=== PATIENT | male | born 1955 | race Caucasian/White ===

== ENCOUNTER 2024-09-25 10:07 | Emergency (ER) | payer MEDICARE, MEDICAID, SELFPAY ==
[2024-09-25 10:25] VITALS: BP 159/94; PULSE 91; RESP 16; TEMP 37; O2SAT 99
[2024-09-25 10:33] VITALS: PULSE 95; RESP 18; O2SAT 95; BMI 29.5
--- NOTE | 2024-09-25 10:48 | EKG_ITS ---
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
--- NOTE | 2024-09-25 10:48 | XR_ITS ---
Examination: AP chest single view Technique one AP portable upright chest single view Exam date and time: September 25, 2024 1110 hours INDICATIONS: Upper abdominal pain today FINDINGS: Normal heart size No pneumonia or pulmonary edema The osseous structures are intact IMPRESSION: No pneumonia or pulmonary edema
--- NOTE | 2024-09-25 10:52 | PD.EDNV ---
Nausea/Vomit./Diarrhea-RME/HPI General Chief complaint: Nausea/Vomiting/Diarrhea Stated complaint: NAUSEA Time Seen by Provider: 09/25/24 10:23 Arrival date/time: 09/25/24 10:07 Limitations: no limitations RME / HPI RME / HPI Narrative: 69 year old male with history of CAD s/p PCI, s/p PCTA, hypertension, diabetes, hyperlipidemia, BPH, gastroparesis x10 years presents to the ED BIBA from home for gastroparesis flare up beginning 2 days ago. Accompanied by abdominal pain located throughout. States Reglan at home usually keeps it at bay . However has taken with no improvement in the last 2 days, last took this morning. Denies fevers, chills, cough, chest pain, shortness of breath, diarrhea, or urinary symptoms. Related Data Home Medications ?Medication ?Instructions ?Recorded ?Confirmed duloxetine 60 mg capsule,delayed 60 mg PO DAILY Depression ##0 04/12/13 03/12/23 release (Cymbalta) pregabalin 200 mg capsule (Lyrica) 200 mg PO BID ##60 04/28/16 03/12/23 cilostazol 100 mg tablet 100 mg PO BID #0 tabs 01/31/17 03/12/23 metoclopramide HCl 10 mg tablet 20 mg PO BID 04/07/18 03/12/23 levothyroxine 125 mcg capsule 125 mcg PO QDAY 01/14/19 03/12/23 lovastatin 40 mg tablet 40 mg PO HS 01/14/19 03/12/23 clopidogrel 75 mg tablet 75 mg PO QDAY 02/16/20 03/12/23 tamsulosin 0.4 mg capsule 0.4 mg PO QDAY 02/16/20 03/12/23 omeprazole 40 mg capsule,delayed 40 mg PO QDAY 09/01/20 03/12/23 release oxycodone-acetaminophen 5 mg-325 1 tab PO QID PRN Pain 10/17/20 03/12/23 mg tablet insulin regular human 100 unit/mL 20 unit subcut QID 05/29/22 03/12/23 injection solution cartridge gabapentin 100 mg capsule 100 mg PO DAILY 03/12/23 03/12/23 lisinopril 2.5 mg tablet 2.5 mg PO QDAY 03/12/23 03/12/23 loratadine 10 mg tablet 10 mg PO DAILY 03/12/23 03/12/23 Allergies Allergy/AdvReac Type Severity Reaction Status Date / Time No Known Allergies Allergy Verified 02/09/21 11:00 Review of Systems Review of Systems Narrative Review of Systems: GEN: No fever, no chills, no weight loss EYES: No discharge, no visual changes, no pain HEENT: No ear pain, no congestion, no sore throat PULM: No shortness of breath, no cough, no congestion CV: No chest pain, no palpitations GI: +nausea, +vomiting, no diarrhea, +pain, no constipation : No frequency, no urgency, no dysuria MUSC/SKEL: No joint pain, no back pain SKIN: No rash NEURO: No weakness, no headache Past Medical History Past Medical History NEUROLOGIC: Positive Neurological Disorders and Peripheral Neuropathy CARDIAC: Positive Peripheral Vascular Disease, Hypercholesterolemia and Hypertension RESPIRATORY: Positive Asthma GASTROINTESTINAL: Positive Gastrointestinal Disorders and Gastroesophageal Reflux Disease MUSCULOSKELETAL: Positive Musculoskeletal Disorders, Arthritis and Carpal Tunnel Syndrome ENDOCRINE: Positive Endocrine Disorders, Diabetes Mellitus Type 2 and Hypothyroidism PSYCHO/SOCIAL: Positive Depression OTHER HISTORY: Positive Chicken Pox, Measles and Mumps Family History FAMILY HISTORY: Positive Family Cardiac Disorders and Family Cancer Surgical History SURGICAL: Positive Ear Surgery and Tonsillectomy Social History SMOKING STATUS: Current every day smoker SECOND HAND EXPOSURE: No SUBSTANCE USE: marijuana (Daily) ED Exam General Limitations: Present no limitations General appearance: Present alert and other (Holding an emesis bag) Head Head exam: Present atraumatic, normocephalic and normal inspection Eye Eye exam: Present normal appearance, PERRL and EOMI ENT ENT exam: Present normal exam, normal oropharynx and mucous membranes moist Neck Neck exam: Present normal inspection, full ROM and trachea midline Chest Chest inspection: Present normal inspection and symmetric chest wall rise Respiratory Respiratory exam: Present normal lung sounds bilaterally Cardiovascular Cardiovascular exam: Present regular rate, normal rhythm and normal heart sounds Abdominal Exam Abdominal exam: Present soft, tenderness (in all quadrants with voluntary guarding) and normal bowel sounds; Absent rebound or rigidity Extremities Exam Extremities exam: Present normal inspection and full ROM Back Exam Back exam: Present normal inspection and full ROM Neurological Exam Neurological exam: Present alert, oriented X3 and CN II-XII intact Psychiatric Psychiatric exam: Present normal affect and normal mood Skin Skin exam: Present warm, dry, intact and normal color Course Quality Measures none Orders Category Date Time 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 09/25/24 10:48 Active Continuous Pulse Oximetry STAT Care 09/25/24 10:48 Active EKG (ED ONLY) *Do not use* NOW Care 09/25/24 10:48 Completed In and Out Catheter X1 Care 09/25/24 10:48 Active Insert IV STAT Care 09/25/24 10:48 Active NPO STAT Care 09/25/24 10:48 Active EKG (ED Only) Stat Exams 09/25/24 10:48 Draft XR chest 1V portable Stat Exams 09/25/24 10:48 Completed CBC Stat Lab 09/25/24 10:55 Completed Comprehensive Metabolic Panel Stat Lab 09/25/24 10:55 Completed Lipase Stat Lab 09/25/24 10:55 Completed Magnesium Stat Lab 09/25/24 10:55 Completed HYDROmorphone INJ [Dilaudid Inj] Med 09/25/24 10:48 Discontinued 1 mg IVP Q1H PRN Metoclopramide Inj [Reglan Inj] Med 09/25/24 10:48 Discontinued 10 mg IVP X1 ONE Sodium Chloride 0.9% 1000 ml [Ns] 1,000 ml Med 09/25/24 10:48 Discontinued IV 999 mls/hr Reevaluation(s) Reevaluation #1: Patient remains clinically stable throughout the emergency department visit. We reviewed all the results, analysis, and treatment plans. Patient is amenable to discharge. Strict return precautions were outlined. Patient was discharged in stable condition. Time: 12:15 Vital Signs Vital signs: Vital Signs Temperature 98.6 F 09/25/24 10:25 Pulse Rate 91 09/25/24 10:25 Respiratory Rate 16 09/25/24 10:25 Blood Pressure 159/94 H 09/25/24 10:25 Pulse Oximetry (%) 99 09/25/24 10:25 Oxygen Delivery Method Room Air 09/25/24 10:25 Pulse ox is 99% on room air which is adequate. Nausea/Vomiting/Diarrhea MDM Narrative MDM Narrative:: Shanique Hardy am scribing for and in the presence of Dr. Castaneda. Patient data External records reviewed:: [facility] previous records (I reviewed ED visit on 03/04/2024) and EMS form Clinical information provided by:: patient and EMS Social determinants that could affect healthcare access:: none Patient has the following chronic illnesses:: CAD s/p PCI, s/p PCTA, hypertension, diabetes, hyperlipidemia, BPH, gastroparesis x10 years How is presenting disease/condition affected by chronic disease/condition?: exacerbated by Evaluation data The following diagnostics were reviewed and interpreted by me:: lab results, radiology exam(s) and EKG tracing(s) (NSR, HR 88, normal axis, no ectopy, no acute ischemia, QRS11, QTc 399 ) Lab and/or radiology exams considered but not ordered:: None Interpretation Summary: Ordering Physician: Jayy Castaneda MD Date of Service: 09/25/24 Procedure(s): XR chest 1V portable Accession Number(s): [id number] cc: Brent Bartlett MD; Danay Salas NP; Jayy Castaneda MD~ Examination: AP chest single view Technique one AP portable upright chest single view Exam date and time: September 25, 2024 1110 hours INDICATIONS: Upper abdominal pain today FINDINGS: Normal heart size No pneumonia or pulmonary edema The osseous structures are intact IMPRESSION: No pneumonia or pulmonary edema Dictated By: Brent Bartlett MD Signed By: <Electronically signed by Brent Bartlett MD in OV> 09/25/24 1142 Medications / Prescriptions Medications / Prescriptions considered but not ordered:: None Medication administrations:: Medication Administration History Discontinued Medications Hydromorphone HCl (Hydromorphone Inj 2 Mg/Ml Vial) 1 mg IVP Q1H PRN PRN Reason: abdominal pain Stop: 09/25/24 13:49 Last Admin: 09/25/24 11:25 Dose: 1 mg Documented By: Sodium Chloride (Ns) 1,000 mls @ 999 mls/hr IV .Q1H1M ONE Stop: 09/25/24 11:48 Last Infusion: 09/25/24 13:40 Dose: Infused Documented By: Admin: 09/25/24 11:26 Dose: 999 mls/hr Documented By: Metoclopramide HCl (Metoclopramide Inj 5 Mg/Ml Vial 2 Ml) 10 mg IVP X1 ONE Stop: 09/25/24 10:49 Last Admin: 09/25/24 11:26 Dose: 10 mg Documented By: See above Consultations Consultation(s) initiated? (list below): No Diagnosis Nausea Differential Diagnosis: gastroenteritis, drug-induced nausea and vomiting, dehydration and other (Gastroparesis ) Most likely diagnosis given after review of the tests above:: Gastroparesis Nausea and vomiting Admission Indicated Admission indicated?: not indicated Admission Request Was there a request for admission?: No Disposition Plan Disposition Plan: Discharge Discharge Attestation Discharge Attestation: The patient and all family members were given an opportunity to ask questions and understood the discharge instructions. Discharge instructions specifically effects, indications for sooner follow up or return to the emergency department, and the expected course of current diagnosis. Patient condition: Stable Discharge Plan Plan Patient Disposition: HOME (Self Care) Disposition Comment: Stable for discharge Patient condition on transfer: Stable Prescriptions/Referrals Prescriptions/Med Rec: No Action duloxetine [Cymbalta] 60 MG capsule,delayed release(DR/EC) 60 mg PO DAILY Qty: 0 pregabalin [Lyrica] 200 MG capsule 200 mg PO BID Qty: 60 cilostazol 100 MG tablet 100 mg PO BID Qty: 0 metoclopramide HCl 10 mg Tablet 20 mg PO BID lovastatin 40 mg Tablet 40 mg PO HS levothyroxine 125 mcg Capsule 125 mcg PO QDAY tamsulosin 0.4 mg Capsule 0.4 mg PO QDAY clopidogrel 75 mg Tablet 75 mg PO QDAY omeprazole 40 mg capsule,delayed release(DR/EC) 40 mg PO QDAY oxycodone-acetaminophen 5-325 mg Tablet 1 tab PO QID PRN (Reason: Pain) insulin regular human 100 unit/mL Cartridge 20 unit SUBCUT QID Rx Instructions: 20 UNITS SUBQ FOR TIME A DAY WITH PUMP loratadine 10 mg Tablet 10 mg PO DAILY lisinopril 2.5 mg Tablet 2.5 mg PO QDAY gabapentin 100 mg capsule 100 mg PO DAILY Patient Comments: TAKE ONE CAPSULE BY MOUTH TWICE DAILY Rx Instructions: per pt last visit was ordered once a day Referrals: Danay Salas NP [Primary Care Provider] - In 1 week Problem List Clinical Impression: Gastroparesis, Nausea & vomiting Patient/Caregiver Discharge Instructions Discharge Activity: activity as tolerated Diet Instructions: A gastroparesis diet focuses on eating small, frequent meals of soft, dewr-pp-pmyohe foods. The goal is to find foods that provide adequate calories and nutrition while managing symptoms. Here are some tips for a gastroparesis diet: Eat smaller meals: Try to eat 4?8 small meals and snacks throughout the day. Eat soft foods: Choose soft-textured foods like cooked vegetables, fruits, and dairy. Avoid high-fiber foods: Limit foods high in fiber, like whole grains, nuts, seeds, beans, and lentils. Avoid high-fat foods: Limit fried or greasy foods. Avoid raw vegetables: Cook vegetables until they are soft. Drink liquids: Drink plenty of water or liquids with meals and snacks, like low-fat broths, clear soups, or sports drinks. Chew well: Chew foods well, especially meats. Sit up: Sit up while eating and stay upright for at least an hour after you finish. Avoid certain foods and drinks: Avoid peppermint, chocolate, caffeine, and drinks like pop. Consider supplements: If you have trouble eating enough from all four food groups, a supplement may help. Education Materials: Gastroparesis, ED Diet for Vomiting or ... Additional Instructions: Please return to the emergency department for any worsening or any further medical problems You should follow-up with your primary care doctor within the next several days Please see the gastroparesis diet instructions above Print Language: Maltese Stand Alone Forms: Amy Award Info., Patient Portal Info Letter
[2024-09-25 11:11] LABS: Basophils % (Auto) 0 % (0-2.5); Eosinophils % (Auto) 0 % (0-10); Hematocrit 41.4 % (41.0-53.0); Hemoglobin 13.7 g/dL (13.5-16.0); Immature Granulocytes % (Auto) 0 % (0-0); Immature Granulocytes Auto 0.05 Thou/mm3 (0.00-0.00); Lymphocytes # (Auto) 0.4 Thou/mm3 (1.0-4.8); Lymphocytes % (Auto) 2 % (10-50); Mean Corpuscular HGB Conc 33.1 g/dl (31.0-37.0); Mean Corpuscular Hemoglobin 30.7 pg (25.0-35.0); Mean Corpuscular Volume 93 fL (80-100); Monocytes # (Auto) 0.9 Thou/mm3 (0.0-0.8); Monocytes % (Auto) 5 % (0-12); Neutrophils # (Auto) 16.1 Thou/mm3 (1.8-7.7); Neutrophils % (Auto) 92 % (37-80); Nucleated Red Blood Cell % 0 /100 WBC (0); Platelet Count 239 Thou/mm3 (140-440); RDW Standard Deviation 48.2 fL (35.1-43.9); Red Blood Count 4.46 Miln/mm3 (4.50-5.90); White Blood Count 17.5 Thou/mm3 (3.8-10.6)
[2024-09-25] MEDS: HYDROmorphone INJ 2 MG/ML VIAL 1 MG IVP (11:25)
[2024-09-25] MEDS: METOCLOPRAMIDE INJ 5 MG/ML VIAL 2 ML 10 MG IVP (11:26)
[2024-09-25] MEDS: SODIUM CHLORIDE 0.9% 1000 ML 1,000 ML 999 ML IV (11:26)
[2024-09-25 11:28] LABS: Alanine Aminotransferase 42 U/L (10-49); Albumin, Serum 4.7 gm/dL (3.4-4.8); Alkaline Phosphatase 92 U/L (46-116); Anion Gap 17 (7-16); Aspartate Amino Transferase 28 U/L (0-34); BUN/Creatinine Ratio 23 Ratio (12-20); Bilirubin,Total 0.6 mg/dL (0.3-1.2); Blood Urea Nitrogen 21 mg/dL (9-23); Calcium 10.3 mg/dL (8.3-10.6); Calcium (Corrected) 10.3 mg/dL (8.5-10.1); Carbon Dioxide 19.9 mMol/L (20.0-31.0); Chloride 97 mMol/L (98-107); Creatinine (Component) 0.9 mg/dL (0.6-1.3); Globulin 2.3 gm/dL (2.3-3.5); Glucose 199 mg/dL (74-106); Lipase 22 U/L (12-53); Magnesium 2.3 mg/dL (1.6-2.6); Osmolality,Calculated 277 (275-295); Potassium 3.3 mMol/L (3.4-5.1); Sodium 134 mMol/L (136-145); eGFR > 60 See Note
[2024-09-25 12:02] VITALS: BP 122/70; PULSE 85; RESP 19; TEMP 37.2; O2SAT 97
[2024-09-25 13:45] VITALS: BP 114/70; PULSE 88; RESP 18; TEMP 36.6; O2SAT 96
== END 2024-09-25 13:46 | disposition home or self-care (01) ==
PROVIDERS: Emergency Provider Emergency Medicine; PCP Nurse Practitioner Family
DX: E11.43 Type 2 diabetes mellitus with diabetic autonomic (poly)neuropathy (principal); K31.84 Gastroparesis; I45.89 Other specified conduction disorders; Z79.4 Long term (current) use of insulin
CPT/HCPCS: 36415; 71045; 80053; 83690; 83735; 85025; 93005; 96361; 96374; 96375; 99284; J2765; J3490; J7030

== ENCOUNTER 2024-09-26 00:15 | Inpatient (IN) | payer MEDICARE, MEDICAID, SELFPAY ==
[2024-09-26] VITALS (14 sets, daily range): BP systolic 123–168; BP diastolic 80–89; PULSE 65–90; RESP 13–96; TEMP 36.1–37; O2SAT 94–99; BMI 25.0; BMI 24.0
--- NOTE | 2024-09-26 00:32 | EKG_ITS ---
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
--- NOTE | 2024-09-26 00:39 | EDRME_ITS ---
Rapid Medical Screening Exam [facility] Arrival date/time: 09/26/24 00:15 69M with history of DM (w/ DKA), HTN, and hypothyroidism presents to ED with worsening N/V and generalized weakness. Patient was here yesterday for this. Chief Complaint: Abdominal Pain Vital signs: Vital Signs Temperature 98.5 F 09/26/24 00:32 Pulse Rate 87 09/26/24 00:32 Respiratory Rate 18 09/26/24 00:32 Blood Pressure 129/88 H 09/26/24 00:32 Pulse Oximetry (%) 99 09/26/24 00:32 Oxygen Delivery Method Room Air 09/26/24 00:32
[2024-09-26] MEDS: DiphenhydrAMINE INJ 50 MG/ML VIAL 12.5 MG IVP (00:49)
[2024-09-26] MEDS: METOCLOPRAMIDE INJ 5 MG/ML VIAL 2 ML 10 MG IVP ×3 (00:50→14:23)
[2024-09-26 01:08] LABS: Base Excess, Venous -2 (-3-3); O2 Saturation, Venous 90 % (96-97); PCO2, Venous 24 mmHg (36-56); PO2, Venous 55 mmHg (15-58)
[2024-09-26 01:09] LABS: Basophils % (Auto) 0 % (0-2.5); Eosinophils # (Auto) 0.3 Thou/mm3 (0.0-0.5); Eosinophils % (Auto) 2 % (0-10); Hematocrit 43.8 % (41.0-53.0); Hemoglobin 14.6 g/dL (13.5-16.0); Immature Granulocytes % (Auto) 0 % (0-0); Immature Granulocytes Auto 0.03 Thou/mm3 (0.00-0.00); Lactate (Lactic Acid) 1.4 mMol/L (0.4-2.0); Lymphocytes # (Auto) 0.6 Thou/mm3 (1.0-4.8); Lymphocytes % (Auto) 5 % (10-50); Mean Corpuscular HGB Conc 33.3 g/dl (31.0-37.0); Mean Corpuscular Hemoglobin 30.7 pg (25.0-35.0); Mean Corpuscular Volume 92 fL (80-100); Monocytes # (Auto) 1.1 Thou/mm3 (0.0-0.8); Monocytes % (Auto) 9 % (0-12); Neutrophils # (Auto) 10.2 Thou/mm3 (1.8-7.7); Neutrophils % (Auto) 83 % (37-80); Nucleated Red Blood Cell % 0 /100 WBC (0); Platelet Count 263 Thou/mm3 (140-440); RDW Standard Deviation 46.8 fL (35.1-43.9); Red Blood Count 4.76 Miln/mm3 (4.50-5.90); White Blood Count 12.2 Thou/mm3 (3.8-10.6)
[2024-09-26 01:45] LABS: Alanine Aminotransferase 38 U/L (10-49); Albumin, Serum 4.9 gm/dL (3.4-4.8); Alkaline Phosphatase 95 U/L (46-116); Anion Gap 15 (7-16); Aspartate Amino Transferase 30 U/L (0-34); BUN/Creatinine Ratio 23 Ratio (12-20); Bilirubin,Total 0.8 mg/dL (0.3-1.2); Blood Urea Nitrogen 18 mg/dL (9-23); Calcium 9.9 mg/dL (8.3-10.6); Calcium (Corrected) 9.9 mg/dL (8.5-10.1); Carbon Dioxide 21.8 mMol/L (20.0-31.0); Chloride 98 mMol/L (98-107); Creatinine (Component) 0.8 mg/dL (0.6-1.3); Estimated Creatinine Clearance 77.5 mL/min (>60); Globulin 2.5 gm/dL (2.3-3.5); Glucose 154 mg/dL (74-106); Lipase 24 U/L (12-53); Osmolality,Calculated 275 (275-295); Potassium 3.5 mMol/L (3.4-5.1); Procalcitonin 8.76 ng/ml (0.0-0.49); Sodium 135 mMol/L (136-145); Total Protein 7.4 gm/dL (5.7-8.2); eGFR > 60 See Note
[2024-09-26 02:03] LABS: Beta Hydroxybutyrate 4.1 mmol/L (<0.6)
--- NOTE | 2024-09-26 04:42 | PD.EDABDPN ---
ED Abdominal Pain RME/HPI General Chief Complaint: Abdominal Pain Stated complaint: ABDOMINAL PAIN Time seen by provider: 09/26/24 06:13 Arrival date/time: 09/26/24 00:15 Limitations: no limitations RME / HPI RME / HPI narrative: 09/26/24 00:15 69M with history of DM (w/ DKA), HTN, and hypothyroidism presents to ED with worsening N/V and generalized weakness. Patient was here yesterday for this. ---- Dr. Hawthorne's Main ED Evaluation: 69-year-old male coming in with gastroparesis, hypertension, GERD, high cholesterol, taking insulin coming in with 3 days of nausea, vomiting, and the inability to tolerate liquids. Positive subjective fevers x 1 day. Nausea vomiting x 10 times. Positive cough. Patient states the vomit is nonbloody nonbilious. Patient stated he was seen earlier today in the emergency department for gastroparesis and was feeling fine until he went home and had some soup. He states he's had mid-abdominal pain since. No radiation or migration. He is not on any narcotics. He denies any diarrhea, UTI symptoms or any other associated symptoms. No known allergies. Related Data Home Medications ?Medication ?Instructions ?Recorded ?Confirmed duloxetine 60 mg capsule,delayed 60 mg PO DAILY Depression ##0 04/12/13 09/26/24 release (Cymbalta) pregabalin 200 mg capsule (Lyrica) 200 mg PO BID ##60 04/28/16 09/26/24 cilostazol 100 mg tablet 100 mg PO BID #0 tabs 01/31/17 09/26/24 metoclopramide HCl 10 mg tablet 10 mg PO [facility]HS 04/07/18 09/26/24 levothyroxine 125 mcg capsule 125 mcg PO QDAY 01/14/19 09/26/24 lovastatin 40 mg tablet 40 mg PO HS 01/14/19 09/26/24 clopidogrel 75 mg tablet 75 mg PO QDAY 02/16/20 09/26/24 tamsulosin 0.4 mg capsule 0.4 mg PO QDAY 02/16/20 09/26/24 omeprazole 40 mg capsule,delayed 40 mg PO QDAY 09/01/20 09/26/24 release insulin regular human 100 unit/mL 20 unit subcut QID 05/29/22 03/12/23 injection solution cartridge dapagliflozin propanediol 5 mg 5 mg PO QAM 09/26/24 09/26/24 tablet (Farxiga) ergocalciferol (vitamin D2) 1,250 1,250 mcg PO QWEEK 09/26/24 09/26/24 mcg (50,000 unit) capsule (Vitamin D2) ferrous sulfate 325 mg (65 mg 325 mg PO QDAY 09/26/24 09/26/24 iron) tablet linaclotide 290 mcg capsule 290 mcg PO AC 09/26/24 09/26/24 (Linzess) metformin 500 mg tablet 500 mg PO BIDWMEAL 09/26/24 09/26/24 oxycodone-acetaminophen 7.5 mg-325 1 tab PO QID PRN Pain 09/26/24 09/26/24 mg tablet Allergies Allergy/AdvReac Type Severity Reaction Status Date / Time No Known Allergies Allergy Verified 09/26/24 00:25 Review of Systems Review of Systems Systems Reviewed: All systems reviewed, normal except as documented Past Medical History Past Medical History NEUROLOGIC: Positive Neurological Disorders and Peripheral Neuropathy; Negative Seizures CARDIAC: Positive Peripheral Vascular Disease, Hypercholesterolemia and Hypertension; Negative Cardiac Disorders or Congestive Heart Failure RESPIRATORY: Positive Asthma; Negative Chronic Obstructive Pulmonary Disease (COPD) or Sleep Apnea GASTROINTESTINAL: Positive Gastrointestinal Disorders and Gastroesophageal Reflux Disease GENITOURINARY: Negative Genitourinary Disorders or Renal Disease MUSCULOSKELETAL: Positive Musculoskeletal Disorders, Arthritis and Carpal Tunnel Syndrome ENDOCRINE: Positive Endocrine Disorders, Diabetes Mellitus Type 2 and Hypothyroidism; Negative Diabetes Mellitus Type 1 HEMATOLOGIC: Negative Sickle Cell Disease PSYCHO/SOCIAL: Positive Depression OTHER HISTORY: Positive Chicken Pox, Measles and Mumps; Negative Blood Transfusions, Blood Transfusion Reaction or Anesthesia Reactions Family History FAMILY HISTORY: Positive Family Cardiac Disorders and Family Cancer Surgical History SURGICAL: Positive Ear Surgery and Tonsillectomy Social History SMOKING STATUS: Never smoker SECOND HAND EXPOSURE: No SUBSTANCE USE: marijuana (Daily) ED Exam General Limitations: Present no limitations General appearance: Present alert and in no apparent distress Head Head exam: Present atraumatic Eye Eye exam: Present normal appearance, PERRL and EOMI ENT ENT exam: Present normal exam, normal oropharynx and mucous membranes moist Neck Neck exam: Present normal inspection, full ROM and trachea midline Chest Chest inspection: Present normal inspection and symmetric chest wall rise Respiratory Respiratory exam: Present normal lung sounds bilaterally Cardiovascular Cardiovascular exam: Present regular rate, normal rhythm and normal heart sounds Abdominal Exam Abdominal exam: Present soft, normal bowel sounds and hernia (small umbilical, reducible); Absent rebound Abdominal tenderness: Present epigastrium Extremities Exam Extremities exam: Present normal inspection and full ROM Back Exam Back exam: Present normal inspection and full ROM; Absent CVA tenderness (R) or CVA tenderness (L) Neurological Exam Neurological exam: Present alert, oriented X3 and CN II-XII intact Psychiatric Psychiatric exam: Present normal affect and normal mood Skin Skin exam: Present warm, dry, intact, pallor and other (decreased skin turgor) Course Course Course Narrative: 0600: Care signed out to Dr. Castaneda (emergency physician). Past medical, surgical, social and family history reviewed. Vitals and home medications reviewed. Results and treatment plan discussed. They will assume the care of the patient at this time and will follow the patient, pending CT. Quality Measures none Orders Category Date Time Status Admit to Inpatient Status Routine Admission 09/26/24 08:39 Active Patient Condition Routine Admission 09/26/24 08:39 Ordered Bedside Blood Glucose Q6HR Care 09/26/24 08:[address] Screening NOW Care 09/26/24 05:39 Completed EKG (ED ONLY) *Do not use* NOW Care 09/26/24 00:32 Completed Insert IV NOW Care 09/26/24 00:38 Active Miscellaneous Nursing Order NOW Care 09/26/24 08:44 Active Miscellaneous Nursing Order NOW Care 09/26/24 08:44 Active Miscellaneous Nursing Order NOW Care 09/26/24 08:56 Active NPO NOW Care 09/26/24 08:40 Active Notify provider NEEDED Care 09/26/24 08:39 Active Obtain weight daily Care 09/26/24 08:40 Active Strict Intake and Output Routine Care 09/26/24 08:40 Ordered Diet NPO (NOW) Diet 09/26/24 08:[address] abdomen pelvis w con Stat Exams 09/26/24 05:39 Completed EKG (ED Only) Stat Exams 09/26/24 00:32 Draft A1C [Glycohemoglobin w (eAG)] Routine Lab 09/26/24 04:58 Completed Beta Hydroxybutyrate Stat Lab 09/26/24 01:02 Completed CBC AM DRAW Lab 09/27/24 05:00 Ordered CBC AM DRAW Lab 09/28/24 05:00 Ordered CBC AM DRAW Lab 09/29/24 05:00 Ordered CBC AM DRAW Lab 09/30/24 05:00 Ordered CBC Routine Lab 09/26/24 04:58 Completed CBC Stat Lab 09/26/24 01:02 Completed CMP [Comprehensive Metabolic Panel] Routine Lab 09/26/24 04:58 Completed CMP [Comprehensive Metabolic Panel] Stat Lab 09/26/24 01:02 Completed Comprehensive Metabolic Panel AM DRAW Lab 09/27/24 05:00 Ordered Comprehensive Metabolic Panel AM DRAW Lab 09/28/24 05:00 Ordered Comprehensive Metabolic Panel AM DRAW Lab 09/29/24 05:00 Ordered Lactate (Lactic Acid) Stat Lab 09/26/24 01:02 Completed Lipase Stat Lab 09/26/24 01:02 Completed Lipid Panel AM DRAW Lab 09/27/24 05:00 Ordered Magnesium AM DRAW Lab 09/27/24 05:00 Ordered Magnesium AM DRAW Lab 09/28/24 05:00 Ordered Magnesium AM DRAW Lab 09/29/24 05:00 Ordered Magnesium Routine Lab 09/26/24 04:58 Completed Phosphorous AM DRAW Lab 09/27/24 05:00 Ordered Phosphorous AM DRAW Lab 09/28/24 05:00 Ordered Phosphorous AM DRAW Lab 09/29/24 05:00 Ordered Phosphorous Routine Lab 09/27/24 08:43 Ordered Procalcitonin Stat Lab 09/26/24 01:02 Completed Thyroid Stimulating Hormone AM DRAW Lab 09/27/24 05:00 Ordered VBG [Venous Blood Gas] Stat Lab 09/26/24 01:02 Completed VBG [Venous Blood Gas] Stat Lab 09/26/24 04:58 Completed Acetaminophen Tab [Tylenol Tab] Med 09/26/24 08:38 Active 650 mg PO Q6H PRN Acetaminophen Tab [Tylenol Tab] Med 09/26/24 08:38 Active 650 mg PO Q6H PRN Clopidogrel [Plavix] Med 09/26/24 09:00 Active 75 mg PO QDAY DULoxetine HCL [Cymbalta] Med 09/27/24 09:00 Discontinued 100 mg PO QDAY DULoxetine HCL [Cymbalta] Med 09/27/24 09:00 Active 60 mg PO QDAY Dextrose 50% Syr [D50w Syringe Abboject] Med 09/26/24 08:44 Active 25 ml IV Q15MIN PRN Dextrose 50% Syr [D50w Syringe Abboject] Med 09/26/24 08:44 Active 50 ml IV Q15MIN PRN DiphenhydrAMINE INJ [Benadryl Inj] Med 09/26/24 00:38 Discontinued 12.5 mg IVP X1 ONE Glucagon Inj Med 09/26/24 08:44 Active 1 mg IM Q15MIN PRN HYDROmorphone INJ [Dilaudid Inj] Med 09/26/24 04:55 Discontinued 0.5 mg IVP X1 ONE Heparin Inj Med 09/26/24 08:45 Active 5,000 unit SC Q12H INSULIN LISPRO (AdmeLOG) [HumaLOG] Med 09/26/24 08:45 Discontinued See Protocol SC Q6HR Levothyroxine Sodium [Synthroid] Med 09/27/24 06:00 Active 125 mcg PO ACBR Metoclopramide Inj [Reglan Inj] Med 09/26/24 08:38 Discontinued 10 mg IVP Q6HR PRN Metoclopramide Inj [Reglan Inj] Med 09/26/24 00:38 Discontinued 10 mg IVP X1 ONE Metoclopramide Inj [Reglan Inj] Med 09/26/24 04:55 Discontinued 10 mg IVP X1 ONE Morphine Inj Med 09/26/24 08:38 Active 1 mg IVP Q4H PRN Ondansetron Inj [Zofran Inj] Med 09/26/24 08:55 Active 4 mg IV Q8HR PRN POTASSIUM CHL 10 mEq IVPB [Kcl Ivpb] Med 09/26/24 07:18 Discontinued 10 meq in 100 ml IV Q1H POTASSIUM CHL 10 mEq IVPB [Kcl Ivpb] Med 09/26/24 08:47 Discontinued 10 meq in 100 ml IV Q1H Pantoprazole Inj [Protonix Inj] Med 09/26/24 09:00 Active 40 mg IVP QDAY Polyeth Glycol/Propylene Glyco [Miralax Pkt] Med 09/27/24 09:00 Active 17 gm PO QDAY Polyeth Glycol/Propylene Glyco [Miralax Pkt] Med 09/26/24 08:50 Discontinued 17 gm PO X1 ONE Pregabalin [Lyrica] Med 09/26/24 09:00 Discontinued 200 mg PO BID Ringers Lactated 1000 ml [Lactated Ringers] 1,000 ml Med 09/26/24 08:46 Discontinued IV 999 mls/hr Senna [Senokot] Med 09/26/24 08:38 Active 1 tab PO BID PRN Sodium Chloride 0.9% 1000 ml [Ns] 1,000 ml Med 09/26/24 05:00 Discontinued IV 100 mls/hr Sodium Chloride 0.9% 1000 ml [Ns] 1,000 ml Med 09/26/24 08:54 Discontinued IV 150 mls/hr Tamsulosin HCl [Flomax] Med 09/26/24 21:00 Active 0.4 mg PO HS cilostazoL [Pletal] Med 09/26/24 09:00 Active 100 mg PO BID oxyCODONE/APAP 5/325 [Percocet 5/325] Med 09/26/24 08:38 Active 1 tab PO Q6H PRN Code Status Routine Oth 09/26/24 08:38 Ordered Oxygen Delivery PRN RT 09/26/24 08:38 Active Vital Signs Vital signs: Vital Signs Temperature 98.5 F 09/26/24 00:32 Pulse Rate 87 09/26/24 00:32 Respiratory Rate 18 09/26/24 00:32 Blood Pressure 129/88 H 09/26/24 00:32 Pulse Oximetry (%) 99 09/26/24 00:32 Oxygen Delivery Method Room Air 09/26/24 00:32 Pulse ox is 99% on room air, which is normal according to my interpretation. Abdominal Pain MDM MDM Narrative MDM Narrative:: Patient was discharged yesterday morning after being given Reglan. Patient's labs today show his Procalcitonin is elevated. No evidence of DKA, but his beta hydroxybutyrate is elevated. CT scan ordered to r/o obstruction or occult infection. Will hydrate the patient with IV fluids and keep him NPO. Likely to be admitted. Patient data External records reviewed:: [facility] previous records (Per chart review, patient was seen here yesterday for gastroparesis; CXR done yesterday did not show any pneumonia.) Clinical information provided by:: patient Social determinants that could affect healthcare access:: none Patient has the following chronic illnesses:: peripheral neuropathy, HTN, HLD, asthma, DMII, GERD, arthritis, BPH How is presenting disease/condition affected by chronic disease/condition?: exacerbated by Evaluation data The following diagnostics were reviewed and interpreted by me:: lab results, radiology exam(s) (CT pending.) and EKG tracing(s) Lab and/or radiology exams considered but not ordered:: none Interpretation Summary: WBC count is elevated at 12.2 (but improved compared to yesterday when it was 17.5), Glucose is 154, Lactic Acid is normal, Procalcitonin is elevated at 8.76, Beta Hydroxybutyrate is elevated at 4.1, according to my interpretation. EKG done at 0056, sinus tachycardia, rate of 106, CT interval: 116, nonspecific ST-T wave changes in aVL, no ST elevations or depressions, normal intervals, QTc: 403, no STEMI, according to my interpretation. Medications / Prescriptions Medications or Prescriptions considered but not ordered:: none Medication administrations:: Medication Administration History Acetaminophen (Acetaminophen 325 Mg Tablet) 650 mg PO Q6H PRN PRN Reason: Fever >100.4 or pain Stop: 10/26/24 08:37 Acetaminophen (Acetaminophen 325 Mg Tablet) 650 mg PO Q6H PRN PRN Reason: PAIN SCALE 1-3 (mild Stop: 10/26/24 08:37 Cilostazol (Cilostazol 50 Mg Tablet) 100 mg PO BID COUNT INCLUDES THE [facility] Stop: 10/26/24 08:59 Last Admin: 09/26/24 10:31 Dose: 100 mg Documented By: HEIDI Comments: WAS WAITING ON PHARM Clopidogrel Bisulfate (Clopidogrel Bisulfate 75 Mg Tablet) 75 mg PO QDAY COUNT INCLUDES THE [facility] Stop: 10/26/24 08:59 Last Admin: 09/26/24 09:17 Dose: 75 mg Documented By: HEIDI Dextrose (Dextrose 50%-Water Inj 50 Ml Syringe) 25 ml IV Q15MIN PRN PRN Reason: BG 50-70 responsive npo pt Stop: 10/26/24 08:43 Dextrose (Dextrose 50%-Water Inj 50 Ml Syringe) 50 ml IV Q15MIN PRN PRN Reason: BG <50 OR BG <70 & pt unresponsive Stop: 10/26/24 08:43 Duloxetine HCl (Duloxetine Hcl 30 Mg Capsule) 60 mg PO QDAY COUNT INCLUDES THE [facility] Stop: 10/27/24 08:59 Glucagon (Glucagon Inj 1 Mg Vial) 1 mg IM Q15MIN PRN PRN Reason: BG <70, and no IV access Heparin Sodium (Porcine) (Heparin Sod Inj 5000 Unit/Ml Vial) 5,000 unit SC Q12H COUNT INCLUDES THE [facility] Stop: 10/10/24 08:44 Last Admin: 09/26/24 09:16 Dose: 5,000 unit Documented By: HEIDI Co-signed By: ALBA Dextrose/Sodium Chloride (D5-Ns) 1,000 mls @ 125 mls/hr IV .Q8H COUNT INCLUDES THE [facility] Stop: 09/27/24 13:59 Last Admin: 09/26/24 14:24 Dose: 125 mls/hr Documented By: DAVION Potassium Phosphate (Pot Phos 15 Mmol In Ns 250 Ml) 15 mmol in 250 mls @ 62.5 mls/hr IV X1 ONE Stop: 09/26/24 21:28 Last Admin: 09/26/24 17:52 Dose: 62.5 mls/hr Documented By: DAVION Levothyroxine Sodium (Levothyroxine Sodium 125 Mcg Tablet) 125 mcg PO ACBR COUNT INCLUDES THE [facility] Stop: 10/27/24 05:59 Metoclopramide HCl (Metoclopramide Inj 5 Mg/Ml Vial 2 Ml) 10 mg IVP TIDWM COUNT INCLUDES THE [facility]; Protocol Stop: 10/26/24 13:59 Last Admin: 09/26/24 17:46 Dose: Not Given Documented By: DAVION Non-Admin Reason: Wrong Time Admin: 09/26/24 14:23 Dose: 10 mg Documented By: DAVION Morphine Sulfate (Morphine Sulf Inj 10 Mg/Ml Vial) 1 mg IVP Q4H PRN PRN Reason: PAIN SCALE 7-10 (Severe Stop: 10/01/24 08:37 Last Admin: 09/26/24 14:37 Dose: 1 mg Documented By: DAVION Ondansetron HCl (Ondansetron Inj 2 Mg/Ml Inj 2 Ml) 4 mg IV Q8HR PRN; Protocol PRN Reason: NAUSEA OR VOMITING Stop: 10/26/24 08:54 Oxycodone/Acetaminophen (Oxycodone/Apap 5/325 Tablet) 1 tab PO Q6H PRN PRN Reason: PAIN SCALE 4-6 (Moderate Stop: 10/01/24 08:37 Last Admin: 09/26/24 09:04 Dose: 1 tab Documented By: HEIDI Pantoprazole Sodium (Pantoprazole Inj 40 Mg Vial) 40 mg IVP QDAY COUNT INCLUDES THE [facility] Stop: 10/26/24 08:59 Last Admin: 09/26/24 09:16 Dose: 40 mg Documented By: HEIDI Polyethylene Glycol (Polyethylene Glycol 17 Gm Packet) 17 gm PO QDAY BUBBA Stop: 10/27/24 08:59 Pregabalin (Pregabalin 50 Mg Capsule) 200 mg PO BID BUBBA Stop: 10/26/24 08:59 Sennosides (Senna Tablet) 1 tab PO BID PRN; Protocol PRN Reason: CONSTIPATION Stop: 10/26/24 08:37 Tamsulosin HCl (Tamsulosin Hcl 0.4 Mg Capsule) 0.4 mg PO HS BUBBA Stop: 10/26/24 20:59 Discontinued Medications Diphenhydramine HCl (Diphenhydramine Inj 50 Mg/Ml Vial) 12.5 mg IVP X1 ONE Stop: 09/26/24 00:39 Last Admin: 09/26/24 00:49 Dose: 12.5 mg Documented By: GREGORY Duloxetine HCl (Duloxetine Hcl 30 Mg Capsule) 100 mg PO QDAY BUBBA Stop: 10/27/24 08:59 Hydromorphone HCl (Hydromorphone Inj 2 Mg/Ml Vial) 0.5 mg IVP X1 ONE Stop: 09/26/24 04:56 Last Admin: 09/26/24 05:25 Dose: 0.5 mg Documented By: KANA Sodium Chloride (Ns) 1,000 mls @ 100 mls/hr IV .Q10H BUBBA Stop: 09/26/24 14:59 Last Infusion: 09/26/24 12:30 Dose: Infused Documented By: Admin: 09/26/24 05:24 Dose: 100 mls/hr Documented By: KANA Potassium Chloride (Kcl Ivpb) 10 meq in 100 mls @ 100 mls/hr IV Q1H BUBBA Stop: 09/26/24 09:17 Last Infusion: 09/26/24 12:30 Dose: Infused Documented By: Admin: 09/26/24 09:05 Dose: 100 mls/hr Documented By: Infusion: 09/26/24 08:56 Dose: Infused Documented By: Admin: 09/26/24 07:56 Dose: 100 mls/hr Documented By: HEIDI Lactated Ringer's (Lactated Ringers) 1,000 mls @ 999 mls/hr IV .Q1H1M ONE Stop: 09/26/24 09:46 Last Admin: 09/26/24 12:22 Dose: Not Given Documented By: HEIDI Non-Admin Reason: Cancelled by Provider Potassium Chloride (Kcl Ivpb) 10 meq in 100 mls @ 100 mls/hr IV Q1H BUBBA Stop: 09/26/24 10:46 Last Admin: 09/26/24 12:21 Dose: 100 mls/hr Documented By: Infusion: 09/26/24 11:52 Dose: Infused Documented By: Admin: 09/26/24 10:52 Dose: 100 mls/hr Documented By: HEIDI Sodium Chloride (Ns) 1,000 mls @ 150 mls/hr IV .Q6H40M BUBBA Stop: 09/26/24 15:33 Last Admin: 09/26/24 14:17 Dose: Not Given Documented By: DAVION Non-Admin Reason: Discontinued Lactated Ringer's (Lactated Ringers) 1,000 mls @ 999 mls/hr IV .Q1H1M ONE Stop: 09/26/24 10:04 Last Admin: 09/26/24 12:23 Dose: Not Given Documented By: HEIDI Non-Admin Reason: Cancelled by Provider Sodium Chloride (Ns) 1,000 mls @ 999 mls/hr IV .Q1H1M ONE Stop: 09/26/24 11:50 Last Infusion: 09/26/24 12:30 Dose: Infused Documented By: Admin: 09/26/24 10:55 Dose: 999 mls/hr Documented By: HEIDI Sodium Chloride (Ns) 1,000 mls @ 999 mls/hr IV .Q1H1M ONE Stop: 09/26/24 11:50 Last Admin: 09/26/24 12:21 Dose: 999 mls/hr Documented By: HEIDI Magnesium Sulfate/Dextrose (Magnesium Sulfate Ivpb) 1 gm in 100 mls @ 100 mls/hr IV X1 ONE Stop: 09/26/24 17:53 Last Admin: 09/26/24 17:52 Dose: 100 mls/hr Documented By: DAVION Insulin Human Lispro (Insulin Lispro (Admelog) 1 Unit/0.01 Ml Unit) 0 unit SC Q6HR BUBBA; Protocol Stop: 10/26/24 08:44 Last Admin: 09/26/24 09:16 Dose: 2 unit Documented By: HEIDI Co-signed By: ALBA Metoclopramide HCl (Metoclopramide Inj 5 Mg/Ml Vial 2 Ml) 10 mg IVP X1 ONE; Protocol Stop: 09/26/24 00:39 Last Admin: 09/26/24 00:50 Dose: 10 mg Documented By: KG Metoclopramide HCl (Metoclopramide Inj 5 Mg/Ml Vial 2 Ml) 10 mg IVP X1 ONE; Protocol Stop: 09/26/24 04:56 Last Admin: 09/26/24 05:24 Dose: 10 mg Documented By: KD Metoclopramide HCl (Metoclopramide Inj 5 Mg/Ml Vial 2 Ml) 10 mg IVP Q6HR PRN; Protocol PRN Reason: NAUSEA OR VOMITING Stop: 10/26/24 08:37 Polyethylene Glycol (Polyethylene Glycol 17 Gm Packet) 17 gm PO X1 ONE Stop: 09/26/24 08:51 Last Admin: 09/26/24 10:32 Dose: 17 gm Documented By: HEIDI Potassium Chloride (Potassium Chloride 20 Meq Tabcr) 20 meq PO X1 ONE Stop: 09/26/24 17:10 Last Admin: 09/26/24 17:52 Dose: 20 meq Documented By: DAVION Pregabalin (Pregabalin 50 Mg Capsule) 200 mg PO BID COUNT INCLUDES THE [facility] Stop: 10/26/24 08:59 Last Admin: 09/26/24 10:35 Dose: Not Given Documented By: HEIDI Non-Admin Reason: Medication Not Available Pregabalin (Pregabalin 25 Mg Capsule) 200 mg PO BID COUNT INCLUDES THE [facility] Stop: 10/26/24 08:59 Last Admin: 09/26/24 10:31 Dose: 200 mg Documented By: HEIDI Comments: WAS WAITING ON PHARM see above Consultations Consultation(s) initiated? (list below): No Diagnosis Differential diagnosis abdominal pain: small bowel obstruction and other (occult infection, ileus, ischemia, hyponatremia) Most likely diagnosis given after review of the tests above:: final dx pending at signout Admission Indicated Admission indicated?: not indicated Admission Request Was there a request for admission?: No Disposition Plan Disposition Plan: other (specify) (Signed out to Dr. Castaneda at [address] Discharge Plan Plan Patient Disposition: Admit Acute Care w/in Hospital Disposition Comment: Stable at signout Patient condition on transfer: Stable Problem List Clinical Impression: Gastroparesis
[2024-09-26 05:12] LABS: Base Excess, Venous -3 (-3-3); O2 Saturation, Venous 81 % (96-97); PCO2, Venous 33 mmHg (36-56); PO2, Venous 47 mmHg (15-58); pH, Venous 7.41 (7.33-7.66)
[2024-09-26] MEDS: SODIUM CHLORIDE 0.9% 1000 ML 1,000 ML 100 ML IV (05:24)
[2024-09-26] MEDS: HYDROmorphone INJ 2 MG/ML VIAL 0.5 MG IVP (05:25)
--- NOTE | 2024-09-26 05:39 | XR_ITS ---
Examination: CT abdomen with intravenous contrast CT pelvis with intravenous contrast 2-D coronal reconstructions 2-D sagittal reconstructions Date and time of exam:September 26, 2024 0716 hrs. Comparison May 30, 2022 Indications: Onset abdominal pain today, diagnosis gastroparesis. History of abdominal aortic aneurysm post aorto iliac stents CTDI: vol (mGy) 7.66 DLP: (mGycm) 158 Technique: Multiple axial sections of the abdomen and pelvis have been obtained. 64 slice high-resolution scanner used. 3 mm axial sections have been obtained, post intravenous injection Isovue 370 2-D sagittal, coronal reconstructions obtained. Low dose protocols were performed. One or more of the following dose reduction techniques were used; automated exposure control, adjustment of the mA and/or KV according to patient size, use of iterative reconstruction technique. Findings: Minimal pericardial effusion 3 mm Diffuse fatty infiltration throughout the liver no focal liver or splenic lesions Contracted gallbladder Gastric mucosa is prominent axial image 25 including edematous appearing duodenal bulb No pancreatic mass No adrenal mass No renal or ureteral calculi, no hydronephrosis Heavy calcification abdominal aorta Iliac artery stents which are not clearly opacified on this non-CTA study No bowel obstruction Normal appendix No diverticulitis No bladder mass No significant prostatomegaly Advanced degenerative disc disease L4-L5 with pronounced sclerosis involving these vertebral bodies, noted on the prior study, likely reactive Subtle cortical erosion superior endplate L5 sagittal image 129 Impression: Gastritis duodenitis pattern Normal appendix Iliac artery stents which are not clearly opacified on this non-CTA study, consider ultrasound arterial Doppler lower extremities follow-up as clinically warranted No bowel obstruction Advanced degenerative disc disease L4-L5 with pronounced sclerosis involving these vertebral bodies and subtle cortical erosions superior endplate L5, consider discitis osteomyelitis at this level Consider elective MRI lumbar spine follow-up, pre and postcontrast
--- NOTE | 2024-09-26 06:38 | PD.EDADDENDU ---
Emergency Room Addendum Addendum Narrative: 0600: Care assumed from Dr. Cooper, the previous shift emergency physician. Past medical, surgical, social and family history reviewed. Vitals and home medications reviewed. I will assume the care of the patient at this time, pending reassessment and final disposition. Please refer to the emergency department record for history and examination from initial visit.? EMS notes reviewed by me. Nursing notes reviewed by me. Vital signs reviewed by me. [place] medical records reviewed by me. I reviewed patients ED 0715: I spoke with gluing machine operator electronic Dr. Tiwari. Discussed patients PMHx, HPI, ED course, exam findings, labs results. States if the beta-hydroxybutyrate is above 6.5 we would consider euglycemic DKA than starving ketoacidosis and because the patients is four, patient can be admitted to the floor. Patient will be given potassium and insulin. 0720: I spoke with resident Dr. Davila working with attending Dr. Martinez regarding admission. Discussed patients PMHx, HPI, ED course, exam findings, labs results. The hospitalist agree to accept the patient for admission. DISPOSITION: Admit DIAGNOSIS: Gastroparesis Critical Care Time Critical Care Time Critical Care Time: Yes Total Critical Care Time (min.): 45 Attestation: The high probability of sudden, clinically significant deterioration in the patient's condition required the highest level of my preparedness to intervene urgently. The services I provided to this patient were to treat and/or prevent clinically significant deterioration. Services included the following: chart data review, reviewing nursing notes and/or old charts, documentation time, area development consultant collaboration regarding findings and treatment options, medication orders and management, direct patient care, vital sign assessments and ordering, interpreting and reviewing diagnostic studies and lab tests. Aggregate critical care time includes only time during which I was engaged in work directly related to the patient's care, as described above, whether at bedside or elsewhere in the Emergency Department. It did not include time spent performing other reported procedures or the services of residents, students, nurses or physician assistants.
[2024-09-26] MEDS: POTASSIUM CHL 10 mEq IVPB 10 MEQ/100 ML BAG 100 MEQ IV ×4 (07:56→12:21)
[2024-09-26] MEDS: oxyCODONE/APAP 5/325 TABLET 1 TAB PO (09:04)
[2024-09-26] MEDS: PANTOPRAZOLE INJ 40 MG VIAL IVP (09:16)
[2024-09-26] MEDS: INSULIN LISPRO (AdmeLOG) 1 UNIT/0.01 ML UNIT SC (09:16)
[2024-09-26] MEDS: HEPARIN SOD INJ 5000 UNIT/ML VIAL SC ×2 (09:16→20:10)
[2024-09-26] MEDS: CLOPIDOGREL BISULFATE 75 MG TABLET PO (09:17)
[2024-09-26 09:18] LABS: Basophils % (Auto) 0 % (0-2.5); Eosinophils # (Auto) 0.2 Thou/mm3 (0.0-0.5); Eosinophils % (Auto) 2 % (0-10); Hematocrit 41.6 % (41.0-53.0); Hemoglobin 13.8 g/dL (13.5-16.0); Immature Granulocytes % (Auto) 0 % (0-0); Immature Granulocytes Auto 0.02 Thou/mm3 (0.00-0.00); Lymphocytes # (Auto) 0.6 Thou/mm3 (1.0-4.8); Lymphocytes % (Auto) 5 % (10-50); Mean Corpuscular HGB Conc 33.2 g/dl (31.0-37.0); Mean Corpuscular Volume 94 fL (80-100); Monocytes # (Auto) 0.9 Thou/mm3 (0.0-0.8); Monocytes % (Auto) 9 % (0-12); Neutrophils # (Auto) 8.5 Thou/mm3 (1.8-7.7); Neutrophils % (Auto) 83 % (37-80); Nucleated Red Blood Cell % 0 /100 WBC (0); Platelet Count 226 Thou/mm3 (140-440); RDW Standard Deviation 47.7 fL (35.1-43.9); Red Blood Count 4.45 Miln/mm3 (4.50-5.90); White Blood Count 10.2 Thou/mm3 (3.8-10.6)
[2024-09-26 09:28] LABS: Alanine Aminotransferase 37 U/L (10-49); Albumin, Serum 4.5 gm/dL (3.4-4.8); Albumin/Globulin Ratio 2.3 (1.2-2.2); Alkaline Phosphatase 90 U/L (46-116); Anion Gap 15 (7-16); Aspartate Amino Transferase 14 U/L (0-34); BUN/Creatinine Ratio 24 Ratio (12-20); Bilirubin,Total 0.7 mg/dL (0.3-1.2); Blood Urea Nitrogen 19 mg/dL (9-23); Calcium 9.6 mg/dL (8.3-10.6); Calcium (Corrected) 9.6 mg/dL (8.5-10.1); Carbon Dioxide 20.7 mMol/L (20.0-31.0); Chloride 98 mMol/L (98-107); Creatinine (Component) 0.8 mg/dL (0.6-1.3); Estimated Creatinine Clearance 77.5 mL/min (>60); Glucose 192 mg/dL (74-106); Magnesium 1.9 mg/dL (1.6-2.6); Osmolality,Calculated 275 (275-295); Potassium 3.5 mMol/L (3.4-5.1); Sodium 134 mMol/L (136-145); Total Protein 6.5 gm/dL (5.7-8.2); eGFR > 60 See Note
[2024-09-26 09:34] LABS: Glucose Estimated Average 123 mg/dL (80-131); Hemoglobin A1C 5.9 % Hgb (4.8-6.0)
--- NOTE | 2024-09-26 09:43 | PC.NURSE ---
SPOKE WITH DR. JOHNSON IN RE: TO UNAVAILABILITY OF LR AND THAT PT HAS AN INSULIN PUMP. NEW ORDERS RECEIVED. AWAITING UPDATED ORDERS IN CHART. 9
[2024-09-26 10:24] LABS: Basophils % (Auto) 0 % (0-2.5); Eosinophils # (Auto) 0.2 Thou/mm3 (0.0-0.5); Eosinophils % (Auto) 2 % (0-10); Hematocrit 41.4 % (41.0-53.0); Hemoglobin 13.6 g/dL (13.5-16.0); Immature Granulocytes % (Auto) 0 % (0-0); Immature Granulocytes Auto 0.03 Thou/mm3 (0.00-0.00); Lymphocytes # (Auto) 0.7 Thou/mm3 (1.0-4.8); Lymphocytes % (Auto) 8 % (10-50); Mean Corpuscular HGB Conc 32.9 g/dl (31.0-37.0); Mean Corpuscular Hemoglobin 30.5 pg (25.0-35.0); Mean Corpuscular Volume 93 fL (80-100); Monocytes # (Auto) 0.8 Thou/mm3 (0.0-0.8); Monocytes % (Auto) 8 % (0-12); Neutrophils # (Auto) 7.5 Thou/mm3 (1.8-7.7); Neutrophils % (Auto) 81 % (37-80); Nucleated Red Blood Cell % 0 /100 WBC (0); Platelet Count 213 Thou/mm3 (140-440); RDW Standard Deviation 46.6 fL (35.1-43.9); Red Blood Count 4.46 Miln/mm3 (4.50-5.90); White Blood Count 9.3 Thou/mm3 (3.8-10.6)
[2024-09-26] MEDS: PREGABALIN 25 MG CAPSULE 200 MG PO (10:31)
[2024-09-26] MEDS: cilostazoL 50 MG TABLET 100 MG PO ×2 (10:31→20:09)
[2024-09-26] MEDS: POLYETHYLENE GLYCOL 17 GM PACKET PO (10:32)
[2024-09-26 10:44] LABS: Glucose Estimated Average 123 mg/dL (80-131); Hemoglobin A1C 5.9 % Hgb (4.8-6.0)
[2024-09-26 10:45] LABS: Alanine Aminotransferase 33 U/L (10-49); Albumin, Serum 4.4 gm/dL (3.4-4.8); Albumin/Globulin Ratio 2.1 (1.2-2.2); Alkaline Phosphatase 85 U/L (46-116); Anion Gap 16 (7-16); Aspartate Amino Transferase 20 U/L (0-34); BUN/Creatinine Ratio 21 Ratio (12-20); Bilirubin,Total 0.8 mg/dL (0.3-1.2); Blood Urea Nitrogen 17 mg/dL (9-23); Calcium 9.4 mg/dL (8.3-10.6); Calcium (Corrected) 9.4 mg/dL (8.5-10.1); Carbon Dioxide 21.1 mMol/L (20.0-31.0); Chloride 99 mMol/L (98-107); Creatinine (Component) 0.8 mg/dL (0.6-1.3); Estimated Creatinine Clearance 77.5 mL/min (>60); Globulin 2.1 gm/dL (2.3-3.5); Glucose 168 mg/dL (74-106); Magnesium 1.9 mg/dL (1.6-2.6); Osmolality,Calculated 277 (275-295); Phosphorous 2.1 mg/dL (2.4-5.1); Potassium 3.2 mMol/L (3.4-5.1); Sodium 136 mMol/L (136-145); Total Protein 6.5 gm/dL (5.7-8.2); eGFR > 60 See Note
[2024-09-26] MEDS: SODIUM CHLORIDE 0.9% 1000 ML 1,000 ML 999 ML IV ×2 (10:55→12:21)
--- NOTE | 2024-09-26 14:00 | PC.NURSE ---
transferred to floor connected to tele by this RN and fellow LAMP WIRER w/o incident.
[2024-09-26] MEDS: DEXTROSE 5%-NS 1,000 ML 125 ML IV ×2 (14:24→22:45)
[2024-09-26] MEDS: MORPHINE SULF INJ 10 MG/ML VIAL IVP ×2 (14:37→20:09)
--- NOTE | 2024-09-26 15:09 | ESHP_ITS ---
<Statement entered by Brian Martinez MD - 09/27/24 12:16> I have discussed and was present for the essential components of the history, physical examination, diagnosis, and treatment plan with the resident. I agree with the patient's care as documented by the resident and amended herein by me. Brian Martinez MD. Documentation for date of: 09/26/24 HPI History of Present Illness Chief complaint: Nausea and vomiting x 10 episodes History of present illness: This patient 69-year-old male with past medical history of CAD status post stents on Plavix, PAD s/p stents in both lower extremities on cilostazol, diabetes type 1 on insulin infusion pump, metformin and Farxiga, diabetic neuropathy and gastroparesis on duloxetine and gabapentin and Reglan respectively presented to the ED on 09/26/2024 with chief complaint of nausea and vomiting from last 3 days. He reported that he had more than 10 episodes of vomiting from past 3 days and has been feeling generalized weakness and fatigue about. He also endorsed abdominal pain more in the epigastric and lower part of abdomen aggravated more with the food intake. He has been taking Reglan for his Diabetic gastroparesis but it was not helping at home. He denied any fever, chills, chest pain, shortness of breath or any other complaints. He only reported to have extreme dehydration and dryness around the mouth and was asking for ice chips. Patient does report that he takes oxycodone, for his herniated disc pain in the cervical region. He follows up with interactive media marketing specialist, Dr. Sullivan as outpatient. ICU central supply aide stated that the patient beta-hydroxybutyrate is not more than 6.5 and given that patient's VBG showed normal pH and bicarb is currently stable within normal limits therefore patient should be managed on floors. In the ED, patient was maintaining stable vitals with blood pressure 129/88, heart rate 87 bpm, respiratory rate 18, afebrile and saturating well on room air. Labs showed significant improvement in leukocytosis with white count 9.3, hemoglobin 13.6, platelets 213. VBG in the morning showed pH 7.41, pCO2 33, oxygen saturation 81%. Chemistry panel showed mild hypokalemia with potassium 3.2 bicarb was unremarkable. Kidney functions were stable. Blood glucose 168. A1c 5.9%. Lactic acid 1.4. Phosphorus 2.1. Magnesium 1.9. Beta- hydroxybutyrate 4.1, procalcitonin 8.76. Imaging: CT abdomen pelvis showed minimal pericardial effusion 3 mm diffuse fatty infiltration throughout the liver contracted gallbladder gastric mucosa edematous abdominal aorta calcification advanced degenerative disc disease L4-L5 pronounced sclerosis and subtle cortical erosion L5. Gastritis duodenitis. Iliac artery stents. EKG showed sinus tachycardia with short NJ interval. QTc 453. PMH: CAD status post stents, PAD s/p stents in both lower extremities, insulin- dependent type 2 diabetes, diabetic neuropathy and gastroparesis, knee and hip osteoarthritis PSH: Herniated disc, CAD post stents, PAD post stents in lower extremities, carpal tunnel release Allergies: NKDA Home medications: Cilostazol 100 mg twice daily, clopidogrel 75 p.o. daily, dapagliflozin 5 mg every morning, duloxetine 60 mg daily, vitamin D, ferrous sulfate, levothyroxine 125 mcg, Linzess 290 mcg, lovastatin 40 mg, metformin 500 mg twice daily, metoclopramide 10 mg p.o., omeprazole, oxycodone, pregabalin, tamsulosin Patient is admitted for further workup and management of intractable nausea and vomiting related to diabetic gastroparesis and concern for euglycemic DKA. Review of Systems Review of Systems Systems Reviewed: All systems reviewed, normal except as documented Past Medical History Past Medical History NEUROLOGIC: Positive Neurological Disorders and Peripheral Neuropathy; Negative Seizures CARDIAC: Positive Peripheral Vascular Disease, Hypercholesterolemia and Hypertension; Negative Cardiac Disorders or Congestive Heart Failure RESPIRATORY: Positive Asthma; Negative Chronic Obstructive Pulmonary Disease (COPD) or Sleep Apnea GASTROINTESTINAL: Positive Gastrointestinal Disorders and Gastroesophageal Reflux Disease GENITOURINARY: Negative Genitourinary Disorders or Renal Disease MUSCULOSKELETAL: Positive Musculoskeletal Disorders, Arthritis and Carpal Tunnel Syndrome ENDOCRINE: Positive Endocrine Disorders, Diabetes Mellitus Type 2 and Hypothyroidism; Negative Diabetes Mellitus Type 1 HEMATOLOGIC: Negative Sickle Cell Disease PSYCHO/SOCIAL: Positive Depression OTHER HISTORY: Positive Chicken Pox, Measles and Mumps; Negative Blood Transfusions, Blood Transfusion Reaction or Anesthesia Reactions Family History FAMILY HISTORY: Positive Family Cardiac Disorders and Family Cancer Surgical History SURGICAL: Positive Ear Surgery and Tonsillectomy Social History SMOKING STATUS: Never smoker SECOND HAND EXPOSURE: No SUBSTANCE USE: marijuana (Daily) Exam Vital Signs Temp Pulse Resp BP Pulse Ox O2 Del Method 97.5 F 65 16 142/85 H 96 Room Air 09/26/24 14:46 09/26/24 14:46 09/26/24 14:46 09/26/24 14:46 09/26/24 14:46 09/26/24 14:46 Narrative Exam GENERAL APPEARANCE: Patient is AOx3, ill-appearing male in mild distress due to abdominal pain and feeling weak. Saturating well on room air HEENT: NC, AT. Dry mucous membrane. EOMI, clear conjunctiva, oropharynx clear. NECK: Supple without lymphadenopathy. No stiffness or restricted ROM. HEART: Sinus tachycardia with regular rhythm, normal S1/S2, no m/r/g LUNGS: CTAB, moving air well. No crackles or wheezes are heard. ABDOMEN: Soft, epigastric and lower abdominal tenderness, nondistended with good bowel sounds heard. BACK: No CVAT, no obvious deformity. EXTREMITIES: Without cyanosis, clubbing or edema. NEUROLOGICAL: Grossly nonfocal. Alert and oriented, moving all 4 extremities. CN not formally tested but appear grossly intact. Observed to ambulate with normal gait. Skin: Warm and dry without any rash. Psych: Appropriate mood and affect Results: Labs 09/26/24 10:00 09/26/24 10:00 Labs: Short CBC 09/26/24 09/26/24 09/26/24 Range/Units 01:02 04:58 10:00 WBC 12.2 H D 10.2 9.3 (3.8-10.6) Thou/mm3 Hgb 14.6 13.8 13.6 (13.5-16.0) g/dL Hct 43.8 41.6 41.4 (41.0-53.0) % Plt Count 263 226 D 213 (140-440) Thou/mm3 BMP 09/26/24 09/26/24 09/26/24 01:02 04:58 10:00 Sodium 135 L 134 L 136 Potassium 3.5 3.5 3.2 L Chloride 98 98 99 Carbon Dioxide 21.8 20.7 21.1 BUN 18 19 17 Creatinine 0.8 0.8 0.8 Glucose 154 H 192 H 168 H Calcium 9.9 9.6 9.4 Liver Function 09/26/24 09/26/24 09/26/24 Range/Units 01:02 04:58 10:00 Total Bilirubin 0.8 0.7 0.8 (0.3-1.2) mg/dL AST 30 14 20 (0-34) U/L ALT 38 37 33 (10-49) U/L Alkaline Phosphatase 95 90 85 (46-116) U/L Albumin 4.9 H 4.5 4.4 (3.4-4.8) gm/dL ABG Interpretation ABG results: 09/26/24 09/26/24 01:02 04:58 VBG pH 7.50 7.41 VBG pCO2 24 L 33 L VBG pO2 55 47 VBG Base Excess -2 -3 Quality Measures Quality Measures VTE prophylaxis Advance care planning discussed with:: patient Medications Home Medications and Allergies Home Medications ?Medication ?Instructions ?Recorded ?Confirmed ?Type duloxetine 60 mg capsule,delayed 60 mg PO DAILY Depression ##0 04/12/13 09/26/24 History release (Cymbalta) pregabalin 200 mg capsule (Lyrica) 200 mg PO BID ##60 04/28/16 09/26/24 History cilostazol 100 mg tablet 100 mg PO BID #0 tabs 01/31/17 09/26/24 History metoclopramide HCl 10 mg tablet 10 mg PO WMHS 04/07/18 09/26/24 History levothyroxine 125 mcg capsule 125 mcg PO QDAY 01/14/19 09/26/24 History lovastatin 40 mg tablet 40 mg PO HS 01/14/19 09/26/24 History clopidogrel 75 mg tablet 75 mg PO QDAY 02/16/20 09/26/24 History tamsulosin 0.4 mg capsule 0.4 mg PO QDAY 02/16/20 09/26/24 History omeprazole 40 mg capsule,delayed 40 mg PO QDAY 09/01/20 09/26/24 History release insulin regular human 100 unit/mL 20 unit subcut QID 05/29/22 03/12/23 History injection solution cartridge dapagliflozin propanediol 5 mg 5 mg PO QAM 09/26/24 09/26/24 History tablet (Farxiga) ergocalciferol (vitamin D2) 1,250 1,250 mcg PO QWEEK 09/26/24 09/26/24 History mcg (50,000 unit) capsule (Vitamin D2) ferrous sulfate 325 mg (65 mg 325 mg PO QDAY 09/26/24 09/26/24 History iron) tablet linaclotide 290 mcg capsule 290 mcg PO AC 09/26/24 09/26/24 History (Linzess) metformin 500 mg tablet 500 mg PO BIDWMEAL 09/26/24 09/26/24 History oxycodone-acetaminophen 7.5 mg-325 1 tab PO QID PRN Pain 09/26/24 09/26/24 History mg tablet Allergies Allergy/AdvReac Type Severity Reaction Status Date / Time No Known Allergies Allergy Verified 09/26/24 00:25 Visit Medications Acetaminophen (Acetaminophen 325 Mg Tablet) 650 mg PO Q6H PRN PRN Reason: Fever >100.4 or pain Stop: 10/26/24 08:37 Acetaminophen (Acetaminophen 325 Mg Tablet) 650 mg PO Q6H PRN PRN Reason: PAIN SCALE 1-3 (mild Stop: 10/26/24 08:37 Cilostazol (Cilostazol 50 Mg Tablet) 100 mg PO BID [facility] Stop: 10/26/24 08:59 Last Admin: 09/26/24 10:31 Dose: 100 mg Clopidogrel Bisulfate (Clopidogrel Bisulfate 75 Mg Tablet) 75 mg PO QDAY [facility] Stop: 10/26/24 08:59 Last Admin: 09/26/24 09:17 Dose: 75 mg Dextrose (Dextrose 50%-Water Inj 50 Ml Syringe) 25 ml IV Q15MIN PRN PRN Reason: BG 50-70 responsive npo pt Stop: 10/26/24 08:43 Dextrose (Dextrose 50%-Water Inj 50 Ml Syringe) 50 ml IV Q15MIN PRN PRN Reason: BG <50 OR BG <70 & pt unresponsive Stop: 10/26/24 08:43 Duloxetine HCl (Duloxetine Hcl 30 Mg Capsule) 60 mg PO QDAY [facility] Stop: 10/27/24 08:59 Glucagon (Glucagon Inj 1 Mg Vial) 1 mg IM Q15MIN PRN PRN Reason: BG <70, and no IV access Heparin Sodium (Porcine) (Heparin Sod Inj 5000 Unit/Ml Vial) 5,000 unit SC Q12H [facility] Stop: 10/10/24 08:44 Last Admin: 09/26/24 09:16 Dose: 5,000 unit Dextrose/Sodium Chloride (D5-Ns) 1,000 mls @ 125 mls/hr IV .Q8H [facility] Stop: 09/27/24 13:59 Last Admin: 09/26/24 14:24 Dose: 125 mls/hr Levothyroxine Sodium (Levothyroxine Sodium 125 Mcg Tablet) 125 mcg PO ACBR [facility] Stop: 10/27/24 05:59 Metoclopramide HCl (Metoclopramide Inj 5 Mg/Ml Vial 2 Ml) 10 mg IVP TIDWM [facility]; Protocol Stop: 10/26/24 13:59 Last Admin: 09/26/24 14:23 Dose: 10 mg Morphine Sulfate (Morphine Sulf Inj 10 Mg/Ml Vial) 1 mg IVP Q4H PRN PRN Reason: PAIN SCALE 7-10 (Severe Stop: 10/01/24 08:37 Last Admin: 09/26/24 14:37 Dose: 1 mg Ondansetron HCl (Ondansetron Inj 2 Mg/Ml Inj 2 Ml) 4 mg IV Q8HR PRN; Protocol PRN Reason: NAUSEA OR VOMITING Stop: 10/26/24 08:54 Oxycodone/Acetaminophen (Oxycodone/Apap 5/325 Tablet) 1 tab PO Q6H PRN PRN Reason: PAIN SCALE 4-6 (Moderate Stop: 10/01/24 08:37 Last Admin: 09/26/24 09:04 Dose: 1 tab Pantoprazole Sodium (Pantoprazole Inj 40 Mg Vial) 40 mg IVP QDAY [facility] Stop: 10/26/24 08:59 Last Admin: 09/26/24 09:16 Dose: 40 mg Polyethylene Glycol (Polyethylene Glycol 17 Gm Packet) 17 gm PO QDAY [facility] Stop: 10/27/24 08:59 Pregabalin (Pregabalin 50 Mg Capsule) 200 mg PO BID [facility] Stop: 10/26/24 08:59 Sennosides (Senna Tablet) 1 tab PO BID PRN; Protocol PRN Reason: CONSTIPATION Stop: 10/26/24 08:37 Tamsulosin HCl (Tamsulosin Hcl 0.4 Mg Capsule) 0.4 mg PO HS [facility] Stop: 10/26/24 20:59 Discontinued Medications Diphenhydramine HCl (Diphenhydramine Inj 50 Mg/Ml Vial) 12.5 mg IVP X1 ONE Stop: 09/26/24 00:39 Last Admin: 09/26/24 00:49 Dose: 12.5 mg Duloxetine HCl (Duloxetine Hcl 30 Mg Capsule) 100 mg PO QDAY [facility] Stop: 10/27/24 08:59 Hydromorphone HCl (Hydromorphone Inj 2 Mg/Ml Vial) 0.5 mg IVP X1 ONE Stop: 09/26/24 04:56 Last Admin: 09/26/24 05:25 Dose: 0.5 mg Sodium Chloride (Ns) 1,000 mls @ 100 mls/hr IV .Q10H [facility] Stop: 09/26/24 14:59 Last Infusion: 09/26/24 12:30 Dose: Infused Potassium Chloride (Kcl Ivpb) 10 meq in 100 mls @ 100 mls/hr [facility] Stop: 09/26/24 09:17 Last Infusion: 09/26/24 12:30 Dose: Infused Lactated Ringer's (Lactated Ringers) 1,000 mls @ 999 mls/hr IV .Q1H1M ONE Stop: 09/26/24 09:46 Last Admin: 09/26/24 12:22 Dose: Not Given Potassium Chloride (Kcl Ivpb) 10 meq in 100 mls @ 100 mls/hr IV Q1H [facility] Stop: 09/26/24 10:46 Last Admin: 09/26/24 12:21 Dose: 100 mls/hr Sodium Chloride (Ns) 1,000 mls @ 150 mls/hr IV .Q6H40M [facility] Stop: 09/26/24 15:33 Last Admin: 09/26/24 14:17 Dose: Not Given Lactated Ringer's (Lactated Ringers) 1,000 mls @ 999 mls/hr IV .Q1H1M ONE Stop: 09/26/24 10:04 Last Admin: 09/26/24 12:23 Dose: Not Given Sodium Chloride (Ns) 1,000 mls @ 999 mls/hr IV .Q1H1M ONE Stop: 09/26/24 11:50 Last Infusion: 09/26/24 12:30 Dose: Infused Sodium Chloride (Ns) 1,000 mls @ 999 mls/hr IV .Q1[facility] Stop: 09/26/24 11:50 Last Admin: 09/26/24 12:21 Dose: 999 mls/hr Insulin Human Lispro (Insulin Lispro (Admelog) 1 Unit/0.01 Ml Unit) 0 unit SC Q6HR [facility]; Protocol Stop: 10/26/24 08:44 Last Admin: 09/26/24 09:16 Dose: 2 unit Metoclopramide HCl (Metoclopramide Inj 5 Mg/Ml Vial 2 Ml) 10 mg IVP X1 ONE; Protocol Stop: 09/26/24 00:39 Last Admin: 09/26/24 00:50 Dose: 10 mg Metoclopramide HCl (Metoclopramide Inj 5 Mg/Ml Vial 2 Ml) 10 mg IVP X1 [facility]; Protocol Stop: 09/26/24 04:56 Last Admin: 09/26/24 05:24 Dose: 10 mg Metoclopramide HCl (Metoclopramide Inj 5 Mg/Ml Vial 2 Ml) 10 mg IVP Q6HR PRN; Protocol PRN Reason: NAUSEA OR VOMITING Stop: 10/26/24 08:37 Polyethylene Glycol (Polyethylene Glycol 17 Gm Packet) 17 gm PO X1 ONE Stop: 09/26/24 08:51 Last Admin: 09/26/24 10:32 Dose: 17 gm Pregabalin (Pregabalin 50 Mg Capsule) 200 mg PO BID [facility] Stop: 10/26/24 08:59 Last Admin: 09/26/24 10:35 Dose: Not Given Pregabalin (Pregabalin 25 Mg Capsule) 200 mg PO BID [facility] Stop: 10/26/24 08:59 Last Admin: 09/26/24 10:31 Dose: 200 mg Assessment & Plan Plan This patient 69-year-old male with past medical history of CAD status post stents on Plavix, PAD s/p stents in both lower extremities on cilostazol, diabetes type 1 on insulin infusion pump, metformin and Farxiga, diabetic neuropathy and gastroparesis on duloxetine and gabapentin and Reglan respectively presented to the ED on 09/26/2024 with chief complaint of nausea and vomiting from last 3 days. He is admitted for intractable nausea and vomiting due to diabetic gastroparesis and euglycemic DKA. # Intractable nausea and vomiting # Likely secondary to diabetic gastroparesis # Concern for euglycemic DKA # Insulin-dependent type 1 diabetes o insulin infusion pump DDx: Diabetic gastroparesis, euglycemic DKA, chronic opioids ?Patient presented with intractable nausea and vomiting from past 3 days. He reported to vomit more than 10 episodes in a day. He was taking Reglan prescribed by his decoration checker. He denied any fever chills, chest pain or shortness of breath. Patient uses insulin pump for his management of type 1 diabetes. He also takes metformin and Farxiga. Given patient use SGLT2 inhibitors there was a concern for euglycemic DKA due to elevated beta hydroxybutyrate:4.1 seen on admission and urinalysis showing ketones in february 2024. Elevated procalcitonin at 8.76 ?CT abdomen pelvis showed gastritis/duodenitis pattern. Lactic acid 1.4, lipase was normal ? A1c 5.9% ? VBG showed pH 7.41, pCO2 33, pO2 47 ? EKG showed sinus tachycardia with short NJ interval, QTc 453. Plan ? Started D5 NS at 125 cc/h ? Currently recommended to continue patient's insulin infusion pump for blood sugar management ? Hypoglycemia protocol in place ? Repleted KCl 40 mEq IV and 20 mEq p.o. ? Repleted magnesium 1 g x 1 and repleted K phosp 15 mmol ? Continuing Reglan 10 mg IV 3 times daily before meals ? Start clear liquid diet as tolerated ? Currently holding Farxiga and metformin ? Follow-up on morning labs # Electrolyte disturbance # Hypokalemia # Hypophosphatemia Plan: ? Repleted KCl 40 mEq IV and 20 mEq p.o. ? Repleted magnesium 1 g x 1 and repleted K phosp 15 mmol ? Replete electrolytes as needed # History of coronary artery disease s/p stents # History of peripheral artery disease s/p stents in lower extremities ? Patient reported that he takes Plavix and cilostazol for stents in his heart and lower extremities respectively. Plan: ? Resumed Plavix and cilostazol # History of diabetic neuropathy # History of herniated disc on chronic opioids ? Patient reported that he takes pregabalin for diabetic neuropathy and takes oxycodone for his herniated disc in the cervical vertebrae Plan: ? Resumed home medications duloxetine and gabapentin ? Resumed oxycodone 1 tablet every 6 as needed # History of hypothyroidism ? Patient takes levothyroxine 125 mcg AC. Plan: ? Follow-up on thyroid functions ? Resume home medication # Reactive leukocytosis: Resolved Health maintenance Diet: Clear liquid diet GI prophylaxis: Protonix IV daily DVT prophylaxis: Heparin subcut Disposition: Patient is admitted for further workup and management of intractable nausea and vomiting related to diabetic gastroparesis and concern for euglycemic DKA due to SGLT2 inhibitors. CODE STATUS: Full code Patient was seen and discussed with attending physician, Dr. Juan Davila MD, PGY 2
[2024-09-26] MEDS: Magnesium Sulfate 1 gm Ivpb 1 GM/100 ML BAG IV (17:52)
[2024-09-26] MEDS: POTASSIUM CHLORIDE 20 mEq TABCR PO (17:52)
[2024-09-26] MEDS: POT PHOS 15 mMol in NS 250 ML 15 MMOL/250 ML BAG 62.5 MMOL IV (17:52)
[2024-09-26] MEDS: TAMSULOSIN HCL 0.4 MG CAPSULE PO (20:10)
[2024-09-26] MEDS: PREGABALIN 50 MG CAPSULE 200 MG PO (20:10)
[2024-09-26 22:19] LABS: Collection Type, Urine Clean Catch; Squamous Epithelial Cell,Urine 0 /hpf (0-5); WBC,Urine 0 /hpf (0-5)
[2024-09-26 22:28] LABS: Bilirubin,Urine Negative (Negative); Blood,Urine 1+ (Negative); Clarity,Urine Clear (Clear/Hazy); Color,Urine Colorless (Lt Yel-Yel); Glucose, Urine 4+ (Negative); Ketones,Urine 2+ (Negative); Leukocyte Esterase,Urine Negative (Negative); Nitrite,Urine Negative (Negative); PH,Urine 5.5 (5.0-7.0); Protein,Urine Negative (Neg - Trace); RBC,Urine 1 /hpf (0-3); Specific Gravity,Urine 1.013 (1.001-1.035); Urobilinogen,Urine Negative mg/dL (0.0-1.0)
[2024-09-26 22:38] LABS: Amphetamine/Methamp Scrn,U Negative (Negative); Barbiturate Screen,Urine Negative (Negative); Benzodiazepines Screen,Urine Negative (Negative); Benzoylecgonine Screen, Ur Negative (Negative); Fentanyl Screen,Urine Negative (Negative); Opiate Screen,Urine Positive (Negative); THC Screen,Urine Positive (Negative)
[2024-09-27] VITALS (8 sets, daily range): BP systolic 126–151; BP diastolic 64–89; PULSE 68–126; RESP 14–95; TEMP 36.1–36.4; O2SAT 91–98
[2024-09-27] MEDS: MORPHINE SULF INJ 10 MG/ML VIAL IVP ×3 (03:08→23:38)
[2024-09-27] MEDS: LEVOTHYROXINE SODIUM 125 MCG TABLET PO (05:03)
[2024-09-27 05:27] LABS: Basophils # (Auto) 0.1 Thou/mm3 (0.0-0.2); Basophils % (Auto) 1 % (0-2.5); Eosinophils # (Auto) 0.2 Thou/mm3 (0.0-0.5); Eosinophils % (Auto) 3 % (0-10); Hematocrit 36.9 % (41.0-53.0); Hemoglobin 12.4 g/dL (13.5-16.0); Immature Granulocytes % (Auto) 1 % (0-0); Immature Granulocytes Auto 0.03 Thou/mm3 (0.00-0.00); Lymphocytes # (Auto) 1.3 Thou/mm3 (1.0-4.8); Lymphocytes % (Auto) 24 % (10-50); Mean Corpuscular HGB Conc 33.6 g/dl (31.0-37.0); Mean Corpuscular Volume 92 fL (80-100); Monocytes # (Auto) 0.6 Thou/mm3 (0.0-0.8); Monocytes % (Auto) 12 % (0-12); Neutrophils # (Auto) 3.2 Thou/mm3 (1.8-7.7); Neutrophils % (Auto) 59 % (37-80); Nucleated Red Blood Cell % 0 /100 WBC (0); Platelet Count 166 Thou/mm3 (140-440); RDW Standard Deviation 46.2 fL (35.1-43.9); White Blood Count 5.4 Thou/mm3 (3.8-10.6)
[2024-09-27 05:56] LABS: Alanine Aminotransferase 28 U/L (10-49); Albumin, Serum 3.6 gm/dL (3.4-4.8); Alkaline Phosphatase 70 U/L (46-116); Anion Gap 11 (7-16); Aspartate Amino Transferase 20 U/L (0-34); BUN/Creatinine Ratio 14 Ratio (12-20); Blood Urea Nitrogen 10 mg/dL (9-23); Calcium 8.4 mg/dL (8.3-10.6); Calcium (Corrected) 8.7 mg/dL (8.5-10.1); Carbon Dioxide 23.5 mMol/L (20.0-31.0); Cardiac Risk Estimate 3.2 RATIO (4.0-6.7); Chloride 104 mMol/L (98-107); Cholesterol 146 mg/dL (132-200); Creatinine (Component) 0.7 mg/dL (0.6-1.3); Estimated Creatinine Clearance 88.6 mL/min (>60); Globulin 1.8 gm/dL (2.3-3.5); Glucose 252 mg/dL (74-106); HDL Cholesterol 45 mg/dL (40-60); LDL Cholesterol,Calculated 72 mg/dL (0-130); Magnesium 1.9 mg/dL (1.6-2.6); Osmolality,Calculated 283 (275-295); Phosphorous 2.2 mg/dL (2.4-5.1); Potassium 3.5 mMol/L (3.4-5.1); Sodium 138 mMol/L (136-145); Thyroid Stimulating Hormone 4.88 uIU/mL (0.55-4.78); Total Protein 5.4 gm/dL (5.7-8.2); Triglycerides 144 mg/dL (30-150); eGFR > 60 See Note
[2024-09-27] MEDS: DEXTROSE 5%-NS 1,000 ML 125 ML IV (06:05)
--- NOTE | 2024-09-27 07:48 | ESPR_ITS ---
<Statement entered by Brian Martinez MD - 09/27/24 17:15> I have discussed and was present for the essential components of the history, physical examination, diagnosis, and treatment plan with the resident. I agree with the patient's care as documented by the resident and amended herein by me. Brian Martinez MD FACP. Documentation for date of: 09/27/24 Subjective Subjective Interval history: Patient was seen and examined in telemetry this a.m. No events overnight Tolerating clear liquid diet. Adequate urine output and mentation at baseline. Patient endorses resolution of his vomiting and is tolerating liquid diet. Will discontinue D5W infusion and advance diet to low consistent carbohydrate from lunch. K3.5 and Mg 1.9. Patient repleted with KCl 60 mEq p.o. x 1 and mag sulfate 2 g IV x 1 Exam Vital Signs Temp Pulse Resp BP Pulse Ox O2 Del Method 97.4 F 82 14 127/69 98 Room Air 09/27/24 04:00 09/27/24 04:00 09/27/24 04:00 09/27/24 04:00 09/27/24 04:00 09/27/24 04:00 Narrative Exam Constitutional Alert, oriented x 3 and comfortable. Elderly male on O2 via NC HEENT Vision grossly intact. Patent nares. Trachea midline Respiratory Chest normal on inspection and clear auscultation bilaterally Cardiovascular S1 and S2 audible, RRR. No murmurs carotid bruit. No gross JVD. Abdominal Soft, obese and non tender to palpation in all quadrants. BS +. Insulin pump noted in right lower quadrant Genitourinary No bladder tenderness, no flank pain. Normal to palpation Musculoskeletal Extremities tone within normal limits. No LE edema. Neurological CN II - XII grossly intact. Extremity motor and sensation grossly intact. Skin Warm, dry and intact. No apparent lesions. Psychiatric Patient has good affect, is cooperative Objective Labs 09/27/24 05:13 09/27/24 05:13 Labs: Laboratory Results - last 24 hr 09/26/24 09/26/24 09/26/24 04:58 10:00 19:36 WBC 10.2 9.3 RBC 4.45 L 4.46 L Hgb 13.8 13.6 Hct 41.6 41.4 MCV 94 93 MCH 31.0 30.5 MCHC 33.2 32.9 RDW Std Deviation 47.7 H 46.6 H Plt Count 226 D 213 Neut % (Auto) 83 H 81 H Lymph % (Auto) 5 L 8 L Thayer % (Auto) 9 8 Eos % (Auto) 2 2 Baso % (Auto) 0 0 Neut # (Auto) 8.5 H 7.5 Lymph # (Auto) 0.6 L 0.7 L Thayer # (Auto) 0.9 H 0.8 Eos # (Auto) 0.2 0.2 Baso # (Auto) 0.0 0.0 Immature Gran # (Auto) 0.02 H 0.03 H Absolute Nucleated RBC 0.00 0.00 Immature Gran % 0 0 Nucleated RBC % 0 0 Sodium 134 L 136 Potassium 3.5 3.2 L Chloride 98 99 Carbon Dioxide 20.7 21.1 Anion Gap 15 16 BUN 19 17 Creatinine 0.8 0.8 Estim Creat Clear Calc 77.5 77.5 eGFR > 60 > 60 BUN/Creatinine Ratio 24 H 21 H Glucose [address] Glu mg/dL 123 123 Hemoglobin A1c 5.9 5.9 Calculated Osmolality 275 277 Calcium 9.6 9.4 Corrected Calcium 9.6 9.4 Phosphorus 2.1 L Magnesium 1.9 1.9 Total Bilirubin 0.7 0.8 AST 14 20 ALT 37 33 Alkaline Phosphatase 90 85 Total Protein 6.5 6.5 Albumin 4.5 4.4 Globulin 2.0 L 2.1 L Albumin/Globulin Ratio 2.3 H 2.1 Triglycerides Cholesterol LDL Cholesterol, Calc HDL Cholesterol Cholesterol/HDL Ratio TSH Ur Collection Type Clean Catch Urine Color Colorless A Urine Clarity Clear Urine pH 5.5 Ur Specific [place] 1.013 Urine Protein Negative Urine Glucose (UA) 4+ A Urine Ketones 2+ A Urine Blood 1+ A Urine Nitrite Negative Urine Bilirubin Negative Urine Urobilinogen (Auto) Negative Ur Leukocyte Esterase Negative Urine RBC 1 Urine WBC 0 Ur Squamous Epith Cells 0 Urine Bacteria None Urine Opiates Screen Positive A Urine Fentanyl Screen Negative Ur Barbiturates Screen Negative U Amphetamin/Meth Scrn Negative U Benzodiazepines Scrn Negative U Cocaine Metab Screen Negative U Marijuana (THC) Screen Positive A 09/27/24 05:13 WBC 5.4 D RBC 4.00 L Hgb 12.4 L Hct 36.9 L MCV 92 MCH 31.0 MCHC 33.6 RDW Std Deviation 46.2 H Plt Count 166 D Neut % (Auto) 59 Lymph % (Auto) 24 Thayer % (Auto) 12 Eos % (Auto) 3 Baso % (Auto) 1 Neut # (Auto) 3.2 Lymph # (Auto) 1.3 Thayer # (Auto) 0.6 Eos # (Auto) 0.2 Baso # (Auto) 0.1 Immature Gran # (Auto) 0.03 H Absolute Nucleated RBC 0.00 Immature Gran % 1 H Nucleated RBC % 0 Sodium 138 Potassium 3.5 Chloride 104 Carbon Dioxide 23.5 Anion Gap 11 BUN 10 Creatinine 0.7 Estim Creat Clear Calc 88.6 eGFR > 60 BUN/Creatinine Ratio [address]ucose [address] Glu mg/dL Hemoglobin A1c Calculated Osmolality 283 Calcium 8.4 Corrected Calcium 8.7 Phosphorus 2.2 L Magnesium 1.9 Total Bilirubin 1.0 AST 20 ALT 28 Alkaline Phosphatase 70 Total Protein 5.4 L Albumin 3.6 D Globulin 1.8 L Albumin/Globulin Ratio 2.0 Triglycerides 144 Cholesterol 146 LDL Cholesterol, Calc 72 HDL Cholesterol 45 Cholesterol/HDL Ratio 3.2 L TSH 4.88 H Ur Collection Type Urine Color Urine Clarity Urine pH Ur Specific [place] Urine Protein Urine Glucose (UA) Urine Ketones Urine Blood Urine Nitrite Urine Bilirubin Urine Urobilinogen (Auto) Ur Leukocyte Esterase Urine RBC Urine WBC Ur Squamous Epith Cells Urine Bacteria Urine Opiates Screen Urine Fentanyl Screen Ur Barbiturates Screen U Amphetamin/Meth Scrn U Benzodiazepines Scrn U Cocaine Metab Screen U Marijuana (THC) Screen ABG Interpretation ABG results: 09/26/24 09/26/24 01:02 04:58 VBG pH 7.50 7.41 VBG pCO2 24 L 33 L VBG pO2 55 47 VBG Base Excess -2 -3 Quality Measures Quality Measures VTE prophylaxis Advance care planning discussed with:: patient Assessment & Plan Assessment Current Active Medications: Generic Name Dose Route Start Last Admin Trade Name Freq PRN Reason Stop Dose Admin Acetaminophen 650 mg 09/26/24 08:38 Acetaminophen 325 Mg Tablet PO 10/26/24 08:37 Q6H PRN Fever >100.4 or pain Acetaminophen 650 mg 09/26/24 08:38 Acetaminophen 325 Mg Tablet PO 10/26/24 08:37 Q6H PRN PAIN SCALE 1-3 (mild Cilostazol 100 mg 09/26/24 09:00 09/26/24 20:09 Cilostazol 50 Mg Tablet PO 10/26/24 08:59 100 mg BID BUBBA Administration Clopidogrel Bisulfate 75 mg 09/26/24 09:00 09/26/24 09:17 Clopidogrel Bisulfate 75 Mg Tablet PO 10/26/24 08:59 75 mg QDAY BUBBA Administration Dextrose 25 ml 09/26/24 08:44 Dextrose 50%-Water Inj 50 Ml Syringe IV 10/26/24 08:43 Q15MIN PRN BG 50-70 responsive npo pt Dextrose 50 ml 09/26/24 08:44 Dextrose 50%-Water Inj 50 Ml Syringe IV 10/26/24 08:43 Q15MIN PRN BG <50 OR BG <70 & pt unresponsive Duloxetine HCl 60 mg 09/27/24 09:00 Duloxetine Hcl 30 Mg Capsule PO 10/27/24 08:59 QDAY BUBBA Glucagon 1 mg 09/26/24 08:44 Glucagon Inj 1 Mg Vial IM Q15MIN PRN BG <70, and no IV access Heparin Sodium (Porcine) 5,000 unit 09/26/24 08:45 09/26/24 20:10 Heparin Sod Inj 5000 Unit/Ml Vial SC 10/10/24 08:44 5,000 unit Q12H BUBBA Administration Dextrose/Sodium Chloride 1,000 mls @ 125 mls/hr 09/26/24 14:00 09/27/24 06:05 D5-Ns IV 09/27/24 13:59 125 mls/hr .Q8H BUBBA Administration Magnesium Sulfate 2 gm in 50 mls @ 25 mls/hr 09/27/24 07:44 Magnesium Sulfate Ivpb IV 09/27/24 09:43 X1 ONE Levothyroxine Sodium 125 mcg 09/27/24 06:00 09/27/24 05:03 Levothyroxine Sodium 125 Mcg Tablet PO 10/27/24 05:59 125 mcg ACBR BUBBA Administration Metoclopramide HCl 10 mg 09/26/24 14:00 09/26/24 17:46 Metoclopramide Inj 5 Mg/Ml Vial 2 Ml IVP 10/26/24 13:59 Not Given TIDWM [facility] Protocol Morphine Sulfate 1 mg 09/26/24 08:38 09/27/24 03:08 Morphine Sulf Inj 10 Mg/Ml Vial IVP 10/01/24 08:37 1 mg Q4H PRN Administration PAIN SCALE 7-10 (Severe Ondansetron HCl 4 mg 09/26/24 08:55 Ondansetron Inj 2 Mg/Ml Inj 2 Ml IV 10/26/24 08:54 Q8HR PRN NAUSEA OR VOMITING Protocol Oxycodone/Acetaminophen 1 tab 09/26/24 08:38 09/26/24 09:04 Oxycodone/Apap 5/325 Tablet PO 10/01/24 08:37 1 tab Q6H PRN Administration PAIN SCALE 4-6 (Moderate Pantoprazole Sodium 40 mg 09/26/24 09:00 09/26/24 09:16 Pantoprazole Inj 40 Mg Vial IVP 10/26/24 08:59 40 mg QDAY BUBBA Administration Polyethylene Glycol 17 gm 09/27/24 09:00 Polyethylene Glycol 17 Gm Packet PO 10/27/24 08:59 QDAY BUBBA Pregabalin 200 mg 09/26/24 21:00 09/26/24 20:10 Pregabalin 50 Mg Capsule PO 10/26/24 08:59 200 mg BID BUBBA Administration Sennosides 1 tab 09/26/24 08:38 Senna Tablet PO 10/26/24 08:37 BID PRN CONSTIPATION Protocol Tamsulosin HCl 0.4 mg 09/26/24 21:00 09/26/24 20:10 Tamsulosin Hcl 0.4 Mg Capsule PO 10/26/24 20:59 0.4 mg HS BUBBA Administration Plan This patient 69-year-old male with past medical history of CAD status post stents on Plavix, PAD s/p stents in both lower extremities on cilostazol, diabetes type 1 on insulin infusion pump, metformin and Farxiga, diabetic neuropathy and gastroparesis on duloxetine and gabapentin and Reglan respectively presented to the ED on 09/26/2024 with chief complaint of nausea and vomiting from last 3 days. He is admitted for intractable nausea and vomiting due to diabetic gastroparesis and euglycemic DKA. # Intractable nausea and vomiting?resolved # Likely secondary to diabetic gastroparesis # Euglycemic DKA?ruled out # Insulin-dependent type 1 diabetes o insulin infusion pump DDx: Diabetic gastroparesis, euglycemic DKA, chronic opioids ?Patient presented with intractable nausea and vomiting from past 3 days. He reported to vomit more than 10 episodes in a day. 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 He denied any fever chills, chest pain or shortness of breath. Patient uses insulin pump for his management of type 1 diabetes. He also takes metformin and Farxiga. Given patient use SGLT2 inhibitors there was a concern for euglycemic DKA due to elevated beta hydroxybutyrate:4.1 seen on admission and urinalysis showing ketones in february 2024. Elevated procalcitonin at 8.76 ?CT abdomen pelvis showed gastritis/duodenitis pattern. Lactic acid 1.4, lipase was normal ? A1c 5.9% ? VBG showed pH 7.41, pCO2 33, pO2 47 ? EKG showed sinus tachycardia with short IL interval, QTc 453. Initially euglycemic DKA was a concern due to patient's history of SGLT2 use. However pH was 7.41 and bicarb was 19.9 at the time of admission and continued to improve. Patient did not fit the criteria for euglycemic DKA and most likely etiology of intractable nausea and vomiting is diabetic gastroparesis. Currently patient's vomiting has resolved and he is tolerating full liquid diet, will graduate to solids from lunch. Plan ? Advance diet to low consistent carb from lunch ? Discontinued D5W as patient is no longer vomiting and tolerating orally ? Continue patient's insulin infusion pump for blood sugar management ? Hypoglycemia protocol in place ? Continuing Reglan 10 mg IV 3 times daily before meals ? Will resume Farxiga on discharge as euglycemic DKA was ruled out # Electrolyte disturbance # Hypokalemia?resolved # Hypophosphatemia?resolved phosphorus 2.3 which improved to 3.3 K3.5 and Mg 1.9. Patient repleted with KCl 60 mEq p.o. x 1 and mag sulfate 2 g IV x 1 Plan: ?KCl 60 mEq p.o. x 1 # History of coronary artery disease s/p stents # History of peripheral artery disease s/p stents in lower extremities ? Patient reported that he takes Plavix and cilostazol for stents in his heart and lower extremities respectively. Plan: ? Continue Plavix and cilostazol # Diabetic neuropathy # History of herniated disc on chronic opioids ? Patient reported that he takes pregabalin for diabetic neuropathy and takes oxycodone for his herniated disc in the cervical vertebrae Plan: ? Continue home medications duloxetine and gabapentin ? Continue oxycodone 1 tablet every 6 as needed # Hypothyroidism ? Patient takes levothyroxine 125 mcg AC. TSH 4.88 Plan: ? Continue home medication ? Recommend repeat thyroid function test in 6 weeks as outpatient and to follow- up with PCP for results # leukocytosis: Resolved On admission WBC 17.5 which currently down trended to 5.4 Etiology likely secondary to hemoconcentration due to intractable vomiting. Also likely reactive. Health maintenance: Disposition: Advancing diet to solids from lunch. Once no further episodes of vomiting then anticipate discharge tomorrow Diet: Low consistent carb Lines: pIVs GI Prophylaxis: Protonix Thrombo Prophylaxis: Heparin Code status: FULL CODE Plan of care discussed with Attending Dr. Martinez and PGY3 Dr. Rea Khan MD PGY 1 I discussed with and supervised my co-resident involved in the care of this patient. I agree with the assessment and plan as documented above. Mr. Chi Crespo is a 69 male with PMH of DM Type 1 on insulin pump, CAD with stents on plavix, who presents was admitted for intractable nausea and vomiting and concern for euglycemic DKA. He was given IVF fluids and reglan. Today he is feeling better and able to tolerate food. We will discontinue his IVF and encourage oral intake, advancing his diet as tolerated. Moni Lucia MD PGY-3
[2024-09-27] MEDS: POTASSIUM CHLORIDE 20 mEq TABCR PO (08:20)
[2024-09-27] MEDS: Magnesium Sulfate 2 GM Ivpb 2 GM/50 ML BAG IV (08:20)
[2024-09-27] MEDS: cilostazoL 50 MG TABLET 100 MG PO ×2 (08:20→20:14)
[2024-09-27] MEDS: CLOPIDOGREL BISULFATE 75 MG TABLET PO (08:20)
[2024-09-27] MEDS: PANTOPRAZOLE INJ 40 MG VIAL IVP (08:21)
[2024-09-27] MEDS: METOCLOPRAMIDE INJ 5 MG/ML VIAL 2 ML 10 MG IVP ×3 (08:21→16:56)
[2024-09-27] MEDS: POLYETHYLENE GLYCOL 17 GM PACKET PO (08:21)
[2024-09-27] MEDS: DULoxetine HCL 30 MG CAPSULE 60 MG PO (08:21)
[2024-09-27] MEDS: PREGABALIN 50 MG CAPSULE 200 MG PO ×2 (08:21→20:14)
[2024-09-27] MEDS: HEPARIN SOD INJ 5000 UNIT/ML VIAL SC ×2 (08:28→20:15)
[2024-09-27] MEDS: POTASSIUM CHLORIDE 20 mEq TABCR 40 MEQ PO (09:29)
[2024-09-27] MEDS: oxyCODONE/APAP 5/325 TABLET 1 TAB PO (09:33)
[2024-09-27 10:13] LABS: Phosphorous 3.3 mg/dL (2.4-5.1)
[2024-09-27] MEDS: DEXTROSE 50%-WATER INJ 50 ML SYRINGE IV (17:24)
--- NOTE | 2024-09-27 18:05 | EVENTNT_ITS ---
<Statement entered by rBian Martinez MD - 09/28/24 11:00> I have discussed and was present for the essential components of the history, physical examination, diagnosis, and treatment plan with the resident. I agree with the patient's care as documented by the resident and amended herein by me. Brian Martinez MD FACP. Documentation for date of: 09/27/24 Event Note Event Note: Informed by nurse around 5:08 PM patient's blood glucose was 34. Upon arrival patient denied any dizziness, palpitations, weakness or any other hypoglycemic symptoms. Exam: Constitutional Alert, oriented x 3 and comfortable HEENT Vision grossly intact. Patent nares. Trachea midline Respiratory Chest normal on inspection and clear auscultation bilaterally Cardiovascular S1 and S2 audible, RRR. No murmurs carotid bruit. No gross JVD. Abdominal Soft and non tender to palpation in all quadrants. BS + Genitourinary No bladder tenderness, no flank pain. Normal to palpation Musculoskeletal Extremities tone within normal limits. No LE edema. Neurological CN II - XII grossly intact. Extremity motor and sensation grossly intact. Skin Warm, dry and intact. No apparent lesions. Psychiatric Patient has good affect, is cooperative Plan: ? Stop insulin pump for now ? Started on insulin sliding scale for tonight ? Give patient juice and recheck blood glucose in 15 minutes. ? If patient still hypoglycemic to administer 50 cc of D50 IV and recheck blood glucose in 30 minutes. ? Please provide patient with juice and snacks at bedside in the event of hypoglycemic episodes overnight. Plan of care discussed with Attending Dr. Martinez and PGY3 Dr. Rea Khan MD PGY 1
[2024-09-27] MEDS: TAMSULOSIN HCL 0.4 MG CAPSULE PO (20:15)
[2024-09-27] MEDS: INSULIN LISPRO (AdmeLOG) 1 UNIT/0.01 ML UNIT SC (20:15)
[2024-09-28] VITALS (8 sets, daily range): BP systolic 115–149; BP diastolic 73–94; PULSE 66–109; RESP 15–23; TEMP 36–36.5; O2SAT 91–98
[2024-09-28 05:15] LABS: Basophils # (Auto) 0.1 Thou/mm3 (0.0-0.2); Basophils % (Auto) 1 % (0-2.5); Eosinophils # (Auto) 0.6 Thou/mm3 (0.0-0.5); Eosinophils % (Auto) 12 % (0-10); Hemoglobin 11.6 g/dL (13.5-16.0); Immature Granulocytes % (Auto) 0 % (0-0); Immature Granulocytes Auto 0.01 Thou/mm3 (0.00-0.00); Lymphocytes # (Auto) 1.4 Thou/mm3 (1.0-4.8); Lymphocytes % (Auto) 30 % (10-50); Mean Corpuscular HGB Conc 33.1 g/dl (31.0-37.0); Mean Corpuscular Hemoglobin 30.8 pg (25.0-35.0); Mean Corpuscular Volume 93 fL (80-100); Monocytes # (Auto) 0.5 Thou/mm3 (0.0-0.8); Monocytes % (Auto) 11 % (0-12); Neutrophils # (Auto) 2.1 Thou/mm3 (1.8-7.7); Neutrophils % (Auto) 45 % (37-80); Nucleated Red Blood Cell % 0 /100 WBC (0); Platelet Count 146 Thou/mm3 (140-440); RDW Standard Deviation 45.6 fL (35.1-43.9); Red Blood Count 3.77 Miln/mm3 (4.50-5.90); White Blood Count 4.6 Thou/mm3 (3.8-10.6)
[2024-09-28] MEDS: LEVOTHYROXINE SODIUM 125 MCG TABLET PO (05:37)
[2024-09-28 05:39] LABS: Alanine Aminotransferase 23 U/L (10-49); Albumin, Serum 3.3 gm/dL (3.4-4.8); Albumin/Globulin Ratio 1.9 (1.2-2.2); Alkaline Phosphatase 71 U/L (46-116); Anion Gap 7 (7-16); Aspartate Amino Transferase 11 U/L (0-34); BUN/Creatinine Ratio 16 Ratio (12-20); Bilirubin,Total 0.5 mg/dL (0.3-1.2); Blood Urea Nitrogen 11 mg/dL (9-23); Calcium 8.1 mg/dL (8.3-10.6); Calcium (Corrected) 8.7 mg/dL (8.5-10.1); Carbon Dioxide 27.2 mMol/L (20.0-31.0); Chloride 102 mMol/L (98-107); Creatinine (Component) 0.7 mg/dL (0.6-1.3); Estimated Creatinine Clearance 88.6 mL/min (>60); Globulin 1.7 gm/dL (2.3-3.5); Glucose 226 mg/dL (74-106); Magnesium 2.1 mg/dL (1.6-2.6); Osmolality,Calculated 278 (275-295); Phosphorous 2.6 mg/dL (2.4-5.1); Potassium 3.5 mMol/L (3.4-5.1); Sodium 136 mMol/L (136-145); eGFR > 60 See Note
[2024-09-28] MEDS: MORPHINE SULF INJ 10 MG/ML VIAL IVP ×4 (06:21→21:25)
[2024-09-28] MEDS: METOCLOPRAMIDE INJ 5 MG/ML VIAL 2 ML 10 MG IVP ×3 (07:13→17:12)
[2024-09-28] MEDS: INSULIN LISPRO (AdmeLOG) 1 UNIT/0.01 ML UNIT SC ×3 (07:13→20:28)
[2024-09-28] MEDS: POLYETHYLENE GLYCOL 17 GM PACKET PO (08:25)
[2024-09-28] MEDS: PREGABALIN 50 MG CAPSULE 200 MG PO ×2 (08:25→20:29)
[2024-09-28] MEDS: PANTOPRAZOLE INJ 40 MG VIAL IVP (08:25)
[2024-09-28] MEDS: POTASSIUM CHLORIDE 20 mEq TABCR 40 MEQ PO (08:25)
[2024-09-28] MEDS: cilostazoL 50 MG TABLET 100 MG PO ×2 (08:26→20:29)
[2024-09-28] MEDS: DULoxetine HCL 30 MG CAPSULE 60 MG PO (08:26)
[2024-09-28] MEDS: CLOPIDOGREL BISULFATE 75 MG TABLET PO (08:26)
[2024-09-28] MEDS: HEPARIN SOD INJ 5000 UNIT/ML VIAL SC ×2 (08:30→20:28)
--- NOTE | 2024-09-28 09:54 | PC.SS ---
Patient is alert/oriented. Patient was admitted for euglycemic dka. Patient states he resides alone. He's been independent with ADL's. Patient currently on 02 in hospital setting. He states he was not using 02 or any other DME at home. Patient states he has an [facility] caregiver, Loren Jacome, that provides transportation to his appointments. Patient states he is diabetic and has been for years now. Patient states his pcp is Dr. Wagner and he sees Danay Salas NP. Last appt. was September 09. His daughter, Matilde, is the alt medical decision maker. Transportation to be provided by [facility] worker. D/c plan is to return home.
[2024-09-28] MEDS: ERYTHROMYCIN INJ 250 MG in SODIUM CHLORIDE 0.9% 100 ML 100 MG IV ×2 (14:08→21:25)
--- NOTE | 2024-09-28 14:18 | XR_ITS ---
Examination: AP chest single view Technique one AP portable upright chest single view Exam date and time: September 28, 2024 1433 hours Comparison September 25, 2024 INDICATIONS: Hypoxia today. FINDINGS: Bibasilar atelectasis versus early pneumonia, clinical correlation advised Normal heart size The osseous structures are demineralized IMPRESSION: Bibasilar atelectasis versus early pneumonia, clinical correlation advised
--- NOTE | 2024-09-28 16:29 | ESPR_ITS ---
<Statement entered by Frankie Davila MD - 09/28/24 18:05> Patient was seen and examined at the bedside. Patient reported that he feels better since 2 days. Patient desaturated on walk test and was placed on 5 L NC. Chest x-ray showed mild bilateral atelectasis therefore we encouraged the patient to ambulate and ordered incentive spirometer. Patient's infusion pump only had 8 units left on the pump and he did not have supplies to refill it therefore he was advised to turn it off and we will keep him on insulin sliding scale. PT evaluation ordered. Will likely discharge tomorrow if he is doing fine. All labs and orders were reviewed. I saw and examined the patient, and I agree with current management stated by Dr Trevon MD,PGY1. Plan of care was discussed with the attending physician and resident physician. Disclaimer: Despite multiple revisions, due to the dictation software being used, the document bellow may not be free of grammatical errors including phonetic/typographic errors. However, this does not deter from our commitment to providing health care in the patient's best interest in mind. Dr. Lola MD, PGY 2 Documentation for date of: 09/28/24 Subjective Subjective Interval history: Patient was seen and examined in telemetry this a.m. No events overnight Tolerating diet. Adequate urine output and mentation at baseline. Patient endorses resolution of his vomiting and is tolerating solid diet. Patient was started on erythromycin in addition to metoclopramide to prevent future episodes of intractable vomiting. Patient was advised to get replacement cartridges for his insulin pump Will do 5-minute walk test today and assess patient for discharge after completion K3.5 and Mg 2.1. Patient repleted with KCl 40 mEq p.o. x 1 Exam Vital Signs Temp Pulse Resp BP Pulse Ox O2 Del Method O2 Flow Rate 97.7 F 70 17 145/82 H 93 L Nasal Cannula 2 09/28/24 12:00 09/28/24 12:00 09/28/24 12:00 09/28/24 12:00 09/28/24 12:00 09/28/24 12:00 09/28/24 12:00 Narrative Exam Constitutional Alert, oriented x 3 and comfortable. Elderly male on O2 via NC HEENT Vision grossly intact. Patent nares. Trachea midline Respiratory Chest normal on inspection and clear auscultation bilaterally Cardiovascular S1 and S2 audible, RRR. No murmurs carotid bruit. No gross JVD. Abdominal Soft, obese and non tender to palpation in all quadrants. BS +. Insulin pump noted in right lower quadrant Genitourinary No bladder tenderness, no flank pain. Normal to palpation Musculoskeletal Extremities tone within normal limits. No LE edema. Neurological CN II - XII grossly intact. Extremity motor and sensation grossly intact. Skin Warm, dry and intact. No apparent lesions. Psychiatric Patient has good affect, is cooperative Objective Labs 09/29/24 05:54 09/29/24 05:54 Labs: Laboratory Results - last 24 hr 09/28/24 04:46 WBC 4.6 RBC 3.77 L Hgb 11.6 L Hct 35.0 L MCV 93 MCH 30.8 MCHC 33.1 RDW Std Deviation 45.6 H Plt Count 146 Neut % (Auto) 45 Lymph % (Auto) 30 [place] % (Auto) 11 Eos % (Auto) 12 H Baso % (Auto) 1 Neut # (Auto) 2.1 Lymph # (Auto) 1.4 [place] # (Auto) 0.5 Eos # (Auto) 0.6 H Baso # (Auto) 0.1 Immature Gran # (Auto) 0.01 H Absolute Nucleated RBC 0.00 Immature Gran % 0 Nucleated RBC % 0 Sodium 136 Potassium 3.5 Chloride 102 Carbon Dioxide 27.2 Anion Gap 7 BUN 11 Creatinine 0.7 Estim Creat Clear Calc 88.6 eGFR > 60 BUN/Creatinine Ratio 16 Glucose 226 H Calculated Osmolality 278 Calcium 8.1 L Corrected Calcium 8.7 Phosphorus 2.6 Magnesium 2.1 Total Bilirubin 0.5 D AST 11 ALT 23 Alkaline Phosphatase 71 Total Protein 5.0 L Albumin 3.3 L Globulin 1.7 L Albumin/Globulin Ratio 1.9 ABG Interpretation ABG results: 09/26/24 09/26/24 01:02 04:58 VBG pH 7.50 7.41 VBG pCO2 24 L 33 L VBG pO2 55 47 VBG Base Excess -2 -3 Quality Measures Quality Measures VTE prophylaxis Advance care planning discussed with:: patient Assessment & Plan Assessment Current Active Medications: Generic Name Dose Route Start Last Admin Trade Name Freq PRN Reason Stop Dose Admin Acetaminophen 650 mg 09/26/24 08:38 Acetaminophen 325 Mg Tablet PO 10/26/24 08:37 Q6H PRN PAIN SCALE 1-3 (mild Protocol Cilostazol 100 mg 09/26/24 09:00 09/28/24 08:26 Cilostazol 50 Mg Tablet PO 10/26/24 08:59 100 mg BID BUBBA Administration Clopidogrel Bisulfate 75 mg 09/26/24 09:00 09/28/24 08:26 Clopidogrel Bisulfate 75 Mg Tablet PO 10/26/24 08:59 75 mg QDAY BUBBA Administration Dextrose 25 ml 09/26/24 08:44 Dextrose 50%-Water Inj 50 Ml Syringe IV 10/26/24 08:43 Q15MIN PRN BG 50-70 responsive npo pt Dextrose 50 ml 09/26/24 08:44 09/27/24 17:24 Dextrose 50%-Water Inj 50 Ml Syringe IV 10/26/24 08:43 50 ml Q15MIN PRN Administration BG <50 OR BG <70 & pt unresponsive Duloxetine HCl 60 mg 09/27/24 09:00 09/28/24 08:26 Duloxetine Hcl 30 Mg Capsule PO 10/27/24 08:59 60 mg QDAY BUBBA Administration Glucagon 1 mg 09/26/24 08:44 Glucagon Inj 1 Mg Vial IM Q15MIN PRN BG <70, and no IV access Heparin Sodium (Porcine) 5,000 unit 09/26/24 08:45 09/28/24 08:30 Heparin Sod Inj 5000 Unit/Ml Vial SC 10/10/24 08:44 5,000 unit Q12H BUBBA Administration Erythromycin Lactobionate 250 100 mls @ 100 mls/hr 09/28/24 14:00 09/28/24 14:08 mg/ Sodium Chloride IV 10/05/24 13:59 100 mls/hr Q8HR BUBBA Administration Insulin Human Lispro 0 unit 09/28/24 17:00 Insulin Lispro (Admelog) 1 Unit/0.01 Ml Unit SC 10/28/24 16:59 ACHS [facility] Protocol Levothyroxine Sodium 125 mcg 09/27/24 06:00 09/28/24 05:37 Levothyroxine Sodium 125 Mcg Tablet PO 10/27/24 05:59 125 mcg ACBR BUBBA Administration Metoclopramide HCl 10 mg 09/26/24 14:00 09/28/24 11:31 Metoclopramide Inj 5 Mg/Ml Vial 2 Ml IVP 10/26/24 13:59 10 mg TIDWM BUBBA Administration Protocol Morphine Sulfate 1 mg 09/26/24 08:38 09/28/24 15:16 Morphine Sulf Inj 10 Mg/Ml Vial IVP 10/01/24 08:37 1 mg Q4H PRN Administration PAIN SCALE 7-10 (Severe Ondansetron HCl 4 mg 09/26/24 08:55 Ondansetron Inj 2 Mg/Ml Inj 2 Ml IV 10/26/24 08:54 Q8HR PRN NAUSEA OR VOMITING Protocol Oxycodone/Acetaminophen 1 tab 09/26/24 08:38 09/27/24 09:33 Oxycodone/Apap 5/325 Tablet PO 10/01/24 08:37 1 tab Q6H PRN Administration PAIN SCALE 4-6 (Moderate Pantoprazole Sodium 40 mg 09/26/24 09:00 09/28/24 08:25 Pantoprazole Inj 40 Mg Vial IVP 10/26/24 08:59 40 mg QDAY BUBBA Administration Polyethylene Glycol 17 gm 09/27/24 09:00 09/28/24 08:25 Polyethylene Glycol 17 Gm Packet PO 10/27/24 08:59 17 gm QDAY BUBBA Administration Pregabalin 200 mg 09/26/24 21:00 09/28/24 08:25 Pregabalin 50 Mg Capsule PO 10/26/24 08:59 200 mg BID BUBBA Administration Sennosides 1 tab 09/26/24 08:38 Senna Tablet PO 10/26/24 08:37 BID PRN CONSTIPATION Protocol Tamsulosin HCl 0.4 mg 09/26/24 21:00 09/27/24 20:15 Tamsulosin Hcl 0.4 Mg Capsule PO 10/26/24 20:59 0.4 mg HS BUBBA Administration Plan This patient 69-year-old male with past medical history of CAD status post stents on Plavix, PAD s/p stents in both lower extremities on cilostazol, diabetes type 1 on insulin infusion pump, metformin and Farxiga, diabetic neuropathy and gastroparesis on duloxetine and gabapentin and Reglan respectively presented to the ED on 09/26/2024 with chief complaint of nausea and vomiting from last 3 days. He is admitted for intractable nausea and vomiting due to diabetic gastroparesis and euglycemic DKA. # Intractable nausea and vomiting?resolved # Likely secondary to diabetic gastroparesis # Euglycemic DKA?ruled out # Insulin-dependent type 1 diabetes o insulin infusion pump DDx: Diabetic gastroparesis, euglycemic DKA, chronic opioids ?Patient presented with intractable nausea and vomiting from past 3 days. He reported to vomit more than 10 episodes in a day. He was taking Reglan prescribed by his certified endoscopy technician. He denied any fever chills, chest pain or shortness of breath. Patient uses insulin pump for his management of type 1 diabetes. He also takes metformin and Farxiga. Given patient use SGLT2 inhibitors there was a concern for euglycemic DKA due to elevated beta hydroxybutyrate:4.1 seen on admission and urinalysis showing ketones in february 2024. Elevated procalcitonin at 8.76 ?CT abdomen pelvis showed gastritis/duodenitis pattern. Lactic acid 1.4, lipase was normal ? A1c 5.9% ? VBG showed pH 7.41, pCO2 33, pO2 47 ? EKG showed sinus tachycardia with short MS interval, QTc 453. Initially euglycemic DKA was a concern due to patient's history of SGLT2 use. However pH was 7.41 and bicarb was 19.9 at the time of admission and continued to improve. Patient did not fit the criteria for euglycemic DKA and most likely etiology of intractable nausea and vomiting is diabetic gastroparesis. Patient was started on erythromycin in addition to metoclopramide to prevent future episodes of intractable vomiting. Patient was advised to get replacement cartridges for his insulin pump Will do 5-minute walk test today and assess patient for discharge after completion Plan - Started on erythromycin in addition to metoclopramide to prevent future episodes of intractable vomiting. - Patient advised to get replacement cartridges for his insulin pump - Will do 5-minute walk test today and assess patient for discharge after completion ? Continuing Reglan 10 mg IV 3 times daily before meals ? Will resume Farxiga on discharge as euglycemic DKA was ruled out # Hypokalemia?resolved # Hypophosphatemia?resolved phosphorus 2.3 which improved to 3.3 K3.5 and Mg 2.1. Patient repleted with KCl 40 mEq p.o. x 1 # History of coronary artery disease s/p stents # History of peripheral artery disease s/p stents in lower extremities ? Patient reported that he takes Plavix and cilostazol for stents in his heart and lower extremities respectively. Plan: ? Continue Plavix and cilostazol # Diabetic neuropathy # History of herniated disc on chronic opioids ? Patient reported that he takes pregabalin for diabetic neuropathy and takes oxycodone for his herniated disc in the cervical vertebrae Plan: ? Continue home medications duloxetine and gabapentin ? Continue oxycodone 1 tablet every 6 as needed # Hypothyroidism ? Patient takes levothyroxine 125 mcg AC. TSH 4.88 Plan: ? Continue home medication ? Recommend repeat thyroid function test in 6 weeks as outpatient and to follow- up with PCP for results # leukocytosis: Resolved On admission WBC 17.5 which currently down trended to 5.4 Etiology likely secondary to hemoconcentration due to intractable vomiting. Also likely reactive. Health maintenance: Disposition: Wean off O2 as tolerated and assess for home O2 tomorrow if still hypoxic after repeat walk test. Diet: Low consistent carb Lines: pIVs GI Prophylaxis: reglan and erythromycin Thrombo Prophylaxis: Heparin Code status: FULL CODE Plan of care discussed with Attending Dr. Schaefer and PGY2 Dr. Lola Khan MD PGY 1 Attending Provider Attestation/Addendum I have discussed and was present for the essential components of the history, physical examination, diagnosis, and treatment plan with the resident. I agree with the patient's care as documented by the resident and amended herein by me. Kirk Schaefer DO. Although this document has been carefully reviewed, there may still be some phonetic and other typographical errors. These errors are purely grammatical due to imperfections in the software program and should not be construed in any way to compromise the substance of the patient's medical care during this visit.
[2024-09-28] MEDS: TAMSULOSIN HCL 0.4 MG CAPSULE PO (20:29)
[2024-09-29] VITALS: BP 116/64; PULSE 73; PULSE 91; RESP 18; TEMP 36.1; O2SAT 95
[2024-09-29 04:00] VITALS: BP 125/68; PULSE 67; PULSE 68; RESP 17; TEMP 36.3; O2SAT 96
[2024-09-29] MEDS: LEVOTHYROXINE SODIUM 125 MCG TABLET PO (05:07)
[2024-09-29 05:49] VITALS: BMI 25.3
--- NOTE | 2024-09-29 06:02 | PC.NURSE ---
Pt has erythromycin med due at 0600 that need to be mixed by pharmacy and brought to the unit but pharmacy is not open yet. Will attempt to call again before shift change
[2024-09-29 06:17] LABS: Basophils # (Auto) 0.1 Thou/mm3 (0.0-0.2); Basophils % (Auto) 1 % (0-2.5); Eosinophils # (Auto) 0.7 Thou/mm3 (0.0-0.5); Eosinophils % (Auto) 16 % (0-10); Hematocrit 37.6 % (41.0-53.0); Hemoglobin 12.4 g/dL (13.5-16.0); Immature Granulocytes % (Auto) 0 % (0-0); Immature Granulocytes Auto 0.02 Thou/mm3 (0.00-0.00); Lymphocytes # (Auto) 1.3 Thou/mm3 (1.0-4.8); Lymphocytes % (Auto) 29 % (10-50); Mean Corpuscular Hemoglobin 30.6 pg (25.0-35.0); Mean Corpuscular Volume 93 fL (80-100); Monocytes # (Auto) 0.4 Thou/mm3 (0.0-0.8); Monocytes % (Auto) 10 % (0-12); Neutrophils # (Auto) 1.9 Thou/mm3 (1.8-7.7); Neutrophils % (Auto) 43 % (37-80); Nucleated Red Blood Cell % 0 /100 WBC (0); Platelet Count 132 Thou/mm3 (140-440); RDW Standard Deviation 44.9 fL (35.1-43.9); Red Blood Count 4.05 Miln/mm3 (4.50-5.90); White Blood Count 4.5 Thou/mm3 (3.8-10.6)
[2024-09-29 07:01] LABS: Alanine Aminotransferase 20 U/L (10-49); Albumin, Serum 3.6 gm/dL (3.4-4.8); Alkaline Phosphatase 79 U/L (46-116); Anion Gap 6 (7-16); Aspartate Amino Transferase 11 U/L (0-34); BUN/Creatinine Ratio 19 Ratio (12-20); Bilirubin,Total 0.4 mg/dL (0.3-1.2); Blood Urea Nitrogen 15 mg/dL (9-23); Calcium 8.4 mg/dL (8.3-10.6); Calcium (Corrected) 8.7 mg/dL (8.5-10.1); Carbon Dioxide 27.7 mMol/L (20.0-31.0); Chloride 100 mMol/L (98-107); Creatinine (Component) 0.8 mg/dL (0.6-1.3); Estimated Creatinine Clearance 77.5 mL/min (>60); Globulin 1.8 gm/dL (2.3-3.5); Glucose 310 mg/dL (74-106); Osmolality,Calculated 281 (275-295); Phosphorous 3.2 mg/dL (2.4-5.1); Potassium 4.4 mMol/L (3.4-5.1); Sodium 134 mMol/L (136-145); Total Protein 5.4 gm/dL (5.7-8.2); eGFR > 60 See Note
[2024-09-29] MEDS: INSULIN LISPRO (AdmeLOG) 1 UNIT/0.01 ML UNIT SC ×2 (07:50→11:25)
[2024-09-29 08:00] VITALS: BP 124/74; PULSE 109; PULSE 80; RESP 12; TEMP 36.4; O2SAT 95
--- NOTE | 2024-09-29 08:28 | PD.RESPRO ---
Documentation for date of: 09/29/24 Exam Vital Signs Temp Pulse Resp BP Pulse Ox O2 Del Method O2 Flow Rate 97.6 F 80 12 124/74 95 Room Air 2 09/29/24 08:00 09/29/24 08:00 09/29/24 08:00 09/29/24 08:00 09/29/24 08:00 09/29/24 08:00 09/29/24 00:00 Objective Labs 09/29/24 05:54 09/29/24 05:54 Labs: Laboratory Results - last 24 hr 09/29/24 05:54 WBC 4.5 RBC 4.05 L Hgb 12.4 L Hct 37.6 L MCV 93 MCH 30.6 MCHC 33.0 RDW Std Deviation 44.9 H Plt Count 132 L Neut % (Auto) 43 Lymph % (Auto) 29 [place] % (Auto) 10 Eos % (Auto) 16 H Baso % (Auto) 1 Neut # (Auto) 1.9 Lymph # (Auto) 1.3 [place] # (Auto) 0.4 Eos # (Auto) 0.7 H Baso # (Auto) 0.1 Immature Gran # (Auto) 0.02 H Absolute Nucleated RBC 0.00 Immature Gran % 0 Nucleated RBC % 0 Sodium 134 L Potassium 4.4 D Chloride 100 Carbon Dioxide 27.7 Anion Gap 6 L BUN 15 Creatinine 0.8 Estim Creat Clear Calc 77.5 eGFR > 60 BUN/Creatinine Ratio 19 Glucose 310 H D Calculated Osmolality 281 Calcium 8.4 Corrected Calcium 8.7 Phosphorus 3.2 Magnesium 2.0 Total Bilirubin 0.4 AST 11 ALT 20 Alkaline Phosphatase 79 Total Protein 5.4 L Albumin 3.6 Globulin 1.8 L Albumin/Globulin Ratio 2.0 ABG Interpretation ABG results: 09/26/24 09/26/24 01:02 04:58 VBG pH 7.50 7.41 VBG pCO2 24 L 33 L VBG pO2 55 47 VBG Base Excess -2 -3 Quality Measures Quality Measures VTE prophylaxis Assessment & Plan Assessment Current Active Medications: Generic Name Dose Route Start Last Admin Trade Name Freq PRN Reason Stop Dose Admin Acetaminophen 650 mg 09/26/24 08:38 Acetaminophen 325 Mg Tablet PO 10/26/24 08:37 Q6H PRN PAIN SCALE 1-3 (mild Protocol Cilostazol 100 mg 09/26/24 09:00 09/28/24 20:29 Cilostazol 50 Mg Tablet PO 10/26/24 08:59 100 mg BID BUBBA Administration Clopidogrel Bisulfate 75 mg 09/26/24 09:00 09/28/24 08:26 Clopidogrel Bisulfate 75 Mg Tablet PO 10/26/24 08:59 75 mg QDAY BUBBA Administration Dextrose 25 ml 09/26/24 08:44 Dextrose 50%-Water Inj 50 Ml Syringe IV 10/26/24 08:43 Q15MIN PRN BG 50-70 responsive npo pt Dextrose 50 ml 09/26/24 08:44 09/27/24 17:24 Dextrose 50%-Water Inj 50 Ml Syringe IV 10/26/24 08:43 50 ml Q15MIN PRN Administration BG <50 OR BG <70 & pt unresponsive Duloxetine HCl 60 mg 09/27/24 09:00 09/28/24 08:26 Duloxetine Hcl 30 Mg Capsule PO 10/27/24 08:59 60 mg QDAY BUBBA Administration Glucagon 1 mg 09/26/24 08:44 Glucagon Inj 1 Mg Vial IM Q15MIN PRN BG <70, and no IV access Heparin Sodium (Porcine) 5,000 unit 09/26/24 08:45 09/28/24 20:28 Heparin Sod Inj 5000 Unit/Ml Vial SC 10/10/24 08:44 5,000 unit Q12H BUBBA Administration Erythromycin Lactobionate 250 100 mls @ 100 mls/hr 09/29/24 07:00 mg/ Sodium Chloride IV 10/05/24 13:59 Q8H BUBBA Insulin Human Lispro 0 unit 09/28/24 17:00 09/29/24 07:50 Insulin Lispro (Admelog) 1 Unit/0.01 Ml Unit SC 10/28/24 16:59 5 unit ACHS BUBBA Administration Protocol Levothyroxine Sodium 125 mcg 09/27/24 06:00 09/29/24 05:07 Levothyroxine Sodium 125 Mcg Tablet PO 10/27/24 05:59 125 mcg ACBR BUBBA Administration Metoclopramide HCl 10 mg 09/26/24 14:00 09/28/24 17:12 Metoclopramide Inj 5 Mg/Ml Vial 2 Ml IVP 10/26/24 13:59 10 mg TIDWM BUBBA Administration Protocol Morphine Sulfate 1 mg 09/26/24 08:38 09/28/24 21:25 Morphine Sulf Inj 10 Mg/Ml Vial IVP 10/01/24 08:37 1 mg Q4H PRN Administration PAIN SCALE 7-10 (Severe Ondansetron HCl 4 mg 09/26/24 08:55 Ondansetron Inj 2 Mg/Ml Inj 2 Ml IV 10/26/24 08:54 Q8HR PRN NAUSEA OR VOMITING Protocol Oxycodone/Acetaminophen 1 tab 09/26/24 08:38 09/27/24 09:33 Oxycodone/Apap 5/325 Tablet PO 10/01/24 08:37 1 tab Q6H PRN Administration PAIN SCALE 4-6 (Moderate Pantoprazole Sodium 40 mg 09/26/24 09:00 09/28/24 08:25 Pantoprazole Inj 40 Mg Vial IVP 10/26/24 08:59 40 mg QDAY BUBBA Administration Polyethylene Glycol 17 gm 09/27/24 09:00 09/28/24 08:25 Polyethylene Glycol 17 Gm Packet PO 10/27/24 08:59 17 gm QDAY BUBBA Administration Pregabalin 200 mg 09/26/24 21:00 09/28/24 20:29 Pregabalin 50 Mg Capsule PO 10/26/24 08:59 200 mg BID BUBBA Administration Sennosides 1 tab 09/26/24 08:38 Senna Tablet PO 10/26/24 08:37 BID PRN CONSTIPATION Protocol Tamsulosin HCl 0.4 mg 09/26/24 21:00 09/28/24 20:29 Tamsulosin Hcl 0.4 Mg Capsule PO 10/26/24 20:59 0.4 mg HS BUBBA Administration
[2024-09-29 09:09] VITALS: PULSE 106; RESP 18; O2SAT 92
[2024-09-29] MEDS: MORPHINE SULF INJ 10 MG/ML VIAL IVP (09:09)
[2024-09-29] MEDS: INSULIN GLARGINE (Lantus) 5 UNIT/0.05 ML (PER 5 UNITS) SC (09:09)
[2024-09-29] MEDS: CLOPIDOGREL BISULFATE 75 MG TABLET PO (09:10)
[2024-09-29] MEDS: PANTOPRAZOLE INJ 40 MG VIAL IVP (09:10)
[2024-09-29] MEDS: HEPARIN SOD INJ 5000 UNIT/ML VIAL SC (09:10)
[2024-09-29] MEDS: METOCLOPRAMIDE INJ 5 MG/ML VIAL 2 ML 10 MG IVP ×2 (09:10→13:16)
[2024-09-29] MEDS: PREGABALIN 50 MG CAPSULE 200 MG PO (09:10)
[2024-09-29] MEDS: cilostazoL 50 MG TABLET 100 MG PO (09:10)
[2024-09-29] MEDS: ERYTHROMYCIN INJ 250 MG in SODIUM CHLORIDE 0.9% 100 ML 100 MG IV (09:11)
[2024-09-29] MEDS: DULoxetine HCL 30 MG CAPSULE 60 MG PO (09:11)
[2024-09-29] MEDS: POLYETHYLENE GLYCOL 17 GM PACKET PO (09:12)
--- NOTE | 2024-09-29 11:02 | PC.NURSE ---
Pt. sitting at side of bed on room air satting at 87%, pt. standing at RA satting at 85%, when oxygen applied on pt. pt. satting at 93% on 2L
--- NOTE | 2024-09-29 11:40 | PD.RESDS ---
Planned Discharge Date 09/29/24 DS: Providers Provider Date of admission: 09/26/24 09:00 Primary care physician: Danay Salas NP Admitting Provider: Brian Martinez MD Attending Provider on Admission: James Schaefer DO Consults: 09/28/24 14:15 Referral Physical Therapy Routine Comment: Physician Instructions: Attending Provider on DC: Trevon Khan MD Discharging Provider: Trevon Khan MD Hospital Course Hospital Course Hospital course: Patient was seen and examined in telemetry this a.m. No events overnight Tolerating diet. Adequate urine output and mentation at baseline. Patient endorses resolution of his vomiting and is tolerating solid diet. Patient was started on erythromycin in addition to metoclopramide to prevent future episodes of intractable vomiting. Patient was advised to get replacement cartridges for his insulin pump Will do 5-minute walk test today and assess patient for discharge after completion K3.5 and Mg 2.1. Patient repleted with KCl 40 mEq p.o. x 1 Time Spent with Patient Time attestation: Total time spent providing and/or coordinating discharge services: Exam Vital Signs Temp Pulse Resp BP Pulse Ox O2 Del Method O2 Flow Rate 97.6 F 106 H 18 124/74 92 L Room Air 2 09/29/24 08:00 09/29/24 09:09 09/29/24 09:09 09/29/24 08:00 09/29/24 09:09 09/29/24 08:00 09/29/24 09:09 Discharge Plan Plan Patient Disposition: HOME (Self Care) Patient condition on transfer: Stable Care Plan Goals: ? You have been started on a medication erythromycin for your vomiting. Take 1 tablet 3 times a day as directed ? We have discontinued p.o. diabetic medication metformin and Farxiga. ? Continue the rest of your home medications as listed below. Please take as directed ? Please follow-up with your primary care provider within 1 week of discharge. ? Please also follow-up with GI to assess if to continue metoclopramide and erythromycin indefinitely ? If you experience any new, persistent or worsening symptoms either call your primary care provider or dial 911or present to the emergency room Prescriptions/Referrals Prescriptions/Med Rec: Continued duloxetine [Cymbalta] 60 MG capsule,delayed release(DR/EC) 60 mg PO DAILY Qty: 0 pregabalin [Lyrica] 200 MG capsule 200 mg PO BID Qty: 60 cilostazol 100 MG tablet 100 mg PO BID Qty: 0 metoclopramide HCl 10 mg Tablet 10 mg PO [facility] lovastatin 40 mg Tablet 40 mg PO HS levothyroxine 125 mcg Capsule 125 mcg PO QDAY tamsulosin 0.4 mg Capsule 0.4 mg PO QDAY clopidogrel 75 mg Tablet 75 mg PO QDAY omeprazole 40 mg capsule,delayed release(DR/EC) 40 mg PO QDAY insulin regular human 100 unit/mL Cartridge 20 unit SUBCUT QID Rx Instructions: 20 UNITS SUBQ FOR TIME A DAY WITH PUMP ferrous sulfate 325 mg (65 mg iron) Tablet 325 mg PO QDAY ergocalciferol (vitamin D2) [Vitamin D2] 1,250 mcg (50,000 unit) Capsule 1,250 mcg PO QWEEK Linzess 290 mcg Capsule 290 mcg PO AC oxycodone-acetaminophen 7.5-325 mg tablet 1 tab PO QID PRN (Reason: Pain) Patient Comments: TAKE ONE TABLET BY MOUTH FOUR TIMES DAILY FOR PAIN Discontinued metformin 500 mg Tablet 500 mg PO BIDWMEAL dapagliflozin propanediol [Farxiga] 5 mg Tablet 5 mg PO QAM Referrals: Danay Salas NP [Primary Care Provider] - Patient/Caregiver Discharge Instructions Print Language: Bol[place] Stand Alone Forms: Amy Award Info., Patient Portal Info Letter
--- NOTE | 2024-09-29 11:55 | PC.SS ---
Follow up note: Nursing called to state she tested patient and he will need new 02. SS will get order and send off on [facility].
[2024-09-29 12:00] VITALS: BP 115/66; PULSE 102; PULSE 115; RESP 18; TEMP 35.9; O2SAT 92
--- NOTE | 2024-09-29 15:11 | PC.NURSE ---
Addendum entered by Kera Christian RN 09/29/24 15:46: Called to Dr. Schaefer as pt. states give me the papers, I am going to go AMA. Dr. schaefer made aware of pt. last blood glucose level of 208 and orders pt. can go home. we will in put DC orders. pt. has home o2 at bedside. Original Note: Dr. Khan called to Rn and requests a spot blood glucose check. RN performed and BG level was 208. aware. orders we are still keeping pt. for tonight. RN requests pt. comes to bedside to speak with pt. as pt. is upset that they will not be going home. agrees to come to bedside.
--- NOTE | 2024-09-29 15:13 | PD.RESPRO ---
Documentation for date of: 09/29/24 Exam Vital Signs Temp Pulse Resp BP Pulse Ox O2 Del Method O2 Flow Rate 96.6 F L 102 H 18 115/66 92 L Room Air 2 09/29/24 12:00 09/29/24 12:00 09/29/24 12:00 09/29/24 12:00 09/29/24 12:00 09/29/24 12:00 09/29/24 09:09 Objective Labs 09/29/24 05:54 09/29/24 05:54 Labs: Laboratory Results - last 24 hr 09/29/24 05:54 WBC 4.5 RBC 4.05 L Hgb 12.4 L Hct 37.6 L MCV 93 MCH 30.6 MCHC 33.0 RDW Std Deviation 44.9 H Plt Count 132 L Neut % (Auto) 43 Lymph % (Auto) 29 Norman % (Auto) 10 Eos % (Auto) 16 H Baso % (Auto) 1 Neut # (Auto) 1.9 Lymph # (Auto) 1.3 Norman # (Auto) 0.4 Eos # (Auto) 0.7 H Baso # (Auto) 0.1 Immature Gran # (Auto) 0.02 H Absolute Nucleated RBC 0.00 Immature Gran % 0 Nucleated RBC % 0 Sodium 134 L Potassium 4.4 D Chloride 100 Carbon Dioxide 27.7 Anion Gap 6 L BUN 15 Creatinine 0.8 Estim Creat Clear Calc 77.5 eGFR > 60 BUN/Creatinine Ratio 19 Glucose 310 H D Calculated Osmolality 281 Calcium 8.4 Corrected Calcium 8.7 Phosphorus 3.2 Magnesium 2.0 Total Bilirubin 0.4 AST 11 ALT 20 Alkaline Phosphatase 79 Total Protein 5.4 L Albumin 3.6 Globulin 1.8 L Albumin/Globulin Ratio 2.0 ABG Interpretation ABG results: 09/26/24 09/26/24 01:02 04:58 VBG pH 7.50 7.41 VBG pCO2 24 L 33 L VBG pO2 55 47 VBG Base Excess -2 -3 Quality Measures Quality Measures VTE prophylaxis Assessment & Plan Assessment Current Active Medications: Generic Name Dose Route Start Last Admin Trade Name Freq PRN Reason Stop Dose Admin Acetaminophen 650 mg 09/26/24 08:38 Acetaminophen 325 Mg Tablet PO 10/26/24 08:37 Q6H PRN PAIN SCALE 1-3 (mild Protocol Cilostazol 100 mg 09/26/24 09:00 09/29/24 09:10 Cilostazol 50 Mg Tablet PO 10/26/24 08:59 100 mg BID BUBBA Administration Clopidogrel Bisulfate 75 mg 09/26/24 09:00 09/29/24 09:10 Clopidogrel Bisulfate 75 Mg Tablet PO 10/26/24 08:59 75 mg QDAY BUBBA Administration Dextrose 25 ml 09/26/24 08:44 Dextrose 50%-Water Inj 50 Ml Syringe IV 10/26/24 08:43 Q15MIN PRN BG 50-70 responsive npo pt Dextrose 50 ml 09/26/24 08:44 09/27/24 17:24 Dextrose 50%-Water Inj 50 Ml Syringe IV 10/26/24 08:43 50 ml Q15MIN PRN Administration BG <50 OR BG <70 & pt unresponsive Duloxetine HCl 60 mg 09/27/24 09:00 09/29/24 09:11 Duloxetine Hcl 30 Mg Capsule PO 10/27/24 08:59 60 mg QDAY BUBBA Administration Glucagon 1 mg 09/26/24 08:44 Glucagon Inj 1 Mg Vial IM Q15MIN PRN BG <70, and no IV access Heparin Sodium (Porcine) 5,000 unit 09/29/24 21:00 Heparin Sod Inj 5000 Unit/Ml Vial SC 10/10/24 08:44 Q12HR [facility] Erythromycin Lactobionate 250 100 mls @ 100 mls/hr 09/29/24 17:00 mg/ Sodium Chloride IV 10/06/24 16:59 Q8H [facility] Insulin Glargine 5 unit 09/29/24 21:00 Insulin Glargine (Lantus) 5 Unit/0.05 Ml (Per 5 Units) SC 10/29/24 20:59 HS [facility] Insulin Human Lispro 5 unit 09/29/24 17:30 Insulin Lispro (Admelog) 1 Unit/0.01 Ml Unit SC 10/29/24 17:29 TIDWM [facility] Insulin Human Lispro 0 unit 09/29/24 14:30 Insulin Lispro (Admelog) 1 Unit/0.01 Ml Unit SC 10/28/24 16:59 ACHS [facility] Protocol Levothyroxine Sodium 125 mcg 09/27/24 06:00 09/29/24 05:07 Levothyroxine Sodium 125 Mcg Tablet PO 10/27/24 05:59 125 mcg ACBR BUBBA Administration Metoclopramide HCl 10 mg 09/26/24 14:00 09/29/24 13:16 Metoclopramide Inj 5 Mg/Ml Vial 2 Ml IVP 10/26/24 13:59 10 mg TIDWM BUBBA Administration Protocol Morphine Sulfate 1 mg 09/26/24 08:38 09/29/24 09:09 Morphine Sulf Inj 10 Mg/Ml Vial IVP 10/01/24 08:37 1 mg Q4H PRN Administration PAIN SCALE 7-10 (Severe Ondansetron HCl 4 mg 09/26/24 08:55 Ondansetron Inj 2 Mg/Ml Inj 2 Ml IV 10/26/24 08:54 Q8HR PRN NAUSEA OR VOMITING Protocol Oxycodone/Acetaminophen 1 tab 09/26/24 08:38 09/27/24 09:33 Oxycodone/Apap 5/325 Tablet PO 10/01/24 08:37 1 tab Q6H PRN Administration PAIN SCALE 4-6 (Moderate Pantoprazole Sodium 40 mg 09/30/24 09:00 Pantoprazole 40 Mg Tablet PO 10/27/24 08:59 QDAY BUBBA Polyethylene Glycol 17 gm 09/27/24 09:00 09/29/24 09:12 Polyethylene Glycol 17 Gm Packet PO 10/27/24 08:59 17 gm QDAY BUBBA Administration Pregabalin 200 mg 09/26/24 21:00 09/29/24 09:10 Pregabalin 50 Mg Capsule PO 10/26/24 08:59 200 mg BID BUBBA Administration Sennosides 1 tab 09/26/24 08:38 Senna Tablet PO 10/26/24 08:37 BID PRN CONSTIPATION Protocol Tamsulosin HCl 0.4 mg 09/26/24 21:00 09/28/24 20:29 Tamsulosin Hcl 0.4 Mg Capsule PO 10/26/24 20:59 0.4 mg HS BUBBA Administration
--- NOTE | 2024-09-29 15:20 | ESDS_ITS ---
<Statement entered by Frankie Davila MD - 09/29/24 16:12> Patient was seen and examined at the bedside. Patient was doing well and reported that he did not feel any nausea or vomiting today. His blood sugars were elevated therefore Lantus 10 units subcut was given x 1. Patient was advised to refill his insulin infusion pump and he started upon discharge. Patient needed home O2 due to desaturation. Patient is medically stable for discharge. We stopped dapagliflozin and metformin on discharge. Patient is discharged to home. Started him on erythromycin in addition to metoclopramide for diabetic gastroparesis. All labs and orders were reviewed. I saw and examined the patient, and I agree with current management stated by Dr Erin MD,PGY1. Plan of care was discussed with the attending physician and resident physician. Disclaimer: Despite multiple revisions, due to the dictation software being used, the document bellow may not be free of grammatical errors including phonetic/typographic errors. However, this does not deter from our commitment to providing health care in the patient's best interest in mind. Dr. Lola MD, PGY 2 Planned Discharge Date 09/29/24 DS: Providers Provider Date of admission: 09/26/24 09:00 Primary care physician: Danay Salas NP Admitting Provider: Brian Martinez MD Attending Provider on Admission: James Schaefer DO Consults: 09/28/24 14:15 Referral Physical Therapy Routine Comment: Physician Instructions: Attending Provider on DC: Trevon Khan MD Discharging Provider: Trevon Khan MD DS: Diagnosis Problem List Completed Was Problem List Reviewed/Reconciled?: Yes Hospital Course Hospital Course Hospital course: This patient 69-year-old male with past medical history of CAD status post stents on Plavix, PAD s/p stents in both lower extremities on cilostazol, diabetes type 1 on insulin infusion pump, metformin and Farxiga, diabetic ne uropathy and gastroparesis on duloxetine and gabapentin and Reglan respectively presented to the ED on 09/26/2024 with chief complaint of nausea and vomiting from last 3 days. He is admitted for intractable nausea and vomiting due to diabetic gastroparesis and concern for euglycemic DKA. For his intractable nausea and vomiting patient was treated with Reglan and ondansetron. GI, Dr. Denson was also curb sided who recommended to start patient on erythromycin in addition to his home medication metoclopramide. During hospitalization he had no further episodes of vomiting, now resolved. Initially there was a concern for euglycemic DKA due to patient's history of SGLT 2 years. However pH was 7.41 and bicarb was 19.9 at the time of admission and continued to improve. Patient did not fit the criteria for euglycemic DKA and most likely etiology of intractable nausea and vomiting is diabetic gastroparesis. During his hospitalization patient's cartridge for his insulin pump ran out and he was started on insulin lispro sliding scale along with insulin glargine for control of his blood glucose while in hospital. Recommend patient to restart his insulin pump upon discharge. All patient's labs have now returned to baseline. Patient is now clinically stable and fit for discharge back to home with home Oxygen. Discharge diagnoses: 1. Intractable nausea and vomiting?resolved 2. Diabetic gastroparesis 3. Euglycemic DKA?ruled out 4. Insulin-dependent diabetes mellitus type 1 on insulin infusion pump 5. Hypokalemia?resolved 6. Hypophosphatemia?resolved 7. History of CAD s/p stents 8. History of PAD s/p lower extremity stent 9. Diabetic neuropathy 10. History of herniated disc 11. Hypothyroidism 12. Leukocytosis/resolved Discharge plan: ? You have been started on a medication erythromycin for your vomiting. Take 1 tablet 3 times a day as directed ? We have discontinued p.o. diabetic medication metformin and Farxiga as they put you at more risk for developing diabetic coma with normal glucose levels. ? Continue the rest of your home medications as listed below. Please take as directed ? Please follow-up with your primary care provider within 1 week of discharge. ? Please also follow-up with GI to assess if to continue metoclopramide and erythromycin indefinitely ? If you experience any new, persistent or worsening symptoms either call your primary care provider or dial 911or present to the emergency room We are grateful to be able to participate in Mr. Crespo's care. We wish him the best. Plan of care discussed with Attending Dr. Schaefer and PGY2 Dr. Lola Khan MD PGY 1 Time Spent with Patient Time attestation: Total time spent providing and/or coordinating discharge services: Time spent: Greater than 30 minutes (36) Exam Vital Signs Temp Pulse Resp BP Pulse Ox O2 Del Method O2 Flow Rate 96.6 F L 102 H 18 115/66 92 L Room Air 2 09/29/24 12:00 09/29/24 12:00 09/29/24 12:00 09/29/24 12:00 09/29/24 12:00 09/29/24 12:00 09/29/24 09:09 Narrative Exam Constitutional Alert, oriented x 3 and comfortable. Elderly male on O2 via NC HEENT Vision grossly intact. Patent nares. Trachea midline Respiratory Chest normal on inspection and clear auscultation bilaterally Cardiovascular S1 and S2 audible, RRR. No murmurs carotid bruit. No gross JVD. Abdominal Soft, obese and non tender to palpation in all quadrants. BS +. Insulin pump noted in right lower quadrant Genitourinary No bladder tenderness, no flank pain. Normal to palpation Musculoskeletal Extremities tone within normal limits. No LE edema. Neurological CN II - XII grossly intact. Extremity motor and sensation grossly intact. Skin Warm, dry and intact. No apparent lesions. Psychiatric Patient has good affect, is cooperative Discharge Plan Plan Patient Disposition: HOME (Self Care) Patient condition on transfer: Stable Care Plan Goals: ? You have been started on a medication erythromycin for your vomiting. Take 1 tablet 3 times a day as directed ? We have discontinued p.o. diabetic medication metformin and Farxiga as they put you at more risk for developing diabetic coma with normal glucose levels. ? Continue the rest of your home medications as listed below. Please take as directed ? Please follow-up with your primary care provider within 1 week of discharge. ? Please also follow-up with GI to assess if to continue metoclopramide and erythromycin indefinitely ? If you experience any new, persistent or worsening symptoms either call your primary care provider or dial 911or present to the emergency room Prescriptions/Referrals Prescriptions/Med Rec: New erythromycin 250 mg capsule,delayed release(DR/EC) 250 mg PO Q6H 14 Days Qty: 56 0RF Continued duloxetine [Cymbalta] 60 MG capsule,delayed release(DR/EC) 60 mg PO DAILY Qty: 0 pregabalin [Lyrica] 200 MG capsule 200 mg PO BID Qty: 60 cilostazol 100 MG tablet 100 mg PO BID Qty: 0 metoclopramide HCl 10 mg Tablet 10 mg PO [facility] lovastatin 40 mg Tablet 40 mg PO HS levothyroxine 125 mcg Capsule 125 mcg PO QDAY tamsulosin 0.4 mg Capsule 0.4 mg PO QDAY clopidogrel 75 mg Tablet 75 mg PO QDAY omeprazole 40 mg capsule,delayed release(DR/EC) 40 mg PO QDAY insulin regular human 100 unit/mL Cartridge 20 unit SUBCUT QID Rx Instructions: 20 UNITS SUBQ FOR TIME A DAY WITH PUMP ferrous sulfate 325 mg (65 mg iron) Tablet 325 mg PO QDAY ergocalciferol (vitamin D2) [Vitamin D2] 1,250 mcg (50,000 unit) Capsule 1,250 mcg PO QWEEK Linzess 290 mcg Capsule 290 mcg PO AC oxycodone-acetaminophen 7.5-325 mg tablet 1 tab PO QID PRN (Reason: Pain) Patient Comments: TAKE ONE TABLET BY MOUTH FOUR TIMES DAILY FOR PAIN Discontinued metformin 500 mg Tablet 500 mg PO BIDWMEAL dapagliflozin propanediol [Farxiga] 5 mg Tablet 5 mg PO QAM Referrals: Danay Salas NP [Primary Care Provider] - Patient/Caregiver Discharge Instructions Other Discharge Activity Instructions:: ? You have been started on a medication erythromycin for your vomiting. Take 1 tablet 3 times a day as directed ? We have discontinued p.o. diabetic medication metformin and Farxiga s they put you at more risk for developing diabetic coma with normal glucose levels. ? Continue the rest of your home medications as listed below. Please take as directed ? Please follow-up with your primary care provider within 1 week of discharge. ? Please also follow-up with GI to assess if to continue metoclopramide and erythromycin indefinitely ? If you experience any new, persistent or worsening symptoms either call your primary care provider or dial 911or present to the emergency room Education Materials: Managing Type 1 Diabetes, Using Oxygen Safely, Traveling with Oxygen, Using an Oxygen Tank at Home Print Language: Moldovan Stand Alone Forms: Amy Award Info., Patient Portal Info Letter Discharge Order Discharge Orders: Discharge (Routine); Ordered 09/29/24 Ordered By: Moni Lucia Quality Discharge Quality Measures VTE prophylaxis Attestestation Attestation I have discussed and was present for the essential components of the discharge history, physical examination, diagnosis, and discharge treatment plan with the resident. I agree with the patient's discharge care as documented by the resident and amended herein by me. Kirk Schaefer DO. The patient understood all discharge instructions, all questions were answered satisfactorily. The patient was instructed to return to the Emergency Department is symptoms worsened or persisted. Patient was stable, afebrile, tolerating p.o. intake and ambulatory time of discharge. Patient stated he did have refills for his insulin pump at home. Although this document has been carefully reviewed, there may still be some phonetic and other typographical errors. These errors are purely grammatical due to imperfections in the software program and should not be construed in any way to compromise the substance of the patient's medical care during this visit.
[2024-09-29 16:00] VITALS: BP 106/63; PULSE 95; RESP 15; TEMP 36.2; O2SAT 92
== END 2024-09-29 16:00 | disposition home or self-care (01) | DRG 74 ==
LOC: SERX 06:13 → SERHOLD 09:01 → S2NX 13:42
PROVIDERS: Emergency Medicine; Physician Assistant; Student in an Organized Health Care Education/Training Program; Admitting Provider Internal Medicine; Emergency Provider Emergency Medicine; PCP Nurse Practitioner Family; Visit Provider Student in an Organized Health Care Education/Training Program
DX: E10.43 Type 1 diabetes mellitus with diabetic autonomic (poly)neuropathy (principal); J98.11 Atelectasis; K31.84 Gastroparesis; E87.6 Hypokalemia; E83.39 Other disorders of phosphorus metabolism; I25.10 Atherosclerotic heart disease of native coronary artery without angina pectoris; D72.829 Elevated white blood cell count, unspecified; Z95.5 Presence of coronary angioplasty implant and graft; Z79.02 Long term (current) use of antithrombotics/antiplatelets; Z79.891 Long term (current) use of opiate analgesic; E03.9 Hypothyroidism, unspecified; Z79.890 Hormone replacement therapy; Z96.41 Presence of insulin pump (external) (internal); Z79.4 Long term (current) use of insulin
CPT/HCPCS: 36415; 71045; 74177; 80053; 80061; 80307; 81001; 82010; 82803; 83036; 83605; 83690; 83735; 84100; 84145; 84443; 85025; 93005; 94664; 96361; 96365; 96367; 96372; 96374; 96375; 96376; 97162; 99291; A4649; J1200; J1364; J1643; J1815; J2270; J2470; J2765; J3475; J3480; J3490; J7030; J7042; J7050; J7999; Q9967; A9270; J1644

== ENCOUNTER 2024-10-01 02:19 | Inpatient (IN) | payer MEDICARE, MEDICAID, SELFPAY ==
[2024-10-01] VITALS (32 sets, daily range): BP systolic 82–168; BP diastolic 52–83; PULSE 82–133; RESP 11–120; TEMP 36.6–37.3; O2SAT 91–100; BMI 25.0; BMI 24.4
--- NOTE | 2024-10-01 02:24 | EKG_ITS ---
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
--- NOTE | 2024-10-01 02:24 | XR_ITS ---
Examination: AP chest single view Technique one AP portable upright chest single view Exam date and time: October 01, 2024 0335 hrs. Comparison September 28, 2024 Indications: Chest pain today Findings: Accentuation basilar bronchovascular markings Normal heart size Moderate osteopenia Impression: Basilar bronchitis pattern
[2024-10-01] MEDS: SODIUM CHLORIDE 0.9% 1000 ML 1,000 ML 999 ML IV ×2 (02:51→02:52)
[2024-10-01] MEDS: INSULIN HUM REGULAR 1 UNIT/0.01 ML (PER UNIT) 10 UNIT IV (02:52)
[2024-10-01 02:54] LABS: Basophils # (Auto) 0.1 Thou/mm3 (0.0-0.2); Basophils % (Auto) 1 % (0-2.5); Eosinophils # (Auto) 0.1 Thou/mm3 (0.0-0.5); Eosinophils % (Auto) 1 % (0-10); Hematocrit 43.5 % (41.0-53.0); Hemoglobin 13.7 g/dL (13.5-16.0); Immature Granulocytes % (Auto) 1 % (0-0); Lymphocytes # (Auto) 0.4 Thou/mm3 (1.0-4.8); Lymphocytes % (Auto) 4 % (10-50); Mean Corpuscular HGB Conc 31.5 g/dl (31.0-37.0); Mean Corpuscular Volume 98 fL (80-100); Monocytes # (Auto) 0.7 Thou/mm3 (0.0-0.8); Monocytes % (Auto) 7 % (0-12); Neutrophils # (Auto) 8.5 Thou/mm3 (1.8-7.7); Neutrophils % (Auto) 86 % (37-80); Nucleated Red Blood Cell % 0 /100 WBC (0); Platelet Count 270 Thou/mm3 (140-440); RDW Standard Deviation 50.4 fL (35.1-43.9); Red Blood Count 4.42 Miln/mm3 (4.50-5.90); White Blood Count 9.9 Thou/mm3 (3.8-10.6)
[2024-10-01 03:12] LABS: B-Type Natriuretic Peptide 59 pg/mL (0-100)
--- NOTE | 2024-10-01 03:13 | EDNOTE_ITS ---
ED General RME/HPI General Chief complaint: General Adult/Misc Complain Stated complaint: HIGH BLD SUGAR Time Seen by Provider: 10/01/24 02:51 Arrival date/time: 10/01/24 02:19 RME / HPI RME / HPI narrative: Dr. Cunningham?s Main ED Evaluation: 69yo male presents to the ED for a chief complaint of elevated blood sugar. 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 Per EMS, patient's blood sugar en route was >500. Patient denies any N/V/D, fever, chills, dizziness, lightheadedness or any other associated symptoms. He denies any falls or injuries. No known allergies. PMHx: CAD status post stents on Plavix, PAD s/p stents in both lower extremities on cilostazol, diabetes type 1 on insulin infusion pump, metformin and Farxiga, diabetic neuropathy Related Data Home Medications ?Medication ?Instructions ?Recorded ?Confirmed duloxetine 60 mg capsule,delayed 60 mg PO DAILY Depression ##0 04/12/13 09/26/24 release (Cymbalta) pregabalin 200 mg capsule (Lyrica) 200 mg PO BID ##60 04/28/16 09/26/24 cilostazol 100 mg tablet 100 mg PO BID #0 tabs 01/31/17 09/26/24 metoclopramide HCl 10 mg tablet 10 mg PO [facility]HS 04/07/18 09/26/24 levothyroxine 125 mcg capsule 125 mcg PO QDAY 01/14/19 09/26/24 lovastatin 40 mg tablet 40 mg PO HS 01/14/19 09/26/24 clopidogrel 75 mg tablet 75 mg PO QDAY 02/16/20 09/26/24 tamsulosin 0.4 mg capsule 0.4 mg PO QDAY 02/16/20 09/26/24 omeprazole 40 mg capsule,delayed 40 mg PO QDAY 09/01/20 09/26/24 release insulin regular human 100 unit/mL 20 unit subcut QID 05/29/22 03/12/23 injection solution cartridge ergocalciferol (vitamin D2) 1,250 1,250 mcg PO QWEEK 09/26/24 09/26/24 mcg (50,000 unit) capsule (Vitamin D2) ferrous sulfate 325 mg (65 mg 325 mg PO QDAY 09/26/24 09/26/24 iron) tablet linaclotide 290 mcg capsule 290 mcg PO AC 09/26/24 09/26/24 (Linzess) oxycodone-acetaminophen 7.5 mg-325 1 tab PO QID PRN Pain 09/26/24 09/26/24 mg tablet Previous Rx's ?Medication ?Instructions ?Recorded erythromycin 250 mg 250 mg PO Q6H 2 weeks #56 caps 09/29/24 capsule,delayed release Allergies Allergy/AdvReac Type Severity Reaction Status Date / Time No Known Allergies Allergy Verified 09/26/24 00:25 Review of Systems Review of Systems Systems Reviewed: All systems reviewed, normal except as documented Narrative Review of Systems: Gen: No fever, no chills, no weight loss, + elevated blood sugar EYES: No discharge, no visual changes, no pain HEENT: No ear pain, no congestion, no sore throat PULM: No shortness of breath, no cough, no congestion CV: No chest pain, no dyspnea on exertion, no palpitations GI: No nausea, no vomiting, no diarrhea, no pain, no constipation : No frequency, no urgency, no dysuria Musc/skel: No joint pain, no back pain Skin: No rash Psyc: No hallucinations, no depression Heme/Lymph: No easy bleeding or bruising tendencies Neuro: No weakness, no headache Past Medical History Past Medical History NEUROLOGIC: Positive Neurological Disorders and Peripheral Neuropathy; Negative Seizures CARDIAC: Positive Coronary Artery Disease, Peripheral Vascular Disease, Hypercholesterolemia and Hypertension; Negative Cardiac Disorders or Congestive Heart Failure RESPIRATORY: Positive Asthma and Pneumonia; Negative Chronic Obstructive Pulmonary Disease (COPD) or Sleep Apnea GASTROINTESTINAL: Positive Gastrointestinal Disorders (gastroparesis) and Gastroesophageal Reflux Disease GENITOURINARY: Negative Genitourinary Disorders or Renal Disease MUSCULOSKELETAL: Positive Musculoskeletal Disorders, Arthritis and Carpal Tunnel Syndrome ENT: Positive Cataracts ENDOCRINE: Positive Endocrine Disorders, Diabetes Mellitus Type 2 and Hypothyroidism; Negative Diabetes Mellitus Type 1 HEMATOLOGIC: Positive Blood Disorders and Anemia; Negative Sickle Cell Disease PSYCHO/SOCIAL: Positive Depression OTHER HISTORY: Positive Chicken Pox, Measles and Mumps; Negative Blood Transfusions, Blood Transfusion Reaction, Anesthesia Reactions or Cancer Family History FAMILY HISTORY: Positive Family Cardiac Disorders and Family Cancer Surgical History SURGICAL: Positive Coronary Stent, Angiogram, Ear Surgery and Tonsillectomy; Negative Abdominal Surgery, Nephrectomy, Joint Replacement, Neurologic Surgery or Mastectomy Social History SMOKING STATUS: Former smoker SECOND HAND EXPOSURE: No SUBSTANCE USE: marijuana (Daily) ED Exam Narrative Physical exam: GENERAL APPEARANCE: alert and oriented x 4, well-developed, well-nourished, no acute distress HEENT: Normocephalic, atraumatic; pupils equal, round, reactive to light; EOMI; mucous membranes pink, moist; oropharynx clear NECK: Supple LUNGS: CTABL; no wheezes, no rales, no rhonchi HEART: Regular rate, regular rhythm; normal S1, S2; no murmurs ABDOMEN: non distended; normal BS; soft, no tenderness, no guarding, no rebound; no masses, no organomegaly, no hernia BACK: no CVA tenderness EXTREMITIES: atraumatic; no edema NEUROLOGIC: awake; alert and oriented x4; cranial nerves II-XII grossly intact; no focal sensory or motor deficits PSYCHIATRIC: appropriate mood and affect SKIN: warm, dry, normal color; no rashes Course Course Course Narrative: CXR is ordered for determining the etiology of weakness. Quality Measures none Orders Category Date Time Status Meal Room Hand NOW Care 10/01/24 02:24 Active EKG (ED ONLY) *Do not use* NOW Care 10/01/24 02:24 Completed Insert IV NOW Care 10/01/24 02:55 Active EKG (ED Only) Stat Exams 10/01/24 02:24 Draft XR chest 1V portable Stat Exams 10/01/24 02:24 Taken ABG [Arterial Blood Gas] Stat Lab 10/01/24 03:20 Completed B-Type Natriuretic Peptide Stat Lab 10/01/24 02:44 Completed Beta Hydroxybutyrate Stat Lab 10/01/24 02:44 Completed CBC Stat Lab 10/01/24 02:44 Completed Comprehensive Metabolic Panel Stat Lab 10/01/24 02:44 Completed Lipase Stat Lab 10/01/24 02:44 Completed Magnesium Stat Lab 10/01/24 02:44 Completed Troponin I Stat Lab 10/01/24 02:44 Completed Insulin Reg 100 Units/100 ml [Myxredlin] Med 10/01/24 03:43 Active 100 unit in 100 ml IV 0.1 unit/kg/hr Insulin Regular Med 10/01/24 02:31 Discontinued 10 unit IV X1 ONE Sodium Chloride 0.9% 1000 ml [Ns] 1,000 ml Med 10/01/24 02:26 Discontinued IV 999 mls/hr Sodium Chloride 0.9% 1000 ml [Ns] 1,000 ml Med 10/01/24 02:26 Discontinued IV 999 mls/hr Vital Signs Vital signs: Vital Signs Temperature 98.3 F 10/01/24 02:26 Pulse Rate 125 H 10/01/24 02:26 Respiratory Rate 20 10/01/24 02:26 Blood Pressure 123/71 10/01/24 02:26 Pulse Oximetry (%) 96 10/01/24 02:26 Oxygen Delivery Method Room Air 10/01/24 02:26 Pulse ox is 98% on room air, which is normal according to my interpretation. [facility] Patient data External records reviewed:: [facility] previous records (Per chart review, patient was just discharged on 09/29/24 after being admitted for gastroparesis.) Clinical information provided by:: patient Social determinants that could affect healthcare access:: none Patient has the following chronic illnesses:: CAD status post stents on Plavix, PAD s/p stents in both lower extremities on cilostazol, diabetes type 1 on insulin infusion pump, metformin and Farxiga, diabetic neuropathy How is presenting disease/condition affected by chronic disease/condition?: e xacerbated by Evaluation data The following diagnostics were reviewed and interpreted by me:: lab results, radiology exam(s) and EKG tracing(s) Lab and/or radiology exams considered but not ordered:: none Interpretation Summary: CBCs are negative, Beta Hydroxybutyrate is elevated at 6.0, Potassium is elevated at 5.9, Glucose is elevated at 728, Anion Gap is elevated at 32, Creatinine is elevated at 2.0, troponin is normal, according to my interpretation. CXR shows mild left perihilar infiltrate, but no cardiomegaly, no pneumothorax, according to my interpretation. EKG done at 0252, sinus tachycardia, rate of 131, normal intervals, normal axis, no ST elevations or depressions, no acute ischemia, according to my interpretation. The air sampling and monitoring revealed sinus tachycardia as interpreted by me. The air sampling and monitoring was ordered secondary to the patient's complaint of elevated blood sugar and to monitor for dysrhythmia. Medications Medications considered but not ordered:: none Medication administrations:: Medication Administration History Insulin Human Regular (Myxredlin) 100 unit in 100 mls @ 7.031 mls/hr IV .[id number] PRN; Protocol PRN Reason: PER PROTOCOL Stop: 10/31/24 03:42 Discontinued Medications Sodium Chloride (Ns) 1,000 mls @ 999 mls/hr IV .Q1H1M ONE Stop: 10/01/24 03:26 Last Infusion: 10/01/24 03:53 Dose: Infused Documented By: Admin: 10/01/24 02:51 Dose: 999 mls/hr Documented By: ION Sodium Chloride (Ns) 1,000 mls @ 999 mls/hr IV .Q1H1M ONE Stop: 10/01/24 03:26 Last Admin: 10/01/24 02:52 Dose: 999 mls/hr Documented By: ION Insulin Human Regular (Insulin Hum Regular 1 Unit/0.01 Ml (Per Unit)) 10 unit IV X1 ONE Stop: 10/01/24 02:32 Last Admin: 10/01/24 02:52 Dose: 10 unit Documented By: ION Co-signed By: LISA see above Consultations Consultation(s) initiated? (list below): Yes Consultation #1 (Physician, Specialty, Details): Discussed case with [Dr. Juares] from Hospitalist service regarding admission. Discussed patients ED course, exam findings, labs, and radiology results. The Hospitalist [agrees] to accept the patient for admission. Time: 03:44 Diagnosis Differential Diagnosis ED Complaint MDM: DKA, sepsis, hyperglycemia Most likely diagnosis given after review of the tests above:: see below Admission Indicated Admission indicated?: indicated Explain why admission is indicated or not indicated:: Patient is in DKA and requires inpatient monitoring and treatment. Admission Request Was there a request for admission?: Yes Admission Attestation Admission request attestation: Discussed case with [] from Hospitalist service regarding admission. Discussed patients ED course, exam findings, labs, and radiology results. The Hospitalist [agrees,declines] to accept the patient for admission. Disposition Plan Disposition Plan: Admit Medical Decision Making MDM Narrative MDM Narrative: Scribe Attestation: 10/01/24 Tanvi Rowe am scribing for and in the presence of Dr. Cunningham. Differential Diagnosis Differential Diagnosis: DKA, sepsis, hyperglycemia Lab Data 10/01/24 02:44 10/01/24 02:44 Labs: Lab Results 10/01/24 10/01/24 Range/Units 02:44 03:20 WBC 9.9 D (3.8-10.6) Thou/mm3 RBC 4.42 L (4.50-5.90) Miln/mm3 Hgb 13.7 (13.5-16.0) g/dL Hct 43.5 (41.0-53.0) % MCV 98 (80-100) fL MCH 31.0 (25.0-35.0) pg MCHC 31.5 (31.0-37.0) g/dl RDW Std Deviation 50.4 H (35.1-43.9) fL Plt Count 270 D (140-440) Thou/mm3 Neut % (Auto) 86 H (37-80) % Lymph % (Auto) 4 L (10-50) % [place]shaw % (Auto) 7 (0-12) % Eos % (Auto) 1 (0-10) % Baso % (Auto) 1 (0-2.5) % Neut # (Auto) 8.5 H (1.8-7.7) Thou/mm3 Lymph # (Auto) 0.4 L (1.0-4.8) Thou/mm3 [place]shaw # (Auto) 0.7 (0.0-0.8) Thou/mm3 Eos # (Auto) 0.1 (0.0-0.5) Thou/mm3 Baso # (Auto) 0.1 (0.0-0.2) Thou/mm3 Immature Gran # (Auto) 0.10 H (0.00-0.00) Thou/mm3 Absolute Nucleated RBC 0.00 (0.00-0.00) Thou/mm3 Immature Gran % 1 H (0-0) % Nucleated RBC % 0 (0) /100 WBC Puncture Site Left Radial ABG pH 7.19 L* (7.35-7.45) ABG pCO2 23 L (32.0-48.0) mmHg ABG pO2 98 (83-108) mmHg ABG HCO3 9 L* (20-26) mEq/L ABG O2 Saturation 96 (91-98) % ABG Base Excess -18 L (-3-3) Oxygen Liter Flow 2 L/min FiO2 21 % Sodium 134 L (136-145) mMol/L Potassium 5.9 H D (3.4-5.1) mMol/L Chloride 90 L (98-107) mMol/L Carbon Dioxide 12.3 L* (20.0-31.0) mMol/L Anion Gap 32 H (7-16) BUN 32 H (9-23) mg/dL Creatinine 2.0 H D (0.6-1.3) mg/dL Estim Creat Clear Calc 31.0 L (>60) mL/min eGFR 35 L (60 - ) See Note BUN/Creatinine Ratio 16 (12-20) Ratio Glucose 728 H* D (74-106) mg/dL Calculated Osmolality 310 H (275-295) Calcium 10.6 D (8.3-10.6) mg/dL Corrected Calcium 10.6 H D (8.5-10.1) mg/dL Magnesium 2.6 (1.6-2.6) mg/dL Total Bilirubin 0.4 (0.3-1.2) mg/dL AST 15 (0-34) U/L ALT 26 (10-49) U/L Alkaline Phosphatase 115 D (46-116) U/L Troponin I < 0.020 (0.0-0.045) ng/mL B-Natriuretic Peptide 59 (0-100) pg/mL Total Protein 7.0 (5.7-8.2) gm/dL Albumin 4.7 D (3.4-4.8) gm/dL Globulin 2.3 (2.3-3.5) gm/dL Albumin/Globulin Ratio 2.0 (1.2-2.2) Lipase 23 (12-53) U/L Beta-Hydroxybutyrate/Acetoacetate 6.0 H (<0.6) mmol/L Critical Care Time Critical Care Time Critical Care Time: Yes Total Critical Care Time (min.): 40 Attestation: The high probability of sudden, clinically significant deterioration in the patient?s condition required the highest level of my preparedness to intervene urgently. The services I provided to this patient were to treat and/or prevent clinically significant deterioration. Services included the following: chart data review, reviewing nursing notes and/or old charts, documentation time, financial reporting consultant collaboration regarding findings and treatment options, medication orders and management, direct patient care, vital sign assessments and ordering, interpreting and reviewing diagnostic studies and lab tests. Aggregate critical care time includes only time during which I was engaged in work directly related to the patient?s care, as described above, whether at bedside or elsewhere in the Emergency Department. It did not include time spent performing other reported procedures or the services of residents, students, nurses or physician assistants. Discharge Plan Plan Patient Disposition: Admit Acute Care w/in Hospital Disposition Comment: Dr. Juares - ICU Prescriptions/Referrals Prescriptions/Med Rec: No Action duloxetine [Cymbalta] 60 MG capsule,delayed release(DR/EC) 60 mg PO DAILY Qty: 0 pregabalin [Lyrica] 200 MG capsule 200 mg PO BID Qty: 60 cilostazol 100 MG tablet 100 mg PO BID Qty: 0 metoclopramide HCl 10 mg Tablet 10 mg PO WMHS lovastatin 40 mg Tablet 40 mg PO HS levothyroxine 125 mcg Capsule 125 mcg PO QDAY tamsulosin 0.4 mg Capsule 0.4 mg PO QDAY clopidogrel 75 mg Tablet 75 mg PO QDAY omeprazole 40 mg capsule,delayed release(DR/EC) 40 mg PO QDAY insulin regular human 100 unit/mL Cartridge 20 unit SUBCUT QID Rx Instructions: 20 UNITS SUBQ FOR TIME A DAY WITH PUMP ferrous sulfate 325 mg (65 mg iron) Tablet 325 mg PO QDAY ergocalciferol (vitamin D2) [Vitamin D2] 1,250 mcg (50,000 unit) Capsule 1,250 mcg PO QWEEK Linzess 290 mcg Capsule 290 mcg PO AC oxycodone-acetaminophen 7.5-325 mg tablet 1 tab PO QID PRN (Reason: Pain) Patient Comments: TAKE ONE TABLET BY MOUTH FOUR TIMES DAILY FOR PAIN erythromycin 250 mg capsule,delayed release(DR/EC) 250 mg PO Q6H 14 Days Qty: 56 0RF Problem List Clinical Impression: DKA (diabetic ketoacidosis) Patient/Caregiver Discharge Instructions Print Language: Upper Sorbian Stand Alone Forms: Amy Award Info., Patient Portal Info Letter
[2024-10-01 03:18] LABS: Alanine Aminotransferase 26 U/L (10-49); Albumin, Serum 4.7 gm/dL (3.4-4.8); Alkaline Phosphatase 115 U/L (46-116); Anion Gap 32 (7-16); Aspartate Amino Transferase 15 U/L (0-34); BUN/Creatinine Ratio 16 Ratio (12-20); Bilirubin,Total 0.4 mg/dL (0.3-1.2); Blood Urea Nitrogen 32 mg/dL (9-23); Calcium 10.6 mg/dL (8.3-10.6); Calcium (Corrected) 10.6 mg/dL (8.5-10.1); Chloride 90 mMol/L (98-107); Globulin 2.3 gm/dL (2.3-3.5); Lipase 23 U/L (12-53); Magnesium 2.6 mg/dL (1.6-2.6); Potassium 5.9 mMol/L (3.4-5.1); Sodium 134 mMol/L (136-145); Troponin I < 0.020 ng/mL (0.0-0.045); eGFR 35 See Note
[2024-10-01 03:27] LABS: Base Excess -18 (-3-3); HCO3 9 mEq/L (20-26); Inspired O2, VO2 Liters 2 L/min; Inspired Oxygen, FIO2 21 %; O2 Saturation 96 % (91-98); PCO2 23 mmHg (32.0-48.0); PO2 98 mmHg (83-108)
[2024-10-01 03:41] LABS: Carbon Dioxide 12.3 mMol/L (20.0-31.0); Osmolality,Calculated 310 (275-295)
[2024-10-01 03:43] LABS: Allen Test Performed/OK; Puncture Site Left Radial; pH, Arterial 7.19 (7.35-7.45)
[2024-10-01 03:47] LABS: Glucose 728 mg/dL (74-106)
--- NOTE | 2024-10-01 03:52 | PC.NURSE ---
DR LEONE AT BEDSIDE ASSESSING PT AT THIS TIME.
[2024-10-01] MEDS: INSULIN REG 100 UNITS/100 ML 100 UNIT/100 ML BAG 7.031 UNIT IV (03:57)
--- NOTE | 2024-10-01 03:59 | EVENTNT_ITS ---
Documentation for date of: 10/01/24 Event Note Event Note: This is a 69-year-old male with a history of coronary artery disease status post stents, peripheral artery disease status post stents in both lower extremities, type 1 diabetes managed with an insulin infusion pump, diabetic neuropathy, and gastroparesis, who presented to the ED with hyperglycemia. The patient reported his blood sugar levels had been high throughout the day despite repeated insulin boluses at home. Thirty minutes prior to arrival, his glucose level was >600 mg/dL. He denied fever, dizziness, weakness, chest pain, or difficulty breathing but endorsed mild vomiting attributed to hyperglycemia and noted f eeling very dry. In the ED, his blood sugar was recorded at 728 mg/dL. Laboratory results revealed an elevated anion gap of 32, potassium 5.9 mmol/L, bicarbonate 12.3 mmol/L, and ketones at 6.0 mmol/L, consistent with diabetic ketoacidosis. Creatinine was 2.0 mg/dL, suggesting acute kidney injury, likely from dehydration. Additional labs included WBC 9.9, hemoglobin 13.7, platelets 270, sodium 134, BUN 32, and BNP 59. The patient was tachycardic on EKG, with sinus tachycardia noted. On exam, the patient's insulin pump was found to be functioning but not effectively controlling hyperglycemia. Plan: DKA: Elevated glucose (>728), anion gap 32, ketones 6.0, and bicarbonate 12.3 - Suspend the insulin pump and initiate IV insulin drip. - Start IV fluids for dehydration and correct electrolyte abnormalities. - Monitor anion gap, glucose, and bicarbonate levels closely. Acute Kidney Injury: Likely secondary to dehydration from hyperglycemia. - Ensure adequate fluid resuscitation. - Monitor renal function and urine output. Disposition: Admit to the ICU for close monitoring and management of DKA
[2024-10-01] MEDS: oxyCODONE/APAP 5/325 TABLET 1 TAB PO ×2 (04:18→10:36)
--- NOTE | 2024-10-01 04:35 | ESHP_ITS ---
Documentation for date of: 10/01/24 HPI History of Present Illness History of present illness: 69-year-old man with past medical history of CAD s/p stent 2 years ago, PAD status post stents on bilateral lower extremities on cilostazol, diabetes mellitus type 1 with insulin pump who was recently discharged from [facility] on 09/29/24?due to euglycemic DKA. Patient today came today for ED due to hyperglycemia. He stated that when he checked his blood glucose was high around 600s despite his insulin pump and he decided to come to the ED. Patient stated that before coming to the ED he had an episode of vomiting. He denied chest pain, palpitations, chills, fever, dysuria, cough, shortness of breath, abdominal pain or any other associated symptoms different than the mentioned above. ED course: Initial vitals: Normotensive BP 123/71 tachycardia 125 tachypneic 20 afebrile saturating 96% on 2 L per nasal cannula, Pertinent labs: CBC was unremarkable, hyperglycemia 728mg/dL, ABG showed anion gap metabolic acidosis pH 7.19 pCO2 23 pO2 98 HCO3 9, K+ 5.9, bicarb 12.3, anion gap 32, creatinine 2.0, BUN 32, beta-hydroxybutyrate 6.0, lactic acid 3.4, Pro- Grayson and UA is pending Imaging: Chest x-ray was unremarkable, EKG sinus tachycardia rate 131 QTc 426 At the ED the patient received: IV fluids per DKA protocol, insulin gtt. was started and patient will be admitted to the ICU for further treatment and management of DKA and ADRIA Review of Systems Review of Systems Systems Reviewed: All systems reviewed, normal except as documented Exam Vital Signs Temp Pulse Resp BP Pulse Ox O2 Del Method O2 Flow Rate 98.3 F 115 H 18 168/83 H 97 Nasal Cannula 2 10/01/24 02:26 10/01/24 04:00 10/01/24 04:00 10/01/24 04:00 10/01/24 04:00 10/01/24 04:00 10/01/24 04:00 Narrative Exam General: No acute distress, AOx4, saturating well on 2 L oxygen per nasal cannula. HEENT: NC/AT, PERRL, EOMI, Good conjugate gaze, dry mucous membranes. Neck: Supple, No masses, No adenopathy, carotid pulse 2+ bilaterally without bruits, No JVD, normal range of motion. Chest: Symmetrical, atraumatic, and with equal expansion , Nontender on palpation no deformity and no crepitus. CVS: S1 and S2 present, tachycardic no murmurs, rubs or gallops perceived during auscultation. Lungs: Normal respiratory effort, CTAB, no wheezing, rhonchi or rales perceived during auscultation, No intercostal or subcostal retraction. Abdomen : Soft, no tenderness to palpation, no guarding ,no rebound, +BS, no organomegaly. Extremities: No edema, warm well perfused, cap refill less than 2, +2 dp equal bilaterally, able to move all 4 extremities spontaneously. Skin: Intact, no rashes, no lesions, no erythema or jaundice noted. Neuro: AOx4, sensation normal, no focal neurologic deficits noted, GCS 15. Psych: Appropriate mood and affect. Results: Labs 10/01/24 02:44 10/01/24 12:24 Labs: Short CBC 10/01/24 Range/Units 02:44 WBC 9.9 D (3.8-10.6) Thou/mm3 Hgb 13.7 (13.5-16.0) g/dL Hct 43.5 (41.0-53.0) % Plt Count 270 D (140-440) Thou/mm3 BMP 10/01/24 02:44 Sodium 134 L Potassium 5.9 H D Chloride 90 L Carbon Dioxide 12.3 L* BUN 32 H Creatinine 2.0 H D Glucose 728 H* D Calcium 10.6 D Cardiac Enzymes 10/01/24 Range/Units 02:44 Troponin I < 0.020 (0.0-0.045) ng/mL Liver Function 10/01/24 Range/Units 02:44 Total Bilirubin 0.4 (0.3-1.2) mg/dL AST 15 (0-34) U/L ALT 26 (10-49) U/L Alkaline Phosphatase 115 D (46-116) U/L Albumin 4.7 D (3.4-4.8) gm/dL ABG Interpretation ABG results: 10/01/24 03:20 ABG pH 7.19 L* ABG pCO2 23 L ABG pO2 98 ABG HCO3 9 L* ABG O2 Saturation 96 ABG Base Excess -18 L Quality Measures Quality Measures none Advance care planning discussed with:: patient Medications Home Medications and Allergies Home Medications ?Medication ?Instructions ?Recorded ?Confirmed ?Type duloxetine 60 mg capsule,delayed 60 mg PO DAILY Depression ##0 04/12/13 09/26/24 History release (Cymbalta) pregabalin 200 mg capsule (Lyrica) 200 mg PO BID ##60 04/28/16 09/26/24 History cilostazol 100 mg tablet 100 mg PO BID #0 tabs 01/31/17 09/26/24 History metoclopramide HCl 10 mg tablet 10 mg PO WMHS 04/07/18 09/26/24 History levothyroxine 125 mcg capsule 125 mcg PO QDAY 01/14/19 09/26/24 History lovastatin 40 mg tablet 40 mg PO HS 01/14/19 09/26/24 History clopidogrel 75 mg tablet 75 mg PO QDAY 02/16/20 09/26/24 History tamsulosin 0.4 mg capsule 0.4 mg PO QDAY 02/16/20 09/26/24 History omeprazole 40 mg capsule,delayed 40 mg PO QDAY 09/01/20 09/26/24 History release insulin regular human 100 unit/mL 20 unit subcut QID 05/29/22 03/12/23 History injection solution cartridge ergocalciferol (vitamin D2) 1,250 1,250 mcg PO QWEEK 09/26/24 09/26/24 History mcg (50,000 unit) capsule (Vitamin D2) ferrous sulfate 325 mg (65 mg 325 mg PO QDAY 09/26/24 09/26/24 History iron) tablet linaclotide 290 mcg capsule 290 mcg PO AC 09/26/24 09/26/24 History (Linzess) oxycodone-acetaminophen 7.5 mg-325 1 tab PO QID PRN Pain 09/26/24 09/26/24 History mg tablet Allergies Allergy/AdvReac Type Severity Reaction Status Date / Time No Known Allergies Allergy Verified 09/26/24 00:25 Visit Medications Acetaminophen (Acetaminophen 325 Mg Tablet) 650 mg PO Q6H PRN PRN Reason: Pain 1-3 or Fever >100.3 Stop: 10/31/24 04:20 Atorvastatin Calcium (Atorvastatin Calcium 10 Mg Tablet) 10 mg PO HS [facility] Stop: 10/31/24 20:59 Cilostazol (Cilostazol 50 Mg Tablet) 100 mg PO BID [facility] [place] Stop: 10/31/24 08:59 Clopidogrel Bisulfate (Clopidogrel Bisulfate 75 Mg Tablet) 75 mg PO QDAY [facility] [place] Stop: 10/31/24 08:59 Dextrose (Dextrose 50%-Water Inj 50 Ml Syringe) 25 ml IV [id number] PRN PRN Reason: Blood Sugar - Low Duloxetine HCl (Duloxetine Hcl 30 Mg Capsule) 60 mg PO QDAY [facility] [place] Stop: 10/31/24 08:59 Insulin Human Regular (Myxredlin) 100 unit in 100 mls @ 7.031 mls/hr IV .[id number] PRN; Protocol PRN Reason: PER PROTOCOL Stop: 10/31/24 03:42 Last Admin: 10/01/24 03:57 Dose: 0.1 unit/kg/hr, 7.031 mls/hr Potassium Chloride (Kcl Ivpb) 10 meq in 100 mls @ 100 mls/hr IV .Q1H PRN PRN Reason: IF POTASSIUM LESS THAN 3.3 Stop: 10/31/24 04:17 Magnesium Sulfate (Magnesium Sulfate Ivpb) 2 gm in 50 mls @ 25 mls/hr IV .Q2H PRN PRN Reason: PER DKA PROTOCOL Stop: 10/31/24 04:17 Dextrose/Lactated Ringer's (D5-Lr) 1,000 mls @ 250 mls/hr IV .Q4H PRN PRN Reason: PER PROTOCOL Stop: 10/31/24 04:17 Lactated Ringer's (Lactated Ringers) 1,000 mls @ 250 mls/hr IV .Q4H PRN PRN Reason: PER PROTOCOL Stop: 10/02/24 04:17 Potassium Chloride 20 meq/ (Lactated Ringer's) 1,010 mls @ 250 mls/hr IV .Q4H3M PRN PRN Reason: K LEVEL 3.3 TO 5.3mM/L Stop: 10/31/24 04:17 Potassium Chloride 40 meq/ (Lactated Ringer's) 1,020 mls @ 250 mls/hr IV .Q4H5M PRN PRN Reason: K LEVEL < 3.3 mM/L Stop: 10/31/24 04:17 Potassium Chloride 40 meq/ (Dextrose/Lactated Ringer's) 1,020 mls @ 250 mls/hr IV .Q4H5M PRN PRN Reason: K LEVEL < 3.3mM/L Stop: 10/31/24 04:17 Potassium Cl/Dextrose/Lact Ringer's (Kcl 20 Meq/L In D5-Lr) 20 meq in 1,000 mls @ 250 mls/hr IV .Q4H PRN PRN Reason: K LEVEL 3.3 TO 5.3 mM/L Stop: 10/31/24 04:17 Potassium Chloride (Kcl Ivpb) 10 meq in 100 mls @ 50 mls/hr IV PRN PRN PRN Reason: K LEVEL 3.3 to 5.3 & BG > 200 Stop: 10/31/24 04:17 Potassium Phosphate (Pot Phos 15 Mmol In Ns 250 Ml) 15 mmol in 250 mls @ 62.5 mls/hr IV PRN PRN PRN Reason: Phosphate <= 1mg/dL Stop: 10/31/24 04:17 Sodium Phosphate 15 mmol/ (Sodium Chloride) 255 mls @ 62.5 mls/hr IV .Q4H5M PRN PRN Reason: Phosphate <= 1mg/dL and K> than 5.3 Stop: 10/31/24 04:17 Levothyroxine Sodium (Levothyroxine Sodium 125 Mcg Tablet) 125 mcg PO ACBR [facility] [place] Stop: 10/31/24 05:59 Metoclopramide HCl (Metoclopramide Inj 5 Mg/Ml Vial 2 Ml) 10 mg IVP Q8HR BUBBA; Protocol Stop: 10/31/24 05:59 Oxycodone/Acetaminophen (Oxycodone/Apap 5/325 Tablet) 1 tab PO Q6HR PRN PRN Reason: PAIN Stop: 10/06/24 03:55 Last Admin: 10/01/24 04:18 Dose: 1 tab Pantoprazole Sodium (Pantoprazole Inj 40 Mg Vial) 40 mg IVP QDAY [facility] [place] Stop: 10/31/24 08:59 Pregabalin (Pregabalin 75 Mg Capsule) 200 mg PO BID [facility] [place] Stop: 10/31/24 08:59 Sennosides (Senna Tablet) 1 tab PO QDAY [facility] [place]; Protocol Stop: 10/31/24 08:59 Sodium Bicarbonate (Sodium Bicarb Inj 8.4% Syr 50 Ml Syringe) 50 ml IV PRN PRN PRN Reason: For ph <= to 7.0 Stop: 10/31/24 04:17 Tamsulosin HCl (Tamsulosin Hcl 0.4 Mg Capsule) 0.4 mg PO QDAY BUBBA Stop: 10/31/24 08:59 Discontinued Medications Sodium Chloride (Ns) 1,000 mls @ 999 mls/hr IV .Q1H1M ONE Stop: 10/01/24 03:26 Last Infusion: 10/01/24 03:53 Dose: Infused Sodium Chloride (Ns) 1,000 mls @ 999 mls/hr IV .Q1H1M ONE Stop: 10/01/24 03:26 Last Admin: 10/01/24 02:52 Dose: 999 mls/hr Insulin Human Regular (Insulin Hum Regular 1 Unit/0.01 Ml (Per Unit)) 10 unit IV X1 ONE Stop: 10/01/24 02:32 Last Admin: 10/01/24 02:52 Dose: 10 unit Assessment & Plan Plan 69-year-old man with past medical history of CAD s/p stent 2 years ago, PAD status post stents on bilateral lower extremities on cilostazol, diabetes mellitus type 1 with insulin pump who was recently discharged from [facility] on 09/29/24?due to euglycemic DKA. Patient today came today for ED due to hyperglycemia. He stated that when he checked his blood glucose was high around 600s despite his insulin pump and he decided to come to the ED. Patient stated that before coming to the ED he had an episode of vomiting. He denied chest pain, palpitations, chills, fever, dysuria, cough, shortness of breath, abdominal pain or any other associated symptoms different than the mentioned above. ED course: Initial vitals: Normotensive BP 123/71 tachycardia 125 tachypneic 20 afebrile saturating 96% on 2 L per nasal cannula, Pertinent labs: CBC was unremarkable, hyperglycemia 728mg/dL, ABG showed anion gap metabolic acidosis pH 7.19 pCO2 23 pO2 98 HCO3 9, K+ 5.9, bicarb 12.3, anion gap 32, creatinine 2.0, BUN 32, beta-hydroxybutyrate 6.0, lactic acid 3.4, Pro-Grayson and UA is pending Imaging: Chest x-ray was unremarkable, EKG sinus tachycardia rate 131 QTc 426. At the ED the patient received: IV fluids per DKA protocol, insulin gtt. was started and patient will be admitted to the ICU for further treatment and management of DKA COMMODITIES CLERK: Stable CVS: #Sinus tachycardia Secondary to dehydration in the setting of DKA ? Fluid resuscitation per DKA protocol PULM: Stable GI: #Vomiting #History of diabetic gastroparesis Patient stated that an episode of vomiting before coming otherwise is a concern of possible diabetic gastroparesis ? Metoclopramide 10 mg IV every 8 hours for nausea and vomiting RENAL: #Anion gap metabolic acidosis #Lactic acidosis Secondary to DKA in the setting of possible insulin pump malfunction? vs inadequate insulin dose? Anion gap metabolic acidosis 7.19 pCO2 23 pO2 98 HCO3 9, K+ 5.9, bicarb 12.3, anion gap 32, beta-hydroxybutyrate 6.0 lactic acid 3.4 ? Trend lactic acid every 3 hours ? Follow-up renal panel ? Follow-up electrolytes and replete as necessary #ADRIA Secondary to dehydration in the setting of DKA Creatinine 2.0 BUN 32 ? IV fluid resuscitation per DKA protocol ? Avoid nephrotoxic drugs ? Follow-up renal panel ENDO: #DKA #Diabetes mellitus type 1 Patient was recently admitted to [facility] on 09/29/24?due to euglycemic DKA Patient was presenting hyperglycemia on admission 728 despite insulin pump ABG showed anion gap metabolic acidosis pH 7.19 pCO2 23 pO2 98 HCO3 9, K+ 5.9, bicarb 12.3, anion gap 32, creatinine 2.0, BUN 32, beta-hydroxybutyrate 6.0, lactic acid 3.4 ? Started DKA protocol ? Insulin gtt. ? Follow-up renal panel every 4 hours ? Follow-up electrolytes and replete as necessary #Hypothyroidism ? Continue levothyroxine 125 mcg p.o. daily HEME/ONC: Stable ID: Stable MSK: #PAD ? Continue home medication when reconciled SKIN: Stable FEN: N.p.o./ice chips Lines: Peripheral DVT prophylaxis: SCD GI prophylaxis: Protonix CODE STATUS: Full code Patient discussed with my attending Dr Mor Garcias MD PGY-3 Disclaimer: Despite multiple revisions, due to the dictation software being used, the document bellow may not be free of grammatical errors including phonetic/typographic errors. However, this does not deter from our commitment to providing health care in the patient's best interest in mind. Attending Provider Attestation/Addendum Pt was evaluated and plan formulated together with the housestaff team. I have reviewed the residents note above and agree with most of its content. Please refer to the residents note for additional details.
--- NOTE | 2024-10-01 04:36 | PC.NURSE ---
Pt provided with urinal, and able to use urinal without any assistance. 800ml urine out.
[2024-10-01 04:46] LABS: Lactate (Lactic Acid) 3.4 mMol/L (0.4-2.0)
[2024-10-01 04:52] LABS: Collection Type, Urine Clean Catch; RBC,Urine 0 /hpf (0-3); Squamous Epithelial Cell,Urine 0 /hpf (0-5); WBC,Urine 0 /hpf (0-5)
[2024-10-01 05:23] LABS: Bilirubin,Urine Negative (Negative); Blood,Urine Negative (Negative); Clarity,Urine Clear (Clear/Hazy); Color,Urine Colorless (Lt Yel-Yel); Glucose, Urine 4+ (Negative); Ketones,Urine 4+ (Negative); Leukocyte Esterase,Urine Negative (Negative); Nitrite,Urine Negative (Negative); PH,Urine 5.5 (5.0-7.0); Protein,Urine Negative (Neg - Trace); Specific Gravity,Urine 1.024 (1.001-1.035); Urobilinogen,Urine Negative mg/dL (0.0-1.0)
[2024-10-01] MEDS: RINGERS LACTATED 1000 ML 1,000 ML 250 ML IV (05:54)
[2024-10-01] MEDS: METOCLOPRAMIDE INJ 5 MG/ML VIAL 2 ML IVP ×3 (06:58→21:10)
[2024-10-01] MEDS: LEVOTHYROXINE SODIUM 125 MCG TABLET PO (06:58)
[2024-10-01 07:39] LABS: Reflex Lactate? Y
[2024-10-01] MEDS: cilostazoL 50 MG TABLET 100 MG PO ×2 (08:29→21:09)
[2024-10-01] MEDS: DULoxetine HCL 30 MG CAPSULE 60 MG PO (08:30)
[2024-10-01] MEDS: PANTOPRAZOLE INJ 40 MG VIAL IVP (08:31)
[2024-10-01] MEDS: CLOPIDOGREL BISULFATE 75 MG TABLET PO (08:31)
[2024-10-01] MEDS: TAMSULOSIN HCL 0.4 MG CAPSULE PO (08:31)
[2024-10-01] MEDS: SENNA TABLET 1 TAB PO (08:31)
[2024-10-01] MEDS: PREGABALIN 50 MG CAPSULE 200 MG PO ×2 (08:31→21:09)
[2024-10-01 09:17] LABS: Lactate (Lactic Acid) 1.6 mMol/L (0.4-2.0)
[2024-10-01 09:53] LABS: Albumin, Serum 4.1 gm/dL (3.4-4.8); Anion Gap 11 (7-16); BUN/Creatinine Ratio 18 Ratio (12-20); Blood Urea Nitrogen 23 mg/dL (9-23); Calcium 9.3 mg/dL (8.3-10.6); Calcium (Corrected) 9.3 mg/dL (8.5-10.1); Carbon Dioxide 22.4 mMol/L (20.0-31.0); Chloride 104 mMol/L (98-107); Creatinine (Component) 1.3 mg/dL (0.6-1.3); Estimated Creatinine Clearance 47.7 mL/min (>60); Glucose 205 mg/dL (74-106); Magnesium 2.1 mg/dL (1.6-2.6); Osmolality,Calculated 283 (275-295); Phosphorous 2.2 mg/dL (2.4-5.1); Potassium 3.6 mMol/L (3.4-5.1); Sodium 137 mMol/L (136-145); eGFR 59 See Note
[2024-10-01] MEDS: KCL 20 mEq/L in D5-LR 20 MEQ/1,000 ML BAG 250 MEQ IV (10:37)
--- NOTE | 2024-10-01 11:35 | ESPR_ITS ---
Documentation for date of: 10/01/24 Subjective Subjective Interval history: This is a 69-year-old male admitted to the ICU overnight for DKA. The patient was apparently just discharged approximately 2 days ago from the hospital with a diagnosis of gastroparesis. At that time his metformin as well as his dapagliflozin were stopped and per notes it appears that his insulin pump may not have been filled. Apparently he returned home and found his blood sugars were uncontrolled. He checked his glucose and found it over 600 therefore decided to return to the ER. In the ED he was noted to be in DKA and decision was made to admit him to the ICU for insulin drip and further management. This morning states that his joints hurt however denies any shortness of breath or cough. He denies any abdominal pain current nausea or vomiting. He denies any diarrhea. Critical Care Note Critical care time (min.): 0 Exam Vital Signs Temp Pulse Resp BP Pulse Ox O2 Del Method O2 Flow Rate 97.9 F 92 15 129/66 97 Room Air 1.5 10/01/24 08:00 10/01/24 11:00 10/01/24 11:00 10/01/24 11:00 10/01/24 11:00 10/01/24 08:00 10/01/24 06:49 FiO2 2 10/01/24 06:21 Narrative Exam General-no acute distress, awake alert and oriented, obese, elderly HEENT-normocephalic, atraumatic, sclera icteric, oral mucosa is dry, EOMI Chest-lungs clear to auscultation bilaterally, heart regular rhythmic, no bruits murmurs auscultated times exam, no increased work of breathing Abdomen-soft, nontender, bowel sounds present, no rebound or guarding Extremities-minimal edema lower extremities, pulses palpable, no clubbing or cyanosis, no mottling, moves all 4 Physical Exam Completion Physical Exam Complete?: Yes Objective - Human Resource Management Instructor Labs 10/01/24 02:44 10/01/24 08:55 Labs: Laboratory Results - last 24 hr 10/01/24 10/01/24 10/01/24 02:44 03:20 03:57 WBC 9.9 D RBC 4.42 L Hgb 13.7 Hct 43.5 MCV 98 MCH 31.0 MCHC 31.5 RDW Std Deviation 50.4 H Plt Count 270 D Neut % (Auto) 86 H Lymph % (Auto) 4 L Isabela % (Auto) 7 Eos % (Auto) 1 Baso % (Auto) 1 Neut # (Auto) 8.5 H Lymph # (Auto) 0.4 L Isabel[place] # (Auto) 0.7 Eos # (Auto) 0.1 Baso # (Auto) 0.1 Immature Gran # (Auto) 0.10 H Absolute Nucleated RBC 0.00 Immature Gran % 1 H Nucleated RBC % 0 Puncture Site Left Radial ABG pH 7.19 L* ABG pCO2 23 L ABG pO2 98 ABG HCO3 9 L* ABG O2 Saturation 96 ABG Base Excess -18 L Oxygen Liter Flow 2 FiO2 21 Sodium 134 L Potassium 5.9 H D Chloride 90 L Carbon Dioxide 12.3 L* Anion Gap 32 H BUN 32 H Creatinine 2.0 H D Estim Creat Clear Calc 31.0 L eGFR 35 L BUN/Creatinine Ratio 16 Glucose 728 H* D Calculated Osmolality 310 H Lactic Acid Calcium 10.6 D Corrected Calcium 10.6 H D Phosphorus Magnesium 2.6 Total Bilirubin 0.4 AST 15 ALT 26 Alkaline Phosphatase 115 D Troponin I < 0.020 B-Natriuretic Peptide 59 Total Protein 7.0 Albumin 4.7 D Globulin 2.3 Albumin/Globulin Ratio 2.0 Lipase 23 Beta-Hydroxybutyrate/Acetoacetate 6.0 H Procalcitonin Ur Collection Type Clean Catch Urine Color Colorless A Urine Clarity Clear Urine pH 5.5 Ur Specific [place] 1.024 Urine Protein Negative Urine Glucose (UA) 4+ A Urine Ketones 4+ A Urine Blood Negative Urine Nitrite Negative Urine Bilirubin Negative Urine Urobilinogen (Auto) Negative Ur Leukocyte Esterase Negative Urine RBC 0 Urine WBC 0 Ur Squamous Epith Cells 0 Urine Bacteria None 10/01/24 10/01/24 04:35 08:55 WBC RBC Hgb Hct MCV MCH MCHC RDW Std Deviation Plt Count Neut % (Auto) Lymph % (Auto) Isabela % (Auto) Eos % (Auto) Baso % (Auto) Neut # (Auto) Lymph # (Auto) Isabel[place] # (Auto) Eos # (Auto) Baso # (Auto) Immature Gran # (Auto) Absolute Nucleated RBC Immature Gran % Nucleated RBC % Puncture Site ABG pH ABG pCO2 ABG pO2 ABG HCO3 ABG O2 Saturation ABG Base Excess Oxygen Liter Flow FiO2 Sodium 137 Potassium 3.6 D Chloride 104 Carbon Dioxide 22.4 Anion Gap 11 BUN 23 Creatinine 1.3 D Estim Creat Clear Calc 47.7 L eGFR 59 L BUN/Creatinine Ratio 18 Glucose 205 H D Calculated Osmolality 283 Lactic Acid 3.4 H 1.6 Calcium 9.3 Corrected Calcium 9.3 Phosphorus 2.2 L Magnesium 2.1 Total Bilirubin AST ALT Alkaline Phosphatase Troponin I B-Natriuretic Peptide Total Protein Albumin 4.1 D Globulin Albumin/Globulin Ratio Lipase Beta-Hydroxybutyrate/Acetoacetate Procalcitonin 1.20 H Ur Collection Type Urine Color Urine Clarity Urine pH Ur Specific [place] Urine Protein Urine Glucose (UA) Urine Ketones Urine Blood Urine Nitrite Urine Bilirubin Urine Urobilinogen (Auto) Ur Leukocyte Esterase Urine RBC Urine WBC Ur Squamous Epith Cells Urine Bacteria Assessment & Plan Additional Assessment Additional Assessment: In summary this is a 69-year-old male admitted to the ICU with DKA a/p VALET Stable CV History of coronary artery disease and peripheral vascular disease-continue home meds Resp Stable Renal Pseudohyponatremia-resolved Acute kidney injury-improving, monitor urinary output, avoid nephrotoxins Lactic acidosis-trending back down GI Nausea-secondary to gastroparesis, as needed Zofran Endo DKA-currently on DKA protocol, labs every 4 hours, once anion gap is closed x 2 will transition to subcutaneous Lantus and a sliding scale of insulin Hypothyroid-continue Synthroid Heme DVT prophylaxis-heparin ID Stable Case discussed with ICU team Labs, imaging and records reviewed Approximately 40 minutes required for evaluation, exam, review, intervention, discussion of formulation of plan of care for this patient with diabetic ketoacidosis Provider Notation Provider Notation: Although this document has been carefully reviewed, there may still be some phonetic and other typographical errors. These errors are purely grammatical due to imperfections in the software program and should not be construed in any way to compromise the substance of the patient's medical care during this visit. Thank you for the opportunity and privilege in assisting you with this patient's care and management.
[2024-10-01 12:34] LABS: Lactate (Lactic Acid) 1.1 mMol/L (0.4-2.0)
[2024-10-01 13:01] LABS: Albumin, Serum 3.3 gm/dL (3.4-4.8); Anion Gap 8 (7-16); BUN/Creatinine Ratio 20 Ratio (12-20); Blood Urea Nitrogen 20 mg/dL (9-23); Calcium 8.9 mg/dL (8.3-10.6); Calcium (Corrected) 9.5 mg/dL (8.5-10.1); Carbon Dioxide 25.2 mMol/L (20.0-31.0); Chloride 107 mMol/L (98-107); Glucose 156 mg/dL (74-106); Magnesium 2.1 mg/dL (1.6-2.6); Osmolality,Calculated 285 (275-295); Phosphorous 2.5 mg/dL (2.4-5.1); Potassium 4.4 mMol/L (3.4-5.1); Sodium 140 mMol/L (136-145); eGFR > 60 See Note
[2024-10-01] MEDS: RINGERS LACTATED 1000 ML 1,000 ML 999 ML IV (13:21)
[2024-10-01] MEDS: INSULIN GLARGINE (Lantus) 5 UNIT/0.05 ML (PER 5 UNITS) 40 UNIT SC (14:09)
--- NOTE | 2024-10-01 14:55 | PC.SS ---
INTERNATIONAL LOGISTICS MANAGER conducted bedside contact with the patient conduct initial assessment and to discuss discharge planning. Patient confirmed demographic information. Patient resides alone at home. Patient does not utilize any form of DME to assist with ambulation. Patient utilizes home oxygen. Patient describes assistance needed to complete ADL?s. Patient possesses [facility] staff for ADL assistance. Patient identified daughter, Matilde Taveras ; as medical surrogate decision maker. Patient?s PCP is LEA Dixon. Patient does not participate with dialysis. Patient?s machine ii trimmer is Dr. Saldana. Patient possesses history of diabetes, insulin dependent. Plan is for the patient to return home at the time of discharge. Family will provide transportation on behalf of the patient. No discharge needs identified by the patient. No further intervention required at this time, 7th grade social studies teacher will be available to address any further concerns. Next of Kin: Matilde Taveras D/C Plan: Home
--- NOTE | 2024-10-01 15:16 | PD.RESPRO ---
Documentation for date of: 10/01/24 Subjective Subjective Interval history: The patient is a 77-year-old male with significant past medical history of insulin-dependent diabetes mellitus type 1 for past 50 years, CAD s/p stent placement 2 years back, PAD with stent placed and on ranolazine, peripheral neuropathy and gastroparesis presented to ED with chief complaint of increased blood sugar in the 600s and nausea. Patient was recently discharged home on 09/29/2024 when he had presented with nausea and vomiting, and was suspicious for found to have mild euglycemic DKA, due to with dapagliflozin and metformin were stopped and patient was asked to be more cautious for increased blood sugar. On this visit, the patient was found to be in hyperglycemic DKA with increased anion gap. He is currently being managed in ICU for DKA likely secondary to sudden discontinuation of dapagliflozin and metformin without appropriate coverage with insulin. Exam Vital Signs Temp Pulse Resp BP Pulse Ox O2 Del Method O2 Flow Rate 97.9 F 92 15 129/66 97 Room Air 1.5 10/01/24 08:00 10/01/24 11:00 10/01/24 11:00 10/01/24 11:00 10/01/24 11:00 10/01/24 08:00 10/01/24 06:49 FiO2 2 10/01/24 06:21 Narrative Exam General: Elderly, cooperative gentleman, no acute distress, Alert and Oriented x 3 HEENT: Moist mucous membranes, oropharynx clear Neck: Supple, No masses, No JVD CVS: S1S2 Regular rate and rhythm, No murmurs, rubs or gallops Lungs: Clear to auscultation with no accessory use, no wheeze no rhonchi Abd: Soft, NT/ND, +BS, no organomegaly Ext: No edema, warm and well perfused Skin: No rash Psych: Appropriate mood and affect Objective Labs 10/01/24 02:44 10/01/24 12:24 Labs: Laboratory Results - last 24 hr 10/01/24 10/01/24 10/01/24 02:44 03:20 03:57 WBC 9.9 D RBC 4.42 L Hgb 13.7 Hct 43.5 MCV 98 MCH 31.0 MCHC 31.5 RDW Std Deviation 50.4 H Plt Count 270 D Neut % (Auto) 86 H Lymph % (Auto) 4 L [place] % (Auto) 7 Eos % (Auto) 1 Baso % (Auto) 1 Neut # (Auto) 8.5 H Lymph # (Auto) 0.4 L [place] # (Auto) 0.7 Eos # (Auto) 0.1 Baso # (Auto) 0.1 Immature Gran # (Auto) 0.10 H Absolute Nucleated RBC 0.00 Immature Gran % 1 H Nucleated RBC % 0 Puncture Site Left Radial ABG pH 7.19 L* ABG pCO2 23 L ABG pO2 98 ABG HCO3 9 L* ABG O2 Saturation 96 ABG Base Excess -18 L Oxygen Liter Flow 2 FiO2 21 Sodium 134 L Potassium 5.9 H D Chloride 90 L Carbon Dioxide 12.3 L* Anion Gap 32 H BUN 32 H Creatinine 2.0 H D Estim Creat Clear Calc 31.0 L eGFR 35 L BUN/Creatinine Ratio 16 Glucose 728 H* D Calculated Osmolality 310 H Lactic Acid Calcium 10.6 D Corrected Calcium 10.6 H D Phosphorus Magnesium 2.6 Total Bilirubin 0.4 AST 15 ALT 26 Alkaline Phosphatase 115 D Troponin I < 0.020 B-Natriuretic Peptide 59 Total Protein 7.0 Albumin 4.7 D Globulin 2.3 Albumin/Globulin Ratio 2.0 Lipase 23 Beta-Hydroxybutyrate/Acetoacetate 6.0 H Procalcitonin Ur Collection Type Clean Catch Urine Color Colorless A Urine Clarity Clear Urine pH 5.5 Ur Specific [place] 1.024 Urine Protein Negative Urine Glucose (UA) 4+ A Urine Ketones 4+ A Urine Blood Negative Urine Nitrite Negative Urine Bilirubin Negative Urine Urobilinogen (Auto) Negative Ur Leukocyte Esterase Negative Urine RBC 0 Urine WBC 0 Ur Squamous Epith Cells 0 Urine Bacteria None 10/01/24 10/01/24 10/01/24 04:35 08:55 12:24 WBC RBC Hgb Hct MCV MCH MCHC RDW Std Deviation Plt Count Neut % (Auto) Lymph % (Auto) [place] % (Auto) Eos % (Auto) Baso % (Auto) Neut # (Auto) Lymph # (Auto) [place] # (Auto) Eos # (Auto) Baso # (Auto) Immature Gran # (Auto) Absolute Nucleated RBC Immature Gran % Nucleated RBC % Puncture Site ABG pH ABG pCO2 ABG pO2 ABG HCO3 ABG O2 Saturation ABG Base Excess Oxygen Liter Flow FiO2 Sodium 137 140 Potassium 3.6 D 4.4 D Chloride 104 107 Carbon Dioxide 22.4 25.2 Anion Gap 11 8 BUN 23 20 Creatinine 1.3 D 1.0 Estim Creat Clear Calc 47.7 L 62.0 eGFR 59 L > 60 BUN/Creatinine Ratio 18 20 Glucose 205 H D 156 H Calculated Osmolality 283 285 Lactic Acid 3.4 H 1.6 1.1 Calcium 9.3 8.9 Corrected Calcium 9.3 9.5 Phosphorus 2.2 L 2.5 Magnesium 2.1 2.1 Total Bilirubin AST ALT Alkaline Phosphatase Troponin I B-Natriuretic Peptide Total Protein Albumin 4.1 D 3.3 L D Globulin Albumin/Globulin Ratio Lipase Beta-Hydroxybutyrate/Acetoacetate Procalcitonin 1.20 H Ur Collection Type Urine Color Urine Clarity Urine pH Ur Specific [place] Urine Protein Urine Glucose (UA) Urine Ketones Urine Blood Urine Nitrite Urine Bilirubin Urine Urobilinogen (Auto) Ur Leukocyte Esterase Urine RBC Urine WBC Ur Squamous Epith Cells Urine Bacteria ABG Interpretation ABG results: 10/01/24 03:20 ABG pH 7.19 L* ABG pCO2 23 L ABG pO2 98 ABG HCO3 9 L* ABG O2 Saturation 96 ABG Base Excess -18 L Quality Measures Quality Measures none Advance care planning discussed with:: patient Assessment & Plan Assessment Current Active Medications: Generic Name Dose Route Start Last Admin Trade Name Freq PRN Reason Stop Dose Admin Acetaminophen 650 mg 10/01/24 04:21 Acetaminophen 325 Mg Tablet PO 10/31/24 04:20 Q6H PRN Pain 1-3 or Fever >100.3 Atorvastatin Calcium 10 mg 10/01/24 21:00 Atorvastatin Calcium 10 Mg Tablet PO 10/31/24 20:59 HS BUBBA Cilostazol 100 mg 10/01/24 09:00 10/01/24 08:29 Cilostazol 50 Mg Tablet PO 10/31/24 08:59 100 mg BID BUBBA Administration Clopidogrel Bisulfate 75 mg 10/01/24 09:00 10/01/24 08:31 Clopidogrel Bisulfate 75 Mg Tablet PO 10/31/24 08:59 75 mg QDAY BUBBA Administration Dextrose 25 ml 10/01/24 15:04 Dextrose 50%-Water Inj 50 Ml Syringe IV 10/31/24 15:03 Q15MIN PRN BG 50-70 responsive npo pt Dextrose 50 ml 10/01/24 15:04 Dextrose 50%-Water Inj 50 Ml Syringe IV 10/31/24 15:03 Q15MIN PRN BG <50 OR BG <70 & pt unresponsive Duloxetine HCl 60 mg 10/01/24 09:00 10/01/24 08:30 Duloxetine Hcl 30 Mg Capsule PO 10/31/24 08:59 60 mg QDAY BUBBA Administration Glucagon 1 mg 10/01/24 15:04 Glucagon Inj 1 Mg Vial IM Q15MIN PRN BG <70, and no IV access Insulin Human Regular 100 unit in 100 mls @ 7.031 mls/hr 10/01/24 03:43 10/01/24 15:00 Myxredlin IV 10/31/24 03:42 0 unit/kg/hr .[id number] PRN 0 mls/hr PER PROTOCOL Titration Protocol 0.1 UNIT/KG/HR Potassium Chloride 10 meq in 100 mls @ 100 mls/hr 10/01/24 04:18 Kcl Ivpb IV 10/31/24 04:17 .Q1H PRN IF POTASSIUM LESS THAN 3.3 Magnesium Sulfate 2 gm in 50 mls @ 25 mls/hr 10/01/24 04:18 Magnesium Sulfate Ivpb IV 10/31/24 04:17 .Q2H PRN PER DKA PROTOCOL Dextrose/Lactated Ringer's 1,000 mls @ 250 mls/hr 10/01/24 04:18 D5-Lr IV 10/31/24 04:17 .Q4H PRN PER PROTOCOL Lactated Ringer's 1,000 mls @ 250 mls/hr 10/01/24 04:18 10/01/24 05:54 Lactated Ringers IV 10/02/24 04:17 250 mls/hr .Q4H PRN Administration PER PROTOCOL Potassium Chloride 20 meq/ 1,010 mls @ 250 mls/hr 10/01/24 04:18 Lactated Ringer's IV 10/31/24 04:17 .Q4H3M PRN K LEVEL 3.3 TO 5.3mM/L Potassium Chloride 40 meq/ 1,020 mls @ 250 mls/hr 10/01/24 04:18 Lactated Ringer's IV 10/31/24 04:17 .Q4H5M PRN K LEVEL < 3.3 mM/L Potassium Chloride 40 meq/ 1,020 mls @ 250 mls/hr 10/01/24 04:18 Dextrose/Lactated Ringer's IV 10/31/24 04:17 .Q4H5M PRN K LEVEL < 3.3mM/L Potassium Cl/Dextrose/Lact Ringer's 20 meq in 1,000 mls @ 250 mls/hr 10/01/24 04:18 10/01/24 10:37 Kcl 20 Meq/L In D5-Lr IV 10/31/24 04:17 250 mls/hr .Q4H PRN Administration K LEVEL 3.3 TO 5.3 mM/L Potassium Chloride 10 meq in 100 mls @ 50 mls/hr 10/01/24 04:18 Kcl Ivpb IV 10/31/24 04:17 PRN PRN K LEVEL 3.3 to 5.3 & BG > 200 Potassium Phosphate 15 mmol in 250 mls @ 62.5 mls/hr 10/01/24 04:18 Pot Phos 15 Mmol In Ns 250 Ml IV 10/31/24 04:17 PRN PRN Phosphate <= 1mg/dL Sodium Phosphate 15 mmol/ 255 mls @ 62.5 mls/hr 10/01/24 04:18 Sodium Chloride IV 10/31/24 04:17 .Q4H5M PRN Phosphate <= 1mg/dL and K> than 5.3 Insulin Human Lispro 0 unit 10/01/24 15:15 Insulin Lispro (Admelog) 1 Unit/0.01 Ml Unit SC 10/31/24 15:14 AC [facility] Protocol Levothyroxine Sodium 125 mcg 10/01/24 06:00 10/01/24 06:58 Levothyroxine Sodium 125 Mcg Tablet PO 10/31/24 05:59 125 mcg AC BUBBA Administration Metoclopramide HCl 5 mg 10/01/24 06:00 10/01/24 14:09 Metoclopramide Inj 5 Mg/Ml Vial 2 Ml IVP 10/31/24 05:59 5 mg Q8HR BUBBA Administration Protocol Oxycodone/Acetaminophen 1 tab 10/01/24 07:55 10/01/24 10:36 Oxycodone/Apap 5/325 Tablet PO 10/06/24 03:55 1 tab Q6HR PRN Administration PAIN SCALE 4-10(Mod-Sev Pantoprazole Sodium 40 mg 10/01/24 09:00 10/01/24 08:31 Pantoprazole Inj 40 Mg Vial IVP 10/31/24 08:59 40 mg QDAY BUBBA Administration Pregabalin 200 mg 10/01/24 09:00 10/01/24 08:31 Pregabalin 50 Mg Capsule PO 10/31/24 08:59 200 mg BID BUBBA Administration Sennosides 1 tab 10/01/24 09:00 10/01/24 08:31 Senna Tablet PO 10/31/24 08:59 1 tab QDAY BUBBA Administration Protocol Sodium Bicarbonate 50 ml 10/01/24 04:18 Sodium Bicarb Inj 8.4% Syr 50 Ml Syringe IV 10/31/24 04:17 PRN PRN For ph <= to 7.0 Tamsulosin HCl 0.4 mg 10/01/24 09:00 10/01/24 08:31 Tamsulosin Hcl 0.4 Mg Capsule PO 10/31/24 08:59 0.4 mg QDAY BUBBA Administration Plan The patient is a 77-year-old male with significant past medical history of insulin-dependent diabetes mellitus type 1 for past 50 years, CAD s/p stent placement 2 years back, PAD with stent placed and on ranolazine, peripheral neuropathy and gastroparesis presented to ED with chief complaint of increased blood sugar in the 600s and nausea. Patient was recently discharged home on 09/29/2024 when he had presented with nausea and vomiting, and was suspicious for found to have mild euglycemic DKA, due to with dapagliflozin and metformin were stopped and patient was asked to be more cautious for increased blood sugar. On this visit, the patient was found to be in hyperglycemic DKA with increased anion gap. He is currently being managed in ICU for DKA likely secondary to sudden discontinuation of dapagliflozin and metformin without appropriate coverage with insulin. 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 Fluid resuscitation per DKA protocol PULM: Stable GI: #Vomiting #History of diabetic gastroparesis Patient stated that an episode of vomiting before coming otherwise is a concern of possible diabetic gastroparesis ? Metoclopramide 10 mg IV every 8 hours for nausea and vomiting RENAL: #Anion gap metabolic acidosis, resolved #Lactic acidosis, Resolved Secondary to DKA in the setting of possible insulin pump malfunction? vs inadequate insulin dose? Anion gap metabolic acidosis 7.19 pCO2 23 pO2 98 HCO3 9, K+ 5.9, bicarb 12.3, anion gap 32, beta-hydroxybutyrate 6.0 lactic acid 3.4 #ADRIA, Improved Secondary to dehydration in the setting of DKA Creatinine 2.0 BUN 32 ENDO: #DKA, Resolved #Diabetes mellitus type 1 Patient was recently admitted to [facility] on 09/29/24?due to euglycemic DKA Patient was presenting hyperglycemia on admission 728 despite insulin pump ABG showed anion gap metabolic acidosis pH 7.19 pCO2 23 pO2 98 HCO3 9, K+ 5.9, bicarb 12.3, anion gap 32, creatinine 2.0, BUN 32, beta-hydroxybutyrate 6.0, lactic acid 3.4 - Transitioned to SC basal insulin - Started on insulin pump with SSI moderate scale, scale sensitivity can be readjusted depending upon further results for BS - During discharge we will readjust insulin pump as per current insulin requirement #Hypothyroidism ? Continue levothyroxine 125 mcg p.o. daily HEME/ONC: Stable ID: Stable MSK: #PAD ? Continue home medication when reconciled SKIN: Stable Health maintenance: Dispo: Patient admitted to ICU for further management of DKA, currently switched to subcu insulin followed by SSI, we will continue to monitor hourly blood sugar as etiology for current DKA is presumed to be secondary to inadequate insulin dosing versus pump failure. DVT prophylaxis: Subcu enoxaparin Diet: Carbohydrate consistent diet Lines: Peripheral lines CODE STATUS: Full code The patient's management plan was discussed with my attending physician MD Arvin Leal MD, PGY2
[2024-10-01] MEDS: INSULIN LISPRO (AdmeLOG) 1 UNIT/0.01 ML UNIT SC (15:18)
--- NOTE | 2024-10-01 17:59 | PC.NURSE ---
Patient started to cough while eating his food. Then patient started to turn colors and desat to 57%. Pt was still able to speak so I asked him to throw up his food, oxymask placed for oxygen drop, oxygen normalized within a few seconds of event. pt stated that he was choking on the meat.
[2024-10-01] MEDS: oxyCODONE/APAP 5/325 TABLET 1.5 TAB PO (19:32)
[2024-10-01] MEDS: MORPHINE SULF INJ 10 MG/ML VIAL 2 MG IVP (21:08)
[2024-10-01] MEDS: ATORVASTATIN CALCIUM 10 MG TABLET PO (21:09)
[2024-10-01] MEDS: ENOXAPARIN SOD INJ 40 MG/0.4 ML SYRINGE SC (21:09)
[2024-10-02] VITALS (21 sets, daily range): BP systolic 89–131; BP diastolic 48–79; PULSE 64–115; RESP 10–20; TEMP 36.1–36.8; O2SAT 89–98
[2024-10-02] MEDS: LEVOTHYROXINE SODIUM 125 MCG TABLET PO (06:18)
[2024-10-02] MEDS: METOCLOPRAMIDE INJ 5 MG/ML VIAL 2 ML IVP (06:18)
[2024-10-02 08:20] LABS: Basophils # (Auto) 0.1 Thou/mm3 (0.0-0.2); Basophils % (Auto) 1 % (0-2.5); Eosinophils # (Auto) 0.4 Thou/mm3 (0.0-0.5); Eosinophils % (Auto) 4 % (0-10); Hematocrit 33.8 % (41.0-53.0); Hemoglobin 11.5 g/dL (13.5-16.0); Immature Granulocytes % (Auto) 1 % (0-0); Immature Granulocytes Auto 0.07 Thou/mm3 (0.00-0.00); Lymphocytes # (Auto) 1.9 Thou/mm3 (1.0-4.8); Lymphocytes % (Auto) 23 % (10-50); Mean Corpuscular Hemoglobin 31.3 pg (25.0-35.0); Mean Corpuscular Volume 92 fL (80-100); Monocytes # (Auto) 0.9 Thou/mm3 (0.0-0.8); Monocytes % (Auto) 12 % (0-12); Neutrophils # (Auto) 4.8 Thou/mm3 (1.8-7.7); Neutrophils % (Auto) 59 % (37-80); Nucleated Red Blood Cell % 0 /100 WBC (0); Platelet Count 238 Thou/mm3 (140-440); RDW Standard Deviation 46.9 fL (35.1-43.9); Red Blood Count 3.67 Miln/mm3 (4.50-5.90); White Blood Count 8.1 Thou/mm3 (3.8-10.6)
[2024-10-02 08:38] LABS: Albumin, Serum 3.9 gm/dL (3.4-4.8); Anion Gap 8 (7-16); BUN/Creatinine Ratio 16 Ratio (12-20); Blood Urea Nitrogen 14 mg/dL (9-23); Calcium 8.6 mg/dL (8.3-10.6); Calcium (Corrected) 8.7 mg/dL (8.5-10.1); Carbon Dioxide 29.3 mMol/L (20.0-31.0); Chloride 101 mMol/L (98-107); Creatinine (Component) 0.9 mg/dL (0.6-1.3); Estimated Creatinine Clearance 68.9 mL/min (>60); Glucose 111 mg/dL (74-106); Osmolality,Calculated 277 (275-295); Phosphorous 2.5 mg/dL (2.4-5.1); Potassium 2.8 mMol/L (3.4-5.1); Sodium 138 mMol/L (136-145); eGFR > 60 See Note
--- NOTE | 2024-10-02 08:39 | PD.INTPROG ---
Documentation for date of: 10/02/24 Subjective Subjective Interval history: This is a 69-year-old male admitted to the ICU overnight for DKA. The patient was apparently just discharged approximately 2 days ago from the hospital with a diagnosis of gastroparesis. At that time his metformin as well as his dapagliflozin were stopped and per notes it appears that his insulin pump may not have been filled. Apparently he returned home and found his blood sugars were uncontrolled. He checked his glucose and found it over 600 therefore decided to return to the ER. In the ED he was noted to be in DKA and decision was made to admit him to the ICU for insulin drip and further management. This morning states that his joints hurt however denies any shortness of breath or cough. He denies any abdominal pain current nausea or vomiting. He denies any diarrhea. 10/02- no acute overnight events, feels well, tolerating PO intake Critical Care Note Critical care time (min.): 0 Exam Vital Signs Temp Pulse Resp BP Pulse Ox O2 Del Method O2 Flow Rate 98.3 F 115 H 20 106/56 L 90 L Nasal Cannula 1 10/02/24 04:00 10/02/24 07:34 10/02/24 07:34 10/02/24 07:00 10/02/24 07:34 10/02/24 04:00 10/02/24 07:34 FiO2 2 10/01/24 06:21 Narrative Exam Gen- NAD, AAOx4, obese HEENT- NC/AT, mucosa hydrated, sclera anicteric Chest- LCTAB, HRRR, no increase in WOB Abd- s/nt/bs+ Ext- no edema, pulses palp, no clubbing, no mottling, moves all 4 Physical Exam Completion Physical Exam Complete?: Yes 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 10/02/24 07:59 10/02/24 07:59 Labs: Laboratory Results - last 24 hr 10/01/24 10/01/24 10/02/24 08:55 12:24 07:59 WBC 8.1 RBC 3.67 L Hgb 11.5 L D Hct 33.8 L MCV 92 MCH 31.3 MCHC 34.0 RDW Std Deviation 46.9 H Plt Count 238 D Neut % (Auto) 59 Lymph % (Auto) 23 [place] % (Auto) 12 Eos % (Auto) 4 Baso % (Auto) 1 Neut # (Auto) 4.8 Lymph # (Auto) 1.9 [place] # (Auto) 0.9 H Eos # (Auto) 0.4 Baso # (Auto) 0.1 Immature Gran # (Auto) 0.07 H Absolute Nucleated RBC 0.00 Immature Gran % 1 H Nucleated RBC % 0 Sodium 137 140 138 Potassium 3.6 D 4.4 D 2.8 L D Chloride 104 107 101 Carbon Dioxide 22.4 25.2 29.3 Anion Gap 11 8 8 BUN 23 20 14 Creatinine 1.3 D 1.0 0.9 Estim Creat Clear Calc 47.7 L 62.0 68.9 eGFR 59 L > 60 > 60 BUN/Creatinine Ratio 18 20 16 Glucose 205 H D 156 H 111 H Calculated Osmolality 283 285 277 Lactic Acid 1.6 1.1 Calcium 9.3 8.9 8.6 Corrected Calcium 9.3 9.5 8.7 Phosphorus 2.2 L 2.5 2.5 Magnesium 2.1 2.1 2.0 Albumin 4.1 D 3.3 L D 3.9 D Assessment & Plan Additional Assessment Additional Assessment: In summary this is a 69-year-old male admitted to the ICU 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 CV History of coronary artery disease and peripheral vascular disease-continue home meds Resp Stable Renal Pseudohyponatremia-resolved Acute kidney injury- resolved Lactic acidosis-resolved HypoK- replete PO GI Nausea-secondary to gastroparesis, as needed Zofran - on reglan at home Endo DKA- resolved - on insulin pump with controlled glucose at this time Hypothyroid-continue Synthroid Heme DVT prophylaxis-heparin ID Stable OOB to chair Case discussed with ICU team Labs, imaging and records reviewed Approximately 35 minutes required for evaluation, exam, review, intervention, discussion of formulation of plan of care for this patient with diabetic ketoacidosis Provider Notation Provider Notation: Although this document has been carefully reviewed, there may still be some phonetic and other typographical errors. These errors are purely grammatical due to imperfections in the software program and should not be construed in any way to compromise the substance of the patient's medical care during this visit. Thank you for the opportunity and privilege in assisting you with this patient's care and management.
[2024-10-02] MEDS: TAMSULOSIN HCL 0.4 MG CAPSULE PO (09:23)
[2024-10-02] MEDS: cilostazoL 50 MG TABLET 100 MG PO ×2 (09:24→20:04)
[2024-10-02] MEDS: SENNA TABLET 1 TAB PO (09:24)
[2024-10-02] MEDS: DULoxetine HCL 30 MG CAPSULE 60 MG PO (09:24)
[2024-10-02] MEDS: CLOPIDOGREL BISULFATE 75 MG TABLET PO (09:24)
[2024-10-02] MEDS: PREGABALIN 50 MG CAPSULE 200 MG PO ×2 (09:25→20:04)
[2024-10-02] MEDS: POTASSIUM CHLORIDE 20 mEq TABCR 40 MEQ PO ×2 (09:25→20:03)
[2024-10-02] MEDS: POTASSIUM CHLORIDE 20 mEq TABCR PO (10:37)
[2024-10-02] MEDS: INSULIN LISPRO (AdmeLOG) 1 UNIT/0.01 ML UNIT SC ×2 (11:49→17:26)
[2024-10-02] MEDS: METOCLOPRAMIDE 5 MG TABLET 10 MG PO ×3 (12:00→20:04)
[2024-10-02 13:16] LABS: Potassium 3.3 mMol/L (3.4-5.1)
--- NOTE | 2024-10-02 14:13 | PC.NURSE ---
Report called and given to Mary Kate
--- NOTE | 2024-10-02 16:08 | PC.CC ---
Addendum entered and electronically signed by Samantha Blackmon RPh 10/05/24 08:41: Faxed signed order for Guardian Sensor 3 CGM system to [facility]. Original Note: Asked by KAREN Kelly, to assist patient in obtaining a CGM compatible with his insulin pump. His insulin pump is administering basal with manual boluses at this time. Pump type is Medtronic MiniMed 670G which has capability to self-adjust on auto mode. Per [facility] website, pump is compatible with Guardian Sensor 3 sensor to be used [employer] Connect Transmitter. Will request signature from attending, Dr. Younger, and send order and clinical documentation to [facility] Saturday if available. Updated RD that patient may follow-up with [facility] in 2 weeks to allow for processing time.
[2024-10-02] MEDS: ATORVASTATIN CALCIUM 10 MG TABLET PO (20:03)
[2024-10-02] MEDS: ENOXAPARIN SOD INJ 40 MG/0.4 ML SYRINGE SC (20:04)
[2024-10-02] MEDS: oxyCODONE/APAP 5/325 TABLET 1.5 TAB PO (20:12)
[2024-10-03] VITALS: PULSE 77
[2024-10-03] MEDS: ACETAMINOPHEN 325 MG TABLET 650 MG PO (01:01)
[2024-10-03 04:00] VITALS: BP 133/80; PULSE 72; RESP 16; TEMP 36.6; O2SAT 95
[2024-10-03] MEDS: LEVOTHYROXINE SODIUM 125 MCG TABLET PO (05:22)
[2024-10-03 06:00] VITALS: BMI 25.7
[2024-10-03 06:17] LABS: Basophils # (Auto) 0.1 Thou/mm3 (0.0-0.2); Basophils % (Auto) 2 % (0-2.5); Eosinophils # (Auto) 0.4 Thou/mm3 (0.0-0.5); Eosinophils % (Auto) 9 % (0-10); Hematocrit 33.5 % (41.0-53.0); Hemoglobin 10.9 g/dL (13.5-16.0); Immature Granulocytes % (Auto) 1 % (0-0); Immature Granulocytes Auto 0.04 Thou/mm3 (0.00-0.00); Lymphocytes # (Auto) 1.5 Thou/mm3 (1.0-4.8); Lymphocytes % (Auto) 38 % (10-50); Mean Corpuscular HGB Conc 32.5 g/dl (31.0-37.0); Mean Corpuscular Volume 95 fL (80-100); Monocytes # (Auto) 0.6 Thou/mm3 (0.0-0.8); Monocytes % (Auto) 16 % (0-12); Neutrophils # (Auto) 1.4 Thou/mm3 (1.8-7.7); Neutrophils % (Auto) 35 % (37-80); Nucleated Red Blood Cell % 0 /100 WBC (0); Platelet Count 185 Thou/mm3 (140-440); Red Blood Count 3.52 Miln/mm3 (4.50-5.90); White Blood Count 4.1 Thou/mm3 (3.8-10.6)
[2024-10-03 06:42] LABS: Magnesium 1.9 mg/dL (1.6-2.6)
[2024-10-03 07:31] LABS: Albumin, Serum 3.4 gm/dL (3.4-4.8); Anion Gap 4 (7-16); BUN/Creatinine Ratio 17 Ratio (12-20); Blood Urea Nitrogen 10 mg/dL (9-23); Calcium 8.6 mg/dL (8.3-10.6); Calcium (Corrected) 9.1 mg/dL (8.5-10.1); Carbon Dioxide 27.7 mMol/L (20.0-31.0); Chloride 105 mMol/L (98-107); Creatinine (Component) 0.6 mg/dL (0.6-1.3); Estimated Creatinine Clearance 103.4 mL/min (>60); Glucose 92 mg/dL (74-106); Osmolality,Calculated 272 (275-295); Phosphorous 2.9 mg/dL (2.4-5.1); Potassium 4.1 mMol/L (3.4-5.1); Sodium 137 mMol/L (136-145); eGFR > 60 See Note
[2024-10-03 07:58] VITALS: BP 138/83; PULSE 65; RESP 17; TEMP 36.1; O2SAT 98
[2024-10-03 08:00] VITALS: PULSE 61
[2024-10-03 08:03] VITALS: PULSE 62; RESP 16; RESP 97
[2024-10-03] MEDS: METOCLOPRAMIDE 5 MG TABLET 10 MG PO ×2 (08:24→11:15)
[2024-10-03] MEDS: CLOPIDOGREL BISULFATE 75 MG TABLET PO (08:24)
[2024-10-03] MEDS: DULoxetine HCL 30 MG CAPSULE 60 MG PO (08:24)
[2024-10-03] MEDS: cilostazoL 50 MG TABLET 100 MG PO (08:25)
[2024-10-03] MEDS: SENNA TABLET 1 TAB PO (08:25)
[2024-10-03] MEDS: TAMSULOSIN HCL 0.4 MG CAPSULE PO (08:25)
[2024-10-03] MEDS: PREGABALIN 50 MG CAPSULE 200 MG PO (08:30)
[2024-10-03] MEDS: Magnesium Sulfate 1 gm Ivpb 1 GM/100 ML BAG IV (09:41)
--- NOTE | 2024-10-03 10:58 | ESDS_ITS ---
<Statement entered by Krysta Cleveland DO - 10/04/24 07:31> I, Krysta Cleveland DO, attest that I was physically present for the shanks portions of the service and evaluated the patient with the resident and I reviewed and discussed the case with the resident and agree with the resident's findings and plans of care as documented above Planned Discharge Date 10/03/24 DS: Providers Provider Date of admission: 10/01/24 03:56 Primary care physician: Danay Salas NP Admitting Provider: Adria Juares MD Attending Provider on Admission: Milli Tiwari MD Consults: 10/01/24 04:18 Referral Registered Dietitian Routine Comment: Attending Provider on DC: Krysta cleveland MD Discharging Provider: Krysta Cleveland MD DS: Diagnosis Problem List Completed Was Problem List Reviewed/Reconciled?: Yes Hospital Course Hospital Course Hospital course: This patient 69-year-old male with past medical history of CAD post stents on Plavix, PAD status post stents in both lower extremity on cilostazol, type 1 diabetes on insulin infusion pump,diabetic neuropathy and gastroparesis presented with elevated blood sugars and was found to have DKA. Of note, he was recently discharged after the management of intractable nausea and vomiting with diabetic gastroparesis on 09/30. Patient was having some difficulty in his infusion pump and came back to the ED on 10/01/2024 with elevated blood sugar 600s and DKA. Patient was managed with IV fluid resuscitation per DKA protocol and insulin drip. Initial beta-hydroxybutyrate and lactic acid was elevated. Patient was managed with his own insulin pump with sliding scale moderate and when anion gap closed twice and he was able to tolerate meals patient was downgraded to floors. Today he was seen and examined at the bedside. He was doing well and was tolerating his food well. Patient was advised to continue his infusion insulin pump and give him bolus of insulin through his pump before meals and if he runs out of his cartridge for infusion pump he can take insulin sliding scale per chart given on DC instructions. He was advised to continue his home medications prescribed. Patient was medically stable to be discharged today to home. Discharge instructions: Continue taking all home medication as prescribed Continue using insulin infusion pump while refilling with insulin regular with cartridge In case if you run out of your cartridge for regular insulin you can use insulin sliding scale based on sliding scale chart Follow-up with primary care provider as outpatient within a week Follow-up with batting machine operator insulation as outpatient within a week In case of worsening signs symptoms, come back to the ED or call 911 Plan of care was discussed with attending physician, Dr. Carisa Davila MD, PGY 2 Time Spent with Patient Time attestation: Total time spent providing and/or coordinating discharge services: Exam Vital Signs Temp Pulse Resp BP Pulse Ox O2 Del Method O2 Flow Rate 97.0 F 62 16 138/83 H 98 Nasal Cannula 1 10/03/24 07:58 10/03/24 08:03 10/03/24 08:03 10/03/24 07:58 10/03/24 07:58 10/03/24 07:58 10/03/24 08:03 FiO2 2 10/02/24 23:00 Narrative Exam General: Elderly, cooperative gentleman, no acute distress, Alert and Oriented x 3 HEENT: Moist mucous membranes, oropharynx clear Neck: Supple, No masses, No JVD CVS: S1S2 Regular rate and rhythm, No murmurs, rubs or gallops Lungs: Clear to auscultation with no accessory use, no wheeze no rhonchi Abd: Soft, NT/ND, +BS, no organomegaly Ext: No edema, warm and well perfused Skin: No rash Psych: Appropriate mood and affect Discharge Plan Plan Patient Disposition: HOME (Self Care) Patient condition on transfer: Stable Care Plan Goals: Continue taking all home medication as prescribed Continue using insulin infusion pump while refilling with insulin regular with cartridge In case if you run out of your cartridge for regular insulin you can use insulin sliding scale based on sliding scale chart Follow-up with primary care provider as outpatient within a week Follow-up with batting machine operator insulation as outpatient within a week In case of worsening signs symptoms, come back to the ED or call 911 Prescriptions/Referrals Prescriptions/Med Rec: New insulin lispro [Admelog SoloStar U-100 Insulin] 100 unit/mL insulin pen 1 sliding scale dose subcut USEASDIRECTD Qty: 15 0RF Rx Instructions: Less than 70Hold all insulin and initiate hypoglycemia protocol. 70-150 0 units 151-174 2 units 175-199 4 units 200-224 6 units 225-249 8 units 250-274 10 units 275-299 12 units Greater than 300Administer 14 units and call the provider. (DME) pen needle, diabetic 29 gauge x 3/8 needle See Rx Instructions .Route Qty: 100 0RF Rx Instructions: As directed Continued duloxetine [Cymbalta] 60 MG capsule,delayed release(DR/EC) 60 mg PO DAILY Qty: 0 pregabalin [Lyrica] 200 MG capsule 200 mg PO BID Qty: 60 cilostazol 100 MG tablet 100 mg PO BID Qty: 0 metoclopramide HCl 10 mg Tablet 10 mg PO [facility] lovastatin 40 mg Tablet 40 mg PO HS Patient Comments: FROM PT'S DISCHARGE INSTRUCTIONS, FROM 09/26/24. PT STATES THAT HE IS ON THE SAME MEDS levothyroxine 125 mcg Capsule 125 mcg PO QDAY tamsulosin 0.4 mg Capsule 0.4 mg PO QDAY clopidogrel 75 mg Tablet 75 mg PO QDAY omeprazole 40 mg capsule,delayed release(DR/EC) 40 mg PO QDAY insulin regular human 100 unit/mL Cartridge 20 unit SUBCUT QID Rx Instructions: 20 UNITS SUBQ FOUR TIMES A DAY WITH PUMP ferrous sulfate 325 mg (65 mg iron) Tablet 325 mg PO QDAY ergocalciferol (vitamin D2) [Vitamin D2] 1,250 mcg (50,000 unit) Capsule 1,250 mcg PO QWEEK Linzess 290 mcg Capsule 290 mcg PO AC oxycodone-acetaminophen 7.5-325 mg tablet 1 tab PO QID PRN (Reason: Pain) Patient Comments: TAKE ONE TABLET BY MOUTH FOUR TIMES DAILY FOR PAIN erythromycin 250 mg capsule,delayed release(DR/EC) 250 mg PO Q6H 14 Days Qty: 56 0RF Referrals: Danay Salas NP [Primary Care Provider] - Patient/Caregiver Discharge Instructions Education Materials: Diabetic Ketoacidosis Print Language: Indonesian Activity Restrictions/Additional Instructions: Continue taking all home medication as prescribed Continue using insulin infusion pump while refilling with insulin regular with cartridge In case if you run out of your cartridge for regular insulin you can use insulin sliding scale based on sliding scale chart Follow-up with primary care provider as outpatient within a week Follow-up with batting machine operator insulation as outpatient within a week In case of worsening signs symptoms, come back to the ED or call 911 Stand Alone Forms: Amy Award Info., Patient Portal Info Letter Discharge Order Discharge Orders: Discharge (Routine); Ordered 10/03/24 Ordered By: Frankie Davila Quality Discharge Quality Measures VTE prophylaxis
[2024-10-03] MEDS: INSULIN LISPRO (AdmeLOG) 1 UNIT/0.01 ML UNIT SC (11:28)
[2024-10-03 12:00] VITALS: BP 115/63; PULSE 76; PULSE 78; RESP 16; TEMP 36.3; O2SAT 92
== END 2024-10-03 15:10 | disposition home or self-care (01) | DRG 638 ==
LOC: SERX 03:58 → SERHOLD 04:21 → S2SX 06:19 → S3SX 10-02 14:16
PROVIDERS: Internal Medicine; Student in an Organized Health Care Education/Training Program; Admitting Provider Internal Medicine; Emergency Provider Emergency Medicine; PCP Nurse Practitioner Family; Visit Provider Internal Medicine
DX: E10.10 Type 1 diabetes mellitus with ketoacidosis without coma (principal); N17.9 Acute kidney failure, unspecified; Z95.5 Presence of coronary angioplasty implant and graft; I25.10 Atherosclerotic heart disease of native coronary artery without angina pectoris; Z96.41 Presence of insulin pump (external) (internal); E10.43 Type 1 diabetes mellitus with diabetic autonomic (poly)neuropathy; E10.51 Type 1 diabetes mellitus with diabetic peripheral angiopathy without gangrene; E86.0 Dehydration; E03.9 Hypothyroidism, unspecified; K31.84 Gastroparesis; E87.6 Hypokalemia; E10.42 Type 1 diabetes mellitus with diabetic polyneuropathy
CPT/HCPCS: 36415; 36600; 71045; 80053; 80069; 81001; 82010; 82803; 83605; 83690; 83735; 83880; 84132; 84145; 84484; 85025; 87040; 87081; 93005; 96360; 96361; 99291; J1650; J1815; J2270; J2470; J2765; J3475; J3480; J7030; J7120; A9270

== ENCOUNTER 2025-01-31 08:12 | Inpatient (IN) | payer MEDICARE, MEDICAID, SELFPAY ==
[2025-01-31] VITALS (7 sets, daily range): BP systolic 105–170; BP diastolic 70–93; PULSE 85–116; RESP 16–19; TEMP 36.4–37.2; O2SAT 93–97; BMI 24.2; BMI 23.6
--- NOTE | 2025-01-31 09:53 | PD.EDNV ---
Nausea/Vomit./Diarrhea-RME/HPI General Chief complaint: Nausea/Vomiting/Diarrhea Stated complaint: VOMITING Time Seen by Provider: 01/31/25 09:41 Arrival date/time: 01/31/25 08:12 RME / HPI RME / HPI Narrative: DR. C[place] MAIN ED EVALUATION: 69 year old male with past medical history significant for gastroparesis presents to the Emergency Department [facility] with complaints of nausea, vomiting, and diarrhea today. He states he took Reglan at home without any help. No black emesis or blood in the vomit and no blood or black stools. No fevers or chills. No urinary symptoms. No history of SBO history. Patient reports not passing gas today. PMHx: Gastroparesis, hypertension, peripheral neuropathy, hypercholesterolemia, asthma, GERD, DM 2, and hypothyroidism. Social Hx: Marijuana abuse. Related Data Home Medications ?Medication ?Instructions ?Recorded ?Confirmed duloxetine 60 mg capsule,delayed 60 mg PO DAILY Depression ##0 04/12/13 10/02/24 release (Cymbalta) pregabalin 200 mg capsule (Lyrica) 200 mg PO BID ##60 04/28/16 10/02/24 cilostazol 100 mg tablet 100 mg PO BID #0 tabs 01/31/17 10/02/24 metoclopramide HCl 10 mg tablet 10 mg PO [facility]HS 04/07/18 10/02/24 levothyroxine 125 mcg capsule 125 mcg PO QDAY 01/14/19 10/02/24 lovastatin 40 mg tablet 40 mg PO HS 01/14/19 10/02/24 clopidogrel 75 mg tablet 75 mg PO QDAY 02/16/20 10/02/24 tamsulosin 0.4 mg capsule 0.4 mg PO QDAY 02/16/20 10/02/24 omeprazole 40 mg capsule,delayed 40 mg PO QDAY 09/01/20 10/02/24 release insulin regular human 100 unit/mL 20 unit subcut QID 05/29/22 10/02/24 injection solution cartridge ergocalciferol (vitamin D2) 1,250 1,250 mcg PO QWEEK 09/26/24 10/02/24 mcg (50,000 unit) capsule (Vitamin D2) ferrous sulfate 325 mg (65 mg 325 mg PO QDAY 09/26/24 10/02/24 iron) tablet linaclotide 290 mcg capsule 290 mcg PO AC 09/26/24 10/02/24 (Linzess) oxycodone-acetaminophen 7.5 mg-325 1 tab PO QID PRN Pain 09/26/24 10/02/24 mg tablet Previous Rx's ?Medication ?Instructions ?Recorded insulin lispro 100 unit/mL 1 sliding scale dose subcut 10/03/24 subcutaneous pen (Admel SoloStar USEASDIRECTD #15 mL U-100 Insulin lispro) pen needle, diabetic 29 gauge x #100 ea 10/03/24 3 Allergies Allergy/AdvReac Type Severity Reaction Status Date / Time No Known Allergies Allergy Verified 09/26/24 00:25 Review of Systems Review of Systems Systems Reviewed: All systems reviewed, normal except as documented Past Medical History Past Medical History NEUROLOGIC: Positive Neurological Disorders and Peripheral Neuropathy CARDIAC: Positive Coronary Artery Disease, Peripheral Vascular Disease, Hypercholesterolemia and Hypertension RESPIRATORY: Positive Asthma and Pneumonia GASTROINTESTINAL: Positive Gastrointestinal Disorders and Gastroesophageal Reflux Disease MUSCULOSKELETAL: Positive Musculoskeletal Disorders, Arthritis and Carpal Tunnel Syndrome ENT: Positive Cataracts ENDOCRINE: Positive Endocrine Disorders, Diabetes Mellitus Type 2 and Hypothyroidism HEMATOLOGIC: Positive Blood Disorders and Anemia PSYCHO/SOCIAL: Positive Depression OTHER HISTORY: Positive Chicken Pox, Measles and Mumps Family History FAMILY HISTORY: Positive Family Cardiac Disorders and Family Cancer Surgical History SURGICAL: Positive Coronary Stent, Angiogram, Ear Surgery and Tonsillectomy Social History SMOKING STATUS: Current every day smoker SECOND HAND EXPOSURE: No SUBSTANCE USE: marijuana (Daily) ED Exam Narrative Physical exam: GENERAL APPEARANCE: alert and oriented x 4, well-developed, well-nourished, no acute distress VITALS: All vitals were reviewed and the pulse ox is 97% on room air, which is normal according to my interpretation. HEENT: Normocephalic, atraumatic; pupils equal, round, reactive to light; EOMI; mucous membranes pink, moist; oropharynx clear NECK: Supple LUNGS: CTABL; no wheezes, no rales, no rhonchi HEART: Tachycardic, regular rhythm; normal S1, S2; no murmurs ABDOMEN: distended with abdominal tenderness, increased bowels sounds, no guarding, no rebound; no masses, no organomegaly, no hernia BACK: no CVA tenderness EXTREMITIES: atraumatic; no edema NEUROLOGIC: awake; alert and oriented x4; cranial nerves II-XII grossly intact; no focal sensory or motor deficits PSYCHIATRIC: appropriate mood and affect SKIN: warm, dry, normal color; no rashes Course Quality Measures none Orders Category Date Time Status Bedside Blood Glucose NOW Care 01/31/25 09:[address] Screening NOW Care 01/31/25 09:53 Active Insert IV NOW Care 01/31/25 08:00 Active Insert NG / OG tube NOW Care 01/31/25 13:22 Active NG / OG Tube to LIS NOW Care 01/31/25 13:[address] abdomen pelvis w con Stat Exams 01/31/25 09:53 Completed B-Type Natriuretic Peptide Stat Lab 01/31/25 08:35 Completed CBC Stat Lab 01/31/25 08:35 Completed Comprehensive Metabolic Panel Stat Lab 01/31/25 08:35 Completed Lipase Stat Lab 01/31/25 08:35 Completed Magnesium Stat Lab 01/31/25 08:35 Completed Troponin I Stat Lab 01/31/25 08:35 Completed UA, C/S IF [Urinalysis, C/S if Indicated] Stat Lab 01/31/25 12:31 Completed Morphine Inj Med 01/31/25 09:53 Discontinued 5 mg IVP X1 ONE Ondansetron Inj [Zofran Inj] Med 01/31/25 09:53 Discontinued 4 mg IV X1 ONE Vital Signs Vital signs: Vital Signs Temperature 98.4 F 01/31/25 08:15 Pulse Rate 106 H 01/31/25 08:15 Respiratory Rate 17 01/31/25 08:15 Blood Pressure 170/84 H 01/31/25 08:15 Pulse Oximetry (%) 97 01/31/25 08:15 Oxygen Delivery Method Room Air 01/31/25 08:15 Nausea/Vomiting/Diarrhea MDM Narrative MDM Narrative:: Martha Hardy am scribing for and in the presence of Dr. Cunningham. Patient data External records reviewed:: EMS form Clinical information provided by:: patient and EMS Social determinants that could affect healthcare access:: substance use (marijuana) Patient has the following chronic illnesses:: Gastroparesis, hypertension, peripheral neuropathy, hypercholesterolemia, asthma, GERD, DM 2, hypothyroidism, and marijuana abuse. How is presenting disease/condition affected by chronic disease/condition?: exacerbated by Evaluation data The following diagnostics were reviewed and interpreted by me:: lab results and radiology exam(s) Lab and/or radiology exams considered but not ordered:: none Interpretation Summary: Procedure(s): CT abdomen pelvis w con Accession Number(s): [id number] cc: Brent Bartlett MD; Danay Salas NP; Sharyn Cunningham MD~ Examination: CT abdomen with intravenous contrast CT pelvis with intravenous contrast 2-D coronal reconstructions 2-D sagittal reconstructions Date and time of exam:February 02, 2025 1208 hrs. Comparison September 26, 2024 Indications: Generalized abdominal pain and distention today. CTDI: vol (mGy) 6.76 DLP: (mGycm) 325 Technique: Multiple axial sections of the abdomen and pelvis have been obtained. 64 slice high-resolution scanner used. 3 mm axial sections have been obtained, post intravenous injection 60 cc [id number] 2-D sagittal, coronal reconstructions obtained. Low dose protocols were performed. One or more of the following dose reduction techniques were used; automated exposure control, adjustment of the mA and/or KV according to patient size, use of iterative reconstruction technique. Findings: Atelectasis in the right middle lobe. The no focal liver or splenic lesion. Contracted gallbladder. No pancreatic mass. No renal or ureteral calculi. Mild colonic ileus Stents in the iliac arteries. Moderately fluid distended small bowel loops. No pericecal inflammatory change Bladder intact. No prostatomegaly Again noted advanced disc narrowing L4-L5 Impression: Atelectasis right middle lobe Moderately fluid distended small bowel loops, differential would include enteritis, early small bowel obstruction not excluded, clinical correlation advised Dictated By: Brent Bartlett MD Medications / Prescriptions Medications / Prescriptions considered but not ordered:: none Medication administrations:: Medication Administration History Discontinued Medications Morphine Sulfate (Morphine Sulf Inj 10 Mg/Ml Vial) 5 mg IVP X1 ONE Stop: 01/31/25 09:54 Last Admin: 01/31/25 10:20 Dose: 5 mg Documented By: DB Ondansetron HCl (Ondansetron Inj 2 Mg/Ml Inj 2 Ml) 4 mg IV X1 ONE Stop: 01/31/25 09:54 Last Admin: 01/31/25 10:19 Dose: 4 mg Documented By: BASILIO see above Consultations Consultation(s) initiated? (list below): Yes Consultation #1 (Physician, Specialty, Details): Discussed test HPI, PMHx, lab, radiology results and/or management with hospitalist. Will admit for further evaluation and management. Accepts patient for admission. Time: 13:23 Diagnosis Nausea Differential Diagnosis: traveler's diarrhea, food poisoning, gastroenteritis, drug-induced nausea and vomiting and dehydration Most likely diagnosis given after review of the tests above:: SBO Admission Indicated Admission indicated?: indicated Admission Request Was there a request for admission?: Yes Admission Attestation Admission request attestation: Discussed case with [] from Hospitalist service regarding admission. Discussed patients ED course, exam findings, labs, and radiology results. The Hospitalist [agrees,declines] to accept the patient for admission. Disposition Plan Disposition Plan: Admit Discharge Plan Plan Patient Disposition: Admit Acute Care w/in Hospital Prescriptions/Referrals Prescriptions/Med Rec: No Action duloxetine [Cymbalta] 60 MG capsule,delayed release(DR/EC) 60 mg PO DAILY Qty: 0 pregabalin [Lyrica] 200 MG capsule 200 mg PO BID Qty: 60 cilostazol 100 MG tablet 100 mg PO BID Qty: 0 metoclopramide HCl 10 mg Tablet 10 mg PO WMHS lovastatin 40 mg Tablet 40 mg PO HS Patient Comments: FROM PT'S DISCHARGE INSTRUCTIONS, FROM 09/26/24. PT STATES THAT HE IS ON THE SAME MEDS levothyroxine 125 mcg Capsule 125 mcg PO QDAY tamsulosin 0.4 mg Capsule 0.4 mg PO QDAY clopidogrel 75 mg Tablet 75 mg PO QDAY omeprazole 40 mg capsule,delayed release(DR/EC) 40 mg PO QDAY insulin regular human 100 unit/mL Cartridge 20 unit SUBCUT QID Rx Instructions: 20 UNITS SUBQ FOUR TIMES A DAY WITH PUMP ferrous sulfate 325 mg (65 mg iron) Tablet 325 mg PO QDAY ergocalciferol (vitamin D2) [Vitamin D2] 1,250 mcg (50,000 unit) Capsule 1,250 mcg PO QWEEK Linzess 290 mcg Capsule 290 mcg PO AC oxycodone-acetaminophen 7.5-325 mg tablet 1 tab PO QID PRN (Reason: Pain) Patient Comments: TAKE ONE TABLET BY MOUTH FOUR TIMES DAILY FOR PAIN insulin lispro [Admelog SoloStar U-100 Insulin] 100 unit/mL insulin pen 1 sliding scale dose subcut USEASDIRECTD Qty: 15 0RF Rx Instructions: Less than 70Hold all insulin and initiate hypoglycemia protocol. 70-150 0 units 151-174 2 units 175-199 4 units 200-224 6 units 225-249 8 units 250-274 10 units 275-299 12 units Greater than 300Administer 14 units and call the provider. (DME) pen needle, diabetic 29 gauge x 3/8 needle See Rx Instructions .Route Qty: 100 0RF Rx Instructions: As directed Referrals: Danay Salas POLO COACH [Primary Care Provider] - In 1 week Problem List Clinical Impression: SBO (small bowel obstruction) Patient/Caregiver Discharge Instructions Print Language: Turkish Stand Alone Forms: Amy Award Info., Patient Portal Info Letter
[2025-01-31 10:19] LABS: Basophils # (Auto) 0.1 Thou/mm3 (0.0-0.2); Basophils % (Auto) 1 % (0-2.5); Eosinophils % (Auto) 0 % (0-10); Immature Granulocytes % (Auto) 0 % (0-0); Immature Granulocytes Auto 0.05 Thou/mm3 (0.00-0.00); Lymphocytes # (Auto) 0.7 Thou/mm3 (1.0-4.8); Lymphocytes % (Auto) 6 % (10-50); Mean Corpuscular HGB Conc 33.3 g/dl (31.0-37.0); Mean Corpuscular Hemoglobin 30.3 pg (25.0-35.0); Mean Corpuscular Volume 91 fL (80-100); Monocytes # (Auto) 0.8 Thou/mm3 (0.0-0.8); Monocytes % (Auto) 7 % (0-12); Neutrophils # (Auto) 9.6 Thou/mm3 (1.8-7.7); Neutrophils % (Auto) 85 % (37-80); Nucleated Red Blood Cell % 0 /100 WBC (0); Platelet Count 274 Thou/mm3 (140-440); Red Blood Count 5.28 Miln/mm3 (4.50-5.90); White Blood Count 11.3 Thou/mm3 (3.8-10.6)
[2025-01-31] MEDS: ONDANSETRON INJ 2 MG/ML INJ 2 ML 4 MG IV (10:19)
[2025-01-31] MEDS: MORPHINE SULF INJ 10 MG/ML VIAL 5 MG IVP (10:20)
[2025-01-31 10:38] LABS: Alanine Aminotransferase 12 U/L (10-49); Albumin, Serum 5.2 gm/dL (3.4-4.8); Albumin/Globulin Ratio 1.7 (1.2-2.2); Alkaline Phosphatase 97 U/L (46-116); Anion Gap 18 (7-16); Aspartate Amino Transferase 18 U/L (0-34); BUN/Creatinine Ratio 16 Ratio (12-20); Bilirubin,Total 0.8 mg/dL (0.3-1.2); Blood Urea Nitrogen 18 mg/dL (9-23); Chloride 103 mMol/L (98-107); Creatinine (Component) 1.1 mg/dL (0.6-1.3); Estimated Creatinine Clearance 56.4 mL/min (>60); Glucose 130 mg/dL (74-106); Lipase 21 U/L (12-53); Magnesium 2.2 mg/dL (1.6-2.6); Osmolality,Calculated 281 (275-295); Potassium 3.6 mMol/L (3.4-5.1); Sodium 139 mMol/L (136-145); Total Protein 8.2 gm/dL (5.7-8.2); Troponin I < 0.020 ng/mL (0.0-0.045); eGFR > 60 See Note
[2025-01-31 11:08] LABS: B-Type Natriuretic Peptide 34 pg/mL (0-100)
[2025-01-31 12:39] LABS: Collection Type, Urine Clean Catch; Squamous Epithelial Cell,Urine 0 /hpf (0-5)
[2025-01-31 12:48] LABS: Bilirubin,Urine Negative (Negative); Blood,Urine 2+ (Negative); Clarity,Urine Clear (Clear/Hazy); Color,Urine Lt-Yellow (Lt Yel-Yel); Culture Indicated,Urine Not Indicated; Glucose, Urine 3+ (Negative); Hyaline Casts,Urine < 1 /hpf (0-1); Ketones,Urine 4+ (Negative); Leukocyte Esterase,Urine Negative (Negative); Nitrite,Urine Negative (Negative); Protein,Urine 1+ (Neg - Trace); RBC,Urine 13 /hpf (0-3); Specific Gravity,Urine 1.027 (1.001-1.035); Urobilinogen,Urine Negative mg/dL (0.0-1.0); WBC,Urine 1 /hpf (0-5)
--- NOTE | 2025-01-31 14:05 | XR_ITS ---
Examination: Chest, AP, portable, single view post procedure. Technique: Chest, AP upright, portable, single view Date and time: 01/31/2025, 2:14 PM INDICATION: NG tube placement. FINDINGS: Heart size and vascular structures appear normal. Scattered ill-defined opacification lateral right lung lower zone. Lungs otherwise clear. No pneumothorax. No acute bony abnormality. NG tube with distal tip in the stomach. IMPRESSION: NG tube with distal tip properly positioned. Right-sided atelectasis versus infiltrate
--- NOTE | 2025-01-31 14:13 | PD.RESHP ---
Documentation for date of: 01/31/25 HPI History of Present Illness Chief complaint: Nausea and vomitings History of present illness: A 69-year-old male with significant past medical history of diabetes mellitus, using insulin pump, severe PAD s/p stenting, peripheral neuropathy, hypothyroidism, BPH, vertebral disc prolapse on Percocet for chronic back pain, CAD s/p stenting [2023], gastroparesis on metoclopramide presented to the hospital with complaints of severe nausea, vomitings since 2 days. Patient stated that he was at his normal baseline 3 days ago. Patient endorsed that he is having vomiting since 2 days, 6-8 episodes per day, nonbilious, denies hematemesis. Last bowel movement is 3 days before the day of admission. Reported that he took his metoclopramide for his gastroparesis but despite that symptoms continued and also noted severe abdominal discomfort and distention for which he came to the ED. Denies fever, palpitations, chest pain, shortness of breath. ED course: -Vitals at the time of admission are blood pressure 170/84 mmHg, pulse rate of 106 bpm, respiratory 17/min, temperature 98.4 ?F, SpO2 97% with room air -Labs significant for WBC 11.3, bicarb 18, anion gap 18. Urine analysis positive for 1+ proteinuria, 3+ glucosuria, 4+ ketones, 2+ blood, 13 RBC -Abdomen/pelvis CT showed moderately distended small bowel loops Past medical history: diabetes mellitus, using insulin pump, severe PAD s/p stenting, peripheral neuropathy, hypothyroidism, BPH, vertebral disc prolapse on Percocet for chronic back pain, CAD s/p stenting [2023], gastroparesis on metoclopramide Past surgical history: PAD s/p stenting in the lower extremities, CAD s/p stenting Social history: Smokes marijuana 1-2/day, denies alcohol, tobacco, other illicit drug abuse. Lives alone at home and retired as of now Allergies: NKDA Review of Systems Review of Systems Systems Reviewed: All systems reviewed, normal except as documented Exam Vital Signs Temp Pulse Resp BP Pulse Ox O2 Del Method 98.5 F 116 H 16 139/80 H 96 Room Air 01/31/25 14:05 01/31/25 14:05 01/31/25 14:01/31/25 14:01/31/25 14:01/31/25 14:05 Narrative Exam General: Awake. HEENT: Normocephalic, atraumatic, mucous membranes moist. Heart: Regular rate and rhythm, no murmurs. Lungs: Clear to auscultation with no wheezing or crackles. Abdomen: Soft, mild distended, nontender, positive bowel sounds. ?No guarding or rebound tenderness. Noted ecchymotic patches on the abdomen at the site of CGM and insulin pump Neurologic: Alert and oriented x3, no gross neurological deficit, and patient able to move all 4 extremities. Extremities: No edema. Skin: No rash or ecchymoses. Results: Labs 02/01/25 04:18 02/01/25 04:18 Labs: Short CBC 01/31/25 Range/Units 08:35 WBC 11.3 H (3.8-10.6) Thou/mm3 Hgb 16.0 (13.5-16.0) g/dL Hct 48.0 (41.0-53.0) % Plt Count 274 (140-440) Thou/mm3 BMP 01/31/25 08:35 Sodium 139 Potassium 3.6 Chloride 103 Carbon Dioxide 18.0 L BUN 18 Creatinine 1.1 Glucose 130 H Calcium 10.0 Cardiac Enzymes 01/31/25 Range/Units 08:35 Troponin I < 0.020 (0.0-0.045) ng/mL Liver Function 01/31/25 Range/Units 08:35 Total Bilirubin 0.8 (0.3-1.2) mg/dL AST 18 (0-34) U/L ALT 12 (10-49) U/L Alkaline Phosphatase 97 (46-116) U/L Albumin 5.2 H (3.4-4.8) gm/dL Urine 01/31/25 Range/Units 12:31 Urine Color Lt-Yellow (Lt Yel-Yel) Urine Clarity Clear (Clear/Hazy) Urine pH 6.0 (5.0-7.0) Ur Specific [place] 1.027 (1.001-1.035) Urine Protein 1+ A (Neg - Trace) Urine Glucose (UA) 3+ A (Negative) Quality Measures Quality Measures none Advance care planning discussed with:: patient Medications Home Medications and Allergies Home Medications ?Medication ?Instructions ?Recorded ?Confirmed ?Type duloxetine 60 mg capsule,delayed 60 mg PO DAILY Depression ##0 06/23/13 12/13/24 History release (Cymbalta) pregabalin 200 mg capsule (Lyrica) 200 mg PO BID ##60 04/28/16 10/02/24 History cilostazol 100 mg tablet 100 mg PO BID #0 tabs 01/31/17 10/02/24 History metoclopramide HCl 10 mg tablet 10 mg PO WMHS 04/07/18 10/02/24 History levothyroxine 125 mcg capsule 125 mcg PO QDAY 01/14/19 10/02/24 History lovastatin 40 mg tablet 40 mg PO HS 01/14/19 10/02/24 History clopidogrel 75 mg tablet 75 mg PO QDAY 02/16/20 10/02/24 History tamsulosin 0.4 mg capsule 0.4 mg PO QDAY 02/16/20 10/02/24 History omeprazole 40 mg capsule,delayed 40 mg PO QDAY 09/01/20 10/02/24 History release insulin regular human 100 unit/mL 20 unit subcut QID 05/29/22 10/02/24 History injection solution cartridge ergocalciferol (vitamin D2) 1,250 1,250 mcg PO QWEEK 09/26/24 10/02/24 History mcg (50,000 unit) capsule (Vitamin D2) ferrous sulfate 325 mg (65 mg 325 mg PO QDAY 09/26/24 10/02/24 History iron) tablet linaclotide 290 mcg capsule 290 mcg PO AC 09/26/24 10/02/24 History (Linzess) oxycodone-acetaminophen 7.5 mg-325 1 tab PO QID PRN Pain 09/26/24 10/02/24 History mg tablet Allergies Allergy/AdvReac Type Severity Reaction Status Date / Time No Known Allergies Allergy Verified 09/26/24 00:25 Visit Medications Acetaminophen (Acetaminophen 325 Mg Tablet) 650 mg PO Q6H PRN PRN Reason: Fever >101.5 Stop: 03/02/25 13:45 Clopidogrel Bisulfate (Clopidogrel Bisulfate 75 Mg Tablet) 75 mg PO QDAY BUBBA Stop: 03/03/25 08:59 Duloxetine HCl (Duloxetine Hcl 30 Mg Capsule) 60 mg PO QDAY [facility]UBBA Stop: 03/03/25 08:59 Enoxaparin Sodium (Enoxaparin Sod Inj 40 Mg/0.4 Ml Syringe) 40 mg SC QDAY [facility] Stop: 02/15/25 08:59 Hydromorphone HCl (Hydromorphone Inj 2 Mg/Ml Vial) 0.5 mg IVP Q6HR PRN PRN Reason: Pain 7-10 Stop: 02/05/25 14:10 Levothyroxine Sodium (Levothyroxine Sodium 125 Mcg Tablet) 125 mcg PO ACBR [facility] Stop: 03/03/25 05:59 Ondansetron HCl (Ondansetron Inj 2 Mg/Ml Inj 2 Ml) 4 mg IV Q6H PRN; Protocol PRN Reason: NAUSEA OR VOMITING Stop: 03/02/25 13:45 Pantoprazole Sodium (Pantoprazole Inj 40 Mg Vial) 40 mg IVP QDAY [facility] Stop: 03/02/25 13:59 Pregabalin (Pregabalin 75 Mg Capsule) 200 mg PO BID [facility] Stop: 03/02/25 20:59 Tamsulosin HCl (Tamsulosin Hcl 0.4 Mg Capsule) 0.4 mg PO QDAY [facility] Stop: 03/03/25 08:59 Discontinued Medications Morphine Sulfate (Morphine Sulf Inj 10 Mg/Ml Vial) 5 mg IVP X1 ONE Stop: 01/31/25 09:54 Last Admin: 01/31/25 10:20 Dose: 5 mg Ondansetron HCl (Ondansetron Inj 2 Mg/Ml Inj 2 Ml) 4 mg IV X1 ONE Stop: 01/31/25 09:54 Last Admin: 01/31/25 10:19 Dose: 4 mg Assessment & Plan Plan A 69-year-old male with significant past medical history of diabetes mellitus, using insulin pump, severe PAD s/p stenting, peripheral neuropathy, hypothyroidism, BPH, vertebral disc prolapse on Percocet for chronic back pain, CAD s/p stenting [2024], gastroparesis on metoclopramide presented to the hospital with complaints of severe nausea, vomitings since 2 days and admitted for small bowel obstruction # Small bowel obstruction -Presented to the hospital with chief complaints of nausea, vomiting since 2 days -Last bowel movement is 3 days before the day of admission, but able to pass the flatus -Vitals are stable at the time of admission except for mild tachycardia and elevated blood pressures -Labs significant for mildly elevated WBC, 11.3 -Abdomen/pelvis CT showed moderately dilated small bowel loops suggesting of small bowel obstruction Plan -NG tube is placed and connected to suction -Gastrografin series started after 2 hours after placement of NG tube and noted no output from the NG tube suction -Will monitor for bowel movements -IV Dilaudid 0.5 Mg every 6 hourly as needed # History of diabetes mellitus -A1c in 2023 is 5.9 -Patient is using insulin pump along with the CGM -Will continue insulin pump -Repeat A1c is ordered # History of hypothyroidism -TSH in 2023 is 4.88 -Patient is using 125 mcg levothyroxine at home -Resume his home medication -Repeat TSH is ordered # CAD s/p stenting # PAD status post stenting # Severe peripheral neuropathy # Chronic back pain # History of BPH -Medical conditions are stable as of now -Resumed home duloxetine, pregabalin, cilostazol, Plavix, atorvastatin, tamsulosin -Patient is using Percocet at home, started on IV Dilaudid as of now # History of diabetic gastroparesis # History of marijuana use -Patient had history of severe diabetic gastroparesis and is using metoclopramide at home -Started on ondansetron for now -Recommended to stop marijuana usage Hospital Maintenance: Dispo: MedSurg DVT ppx: Lovenox GI ppx: Protonix Diet: N.p.o. for now IV lines: Peripheral Code status: Full code Patient plan of care was discussed with the attending physician, Dr. Silvana Hurst, PGY1 Attending Provider Attestation/Addendum I attest that I was physically present for the evaluation, physical examination, lab and imaging review of the patient with the residents. I discussed the case with the residents and agree with the findings and plans of care as documented above. Patient is a 69 years old male with past medical history of diabetes on insulin pump, PAD status post stenting, peripheral neuropathy, hypothyroidism, BPH, vertebral disc prolapse, CAD status post stent, gastroparesis who presented to the ED with complaint of nausea and vomiting for 2 days. Patient has not been passing bowel for 3 days and has not been passing gas for last 2 days. In the ED, his blood pressure is 170/84, pulse 106. Abdomen/pelvic CT was done, which showed distended small bowel loops with small bowel obstruction. We will admit the patient for management of small bowel obstruction, start with NG tube on low intermittent suction. Once patient has low output from the suction and does not have nausea/vomiting we will start him on Gastrografin series. We will also add analgesic regimen and antiemetics. Demetri Pina MD
[2025-01-31] MEDS: PANTOPRAZOLE INJ 40 MG VIAL IVP (15:17)
--- NOTE | 2025-01-31 17:06 | XR_ITS ---
Examination: Small bowel series with KUBs Exam date and time: January 31, 2025 1720 hours INDICATIONS: Abdominal pain and distention, this week, small bowel obstruction pattern on CT abdomen study today TECHNIQUE AND FINDINGS: Patient received 120 cc Gastrografin through the orogastric tube with immediate 1 minute and 30 minute one hour films Contrast in small bowel but also in the right colon IMPRESSION: Negative for small bowel obstruction
[2025-01-31] MEDS: HYDROmorphone INJ 2 MG/ML VIAL 0.5 MG IVP ×2 (17:49→23:51)
--- NOTE | 2025-01-31 20:30 | XR_ITS ---
Examination: Abdomen AP single view Technique: AP portable supine abdomen, single view Exam date and time: January 31, 2025 2017 hrs. Indications: 3 hour delayed film post small bowel series today, abdominal pain and distention Findings: Abundant stool in the colon Impression: Negative for small bowel obstruction
--- NOTE | 2025-01-31 21:39 | PRELIM_ITS ---
Radiographs of the abdomen (4 views). January 31, 2025 at 2017 hours Clinical history: Followup small bowel series Comparison: No prior study is available for comparison. Findings: Oral contrast noted in the bowel. Excreted contrast noted in the urinary bladder. Esophagogastric tube with distal tip below the diaphragm projecting in the air of the stomach. The oral contrast reaches the colon. The bowel gas pattern is nonobstructive. There is no free intraperitoneal air. The osseous structures are unremarkable. Impression: Unremarkable radiograph of the abdomen. Consider correlation with CT if clinically indicated. Report Electronically Signed By: Tristen Liu 01/31/2025 9:39:05 PM [EST]
--- NOTE | 2025-01-31 23:05 | PC.NURSE ---
called Dr. Green regarding patient had an episode of dark liquid stools with small pieces of BM, patient currently doing the SBO series, patient is passing gas and states he felt some pain relief after passing gas and BM. Per doctor, keep patient NPO and continue SBO series.
--- NOTE | 2025-01-31 23:30 | XR_ITS ---
Examination: Abdomen AP single view Technique: AP portable supine abdomen, single view Exam date and time: January 31, 2025 11:16 PM Indications: Abdominal pain and distention this week small bowel obstruction pattern on CT abdomen January 31, 2025, 6 hour delayed film post small bowel series yesterday Findings: Contrast primarily in the colon Impression: Negative for small bowel obstruction
[2025-02-01] VITALS: BP 134/85; PULSE 101; RESP 17; TEMP 36.6; O2SAT 91
--- NOTE | 2025-02-01 00:47 | PRELIM_ITS ---
Radiograph of the abdomen (single view). January 31, 2025 at 2316 hours Clinical history: SBS 6 hour film. Comparison: January 31, 2025. Findings: The bowel gas pattern is nonobstructive. There is no free intraperitoneal air. The osseous structures are unremarkable. Excreted contrast in the urinary bladder. Oral contrast noted in the bowel. Esophagogastric tube with a distal tip below the diaphragm projecting in the air of the stomach. Impression: Unremarkable radiograph of the abdomen. Report Electronically Signed By: Tristen Liu 02/01/2025 12:47:00 AM [EST]
--- NOTE | 2025-02-01 01:37 | PC.NURSE ---
informed Dr. Escoto and Dr. Green regarding patient has had 4 episodes of dark, liquid bowel movement with small pieces of BM in moderate amount. Patient not experiencing nausea, vomiting, still has abdominal pain present. Per doctors continue the small bowel series, keep the NG tube clamped. Notify provider of any changes.
[2025-02-01 04:00] VITALS: BP 143/85; PULSE 61; RESP 16; TEMP 36.7; O2SAT 95
[2025-02-01 05:09] LABS: Basophils # (Auto) 0.1 Thou/mm3 (0.0-0.2); Basophils % (Auto) 1 % (0-2.5); Eosinophils # (Auto) 0.1 Thou/mm3 (0.0-0.5); Eosinophils % (Auto) 1 % (0-10); Hematocrit 42.1 % (41.0-53.0); Immature Granulocytes % (Auto) 0 % (0-0); Immature Granulocytes Auto 0.03 Thou/mm3 (0.00-0.00); Lymphocytes % (Auto) 13 % (10-50); Mean Corpuscular HGB Conc 33.3 g/dl (31.0-37.0); Mean Corpuscular Hemoglobin 30.7 pg (25.0-35.0); Mean Corpuscular Volume 92 fL (80-100); Monocytes # (Auto) 0.9 Thou/mm3 (0.0-0.8); Monocytes % (Auto) 11 % (0-12); Neutrophils # (Auto) 5.6 Thou/mm3 (1.8-7.7); Neutrophils % (Auto) 74 % (37-80); Nucleated Red Blood Cell % 0 /100 WBC (0); Platelet Count 225 Thou/mm3 (140-440); RDW Standard Deviation 52.2 fL (35.1-43.9); Red Blood Count 4.56 Miln/mm3 (4.50-5.90); White Blood Count 7.6 Thou/mm3 (3.8-10.6)
--- NOTE | 2025-02-01 05:30 | XR_ITS ---
Examination: Abdomen AP single view Technique: AP portable supine abdomen, single view Exam date and time: February 06, 2020 0505 hrs. Indications: Abdominal pain and distention this week, forearm delayed film post small bowel series Findings: Contrast present throughout the colon Impression: Negative for small bowel obstruction, no further films are needed
[2025-02-01 06:05] LABS: Alanine Aminotransferase 16 U/L (10-49); Anion Gap 12 (7-16); Aspartate Amino Transferase 24 U/L (0-34); BUN/Creatinine Ratio 18 Ratio (12-20); Bilirubin,Total 0.6 mg/dL (0.3-1.2); Blood Urea Nitrogen 16 mg/dL (9-23); Calcium 9.1 mg/dL (8.3-10.6); Carbon Dioxide 21.9 mMol/L (20.0-31.0); Cardiac Risk Estimate 2.4 RATIO (4.0-6.7); Chloride 108 mMol/L (98-107); Cholesterol 151 mg/dL (132-200); Creatinine (Component) 0.9 mg/dL (0.6-1.3); Estimated Creatinine Clearance 68.9 mL/min (>60); Glucose 156 mg/dL (74-106); HDL Cholesterol 64 mg/dL (40-60); LDL Cholesterol,Calculated 50 mg/dL (0-130); Osmolality,Calculated 287 (275-295); Potassium 3.4 mMol/L (3.4-5.1); Sodium 142 mMol/L (136-145); Total Protein 6.4 gm/dL (5.7-8.2); Triglycerides 185 mg/dL (30-150); eGFR > 60 See Note
[2025-02-01 06:13] LABS: Albumin, Serum 4.2 gm/dL (3.4-4.8); Albumin/Globulin Ratio 1.9 (1.2-2.2); Alkaline Phosphatase 75 U/L (46-116); Calcium (Corrected) 9.1 mg/dL (8.5-10.1); Globulin 2.2 gm/dL (2.3-3.5)
--- NOTE | 2025-02-01 06:24 | PRELIM_ITS ---
Radiograph of the abdomen (single view). February 01, 2025 at 0518 hours Clinical history: SBS 12.5 HOUR FILM Comparison: January 31, 2025 Findings: Large fecal load again noted within the colon. GI contrast material noted throughout large bowel as far distal as the rectum, previously GI contrast material was present as far distal as the splenic flexure. There is no definite bowel obstruction. There is excreted contrast material within the urinary bladder. There is no obvious free intraperitoneal air or fluid. A nasogastric is noted with distal tip in the body of the stomach. An aortoiliac stent noted. There are vascular calcifications in the pelvis. There are degenerative changes in the spine. A nasogastric tube is noted with distal tip in the fundus of the stomach. Visualized osseous structures are intact. Impression: Large fecal load, suggesting constipation. GI contrast material seen throughout colon now as far distal as the rectum. Report Electronically Signed By: Reuben Prather 02/01/2025 6:22:45 AM [EST]
[2025-02-01 07:26] VITALS: BP 124/77; PULSE 93; RESP 15; TEMP 36.7; O2SAT 96
[2025-02-01] MEDS: CLOPIDOGREL BISULFATE 75 MG TABLET PO (08:05)
[2025-02-01] MEDS: DULoxetine HCL 30 MG CAPSULE 60 MG PO (08:05)
[2025-02-01] MEDS: ENOXAPARIN SOD INJ 40 MG/0.4 ML SYRINGE SC (08:05)
[2025-02-01] MEDS: HYDROmorphone INJ 2 MG/ML VIAL 0.5 MG IVP (08:06)
[2025-02-01] MEDS: TAMSULOSIN HCL 0.4 MG CAPSULE PO (08:06)
[2025-02-01] MEDS: PANTOPRAZOLE INJ 40 MG VIAL IVP (08:09)
[2025-02-01] MEDS: PREGABALIN 50 MG CAPSULE 200 MG PO (08:23)
[2025-02-01 09:07] VITALS: BMI 23.4
--- NOTE | 2025-02-01 10:41 | PC.SS ---
Patient Zak is a 69 Year old male admitted for SBO. SS contacted patient's daughter, Matilde Taveras, she reports Patient resides alone at home. Patient does not utilize any form of DME to assist with ambulation. Patient is able to complete all ADL's independently, however patient possesses IHSS. daughter, Matilde Taveras ; is medical surrogate decision maker. Patient?s PCP is Danay Salas GIOVANNY. Patient?s production machine operator is Dr. Saldana.=Plan is for the patient to return home at the time of discharge. Family will provide transportation on behalf of the patient. Next of Kin: Matilde Taveras D/C Plan: Home
[2025-02-01 11:43] VITALS: BP 119/82; PULSE 90; RESP 17; TEMP 37.1; O2SAT 95
--- NOTE | 2025-02-01 11:52 | ESDS_ITS ---
Planned Discharge Date 02/01/25 DS: Providers Provider Date of admission: 01/31/25 13:46 Primary care physician: Danay Salas NP Admitting Provider: Demetri Pina MD Attending Provider on Admission: Demetri Pina MD Consults: 01/31/25 16:04 Referral Registered Dietitian Routine Comment: Attending Provider on DC: Layton Collins MD Discharging Provider: Layton Collins MD DS: Diagnosis Problem List Completed Was Problem List Reviewed/Reconciled?: Yes Hospital Course Hospital Course Hospital course: Mr. Crespo is a 69-year-old male with significant past medical history of diabetes mellitus, using insulin pump, severe PAD s/p stenting, peripheral neuropathy, hypothyroidism, BPH, vertebral disc prolapse on Percocet for chronic back pain, CAD s/p stenting [2023], gastroparesis on metoclopramide presented to [facility] ED complaining of severe nausea and vomiting. CT of abdomen pelvis showed moderately distended small bowels suggesting of small bowel obstruction. NG tube was placed and patient was started on small bowel series. Per imaging small bowel obstruction resolved patient is able to pass gas and have multiple bowel movements. Patient has resolution of nausea and vomiting and continues to pass gas as well as have bowel movement. Patient's also is able to tolerate oral diet started initially with full liquid which was then advanced to regular diet patient continued to tolerate the diet without any complications. Patient is hemodynamically stable to be discharged home. Patient is advised if his symptoms return or worsen to probably return to the ED. Discharge Recommendations -Follow up with your primary care physician within 1 week -Continue your medications as prescribed -If your symptoms return or worsen promptly return to the ED Hospitalization Diagnosis # Small bowel obstruction # History of diabetes mellitus # History of hypothyroidism # CAD s/p stenting # PAD status post stenting # Severe peripheral neuropathy # Chronic back pain # History of BPH # History of diabetic gastroparesis # History of marijuana use Assessment and plan discussed with my attending physician Dr. Silvana Collins (PGY-1)- Internal medicine resident Time Spent with Patient Time attestation: Total time spent providing and/or coordinating discharge services: Time spent: Less than 30 minutes Exam Vital Signs Temp Pulse Resp BP Pulse Ox O2 Del Method 98.8 F 90 17 119/82 95 Room Air 02/01/25 11:43 02/01/25 11:43 02/01/25 11:43 02/01/25 11:43 02/01/25 11:43 02/01/25 11:43 Narrative Exam GENERAL: A&Ox3 . Awake, Not in acute distress NEURO: no focal neurological deficits HEENT: Atraumatic, Normocephalic. mucous membranes moist. Eyes open, symmetrical, & clear HEART: Normal Heart Sounds LUNGS: Clear to auscultation with no wheezing or crackles. ABDOMEN: soft, non-distended, non-tender, bowel sounds heard, no guarding or rebound tenderness SKIN: No Rash or ecchymoses EXTREMITIES: No edema, tenderness, able to move all 4 extremities, pedal pulses palpated Discharge Plan Plan Patient Disposition: HOME (Self Care) Care Plan Goals: -Follow up with your primary care physician within 1 week -Continue your medications as prescribed -If your symptoms return or worsen promptly return to the ED Prescriptions/Referrals Prescriptions/Med Rec: Continued duloxetine [Cymbalta] 60 MG capsule,delayed release(DR/EC) 60 mg PO DAILY Qty: 0 pregabalin [Lyrica] 200 MG capsule 200 mg PO BID Qty: 60 cilostazol 100 MG tablet 100 mg PO BID Qty: 0 lovastatin 40 mg Tablet 40 mg PO HS Patient Comments: FROM PT'S DISCHARGE INSTRUCTIONS, FROM 09/26/24. PT STATES THAT HE IS ON THE SAME MEDS levothyroxine 125 mcg Capsule 125 mcg PO QDAY tamsulosin 0.4 mg Capsule 0.4 mg PO QDAY clopidogrel 75 mg Tablet 75 mg PO QDAY omeprazole 40 mg capsule,delayed release(DR/EC) 40 mg PO QDAY insulin regular human 100 unit/mL Cartridge 20 unit SUBCUT QID Rx Instructions: 20 UNITS SUBQ FOUR TIMES A DAY WITH PUMP ferrous sulfate 325 mg (65 mg iron) Tablet 325 mg PO QDAY ergocalciferol (vitamin D2) [Vitamin D2] 1,250 mcg (50,000 unit) Capsule 1,250 mcg PO QWEEK Linzess 290 mcg Capsule 290 mcg PO AC oxycodone-acetaminophen 7.5-325 mg tablet 1 tab PO QID PRN (Reason: Pain) Patient Comments: TAKE ONE TABLET BY MOUTH FOUR TIMES DAILY FOR PAIN insulin lispro [Admelog SoloStar U-100 Insulin] 100 unit/mL insulin pen 1 sliding scale dose subcut USEASDIRECTD Qty: 15 0RF Rx Instructions: Less than 70Hold all insulin and initiate hypoglycemia protocol. 70-150 0 units 151-174 2 units 175-199 4 units 200-224 6 units 225-249 8 units 250-274 10 units 275-299 12 units Greater than 300Administer 14 units and call the provider. (DME) pen needle, diabetic 29 gauge x 3/8 needle See Rx Instructions .Route Qty: 100 0RF Rx Instructions: As directed No Action metoclopramide HCl 10 mg Tablet 10 mg PO WMHS Referrals: Danay Salas NP [Primary Care Provider] - Patient/Caregiver Discharge Instructions Education Materials: Small Bowel Obstruction Print Language: Moldovan Stand Alone Forms: Amy Award Info., Patient Portal Info Letter Discharge Order Discharge Orders: Discharge (Routine); Ordered 02/01/25 Ordered By: Layton Collins Quality Discharge Quality Measures none MD Attestestation MD Attestation I attest that I was physically present for the evaluation, physical examination, lab and imaging review of the patient with the residents. I discussed the case with the residents and agree with the findings and plans of care as documented above. Demetri Pina MD
== END 2025-02-01 15:45 | disposition home or self-care (01) | DRG 390 ==
LOC: SERX 13:24 → SERHOLD 14:09 → S3NX 15:44
PROVIDERS: Admitting Provider Student in an Organized Health Care Education/Training Program; Emergency Provider Emergency Medicine; PCP Nurse Practitioner Family; Visit Provider Student in an Organized Health Care Education/Training Program
DX: K56.609 Unspecified intestinal obstruction, unspecified as to partial versus complete obstruction (principal); E03.9 Hypothyroidism, unspecified; N40.0 Benign prostatic hyperplasia without lower urinary tract symptoms; E11.42 Type 2 diabetes mellitus with diabetic polyneuropathy; G89.29 Other chronic pain; I25.10 Atherosclerotic heart disease of native coronary artery without angina pectoris; K31.84 Gastroparesis; F12.10 Cannabis abuse, uncomplicated; I10 Essential (primary) hypertension; E78.00 Pure hypercholesterolemia, unspecified; K21.9 Gastro-esophageal reflux disease without esophagitis; F17.200 Nicotine dependence, unspecified, uncomplicated; J45.909 Unspecified asthma, uncomplicated; Z79.899 Other long term (current) drug therapy; E11.43 Type 2 diabetes mellitus with diabetic autonomic (poly)neuropathy; Z96.41 Presence of insulin pump (external) (internal); Z95.5 Presence of coronary angioplasty implant and graft; Z79.02 Long term (current) use of antithrombotics/antiplatelets; M54.9 Dorsalgia, unspecified
CPT/HCPCS: 36415; 74018; 74177; 74250; 80053; 80061; 81001; 83690; 83735; 83880; 84443; 84484; 85025; 96374; 96375; 99285; A4649; A4699; J1650; J2270; J2405; J2470; J3490; Q9967; A9270

== ENCOUNTER 2025-03-22 15:24 | Inpatient (IN) | payer MEDICARE, MEDICAID, SELFPAY ==
[2025-03-22] VITALS (20 sets, daily range): BP systolic 84–164; BP diastolic 54–81; PULSE 97–118; RESP 14–22; TEMP 36.9–38.7; O2SAT 94–98; BMI 24.2
--- NOTE | 2025-03-22 15:39 | EKG_ITS ---
[facility] Test Date: 2025-03-22 Pat Name: ALEX FLEMING Department: Room: - Gender: Male [employer] Intern: : 1955 Requested By: Dong Adan Order Number: [id number] Reading MD: Dong Adan Measurements Intervals [place] Rate: 113 P: 48 MN: 147 QRS: 71 QRSD: 106 T: 45 QT: 300 QTc: 412 Interpretive Statements SINUS TACHYCARDIA ABNORMAL RHYTHM ECG Compared to ECG 10/01/2024 02:52:58 No significant changes /store/S0/[id number]
--- NOTE | 2025-03-22 15:41 | EDNOTE_ITS ---
Altered Mental Status RME/HPI General Chief Complaint: Recheck/Abnormal Lab/Rx Stated Complaint: LOW SUGAR Time Seen by Provider: 03/22/25 15:38 Source: patient Arrival date/time: 03/22/25 15:24 69-year-old male with a history of type 2 diabetes, hypertension, hypothyroidism, presents to the emergency room with a chief complaint of altered mental status. EMS states patient was hypoglycemic at 51. Mode of arrival: ambulatory Limitations: no limitations Related Data Home Medications ?Medication ?Instructions ?Recorded ?Confirmed duloxetine 60 mg capsule,delayed 60 mg PO DAILY Depres nirmal ##0 04/12/13 10/02/24 release (Cymbalta) pregabalin 200 mg capsule (Lyrica) 200 mg PO BID ##60 04/28/16 10/02/24 cilostazol 100 mg tablet 100 mg PO BID #0 tabs 10/02/24 metoclopramide HCl 10 mg tablet 10 mg PO [facility]HS 04/07/18 10/02/24 levothyroxine 125 mcg capsule 125 mcg PO QDAY 01/14/19 10/02/24 lovastatin 40 mg tablet 40 mg PO HS 01/14/19 4 clopidogrel 75 mg tablet 75 mg PO QDAY 02/16/2010/02 tamsulosin 0.4 mg capsule 0.4 mg PO QDAY 02/16/2009/20 omeprazole 40 mg capsule,delayed 40 mg PO QDAY 0 10/02/24 release insulin regular human 100 unit/mL 20 unit subcut QID 0 05/29/22 10/02/24 injection solution cartridge ergocalciferol (vitamin D2) 1,250 1,250 mcg PO QWEEK 1 11/27/23 10/02/24 mcg (50,000 unit) capsule (Vitamin D2) ferrous sulfate 325 mg (65 mg 325 mg PO QDAY 09/26/24 10/02/24 iron) tablet linaclotide 290 mcg capsule 290 mcg PO AC 09/26/24 (Linzess) oxycodone-acetaminophen 7.5 mg-325 1 tab PO QID PRN Pa in 09/26/24 10/02/24 mg tablet Previous Rx's ?Medication ?Instructions ?Recorded insulin lispro 100 unit/mL 1 sliding scale dose subcut 10/03/24 subcutaneous pen (Admelog SoloStar USEASDIRECTD #15 mL U-100 Insulin lispro) pen needle, diabetic 29 gauge x #100 ea 10/03/2412/26 Allergies Allergy/AdvReac Type Severity Reaction Status Date / Time No Known Allergies Allergy Verified 09/26/24 00:25 Review of Systems Review of Systems Systems Reviewed: All systems reviewed, normal except as documented Constitutional Constitutional: Reports system reviewed and no additional complaints, except as documented, Denies fatigue, Denies fever(s), Denies headache(s) and Reports weakness Eyes Eyes: Reports system reviewed and no additional complaints, except as documented, Denies blurry vision and Denies change in vision ENT Ears, Nose, Mouth, and Throat: Reports system reviewed and no additional complaints, except as documented, Reports dizziness, Denies otalgia, Denies headache(s), Denies nasal congestion, Denies throat swelling and Reports vertigo Cardiovascular Cardiovascular: Reports system reviewed and no additional complaints, except as documented, Denies chest pain, Denies dyspnea and Denies dyspnea on exertion Respiratory Respiratory: Reports system reviewed and no additional complaints, except as documented, Denies chest congestion, Denies cough, Denies dyspnea, Denies dyspnea on exertion and Denies wheezing Gastrointestinal Gastrointestinal: Reports system reviewed and no additional complaints, except as documented, Denies abdominal pain, Denies cramping, Denies nausea and Denies vomiting Genitourinary Genitourinary: Reports system reviewed and no additional complaints, except as documented, Denies dysuria and Denies hematuria Musculoskeletal Musculoskeletal: Reports system reviewed and no additional complaints, except as documented and Denies back pain Integumentary/Breasts Skin/Breast: Reports system reviewed and no additional complaints, except as documented and Denies wounds Neurologic Neurologic: Reports system reviewed and no additional complaints, except as documented, Reports confusion, Reports dizziness, Reports localized weakness, Denies headache(s), Denies lack of coordination, Reports vertigo and Reports weakness Psychiatric Psychiatric: Reports system reviewed and no additional complaints, except as documented, Denies anxiety, Reports confusion, Denies depression, Denies par anoia, Denies suicidal ideation and Denies tactile hallucinations Endocrine Endocrine: Reports system reviewed and no additional complaints, except as documented and Denies fatigue Hematologic/Lymphatic Hematologic/Lymphatic: Reports system reviewed and no additional complaints, except as documented and Denies lymphadenopathy Allergic/Immunologic Allergic/Immunologic: Reports system reviewed and no additional complaints, except as documented, Denies throat swelling, Denies urticaria and Denies wheezing ED Exam General Limitations: Present no limitations General appearance: Present alert and in no apparent distress Head Head exam: Present atraumatic, normocephalic and normal inspection Eye Eye exam: Present normal appearance, PERRL and EOMI ENT ENT exam: Present normal exam, normal oropharynx and mucous membranes moist Neck Neck exam: Present normal inspection, full ROM and trachea midline Chest Chest inspection: Present normal inspection and symmetric chest wall rise Respiratory Respiratory exam: Present normal lung sounds bilaterally Cardiovascular Cardiovascular exam: Present regular rate, normal rhythm and normal heart sounds Abdominal Exam Abdominal exam: Present soft and normal bowel sounds Extremities Exam Extremities exam: Present normal inspection and full ROM Back Exam Back exam: Present normal inspection and full ROM Neurological Exam Neurological exam: Present alert, oriented X3 and CN II-XII intact Psychiatric Psychiatric exam: Present normal affect and normal mood Skin Skin exam: Present warm, dry, intact and normal color Course Quality Measures Current suspected stage: sepsis Possible source: genitourinary and unknown Blood cultures ordered: yes Antibiotic ordered: Yes Pertinent labs: 03/22/25 03/22/25 14:34 18:07 Lactic Acid 3.4 H mMol/L (0.4-2.0) Procalcitonin 3.96 H ng/ml (0.0-0.49) sepsis and none Orders Category Date Time Status Admit to Inpatient Status Routine Admission 03/22/25 22:06 Active Patient Condition Routine Admission 03/22/25 22:05 Ordered EKG (ED ONLY) *Do not use* NOW Care 03/22/25 15:39 Completed Intake and Output QSHIFT Care 03/22/25 22:15 Ordered Miscellaneous Nursing Order NOW Care 03/22/25 18:54 Active Notify provider NEEDED Care 03/22/25 22:05 Active Diet Carbohydrate Consistent Diet 03/23/25 Breakfast Completed EKG (ED Only) Stat Exams 03/22/25 15:39 Draft XR chest 2V Stat Exams 03/22/25 17:05 Completed B-Type Natriuretic Peptide Stat Lab 03/22/25 14:34 Completed Blood Culture (Lab) Stat Lab 03/22/25 18:00 Results CBC AM DRAW Lab 03/23/25 04:35 Completed CBC AM DRAW Lab 03/24/25 04:45 Completed CBC AM DRAW Lab 03/25/25 05:00 Ordered CBC Stat Lab 03/22/25 14:34 Completed Comprehensive Metabolic Panel AM DRAW Lab 03/24/25 04:45 Completed Comprehensive Metabolic Panel AM DRAW Lab 03/25/25 04:00 Ordered Comprehensive Metabolic Panel Stat Lab 03/22/25 14:34 Completed Drug Screen,Urine Stat Lab 03/22/25 19:36 Completed Lactate (Lactic Acid) Stat Lab 03/22/25 18:07 Completed Magnesium AM DRAW Lab 03/24/25 04:45 Completed Partial Thromboplastin Time Stat Lab 03/22/25 14:34 Completed Procalcitonin Stat Lab 03/22/25 14:34 Completed Prothrombin Time with INR Stat Lab 03/22/25 14:34 Completed Troponin I Q6H Lab 03/22/25 23:09 Completed Troponin I Q6H Lab 03/23/25 04:35 Completed Troponin I Q6H Lab 03/23/25 10:15 Completed Troponin I Stat Lab 03/22/25 14:34 Completed Urinalysis Stat Lab 03/22/25 19:36 Completed Acetaminophen Tab [Tylenol ES Tab] Med 03/22/25 18:00 Discontinued 1,000 mg PO X1 ONE Acetaminophen Tab [Tylenol Tab] Med 03/22/25 22:05 Active 650 mg PO Q6H PRN Aspirin Med 03/22/25 18:57 Discontinued 325 mg PO X1 ONE Dextrose 50% Syr [D50w Syringe Abboject] Med 03/22/25 16:28 Discontinued 25 ml IV X1 ONE Dextrose 50% Syr [D50w Syringe Abboject] Med 03/22/25 18:36 Discontinued 50 ml IV X1 ONE Doxycycline Inj [Vibramycin Inj] 100 mg Med 03/22/25 18:57 Discontinued Sodium Chloride 0.9% (Pop) [NS 0.9% mini bag] 100 ml IV X1 HYDROcodone*/APAP 5/325 [[place] 5/325] Med 03/22/25 22:05 Active 1 tab PO Q4HR PRN Heparin Inj Med 03/23/25 06:00 Discontinued 5,000 unit SC Q8HR Ketorolac Inj [Toradol Inj] Med 03/22/25 21:42 Discontinued 15 mg IVP X1 ONE Ondansetron Inj [Zofran Inj] Med 03/22/25 22:05 Discontinued 4 mg IVP Q6H PRN Pantoprazole Inj [Protonix Inj] Med 03/23/25 09:00 Active 40 mg IVP QDAY Potassium Chloride [K-Dur] Med 03/22/25 18:57 Discontinued 20 meq PO X1 ONE Sodium Chloride 0.9% 1000 ml [Ns] 1,000 ml Med 03/22/25 21:42 Discontinued IV 999 mls/hr Sodium Chloride 0.9% 1000 ml [Ns] 1,000 ml Med 03/22/25 21:44 Discontinued IV 999 mls/hr Sodium Chloride 0.9% 1000 ml [Ns] 2,041 ml Med 03/22/25 17:42 Discontinued IV 2,041 mls/hr cefTRIAXone/D5w 1gm IV premix [Rocephin/D5w 1gm IV Med 03/22/25 18:58 Discontinued premix] 1 gm in 50 ml IV X1 oxyCODONE/APAP 5/325 [Percocet 5/325] Med 03/22/25 18:59 Discontinued 1 tab PO X1 ONE Code Status Routine Oth 03/22/25 22:05 Ordered Oxygen Delivery PRN RT 03/22/25 22:05 Active Vital Signs Vital signs: Vital Signs Temperature 98.9 F 03/22/25 15:35 Pulse Rate 113 H 03/22/25 15:35 Respiratory Rate 18 03/22/25 15:35 Blood Pressure 132/68 H 03/22/25 15:35 Pulse Oximetry (%) 98 03/22/25 15:35 Oxygen Delivery Method Nasal Cannula 03/22/25 15:35 Oxygen Flow Rate 2 03/22/25 15:35 Altered Mental Status MDM Narrative [facility] Narrative:: 69-year-old male with a history of type 2 diabetes, hypertension, hypothyroidism, presents to the emergency room with a chief complaint of altered mental status. EMS states patient was hypoglycemic at 51. Patient was febrile, tachycardic and hypoglycemic. A sepsis alert was called The patient was ordered fluids and antibiotics. The patient's physical examination showed some confusion and is currently a GCS of 14. EMS stated that his patient was hypoglycemic at 51. Patient was then given some glucagon and some D10 en route to the emergency room and the patient's blood sugar shot up to 116. About 1 hour later the patient's sugar dropped down to 59. The patient was given half an amp of D50 50. This patient was signed out to Dr. Castaneda the attending physician coming in for the director of analytics. All further testing patient monitoring will be done by him. Patient data External records reviewed:: [facility] previous records Clinical information provided by:: patient Social determinants that could affect healthcare access:: none Patient has the following chronic illnesses:: Type 2 diabetes, hypothyroidism, How is presenting disease/condition affected by chronic disease/condition?: caused by Evaluation data The following diagnostics were reviewed and interpreted by me:: lab results and radiology exam(s) Lab and/or radiology exams considered but not ordered:: Labs and radiology exams considered and ordered was Interpretation Summary: N/A Medications / Prescriptions Medications or Prescriptions considered but not ordered:: Medication given Medication administrations:: Medication Administration History Acetaminophen (Acetaminophen 325 Mg Tablet) 650 mg PO Q6H PRN PRN Reason: pain 1-3 and Fever >100.4 Stop: 04/21/25 22:04 Last Admin: 03/23/25 16:33 Dose: 650 mg Documented By: YANET Hydrocodone Bitart/Acetaminophen (Hydrocodone/Apap 5/325 Tablet) 1 tab PO Q4HR PRN PRN Reason: PAIN SCALE 4-6 (Moderate Stop: 03/27/25 22:04 Last Admin: 03/24/25 18:59 Dose: 1 tab Documented By: MARY KAY Admin: 03/24/25 14:42 Dose: 1 tab Documented By: MARY KAY Admin: 03/24/25 07:24 Dose: 1 tab Documented By: Admin: 03/23/25 10:01 Dose: 1 tab Documented By: Admin: 03/23/25 03:42 Dose: 1 tab Documented By: AM Clopidogrel Bisulfate (Clopidogrel Bisulfate 75 Mg Tablet) 75 mg PO QDAY BUBBA Stop: 04/22/25 08:59 Last Admin: 03/24/25 09:02 Dose: 75 mg Documented By: Admin: 03/23/25 10:02 Dose: 75 mg Documented By: Dextrose (Dextrose 50%-Water Inj 50 Ml Syringe) 25 ml IV Q15MIN PRN PRN Reason: BG 50-70 responsive npo pt Stop: 04/21/25 22:09 Dextrose (Dextrose 50%-Water Inj 50 Ml Syringe) 50 ml IV Q15MIN PRN PRN Reason: BG <50 OR BG <70 & pt unresponsive Stop: 04/21/25 22:09 Duloxetine HCl (Duloxetine Hcl 30 Mg Capsule) 60 mg PO QDAY [facility] Stop: 04/22/25 08:59 Last Admin: 03/24/25 09:01 Dose: 60 mg Documented By: Admin: 03/23/25 11:24 Dose: Not Given Documented By: DO Non-Admin Reason: Medication Not Available Enoxaparin Sodium (Enoxaparin Sod Inj 40 Mg/0.4 Ml Syringe) 40 mg SC QDAY [facility] Stop: 04/08/25 08:59 Glucagon (Glucagon Inj 1 Mg Vial) 1 mg IM Q15MIN PRN PRN Reason: BG <70, and no IV access Potassium Chloride (Kcl Ivpb) 10 meq in 100 mls @ 100 mls/hr IV .Q1H PRN PRN Reason: IF POTASSIUM LESS THAN 3.3 Stop: 04/23/25 09:44 Magnesium Sulfate (Magnesium Sulfate Ivpb) 2 gm in 50 mls @ 25 mls/hr IV .Q2H PRN PRN Reason: PER DKA PROTOCOL Stop: 04/23/25 09:44 Insulin Human Regular 100 unit (/ IV Miscellaneous Supplies) 100 mls @ 6.67 mls/hr IV .Q15H PRN; Protocol PRN Reason: PER PROTOCOL Stop: 04/23/25 09:44 Last Titration: 03/25/25 03:00 Dose: 0.025 unit/kg/hr, 1.668 mls/hr Documented By: AD Co-signed By: CMN Titration: 03/25/25 02:00 Dose: 0.05 unit/kg/hr, 3.335 mls/hr Documented By: AD Co-signed By: CMN Titration: 03/25/25 01:00 Dose: 0.025 unit/kg/hr, 1.668 mls/hr Documented By: AD Co-signed By: CMN Titration: 03/25/25 00:00 Dose: 0.025 unit/kg/hr, 1.668 mls/hr Documented By: CMN Co-signed By: CLT Titration: 03/24/25 23:00 Dose: 0.025 unit/kg/hr, 1.668 mls/hr Documented By: EUNICE Co-signed By: AD Titration: 03/24/25 22:00 Dose: 0.025 unit/kg/hr, 1.668 mls/hr Documented By: CMN Co-signed By: AD Titration: 03/24/25 21:00 Dose: 0.05 unit/kg/hr, 3.335 mls/hr Documented By: CMN Co-signed By: AD Titration: 03/24/25 20:00 Dose: 0.1 unit/kg/hr, 6.67 mls/hr Documented By: CMN Co-signed By: AD Titration: 03/24/25 19:00 Dose: 0.05 unit/kg/hr, 3.335 mls/hr Documented By: CMN Co-signed By: AD Titration: 03/24/25 18:00 Dose: 0.05 unit/kg/hr, 3.335 mls/hr Documented By: GE Co-signed By: MR Titration: 03/24/25 17:00 Dose: 0.025 unit/kg/hr, 1.668 mls/hr Documented By: GE Co-signed By: CATARINO Titration: 03/24/25 16:00 Dose: 0.05 unit/kg/hr, 3.335 mls/hr Documented By: GE Co-signed By: CATARINO Titration: 03/24/25 15:00 Dose: 0.1 unit/kg/hr, 6.67 mls/hr Documented By: MARY KAY Co-signed By: CATARINO Admin: 03/24/25 14:46 Dose: 0.1 unit/kg/hr, 6.67 mls/hr Documented By: MARY KAY Co-signed By: EDSON Dextrose/Lactated Ringer's (D5-Lr) 1,000 mls @ 250 mls/hr IV .Q4H PRN PRN Reason: PER PROTOCOL Stop: 04/23/25 09:44 Last Admin: 03/25/25 01:15 Dose: 250 mls/hr Documented By: CMN Lactated Ringer's (Lactated Ringers) 1,000 mls @ 250 mls/hr IV .Q4H PRN PRN Reason: PER PROTOCOL Stop: 03/25/25 09:44 Potassium Chloride 20 meq/ (Lactated Ringer's) 1,010 mls @ 250 mls/hr IV .Q4H3M PRN PRN Reason: K LEVEL 3.3 TO 5.3mM/L Stop: 04/23/25 09:44 Last Infusion: 03/24/25 21:00 Dose: 0 mls/hr Documented By: Infusion: 03/24/25 20:00 Dose: 250 mls/hr Documented By: Infusion: 03/24/25 16:56 Dose: 0 mls/hr Documented By: Admin: 03/24/25 14:51 Dose: 250 mls/hr Documented By: MARY KAY Potassium Chloride 40 meq/ (Lactated Ringer's) 1,020 mls @ 250 mls/hr IV .Q4H5M PRN PRN Reason: K LEVEL < 3.3 mM/L Stop: 04/23/25 09:44 Potassium Chloride 40 meq/ (Dextrose/Lactated Ringer's) 1,020 mls @ 250 mls/hr IV .Q4H5M PRN PRN Reason: K LEVEL < 3.3mM/L Stop: 04/23/25 09:44 Last Infusion: 03/25/25 01:16 Dose: Infused Documented By: Admin: 03/24/25 20:59 Dose: 250 mls/hr Documented By: EUNICE Potassium Chloride (Kcl Ivpb) 10 meq in 100 mls @ 50 mls/hr IV PRN PRN PRN Reason: K LEVEL 3.3 to 5.3 & BG > 200 Stop: 04/23/25 09:44 Last Admin: 03/25/25 03:24 Dose: 50 mls/hr Documented By: Infusion: 03/25/25 03:15 Dose: Infused Documented By: Admin: 03/25/25 01:15 Dose: 50 mls/hr Documented By: EUNICE Sodium Phosphate 15 mmol/ (Sodium Chloride) 255 mls @ 62.5 mls/hr IV .Q4H5M PRN PRN Reason: Phosphate <= 1mg/dL and K> than 5.3 Stop: 04/23/25 09:44 Potassium Chloride 20 meq/ (Dextrose/Lactated Ringer's) 1,010 mls @ 250 mls/hr IV .Q4H3M PRN PRN Reason: K LEVEL 3.3 TO 5.3 mM/L Stop: 04/23/25 16:30 Last Infusion: 03/24/25 20:00 Dose: 0 mls/hr Documented By: Admin: 03/24/25 16:56 Dose: 250 mls/hr Documented By: MARY KAY Potassium Phosphate (Pot Phos 15 Mmol In Ns 250 Ml) 15 mmol in 250 mls @ 62.5 mls/hr IV PRN PRN PRN Reason: Phosphate <= 2mg/dL Stop: 04/23/25 09:44 Last Admin: 03/24/25 20:56 Dose: 62.5 mls/hr Documented By: EUNICE Levothyroxine Sodium (Levothyroxine Sodium 125 Mcg Tablet) 125 mcg PO ACBR [facility] Stop: 04/22/25 05:59 Last Admin: 03/24/25 05:57 Dose: 125 mcg Documented By: Admin: 03/23/25 06:22 Dose: 125 mcg Documented By: LISA Metoclopramide HCl (Metoclopramide Inj 5 Mg/Ml Vial 2 Ml) 10 mg IVP Q6HR PRN; Protocol PRN Reason: NAUSEA OR VOMITING Stop: 04/23/25 11:34 Ondansetron HCl (Ondansetron Inj 2 Mg/Ml Inj 2 Ml) 4 mg IVP Q4HR PRN; Protocol PRN Reason: NAUSEA OR VOMITING Stop: 04/21/25 22:04 Last Admin: 03/25/25 01:45 Dose: 4 mg Documented By: Admin: 03/24/25 04:24 Dose: 4 mg Documented By: Admin: 03/24/25 00:24 Dose: 4 mg Documented By: GEGE Pantoprazole Sodium (Pantoprazole Inj 40 Mg Vial) 40 mg IVP QDAY [facility] Stop: 04/22/25 08:59 Last Admin: 03/24/25 09:02 Dose: 40 mg Documented By: Admin: 03/23/25 10:01 Dose: 40 mg Documented By: Sodium Bicarbonate (Sodium Bicarb Inj 8.4% Syr 50 Ml Syringe) 50 ml IV Q4HR PRN PRN Reason: For ph <= to 7.0 Stop: 04/23/25 09:44 Tamsulosin HCl (Tamsulosin Hcl 0.4 Mg Capsule) 0.4 mg PO QDAY [facility] Stop: 04/22/25 08:59 Last Admin: 03/24/25 09:01 Dose: 0.4 mg Documented By: Admin: 03/23/25 10:02 Dose: 0.4 mg Documented By: DO Discontinued Medications Acetaminophen (Acetaminophen 500 Mg Tablet) 1,000 mg PO X1 ONE Stop: 03/22/25 18:01 Last Admin: 03/22/25 18:11 Dose: 1,000 mg Documented By: SAM Aspirin (Aspirin 325 Mg Tablet) 325 mg PO X1 ONE Stop: 03/22/25 18:58 Last Admin: 03/22/25 19:27 Dose: 325 mg Documented By: BASILIO Dextrose (Dextrose 50%-Water Inj 50 Ml Syringe) 25 ml IV X1 ONE Stop: 03/22/25 16:29 Last Admin: 03/22/25 16:30 Dose: 25 ml Documented By: AMALIA Dextrose (Dextrose 50%-Water Inj 50 Ml Syringe) 50 ml IV X1 ONE Stop: 03/22/25 18:37 Last Admin: 03/22/25 18:39 Dose: 50 ml Documented By: BASILIO Heparin Sodium (Porcine) (Heparin Sod Inj 5000 Unit/Ml Vial) 5,000 unit SC Q8HR BUBBA Stop: 04/06/25 05:59 Last Admin: 03/24/25 13:02 Dose: 5,000 unit Documented By: MARY KAY Co-signed By: Admin: 03/24/25 05:55 Dose: 5,000 unit Documented By: GEGE Co-signed By: ELEANOR Admin: 03/23/25 22:18 Dose: 5,000 unit Documented By: GEGE Co-signed By: ELEANOR Admin: 03/23/25 14:22 Dose: 5,000 unit Documented By: DIMITRIOS Co-signed By: SAM Admin: 03/23/25 05:23 Dose: 5,000 unit Documented By: LISA Co-signed By: KENY Sodium Chloride (Ns) 2,041 mls @ 2,041 mls/hr 30 ml/kg infuse over 60 min (2041 ml) IV .Q1H ONE; Protocol Stop: 03/22/25 18:41 Last Infusion: 03/22/25 20:24 Dose: Infused Documented By: Admin: 03/22/25 17:57 Dose: 2,041 mls/hr Documented By: SAM Ceftriaxone Sodium/Dextrose (Rocephin/D5w 1gm Iv Premix) 1 gm in 50 mls @ 100 mls/hr IV X1 ONE Stop: 03/22/25 19:27 Last Infusion: 03/22/25 19:50 Dose: Infused Documented By: Admin: 03/22/25 19:26 Dose: 100 mls/hr Documented By: BASILIO Doxycycline Hyclate 100 mg/ (Sodium Chloride) 100 mls @ 100 mls/hr IV X1 ONE Stop: 03/22/25 19:56 Last Infusion: 03/22/25 20:50 Dose: Infused Documented By: Admin: 03/22/25 19:49 Dose: 100 mls/hr Documented By: BASILIO Sodium Chloride (Ns) 1,000 mls @ 999 mls/hr IV .Q1H1M ONE Stop: 03/22/25 22:42 Last Admin: 03/22/25 22:09 Dose: Not Given Documented By: LISA Non-Admin Reason: Cancelled by Provider Sodium Chloride (Ns) 1,000 mls @ 999 mls/hr IV .Q1H1M ONE Stop: 03/22/25 22:44 Last Infusion: 03/22/25 23:13 Dose: Infused Documented By: Admin: 03/22/25 22:08 Dose: 999 mls/hr Documented By: LISA Metronidazole (Flagyl 500 Mg Iv) 500 mg in 100 mls @ 200 mls/hr IV Q8HR BUBBA Stop: 03/29/25 22:12 Last Infusion: 03/24/25 19:00 Dose: Infused Documented By: Admin: 03/24/25 05:55 Dose: 200 mls/hr Documented By: Infusion: 03/23/25 22:50 Dose: Infused Documented By: Admin: 03/23/25 22:20 Dose: 200 mls/hr Documented By: Infusion: 03/23/25 14:52 Dose: Infused Documented By: Admin: 03/23/25 14:17 Dose: 200 mls/hr Documented By: Infusion: 03/23/25 06:26 Dose: Infused Documented By: Admin: 03/23/25 05:23 Dose: 100 mls/hr Documented By: Infusion: 03/22/25 23:44 Dose: Infused Documented By: Admin: 03/22/25 22:58 Dose: 200 mls/hr Documented By: LISA Ciprofloxacin/Dextrose (Cipro Ivpb) 400 mg in 200 mls @ 200 mls/hr IV Q12HR BUBBA Stop: 03/30/25 10:53 Last Infusion: 03/24/25 18:08 Dose: Infused Documented By: MARY KAY Admin: 03/24/25 09:01 Dose: 200 mls/hr Documented By: Infusion: 03/23/25 21:36 Dose: Infused Documented By: Admin: 03/23/25 20:36 Dose: 200 mls/hr Documented By: Infusion: 03/23/25 12:37 Dose: Infused Documented By: Admin: 03/23/25 11:32 Dose: 200 mls/hr Documented By: Sodium Chloride (Ns) 1,000 mls @ 100 mls/hr IV .Q10H BUBBA Stop: 03/24/25 06:55 Last Admin: 03/23/25 14:52 Dose: Not Given Documented By: Non-Admin Reason: Cancelled by Provider Sodium Chloride (Ns) 1,000 mls @ 150 mls/hr IV .Q6H40M BUBBA Stop: 03/24/25 14:06 Last Infusion: 03/24/25 10:46 Dose: 0 mls/hr Documented By: MARY KAY Admin: 03/24/25 07:25 Dose: 150 mls/hr Documented By: Infusion: 03/24/25 07:25 Dose: Infused Documented By: Admin: 03/24/25 00:50 Dose: 150 mls/hr Documented By: Infusion: 03/24/25 00:43 Dose: Infused Documented By: Admin: 03/23/25 18:02 Dose: 150 mls/hr Documented By: Infusion: 03/23/25 18:02 Dose: Infused Documented By: Admin: 03/23/25 11:33 Dose: 150 mls/hr Documented By: Potassium Chloride (Kcl Ivpb) 10 meq in 100 mls @ 100 mls/hr IV Q1H BUBBA Stop: 03/24/25 11:25 Last Infusion: 03/24/25 21:00 Dose: Infused Documented By: Admin: 03/24/25 09:01 Dose: 100 mls/hr Documented By: Infusion: 03/24/25 08:40 Dose: Infused Documented By: Admin: 03/24/25 07:40 Dose: 100 mls/hr Documented By: CATARINO Potassium Cl/Dextrose/Lact Ringer's (Kcl 20 Meq/L In D5-Lr) 20 meq in 1,000 mls @ 250 mls/hr IV .Q4H PRN PRN Reason: K LEVEL 3.3 TO 5.3 mM/L Stop: 04/23/25 09:44 Potassium Phosphate (Pot Phos 15 Mmol In Ns 250 Ml) 15 mmol in 250 mls @ 62.5 mls/hr IV PRN PRN PRN Reason: Phosphate <= 1mg/dL Stop: 04/23/25 09:44 Lactated Ringer's (Lactated Ringers) 1,000 mls @ 1,000 mls/hr IV Q1HR BUBBA Stop: 03/24/25 11:59 Lactated Ringer's (Lactated Ringers) 1,000 mls @ 999 mls/hr IV .Q1H1M ONE Stop: 03/24/25 11:30 Last Infusion: 03/24/25 19:00 Dose: Infused Documented By: Admin: 03/24/25 10:46 Dose: 999 mls/hr Documented By: MARY KAY Potassium Phosphate (Pot Phos 15 Mmol In Ns 250 Ml) 15 mmol in 250 mls @ 62.5 mls/hr IV X1 ONE Stop: 03/24/25 14:44 Last Infusion: 03/24/25 18:08 Dose: Infused Documented By: MARY KAY Admin: 03/24/25 10:45 Dose: 62.5 mls/hr Documented By: MRAY KAY Magnesium Sulfate (Magnesium Sulfate Ivpb) 4 gm in 50 mls @ 12.5 mls/hr IV X1 ONE Stop: 03/24/25 16:49 Last Infusion: 03/24/25 18:08 Dose: Infused Documented By: MARY KAY Admin: 03/24/25 13:02 Dose: 12.5 mls/hr Documented By: MARY KAY Lactated Ringer's (Lactated Ringers) 1,000 mls @ 999 mls/hr IV .Q1H1M ONE Stop: 03/24/25 14:11 Last Infusion: 03/24/25 19:00 Dose: Infused Documented By: Admin: 03/24/25 13:24 Dose: 999 mls/hr Documented By: MARY KAY Insulin Glargine (Insulin Glargine (Lantus) 5 Unit/0.05 Ml (Per 5 Units)) 15 unit SC QDAY BUBBA Stop: 04/22/25 10:59 Last Admin: 03/23/25 11:23 Dose: 15 unit Documented By: Co-signed By: BASILIO Insulin Glargine (Insulin Glargine (Lantus) 5 Unit/0.05 Ml (Per 5 Units)) 15 unit SC QDAY BUBBA Stop: 03/24/25 09:45 Last Admin: 03/24/25 08:56 Dose: Not Given Documented By: CATARINO Non-Admin Reason: hold per Dr. Collins Insulin Human Lispro (Insulin Lispro (Admelog) 1 Unit/0.01 Ml Unit) 0 unit SC AC BUBBA; Protocol Stop: 04/22/25 07:29 Last Admin: 03/23/25 07:49 Dose: Not Given Documented By: Non-Admin Reason: 4 units given on seperate order Insulin Human Lispro (Insulin Lispro (Admelog) 1 Unit/0.01 Ml Unit) 4 unit SC X1 ONE Stop: 03/23/25 05:33 Last Admin: 03/23/25 07:46 Dose: 4 unit Documented By: Co-signed By: BASILIO Insulin Human Lispro (Insulin Lispro (Admelog) 1 Unit/0.01 Ml Unit) 0 unit SC Q6HR BUBBA; Protocol Stop: 04/22/25 10:59 Last Admin: 03/23/25 11:26 Dose: 4 unit Documented By: Co-signed By: BASILIO Insulin Human Lispro (Insulin Lispro (Admelog) 1 Unit/0.01 Ml Unit) 0 unit SC Q4H BUBBA; Protocol Stop: 04/22/25 11:29 Last Admin: 03/24/25 04:07 Dose: 2 unit Documented By: GEGE Co-signed By: LOYD Admin: 03/23/25 23:55 Dose: 2 unit Documented By: GEGE Co-signed By: LOYD Admin: 03/23/25 19:49 Dose: 3 unit Documented By: GEGE Co-signed By: ELEANOR Admin: 03/23/25 15:40 Dose: 2 unit Documented By: AYNET Co-signed By: IFTIKHAR Admin: 03/23/25 11:34 Dose: Not Given Documented By: Non-Admin Reason: Duplicate Medication on eMAR Insulin Human Lispro (Insulin Lispro (Admelog) 1 Unit/0.01 Ml Unit) 0 unit SC Q4H BUBBA; Protocol Stop: 04/23/25 07:59 Last Admin: 03/24/25 07:34 Dose: Not Given Documented By: CATARINO Non-Admin Reason: Per Protocol Ketorolac Tromethamine (Ketorolac Inj 30 Mg/Ml Vial) 15 mg IVP X1 ONE Stop: 03/22/25 21:43 Last Admin: 03/22/25 22:07 Dose: 15 mg Documented By: LISA Metoclopramide HCl (Metoclopramide 5 Mg Tablet) 10 mg PO Q8HR BUBBA Stop: 04/22/25 05:59 Last Admin: 03/24/25 05:55 Dose: 10 mg Documented By: Admin: 03/23/25 22:16 Dose: 10 mg Documented By: Admin: 03/23/25 14:21 Dose: 10 mg Documented By: Admin: 03/23/25 05:23 Dose: 10 mg Documented By: LISA Ondansetron HCl (Ondansetron Inj 2 Mg/Ml Inj 2 Ml) 4 mg IVP Q6H PRN; Protocol PRN Reason: NAUSEA OR VOMITING Stop: 04/21/25 22:04 Last Admin: 03/23/25 19:49 Dose: 4 mg Documented By: Admin: 03/23/25 03:03 Dose: 4 mg Documented By: LISA Oxycodone/Acetaminophen (Oxycodone/Apap 5/325 Tablet) 1 tab PO X1 ONE Stop: 03/22/25 19:00 Last Admin: 03/22/25 19:27 Dose: 1 tab Documented By: BASILIO Potassium Chloride (Potassium Chloride 20 Meq Tabcr) 20 meq PO X1 ONE Stop: 03/22/25 18:58 Last Admin: 03/22/25 19:27 Dose: 20 meq Documented By: BASILIO Potassium Chloride (Potassium Chloride 20 Meq Tabcr) 40 meq PO X1 ONE Stop: 03/24/25 07:26 Last Admin: 03/24/25 07:41 Dose: 40 meq Documented By: CATARINO Potassium Phos/Sodium Phos (Naph,[facility] Mbdb 1 Packet (1.5 Gm)) 1 packet PO X1 ONE Stop: 03/24/25 07:28 Last Admin: 03/24/25 07:40 Dose: 1 packet Documented By: CATARINO N/A Consultations Consultation(s) initiated? (list below): No Diagnosis Differential diagnosis altered mental status: altered mental status, hypoglycemia and hyponatremia Most likely diagnosis given after review of the tests above:: Altered mental status Admission Indicated Admission indicated?: not indicated Explain why admission is indicated or not indicated:: Patient signed out to Dr. Castaneda pending final disposition Admission Request Was there a request for admission?: No Disposition Plan Disposition Plan: other (specify) (This patient was signed out to Dr. Castaneda) Critical Care Time Critical Care Time Critical Care Time: Yes Total Critical Care Time (min.): 45 Attestation: The high probability of sudden, clinically significant deterioration in the patient's condition required the highest level of my preparedness to intervene urgently. The services I provided to this patient were to treat and/or prevent clinically significant deterioration. Services included the following: chart data review, reviewing nursing notes and/or old charts, documentation time, erp implementation consultant collaboration regarding findings and treatment options, medication orders and management, direct patient care, vital sign assessments and ordering, interpreting and reviewing diagnostic studies and lab tests. Aggregate critical care time includes only time during which I was engaged in work directly related to the patient's care, as described above, whether at bedside or elsewhere in the Emergency Department. It did not include time spent performing other reported procedures or the services of residents, students, nurses or physician assistants. Discharge Plan Plan Patient Disposition: Admit Acute Care w/in Hospital Problem List Clinical Impression: Hypoglycemia, Dehydration, Severe sepsis, Non-ST elevation AK (NSTEMI), ADRIA (acute kidney injury)
[2025-03-22] MEDS: DEXTROSE 50%-WATER INJ 50 ML SYRINGE 25 ML IV (16:30)
[2025-03-22 17:00] LABS: Basophils # (Auto) 0.1 Thou/mm3 (0.0-0.2); Basophils % (Auto) 0 % (0-2.5); Eosinophils % (Auto) 0 % (0-10); Hematocrit 42.8 % (41.0-53.0); Hemoglobin 15.4 g/dL (13.5-16.0); Immature Granulocytes % (Auto) 1 % (0-0); Immature Granulocytes Auto 0.23 Thou/mm3 (0.00-0.00); Lymphocytes % (Auto) 5 % (10-50); Mean Corpuscular Hemoglobin 31.4 pg (25.0-35.0); Mean Corpuscular Volume 87 fL (80-100); Monocytes # (Auto) 3.5 Thou/mm3 (0.0-0.8); Monocytes % (Auto) 16 % (0-12); Neutrophils % (Auto) 78 % (37-80); Nucleated Red Blood Cell % 0 /100 WBC (0); Platelet Count 233 Thou/mm3 (140-440); RDW Standard Deviation 44.7 fL (35.1-43.9); White Blood Count 21.9 Thou/mm3 (3.8-10.6)
[2025-03-22 17:03] LABS: Partial Thromboplastin Time 30.8 Seconds (22.0-36.0); Prothrombin Time 11.4 Seconds (9.0-12.2)
--- NOTE | 2025-03-22 17:05 | XR_ITS ---
Examination: AP lateral chest 2 views TECHNIQUE: Upright AP lateral chest 2 views Date and time: March 22, 2025 1733 hours INDICATIONS: Fever weakness today. FINDINGS: Moderate hyperexpansion No lobar pneumonia. Normal heart size. Moderate osteopenia IMPRESSION: No pneumonia or pulmonary edema
[2025-03-22 17:25] LABS: Alanine Aminotransferase 17 U/L (10-49); Albumin, Serum 4.6 gm/dL (3.4-4.8); Albumin/Globulin Ratio 2.2 (1.2-2.2); Alkaline Phosphatase 79 U/L (46-116); Anion Gap 16 (7-16); Aspartate Amino Transferase 29 U/L (0-34); BUN/Creatinine Ratio 24 Ratio (12-20); Bilirubin,Total 0.4 mg/dL (0.3-1.2); Blood Urea Nitrogen 33 mg/dL (9-23); Calcium 9.9 mg/dL (8.3-10.6); Calcium (Corrected) 9.9 mg/dL (8.5-10.1); Carbon Dioxide 18.7 mMol/L (20.0-31.0); Chloride 103 mMol/L (98-107); Creatinine (Component) 1.4 mg/dL (0.6-1.3); Estimated Creatinine Clearance 44.3 mL/min (>60); Globulin 2.1 gm/dL (2.3-3.5); Glucose 66 mg/dL (74-106); Osmolality,Calculated 280 (275-295); Potassium 3.3 mMol/L (3.4-5.1); Sodium 138 mMol/L (136-145); Total Protein 6.7 gm/dL (5.7-8.2); eGFR 54 See Note
[2025-03-22 17:28] LABS: Troponin I 0.053 ng/mL (0.0-0.045)
[2025-03-22 17:41] LABS: B-Type Natriuretic Peptide 187 pg/mL (0-100)
[2025-03-22 17:47] LABS: Procalcitonin 3.96 ng/ml (0.0-0.49)
[2025-03-22] MEDS: SODIUM CHLORIDE 0.9% 2041 ML IV (17:57)
[2025-03-22] MEDS: ACETAMINOPHEN 500 MG TABLET 1000 MG PO (18:11)
[2025-03-22 18:12] LABS: Lactate (Lactic Acid) 3.4 mMol/L (0.4-2.0)
--- NOTE | 2025-03-22 18:12 | PD.EDADDENDU ---
Emergency Room Addendum Addendum Narrative: 1800: Care assumed from Dong Champagne NP. Past medical, surgical, social and family history reviewed. Vitals and home medications reviewed. Results and treatment plan discussed. I will assume the care of the patient at this time and will follow the patient, pending labs. Please refer to the emergency department record for history and examination from initial visit. 1836: Patient's blood sugar dropped to 51. Amp of D50 ordered. Patient endorses he took his diabetic medications today, but did not eat. WBC count 21.9, PT/INR/PTT normal, Creatinine 1.4, Lactic Acid 3.4, Troponin 0.053, BNP 187, Procalcitonin 3.96, UA negative for UTI, UDS positive for marijuana. EKG done at 1659, sinus tachycardia, rate of 113, normal axis, no ectopy, no acute ischemia, according to my interpretation. 1900: Patient is currently fpc done receiving his first liter of NS. Patient is asking for his normal Percocet 7.5mg for his chronic back and hip pain. Patient denies having any abdominal pain. 2124: Discussed case with the resident physician, attending Dr. Castillo from Hospitalist service regarding admission. Discussed patients ED course, exam findings, labs, and radiology results. The Hospitalist agrees to accept the patient for admission. Diagnoses: severe sepsis, hypoglycemia, dehydration, NSTEMI, ADRIA Critical Care Time: 60 minutes The high probability of sudden, clinically significant deterioration in the patient?s condition required the highest level of my preparedness to intervene urgently. The services I provided to this patient were to treat and/or prevent clinically significant deterioration. Services included the following: chart data review, reviewing nursing notes and/or old charts, documentation time, technical services consultant collaboration regarding findings and treatment options, medication orders and management, direct patient care, vital sign assessments and ordering, interpreting and reviewing diagnostic studies and lab tests. Aggregate critical care time includes only time during which I was engaged in work directly related to the patient?s care, as described above, whether at bedside or elsewhere in the Emergency Department. It did not include time spent performing other reported procedures or the services of residents, students, nurses or physician assistants.
[2025-03-22] MEDS: DEXTROSE 50%-WATER INJ 50 ML SYRINGE IV (18:39)
--- NOTE | 2025-03-22 18:41 | PC.NURSE ---
PT REFUSE IN AND OUT CATH, DR. JOYA MADE AWARE.
[2025-03-22] MEDS: cefTRIAXone/D5w 1gm IV premix 1 GM/50 ML BAG IV (19:26)
[2025-03-22] MEDS: oxyCODONE/APAP 5/325 TABLET 1 TAB PO (19:27)
[2025-03-22] MEDS: POTASSIUM CHLORIDE 20 mEq TABCR PO (19:27)
[2025-03-22] MEDS: Aspirin 325 MG TABLET PO (19:27)
[2025-03-22] MEDS: DOXYCYCLINE INJ 100 MG in SODIUM CHLORIDE 0.9% (POP) 100 ML IV (19:49)
[2025-03-22 20:11] LABS: Collection Type, Urine Clean Catch; Squamous Epithelial Cell,Urine 0 /hpf (0-5)
[2025-03-22 20:55] LABS: Bilirubin,Urine Negative (Negative); Blood,Urine 1+ (Negative); Clarity,Urine Clear (Clear/Hazy); Color,Urine Lt-Yellow (Lt Yel-Yel); Glucose, Urine 3+ (Negative); Ketones,Urine 2+ (Negative); Leukocyte Esterase,Urine Negative (Negative); Nitrite,Urine Negative (Negative); Protein,Urine Trace (Neg - Trace); RBC,Urine 1 /hpf (0-3); Specific Gravity,Urine 1.015 (1.001-1.035); Urobilinogen,Urine Negative mg/dL (0.0-1.0); WBC,Urine 1 /hpf (0-5)
[2025-03-22 21:11] LABS: Reflex Lactate? Y
[2025-03-22 21:14] LABS: Amphetamine/Methamp Scrn,U Negative (Negative); Barbiturate Screen,Urine Negative (Negative); Benzodiazepines Screen,Urine Negative (Negative); Benzoylecgonine Screen, Ur Negative (Negative); Fentanyl Screen,Urine Negative (Negative); Opiate Screen,Urine Negative (Negative); THC Screen,Urine Positive (Negative)
[2025-03-22] MEDS: KETOROLAC INJ 30 MG/ML VIAL 15 MG IVP (22:07)
[2025-03-22] MEDS: SODIUM CHLORIDE 0.9% 1000 ML 1,000 ML 999 ML IV (22:08)
--- NOTE | 2025-03-22 22:10 | XR_ITS ---
Examination: CT abdomen and pelvis without contrast. Coronal 3-D reconstructions. Sagittal 2-D reconstructions. Date and time of exam:March 22, 2025 1057 hours Comparison January 31, 2025 INDICATIONS: Nausea abdominal tenderness today CTDI: vol (mGy): 7.18 DLP: (mGycm): 379 Technique: Axial images of the abdomen have been obtained, 3 mm slice thickness Intravenous contrast material has not been administered. Low dose protocols were performed. One or more of the following dose reduction techniques were used; automated exposure control, adjustment of the mA and/or KV according to patient size, use of iterative reconstruction technique. Findings: Atelectasis versus pneumonia right base, clinical correlation is advised No focal liver or splenic lesions No gallstones No pancreatic mass No renal or ureteral calculi, no hydronephrosis Abdominal aortic calcification iliac stents Normal appendix No bowel obstruction No prostatomegaly Urinary bladder is intact Advanced disc narrowing L4-L5 IMPRESSION: Atelectasis versus pneumonia right base No renal or ureteral calculi, no hydronephrosis Normal appendix. No bowel obstruction or diverticulitis
--- NOTE | 2025-03-22 22:18 | PD.RESHP ---
Documentation for date of: 03/22/25 HPI History of Present Illness Chief complaint: AMS, N/V, Diarrhea History of present illness: 69-year-old male with past medical history of IDDM (on insulin pump), severe PAD s/p stents, peripheral neuropathy, hypothyroidism, BPH, vertebral disc prolapse (on Percocet), CAD s/p stents, and gastroparesis was admitted to hospital on 03/22/2025 after coming to the ED with complaints of nausea and vomiting and was found to be altered when EMS arrived and patient's blood sugar was in the 50s. On assessment patient's blood sugar was better and as he got back show and he was AO x 3 at this time as well. Patient stated that he had not been able to eat which was what caused his blood sugar to go down, he stated that he was unable to eat because of nausea, abdominal pain, vomiting, and diarrhea which started yesterday. He stated that last week he had pneumonia and was treated with antibiotics outpatient. Patient stated that he did not have any shortness of breath, cough, chest pain, or blood in the stools. His only complaint was that when he was having around 4-5 episodes of diarrhea and about 8 episodes of vomiting yesterday. He does not recall eating anything out of the ordinary in his daily diet. He had no other complaints. ED course: Initially came in mildly hypertensive and tachycardic. Initial labs were relevant for leukocytosis, hypokalemia, ADRIA, hyperglycemia, lactic acidosis, troponinemia, elevated procalcitonin, and U-Tox positive for THC. Initial imaging included chest x-ray which was unremarkable and EKG which showed sinus tachycardia, but no ST changes at this time. PMH: As above Surgical Hx: Stents, no other surgery per patient Social Hx: Admits smoking marijuana, denies smoking cigarettes, alcohol, or any other drugs. Review of Systems Review of Systems Narrative Review of Systems: Constitutional: Denies sweats, Denies weight loss/gain, Denies fever, Denies chills. HEENT: Denies hearing loss, Denies ear pain, Denies postnasal drip, Denies double vision, Denies blurry vision. Respiratory: Denies shortness of breath, Denies cough, Denies wheezing. Cardiovascular: Denies chest pain, Denies palpitations, Denies sudden loss of consciousness. GI: Denies blood in stool, Denies constipation, Admits abdominal pain, Admits diarrhea, Denies difficulty swallowing, Admits nausea and vomit. : Denies urinary incontinence, Denies pain while urinating, Denies increased urinary frequency. MSK: Denies joint pain, Denies joint swelling, Denies numbness. Skin: Denies rash, Denies itching, Denies easy bruising. Neuro: Denies headaches, Denies dizziness, Denies seizures. Past Medical History Past Medical History NEUROLOGIC: Positive Neurological Disorders and Peripheral Neuropathy CARDIAC: Positive Coronary Artery Disease, Peripheral Vascular Disease, Hypercholesterolemia and Hypertension RESPIRATORY: Positive Asthma and Pneumonia GASTROINTESTINAL: Positive Gastrointestinal Disorders and Gastroesophageal Reflux Disease MUSCULOSKELETAL: Positive Musculoskeletal Disorders, Arthritis and Carpal Tunnel Syndrome ENT: Positive Cataracts ENDOCRINE: Positive Endocrine Disorders, Diabetes Mellitus Type 2 and Hypothyroidism HEMATOLOGIC: Positive Blood Disorders and Anemia PSYCHO/SOCIAL: Positive Depression OTHER HISTORY: Positive Chicken Pox, Measles and Mumps Family History FAMILY HISTORY: Positive Family Cardiac Disorders and Family Cancer Surgical History SURGICAL: Positive Coronary Stent, Angiogram, Ear Surgery and Tonsillectomy Social History SMOKING STATUS: Current every day smoker SECOND HAND EXPOSURE: No SUBSTANCE USE: marijuana (Daily) Exam Vital Signs Temp Pulse Resp BP Pulse Ox O2 Del Method O2 Flow Rate 100.8 F H 97 19 90/56 L 94 L Nasal Cannula 2 03/22/25 22:07 03/22/25 21:33 03/22/25 21:33 03/22/25 21:33 03/22/25 21:33 03/22/25 21:33 03/22/25 21:33 Narrative Exam General: A/O x3, no acute distress Eyes: PERRL, EOMI. Anicteric, vision grossly intact. Ears: No ear pain, no ear discharge, Hearing grossly intact. Nose: No nasal discharge. Mouth/Throat: Moist mucous membranes, no redness, no lesions. Neck: Neck supple, non-tender, no cervical lymphadenopathy. Lungs: Clear AYAN to auscultation and percussion, No accessory muscle use. Cardio: Normal S1/S2, regular rhythm, no murmurs, no JVD Abdomen: Soft, generalized tenderness, no palpable masses, hyperactive bowel sounds, no guarding or rebound. Extremities: Symmetrical, no significant deformities, no peripheral edema , non-tender, peripheral pulses presents. Skin: No rashes, no lesions, warm to touch. Neuro: No focal neurological deficits. motor strength 4/5 AYAN UE and LE. Psych: Slow speech Results: Labs 03/22/25 14:34 03/22/25 14:34 Labs: Short CBC 03/22/25 Range/Units 14:34 WBC 21.9 H (3.8-10.6) Thou/mm3 Hgb 15.4 (13.5-16.0) g/dL Hct 42.8 (41.0-53.0) % Plt Count 233 (140-440) Thou/mm3 BMP 03/22/25 14:34 Sodium 138 Potassium 3.3 L Chloride 103 Carbon Dioxide 18.7 L BUN 33 H Creatinine 1.4 H Glucose 66 L Calcium 9.9 Cardiac Enzymes 03/22/25 Range/Units 14:34 Troponin I 0.053 H* (0.0-0.045) ng/mL Liver Function 03/22/25 Range/Units 14:34 Total Bilirubin 0.4 (0.3-1.2) mg/dL AST 29 (0-34) U/L ALT 17 (10-49) U/L Alkaline Phosphatase 79 (46-116) U/L Albumin 4.6 (3.4-4.8) gm/dL Urine 03/22/25 Range/Units 19:36 Urine Color Lt-Yellow (Lt Yel-Yel) Urine Clarity Clear (Clear/Hazy) Urine pH 6.0 (5.0-7.0) Ur Specific [place] 1.015 (1.001-1.035) Urine Protein Trace (Neg - Trace) Urine Glucose (UA) 3+ A (Negative) Quality Measures Quality Measures VTE prophylaxis Advance care planning discussed with:: patient Medications Home Medications and Allergies Home Medications ?Medication ?Instructions ?Recorded ?Confirmed ?Type duloxetine 60 mg capsule,delayed 60 mg PO DAILY Depression ##0 04/12/13 10/02/24 History release (Cymbalta) pregabalin 200 mg capsule (Lyrica) 200 mg PO BID ##60 04/28/16 10/02/24 History cilostazol 100 mg tablet 100 mg PO BID #0 tabs 01/31/17 10/02/24 History metoclopramide HCl 10 mg tablet 10 mg PO WMHS 04/07/18 10/02/24 History levothyroxine 125 mcg capsule 125 mcg PO QDAY 01/14/19 10/02/24 History lovastatin 40 mg tablet 40 mg PO HS 01/14/19 10/02/24 History clopidogrel 75 mg tablet 75 mg PO QDAY 02/16/20 10/02/24 History tamsulosin 0.4 mg capsule 0.4 mg PO QDAY 02/16/20 10/02/24 History omeprazole 40 mg capsule,delayed 40 mg PO QDAY 09/01/20 10/02/24 History release insulin regular human 100 unit/mL 20 unit subcut QID 05/29/22 10/02/24 History injection solution cartridge ergocalciferol (vitamin D2) 1,250 1,250 mcg PO QWEEK 09/26/24 10/02/24 History mcg (50,000 unit) capsule (Vitamin D2) ferrous sulfate 325 mg (65 mg 325 mg PO QDAY 09/26/24 10/02/24 History iron) tablet linaclotide 290 mcg capsule 290 mcg PO AC 09/26/24 10/02/24 History (Linzess) oxycodone-acetaminophen 7.5 mg-325 1 tab PO QID PRN Pain 09/26/24 10/02/24 History mg tablet Allergies Allergy/AdvReac Type Severity Reaction Status Date / Time No Known Allergies Allergy Verified 09/26/24 00:25 Visit Medications Acetaminophen (Acetaminophen 325 Mg Tablet) 650 mg PO Q6H PRN PRN Reason: pain and Fever >100.4 Stop: 04/21/25 22:04 Hydrocodone Bitart/Acetaminophen (Hydrocodone/Apap 5/325 Tablet) 1 tab PO Q4HR PRN PRN Reason: PAIN SCALE 4-6 (Moderate Stop: 03/27/25 22:04 Dextrose (Dextrose 50%-Water Inj 50 Ml Syringe) 25 ml IV Q15MIN PRN PRN Reason: BG 50-70 responsive npo pt Stop: 04/21/25 22:09 Dextrose (Dextrose 50%-Water Inj 50 Ml Syringe) 50 ml IV Q15MIN PRN PRN Reason: BG <50 OR BG <70 & pt unresponsive Stop: 04/21/25 22:09 Glucagon (Glucagon Inj 1 Mg Vial) 1 mg IM Q15MIN PRN PRN Reason: BG <70, and no IV access Heparin Sodium (Porcine) (Heparin Sod Inj 5000 Unit/Ml Vial) 5,000 unit SC Q8HR [facility] [place] Stop: 04/06/25 05:59 Sodium Chloride (Ns) 1,000 mls @ 999 mls/hr IV .Q1H1M ONE Stop: 03/22/25 22:44 Last Admin: 03/22/25 22:08 Dose: 999 mls/hr Metronidazole (Flagyl 500 Mg Iv) 500 mg in 100 mls @ 200 mls/hr IV Q8HR [facility] Stop: 03/29/25 22:12 Insulin Human Lispro (Insulin Lispro (Admelog) 1 Unit/0.01 Ml Unit) 0 unit SC AC BUBBA; Protocol Stop: 04/22/25 07:29 Ondansetron HCl (Ondansetron Inj 2 Mg/Ml Inj 2 Ml) 4 mg IVP Q6H PRN; Protocol PRN Reason: NAUSEA OR VOMITING Stop: 04/21/25 22:04 Pantoprazole Sodium (Pantoprazole Inj 40 Mg Vial) 40 mg IVP QDAY [facility] [place] Stop: 04/22/25 08:59 Discontinued Medications Acetaminophen (Acetaminophen 500 Mg Tablet) 1,000 mg PO X1 ONE Stop: 03/22/25 18:01 Last Admin: 03/22/25 18:11 Dose: 1,000 mg Aspirin (Aspirin 325 Mg Tablet) 325 mg PO X1 ONE Stop: 03/22/25 18:58 Last Admin: 03/22/25 19:27 Dose: 325 mg Dextrose (Dextrose 50%-Water Inj 50 Ml Syringe) 25 ml IV X1 ONE Stop: 03/22/25 16:29 Last Admin: 03/22/25 16:30 Dose: 25 ml Dextrose (Dextrose 50%-Water Inj 50 Ml Syringe) 50 ml IV X1 ONE Stop: 03/22/25 18:37 Last Admin: 03/22/25 18:39 Dose: 50 ml Sodium Chloride (Ns) 2,041 mls @ 2,041 mls/hr 30 ml/kg infuse over 60 min (2041 ml) IV .Q1H ONE; Protocol Stop: 03/22/25 18:41 Last Infusion: 03/22/25 20:24 Dose: Infused Ceftriaxone Sodium/Dextrose (Rocephin/D5w 1gm Iv Premix) 1 gm in 50 mls @ 100 mls/hr IV X1 ONE Stop: 03/22/25 19:27 Last Infusion: 06/02/25 19:50 Dose: Infused Doxycycline Hyclate 100 mg/ (Sodium Chloride) 100 mls @ 100 mls/hr IV X1 ONE Stop: 03/22/25 19:56 Last Infusion: 03/22/25 20:50 Dose: Infused Sodium Chloride (Ns) 1,000 mls @ 999 mls/hr IV .Q1H1M ONE Stop: 03/22/25 22:42 Last Admin: 03/22/25 22:09 Dose: Not Given Ketorolac Tromethamine (Ketorolac Inj 30 Mg/Ml Vial) 15 mg IVP X1 ONE Stop: 03/22/25 21:43 Last Admin: 03/22/25 22:07 Dose: 15 mg Oxycodone/Acetaminophen (Oxycodone/Apap 5/325 Tablet) 1 tab PO X1 ONE Stop: 03/22/25 19:00 Last Admin: 03/22/25 19:27 Dose: 1 tab Potassium Chloride (Potassium Chloride 20 Meq Tabcr) 20 meq PO X1 ONE Stop: 03/22/25 18:58 Last Admin: 03/22/25 19:27 Dose: 20 meq Assessment & Plan Plan 69-year-old male with past medical history of IDDM (on insulin pump), severe PAD s/p stents, peripheral neuropathy, hypothyroidism, BPH, vertebral disc prolapse (on Percocet), CAD s/p stents, and gastroparesis was admitted to hospital on 03/22/2025 for sepsis in the setting of endorgan damage with ADRIA likely secondary to GI infection. #Sepsis secondary to #Gastroenteritis? #Intractable nausea and vomiting #Diarrhea Patient came in with complaints of nausea, vomiting, and diarrhea since yesterday. Patient was recently on some antibiotics last week for pneumonia DDx includes infectious diarrhea versus C. difficile the setting of antibiotic use Patient met SIRS criteria 4 out of 4 along with signs of endorgan damage as seen with ADRIA and troponinemia No signs of shock Plan: Will start patient on Flagyl 500 every [address] abdomen/pelvis ordered Stool cultures and studies ordered C. difficile ordered Contact precautions Will continue to monitor #High anion gap metabolic acidosis #Lactic acidosis #ADRIA Patient came in with a bicarb of 18.7, anion gap 16, and lactic acid of 3.4 Creatinine 1.4 and baseline is around 0.9 Had a gap metabolic acidosis likely in the setting of lactic acidosis likely secondary to sepsis. Plan: trend LA IV fluids Renally dose medication Avoid nephrotoxic agents Will continue to monitor #Hypoglycemia #Hx of IDDM (has insulin pump) Patient had a blood sugar in the 50s when EMS arrived at the scene and was given dextrose in the ER. Patient was altered, but at this time is AO x 3. Hypoglycemia slight in the setting of poor oral intake secondary to nausea and vomiting. Last A1c was 5.9 Plan: [facility] hypoglycemia protocol ordered Asked the patient to keep insulin pump off at this time. Consider de-escalating glucose control medication given last A1c was 5.9. Will continue to monitor #NSTEMI likely type II Patient with troponins of 0.053 Mostly in the setting of sepsis No ST changes in EKG Plan: Trend troponins Will continue to monitor Chronic diseases: #Severe PAD s/p stents #Hypothyroidism #BPH #Vertebral disc prolapse #CAD s/p stents #Gastroparesis #Peripheral neuropathy Restart patient's home medications including clopidogrel 75 mg, duloxetine 60 mg, levothyroxine 125 mcg, Reglan 10 mg, and tamsulosin 0.4 mg Disposition: Patient admitted to [facility] for sepsis 2/2 GI infection. Diet: carb cons, cardiac GI prophylaxis: protonix DVT prophylaxis: heparin subcu Code: full Case disclosed with Attending Dr. Jonathan Morris PGY1 Disclaimer: Even though this this note was dictated by speech recognition and even though it was carefully revised there may still be minor errors in cabinetmaker helper due to voice recognition software. Attending Provider Attestation/Addendum I have examined the patient, reviewed labs and imaging findings, discussed the case with the resident(s), and reviewed entered orders. I agree with the plan of care as outlined in this note, with these additional summaries/recommendations: After examination of the patient and review of the clinical data, I feel that this patient needs admission to the hospital for further treatment and evaluation. Patient is a 69-year-old male with a medical history of diabetes mellitus type 2 on insulin pump complicated by gastroparesis and neuropathy, CAD status post stent, PAD status post stent, chronic lower back pain, BPH, hypothyroidism, and primary hypertension presents to [facility] emergency department on the 03/22/2025 with chief complaint of altered mental status. Patient seen at bedside. Patient was reported to be encephalopathic in the emergency department which has resolved and he is alert and oriented x 3 right now. Etiology for encephalopathy likely secondary to infectious and metabolic. No further intervention needed at this time. Patient diagnosed with sepsis most likely secondary to gastroenteritis/infectious diarrhea. Patient endorses nausea, abdominal pain, and diarrhea which is nonbloody. Pneumonia right base seen on CT scan although patient denies cough or pulmonary symptoms. Patient received 30 cc/kg fluid resuscitation and has evidence of endorgan damage with ADRIA and lactic acidosis of 3.4 with WBC count 21.9. qSOFA 2 points. Order stool culture to assess for Salmonella, Shigella, Campylobacter, and E. coli. Order stool O&P and C. difficile toxin as patient recently received antibiotics. Continue p.o. and IV hydration. [facility] low-fat diet with limited dairy products. Start antibiotic. Blood cultures taken in the ED and follow-up results when available. Mild hypokalemia present and replacement given. Acute kidney injury present on chemistry panel with creatinine 1.4 and BUN 33. Most likely prerenal azotemia in the setting of sepsis. Continue IVF and repeat renal panel in AM. Avoid nephrotoxic agents and renally dose medications. Lactic acidosis 3.4, continue fluids and trend until resolution. Patient diagnosed with troponinemia with troponin 0.053 and continue to trend every 6 hours until downtrend. EKG did not show any ST changes and most likely secondary to demand ischemia. Continue home anticoagulation for history of CAD and PAD. Hypoglycemia present on admission. Patient has diabetes mellitus type 2 which is extremely well-controlled based off last A1c of 5.9% in 2023. Patient does use insulin pump which we have turned off. Likely has hypoglycemia secondary to poor oral intake with insulin pump running. Given patient's A1c is so well-controlled he likely does not require insulin pump anymore and will discuss further. Encouraged p.o. intake as tolerated. Continue home levothyroxine. Pending home medication reconciliation. Patient updated on the plan and in agreement. All questions answered to satisfaction. Please see residents note for additional details and management. Dr. Jonathan MD
[2025-03-22] MEDS: metroNIDAZOLE/NS 500 MG IVPB 500 MG/100 ML BAG 200 MG IV (22:58)
[2025-03-23] VITALS (47 sets, daily range): BP systolic 95–168; BP diastolic 63–110; PULSE 57–118; RESP 7–22; TEMP 36.4–37.3; O2SAT 94–100
[2025-03-23] LABS: Troponin I 0.059 ng/mL (0.0-0.045)
--- NOTE | 2025-03-23 00:26 | PC.NURSE ---
NOTIFIED DR. MALDONADO RE: TROPONIN LEVEL WENT UP TO 0.059, STATED THAT PATIENT CAN STAY MEDTELE AND NOT TELE.
[2025-03-23] MEDS: ONDANSETRON INJ 2 MG/ML INJ 2 ML 4 MG IVP ×2 (03:03→19:49)
[2025-03-23] MEDS: HYDROcodone/APAP 5/325 TABLET 1 TAB PO ×2 (03:42→10:01)
[2025-03-23 05:13] LABS: Basophils % (Auto) 0 % (0-2.5); Eosinophils % (Auto) 0 % (0-10); Hematocrit 41.5 % (41.0-53.0); Hemoglobin 14.5 g/dL (13.5-16.0); Immature Granulocytes % (Auto) 1 % (0-0); Immature Granulocytes Auto 0.12 Thou/mm3 (0.00-0.00); Lymphocytes # (Auto) 0.4 Thou/mm3 (1.0-4.8); Lymphocytes % (Auto) 2 % (10-50); Mean Corpuscular HGB Conc 34.9 g/dl (31.0-37.0); Mean Corpuscular Hemoglobin 31.6 pg (25.0-35.0); Mean Corpuscular Volume 90 fL (80-100); Monocytes # (Auto) 2.5 Thou/mm3 (0.0-0.8); Monocytes % (Auto) 11 % (0-12); Neutrophils # (Auto) 19.3 Thou/mm3 (1.8-7.7); Neutrophils % (Auto) 87 % (37-80); Nucleated Red Blood Cell % 0 /100 WBC (0); Platelet Count 188 Thou/mm3 (140-440); Red Blood Count 4.59 Miln/mm3 (4.50-5.90); White Blood Count 22.3 Thou/mm3 (3.8-10.6)
[2025-03-23] MEDS: HEPARIN SOD INJ 5000 UNIT/ML VIAL SC ×3 (05:23→22:18)
[2025-03-23] MEDS: METOCLOPRAMIDE 5 MG TABLET 10 MG PO ×3 (05:23→22:16)
[2025-03-23] MEDS: metroNIDAZOLE/NS 500 MG IVPB 500 MG/100 ML BAG 100 MG IV (05:23)
[2025-03-23 05:29] LABS: Path Review Blood Smear Sent to Pathologist
--- NOTE | 2025-03-23 05:32 | PC.NURSE ---
Called Dr. Torres notified him that patients blood glucose is 308 asking for insulin one time dose. Dr. Torres will place order.
[2025-03-23 05:43] LABS: Alanine Aminotransferase 19 U/L (10-49); Albumin, Serum 3.8 gm/dL (3.4-4.8); Alkaline Phosphatase 71 U/L (46-116); Anion Gap 22 (7-16); Aspartate Amino Transferase 39 U/L (0-34); BUN/Creatinine Ratio 25 Ratio (12-20); Bilirubin,Total 0.6 mg/dL (0.3-1.2); Blood Urea Nitrogen 32 mg/dL (9-23); Calcium 8.9 mg/dL (8.3-10.6); Calcium (Corrected) 9.1 mg/dL (8.5-10.1); Chloride 105 mMol/L (98-107); Creatinine (Component) 1.3 mg/dL (0.6-1.3); Estimated Creatinine Clearance 47.7 mL/min (>60); Globulin 1.9 gm/dL (2.3-3.5); Glucose 359 mg/dL (74-106); Magnesium 2.2 mg/dL (1.6-2.6); Osmolality,Calculated 304 (275-295); Potassium 3.9 mMol/L (3.4-5.1); Sodium 142 mMol/L (136-145); Total Protein 5.7 gm/dL (5.7-8.2); Troponin I 0.044 ng/mL (0.0-0.045); eGFR 59 See Note
[2025-03-23] MEDS: LEVOTHYROXINE SODIUM 125 MCG TABLET PO (06:22)
[2025-03-23] MEDS: INSULIN LISPRO (AdmeLOG) 1 UNIT/0.01 ML UNIT 4 UNIT SC (07:46)
[2025-03-23] MEDS: PANTOPRAZOLE INJ 40 MG VIAL IVP (10:01)
[2025-03-23] MEDS: TAMSULOSIN HCL 0.4 MG CAPSULE PO (10:02)
[2025-03-23] MEDS: CLOPIDOGREL BISULFATE 75 MG TABLET PO (10:02)
--- NOTE | 2025-03-23 10:10 | PC.NURSE ---
called and spoke with Dr. Carreno. informed him that pt's anion gap is 22 and carbon dioxide is 15. pt white count also higher. per Dr. Carreno he will put in orders. asked him about admission status since pt is getting admitted to med/tele and if we have concerns of pt needing higher level of care we can keep pt in ed. per Dr. Carreno, pt can be sent to med/tele and we can upgrade later if needed. will contact [facility] at this time
--- NOTE | 2025-03-23 10:14 | PC.NURSE ---
spoke with charge nurse on med/tele floor. she will contact admitting doctor at this time. we will hold pt in ED at this time
--- NOTE | 2025-03-23 10:37 | PC.NURSE ---
DR HAMPTON AT BEDSIDE TO SEE PT
--- NOTE | 2025-03-23 10:44 | PC.NURSE ---
PER DR HAMPTON, HE IS ORDERING ABG AND BETA HYDROXY AND IF PT IS IN DKA HE WILL CONTACT ICU [employer]
[2025-03-23 10:47] LABS: Base Excess, Venous -9 (-3-3); Lactate (Lactic Acid) 1.7 mMol/L (0.4-2.0); O2 Saturation, Venous 82 % (96-97); PCO2, Venous 25 mmHg (36-56); PO2, Venous 43 mmHg (15-58); pH, Venous 7.37 (7.33-7.66)
[2025-03-23 11:04] LABS: Beta Hydroxybutyrate 4.8 mmol/L (<0.6)
[2025-03-23 11:05] LABS: Troponin I 0.027 ng/mL (0.0-0.045)
--- NOTE | 2025-03-23 11:13 | PC.CC ---
MONROE Montoya attempted to complete a face to face initial assessment with the pt at bedside ER 7. When travel writer entered the room, pt was visibly out of breath and in and out of sleep. Therefore, due to the pt not being alert, travel writer did not continue with the initial assessment.
[2025-03-23] MEDS: INSULIN GLARGINE (Lantus) 5 UNIT/0.05 ML (PER 5 UNITS) 15 UNIT SC (11:23)
[2025-03-23] MEDS: INSULIN LISPRO (AdmeLOG) 1 UNIT/0.01 ML UNIT SC ×4 (11:26→23:55)
[2025-03-23] MEDS: CIPROFLOXACIN/D5w 400 MG IVPB 400 MG/200 ML BAG 200 MG IV ×2 (11:32→20:36)
[2025-03-23] MEDS: SODIUM CHLORIDE 0.9% 1000 ML 1,000 ML 150 ML IV ×2 (11:33→18:02)
[2025-03-23 13:45] LABS: Base Excess, Venous -6 (-3-3); O2 Saturation, Venous 80 % (96-97); PCO2, Venous 30 mmHg (36-56); PO2, Venous 43 mmHg (15-58); pH, Venous 7.37 (7.33-7.66)
[2025-03-23 14:07] LABS: Alanine Aminotransferase 22 U/L (10-49); Albumin, Serum 4.3 gm/dL (3.4-4.8); Albumin/Globulin Ratio 2.3 (1.2-2.2); Alkaline Phosphatase 78 U/L (46-116); Anion Gap 21 (7-16); Aspartate Amino Transferase 35 U/L (0-34); BUN/Creatinine Ratio 22 Ratio (12-20); Bilirubin,Total 0.6 mg/dL (0.3-1.2); Blood Urea Nitrogen 26 mg/dL (9-23); Chloride 105 mMol/L (98-107); Creatinine (Component) 1.2 mg/dL (0.6-1.3); Estimated Creatinine Clearance 51.7 mL/min (>60); Globulin 1.9 gm/dL (2.3-3.5); Glucose 262 mg/dL (74-106); Osmolality,Calculated 298 (275-295); Phosphorous 2.1 mg/dL (2.4-5.1); Potassium 3.6 mMol/L (3.4-5.1); Sodium 143 mMol/L (136-145); Total Protein 6.2 gm/dL (5.7-8.2); eGFR > 60 See Note
[2025-03-23] MEDS: metroNIDAZOLE/NS 500 MG IVPB 500 MG/100 ML BAG 200 MG IV ×2 (14:17→22:20)
--- NOTE | 2025-03-23 14:45 | PC.NURSE ---
REPORT GIVEN TO ANA MARIA ON TELE FLOOR. PT TO GO TO ROOM [id number]
--- NOTE | 2025-03-23 15:58 | ESPR_ITS ---
<Statement entered by Viola Paul MD - 03/24/25 01:27> Patient was seen and examined by me personally. I have directly supervised and reviewed documentation by the team resident and agree with its findings with any exceptions or additional findings as below. Plan of care was discussed with the attending, Dr. Pina. Mr. Crespo is a 69-year-old male with past medical history of IDDM (on insulin pump), severe PAD s/p stents, CAD s/p stents, peripheral neuropathy, hypothyroidism, BPH, vertebral disc prolapse (on Percocet), and gastroparesis who was admitted to hospital on 03/22/2025 for sepsis in the setting of endorgan damage with ADRIA likely secondary to GI infection. Patient also initially had hypoglycemia with EMS with BS 51, and received 100 ml of D10 en route plus 75 ml D50 in the ED. Patient endorses very poor PO intake secondary to nausea and vomiting the last 2 days. Patient's insulin pump is turned off. Subsequently patient had BG in the 300s and anion gap on labs increased to 22. BHB was ordered which was elevated at 4.8, lactate ordered which was normal. Patient complained of diffuse abdominal discomfort and nausea, but awake. VBG showed normal pH. Subsequent renal panel showed improvement of gap. Discussed case with ICU wind field manager Dr. Tiwari, who agreed with plans to keep patient on Tele with q4h BG checks, renal panel checks, IVF, and subQ insulin. Will continue to monitor closely, currently in Tele overflow in ICU. Voila Paul, PGY-2 Documentation for date of: 03/23/25 Subjective Subjective Interval history: Patient is an overnight admit. Patient seen and examined at bedside this morning patient has worsening clinical presentation and lethargic repeat labs were ordered which indicated patient was in DKA with beta hydroxybutyrate of 4.8 and increased anion gap metabolic acidosis. VBG showed pH of 7.3 and PCO2 of 30. Patient states that he uses insulin pump for his diabetes management which was running and he was unable to eat for 2 days due to nausea vomiting and diarrhea which has since resolved. EMS found fingerstick glucose to be 50 and was given 100 mL of glucose and on arrival in the ED patient received 75 dextrose. Patient's insulin pump was turned off and his fingerstick glucose was 348. Although patient received 3 L of normal saline in the ED patient was started with IV fluids for treatment of DKA, insulin sliding scale every 4 hours as well as glargine 15 units. Patient states he continues to be nauseous but no vomiting and no diarrhea. Will continue to monitor patient's blood glucose closely with repeating renal panel every 4 hours. Exam Vital Signs Temp Pulse Resp BP Pulse Ox O2 Del Method O2 Flow Rate 97.6 F 105 H 17 103/71 95 Nasal Cannula 2 03/23/25 14:03/23/25 14:03/23/25 14:03/23/25 14:03/23/25 14:03/23/25 14:03/23/25 14:09 Narrative Exam GENERAL: A&Ox3, lethargic appearing elderly male, cooperative, Not in acute distress NEURO: no focal neurological deficits noted HEENT: Atraumatic, Normocephalic. mucous membranes moist. Eyes open, symmetrical, & clear HEART: Normal Heart Sounds LUNGS: Clear to auscultation with no wheezing or crackles. ABDOMEN: soft, non-distended, non-tender, no guarding or rebound tenderness SKIN: No Rash or ecchymoses EXTREMITIES: No edema, tenderness, able to move all 4 extremities, pedal pulses palpated Objective Labs 03/23/25 04:35 03/23/25 13:39 Labs: Laboratory Results - last 24 hr 03/22/25 03/22/25 03/22/25 14:34 18:07 19:36 WBC 21.9 H RBC 4.90 Hgb 15.4 Hct 42.8 MCV 87 MCH 31.4 MCHC 36.0 RDW Std Deviation 44.7 H Plt Count 233 Neut % (Auto) 78 Lymph % (Auto) 5 L Emanuel % (Auto) 16 H Eos % (Auto) 0 Baso % (Auto) 0 Neut # (Auto) 17.0 H Lymph # (Auto) 1.0 Emanuel # (Auto) 3.5 H Eos # (Auto) 0.0 Baso # (Auto) 0.1 Immature Gran # (Auto) 0.23 H Absolute Nucleated RBC 0.00 Immature Gran % 1 H Nucleated RBC % 0 Smear Path Review PT 11.4 INR 1.0 APTT 30.8 VBG pH VBG pCO2 VBG pO2 VBG O2 Sat (Kellie) VBG Base Excess Sodium 138 Potassium 3.3 L Chloride 103 Carbon Dioxide 18.7 L Anion Gap 16 BUN 33 H Creatinine 1.4 H Estim Creat Clear Calc 44.3 L eGFR 54 L BUN/Creatinine Ratio 24 H Glucose 66 L Calculated Osmolality 280 Lactic Acid 3.4 H Calcium 9.9 Corrected Calcium 9.9 Phosphorus Magnesium Total Bilirubin 0.4 AST 29 ALT 17 Alkaline Phosphatase 79 Troponin I 0.053 H* B-Natriuretic Peptide 187 H Total Protein 6.7 Albumin 4.6 Globulin 2.1 L Albumin/Globulin Ratio 2.2 Beta-Hydroxybutyrate/Acetoacetate Procalcitonin 3.96 H Free T4 Ur Collection Type Clean Catch Urine Color Lt-Yellow Urine Clarity Clear Urine pH 6.0 Ur Specific [place] 1.015 Urine Protein Trace Urine Glucose (UA) 3+ A Urine Ketones 2+ A Urine Blood 1+ A Urine Nitrite Negative Urine Bilirubin Negative Urine Urobilinogen (Auto) Negative Ur Leukocyte Esterase Negative Urine RBC 1 Urine WBC 1 Ur Squamous Epith Cells 0 Urine Bacteria None Urine Opiates Screen Negative Urine Fentanyl Screen Negative Ur Barbiturates Screen Negative U Amphetamin/Meth Scrn Negative U Benzodiazepines Scrn Negative U Cocaine Metab Screen Negative U Marijuana (THC) Screen Positive A 03/22/25 03/23/25 03/23/25 23:09 04:35 10:15 WBC 22.3 H RBC 4.59 Hgb 14.5 Hct 41.5 MCV 90 MCH 31.6 MCHC 34.9 RDW Std Deviation 47.0 H Plt Count 188 D Neut % (Auto) 87 H Lymph % (Auto) 2 L Emanuel % (Auto) 11 Eos % (Auto) 0 Baso % (Auto) 0 Neut # (Auto) 19.3 H Lymph # (Auto) 0.4 L Emanuel # (Auto) 2.5 H Eos # (Auto) 0.0 Baso # (Auto) 0.0 Immature Gran # (Auto) 0.12 H Absolute Nucleated RBC 0.00 Immature Gran % 1 H Nucleated RBC % 0 Smear Path Review Sent to Pathologist PT INR APTT VBG pH VBG pCO2 VBG pO2 VBG O2 Sat (Kellie) VBG Base Excess Sodium 142 Potassium 3.9 D Chloride 105 Carbon Dioxide 15.0 L Anion Gap 22 H BUN 32 H Creatinine 1.3 Estim Creat Clear Calc 47.7 L eGFR 59 L BUN/Creatinine Ratio 25 H Glucose 359 H D Calculated Osmolality 304 H Lactic Acid 2.0 Calcium 8.9 Corrected Calcium 9.1 Phosphorus Magnesium 2.2 Total Bilirubin 0.6 AST 39 H ALT 19 Alkaline Phosphatase 71 Troponin I 0.059 H* 0.044 0.027 B-Natriuretic Peptide Total Protein 5.7 Albumin 3.8 D Globulin 1.9 L Albumin/Globulin Ratio 2.0 Beta-Hydroxybutyrate/Acetoacetate Procalcitonin Free T4 Cancelled Ur Collection Type Urine Color Urine Clarity Urine pH Ur Specific [place] Urine Protein Urine Glucose (UA) Urine Ketones Urine Blood Urine Nitrite Urine Bilirubin Urine Urobilinogen (Auto) Ur Leukocyte Esterase Urine RBC Urine WBC Ur Squamous Epith Cells Urine Bacteria Urine Opiates Screen Urine Fentanyl Screen Ur Barbiturates Screen U Amphetamin/Meth Scrn U Benzodiazepines Scrn U Cocaine Metab Screen U Marijuana (THC) Screen 03/23/25 03/23/25 10:42 13:39 WBC RBC Hgb Hct MCV MCH MCHC RDW Std Deviation Plt Count Neut % (Auto) Lymph % (Auto) Emanuel % (Auto) Eos % (Auto) Baso % (Auto) Neut # (Auto) Lymph # (Auto) Emanuel # (Auto) Eos # (Auto) Baso # (Auto) Immature Gran # (Auto) Absolute Nucleated RBC Immature Gran % Nucleated RBC % Smear Path Review PT INR APTT VBG pH 7.37 7.37 VBG pCO2 25 L 30 L VBG pO2 43 43 VBG O2 Sat (Kellie) 82 L 80 L VBG Base Excess -9 L -6 L Sodium 143 Potassium 3.6 Chloride 105 Carbon Dioxide 17.0 L Anion Gap 21 H BUN 26 H Creatinine 1.2 Estim Creat Clear Calc 51.7 L eGFR > 60 BUN/Creatinine Ratio 22 H Glucose 262 H D Calculated Osmolality 298 H Lactic Acid 1.7 Calcium 9.0 Corrected Calcium 9.0 Phosphorus 2.1 L Magnesium 2.0 Total Bilirubin 0.6 AST 35 H ALT 22 Alkaline Phosphatase 78 Troponin I B-Natriuretic Peptide Total Protein 6.2 Albumin 4.3 D Globulin 1.9 L Albumin/Globulin Ratio 2.3 H Beta-Hydroxybutyrate/Acetoacetate 4.8 H Procalcitonin Free T4 Ur Collection Type Urine Color Urine Clarity Urine pH Ur Specific [place] Urine Protein Urine Glucose (UA) Urine Ketones Urine Blood Urine Nitrite Urine Bilirubin Urine Urobilinogen (Auto) Ur Leukocyte Esterase Urine RBC Urine WBC Ur Squamous Epith Cells Urine Bacteria Urine Opiates Screen Urine Fentanyl Screen Ur Barbiturates Screen U Amphetamin/Meth Scrn U Benzodiazepines Scrn U Cocaine Metab Screen U Marijuana (THC) Screen ABG Interpretation ABG results: 03/23/25 03/23/25 10:42 13:39 VBG pH 7.37 7.37 VBG pCO2 25 L 30 L VBG pO2 43 43 VBG Base Excess -9 L -6 L Quality Measures Quality Measures sepsis Current suspected stage: sepsis Possible source: genitourinary and unknown Blood cultures ordered: yes Antibiotic ordered: Yes and none Advance care planning discussed with:: patient Assessment & Plan Assessment Current Active Medications: Generic Name Dose Route Start Last Admin Trade Name Freq PRN Reason Stop Dose Admin Acetaminophen 650 mg 03/22/25 22:05 Acetaminophen 325 Mg Tablet PO 04/21/25 22:04 Q6H PRN pain 1-3 and Fever >100.4 Hydrocodone Bitart/Acetaminophen 1 tab 03/22/25 22:05 03/23/25 10:01 Hydrocodone/Apap 5/325 Tablet PO 03/27/25 22:04 1 tab Q4HR PRN Administration PAIN SCALE 4-6 (Moderate Clopidogrel Bisulfate 75 mg 03/23/25 09:00 03/23/25 10:02 Clopidogrel Bisulfate 75 Mg Tablet PO 04/22/25 08:59 75 mg QDAY BUBBA Administration Dextrose 25 ml 03/22/25 22:10 Dextrose 50%-Water Inj 50 Ml Syringe IV 04/21/25 22:09 Q15MIN PRN BG 50-70 responsive npo pt Dextrose 50 ml 03/22/25 22:10 Dextrose 50%-Water Inj 50 Ml Syringe IV 04/21/25 22:09 Q15MIN PRN BG <50 OR BG <70 & pt unresponsive Duloxetine HCl 60 mg 03/23/25 09:00 03/23/25 11:24 Duloxetine Hcl 30 Mg Capsule PO 04/22/25 08:59 Not Given QDAY BUBBA Glucagon 1 mg 03/22/25 22:10 Glucagon Inj 1 Mg Vial IM Q15MIN PRN BG <70, and no IV access Heparin Sodium (Porcine) 5,000 unit 03/23/25 06:00 03/23/25 14:22 Heparin Sod Inj 5000 Unit/Ml Vial SC 04/06/25 05:59 5,000 unit Q8HR BUBBA Administration Metronidazole 500 mg in 100 mls @ 200 mls/hr 03/22/25 22:13 03/23/25 14:52 Flagyl 500 Mg Iv IV 03/29/25 22:12 Infused Q8HR BUBBA Infusion Ciprofloxacin/Dextrose 400 mg in 200 mls @ 200 mls/hr 03/23/25 10:54 03/23/25 12:37 Cipro Ivpb IV 03/30/25 10:53 Infused Q12HR BUBBA Infusion Sodium Chloride 1,000 mls @ 150 mls/hr 03/23/25 11:27 03/23/25 11:33 Ns IV 03/24/25 14:06 150 mls/hr .Q6H40M BUBBA Administration Insulin Glargine 15 unit 03/23/25 11:00 03/23/25 11:23 Insulin Glargine (Lantus) 5 Unit/0.05 Ml (Per 5 Units) SC 04/22/25 10:59 15 unit QDAY BUBBA Administration Insulin Human Lispro 0 unit 03/23/25 11:30 03/23/25 15:40 Insulin Lispro (Admelog) 1 Unit/0.01 Ml Unit SC 04/22/25 11:29 2 unit Q4H BUBBA Administration Protocol Levothyroxine Sodium 125 mcg 03/23/25 06:00 03/23/25 06:22 Levothyroxine Sodium 125 Mcg Tablet PO 04/22/25 05:59 125 mcg ACBR BUBBA Administration Metoclopramide HCl 10 mg 03/23/25 06:00 03/23/25 14:21 Metoclopramide 5 Mg Tablet PO 04/22/25 05:59 10 mg Q8HR BUBBA Administration Ondansetron HCl 4 mg 03/22/25 22:05 03/23/25 03:03 Ondansetron Inj 2 Mg/Ml Inj 2 Ml IVP 04/21/25 22:04 4 mg Q6H PRN Administration NAUSEA OR VOMITING Protocol Pantoprazole Sodium 40 mg 03/23/25 09:00 03/23/25 10:01 Pantoprazole Inj 40 Mg Vial IVP 04/22/25 08:59 40 mg QDAY BUBBA Administration Tamsulosin HCl 0.4 mg 03/23/25 09:00 03/23/25 10:02 Tamsulosin Hcl 0.4 Mg Capsule PO 04/22/25 08:59 0.4 mg QDAY BUBBA Administration Plan Mr. Crespo is a 69-year-old male with past medical history of IDDM (on insulin pump), severe PAD s/p stents, CAD s/p stents, peripheral neuropathy, hypothyroidism, BPH, vertebral disc prolapse (on Percocet), and gastroparesis was admitted to hospital on 03/22/2025 for sepsis in the setting of endorgan damage with ADRIA likely secondary to GI infection. #Sepsis secondary to #Gastroenteritis? #Intractable nausea and vomiting #Diarrhea- resolved Patient came in with complaints of nausea, vomiting, and diarrhea since yesterday. Patient was recently on some antibiotics last week for pneumonia DDx includes infectious diarrhea versus C. difficile the setting of antibiotic use Patient met SIRS criteria 4 out of 4 along with signs of endorgan damage as seen with ADRIA and troponinemia No signs of shock CT Abdomen/Pelvis - Atelectasis versus pneumonia right base Plan: -Started Flagyl 500 every 8 hours and ciprofloxacin 400mg Q12H 03/23- -IV fluids -Stool cultures and studies ordered -C. difficile, Norovirus ordered -Contact precautions -Will continue to monitor #High anion gap metabolic acidosis- improving #Lactic acidosis- resolved #ADRIA- improving Patient came in with a bicarb of 18.7, anion gap 16, and lactic acid of 3.4 Creatinine 1.4 and baseline is around 0.9 Had a gap metabolic acidosis likely in the setting of lactic acidosis likely secondary to sepsis. Plan: trend LA IV fluids Renally dose medication Avoid nephrotoxic agents Will continue to monitor #DKA #Hypoglycemia- resolved #Hx of IDDM (has insulin pump) Patient had a blood sugar in the 50s when EMS arrived at the scene and was given dextrose in the ER. Patient was altered, but at this time is AO x 3. Hypoglycemia slight in the setting of poor oral intake secondary to nausea and vomiting. Last A1c was 5.9 Beta hydroxybuterate 4.8 Plan: -Insulin sliding scale Q4H -Renal panel Q4H -Fluids NS 150cc/hr -hypoglycemia protocol ordered -Asked the patient to keep insulin pump off at this time. -Will continue to monitor #NSTEMI likely type II - improving Patient with troponins of 0.053 Mostly in the setting of sepsis No ST changes in EKG Plan: Trend troponins Will continue to monitor #Severe PAD s/p stents #CAD s/p stents -Resumed patient's home clopidogrel 75 mg #Hypothyroidism -TSH 2.8 on 02/01/25 -Resumed home levothyroxine 125 mcg #Vertebral disc prolapse #Gastroparesis #Peripheral neuropathy -Resumed patient's home duloxetine 60 mg, Reglan 10 mg, and tamsulosin 0.4 mg Health Maintenance Disposition: telemetry for management of sepsis 2/2 to GI infection and DKA DVT Prophylaxis: Heparin 5000 units SC Q8 hrs GI Prophylaxis: Pantoprozol-40 IV/PO Qday Diet: Cardiac diet carbohydrate consistent Lines: Peripheral lines Code status: Full Assessment and plan discussed with my senior resident Dr. Paul & attending physician Dr. Silvana Collins (PGY-1)- Internal medicine resident Attending Provider Attestation/Addendum I attest that I was physically present for the evaluation, physical examination, lab and imaging review of the patient with the residents. I discussed the case with the residents and agree with the findings and plans of care as documented above. Patient is a 69 years old male with past medical history of insulin-dependent diabetes mellitus on insulin pump, severe PAD status post stents, peripheral neuropathy, hypothyroidism, BPH, vertebral disc prolapse, CAD status post stents and gastroparesis who presented to the ED with complaint of nausea and vomiting. He was also found to have altered mental status. Patient was found to have glucose of 50 when the EMS arrived. Patient was found to be septic as well possibly secondary to gastroenteritis. He was then admitted overnight for management of sepsis secondary to gastroenteritis, altered mental status secondary to hypoglycemia and ADRIA, metabolic acidosis. The insulin pump was turned off due to hypoglycemia and patient was switched to sliding scale with hypoglycemia protocol in place. This morning, his blood glucose was 380. Noted to have elevated WBC count 22.3 today from 21.9 yesterday, bicarbonate went down to 15, anion gap 22. Lactic acid was within normal limits but beta hydroxybutyrate level went up to 4.8. But, patient does not have acidosis on VBG. DIscussed with wind field manager, recommended to continue management with insulin regimen. Patient currently on Lantus 15 daily along with step 2 sliding scale. Also started on aggressive IV hydration with normal saline at 150 cc/h. Added ciprofloxacin for possible gastroenteritis. Stool studies are pending along with cultures. We will continue to monitor strictly ins and out, have frequent blood works and frequent glucose checks. Demetri Pina MD
[2025-03-23] MEDS: ACETAMINOPHEN 325 MG TABLET 650 MG PO (16:33)
[2025-03-23 17:01] LABS: Albumin, Serum 3.8 gm/dL (3.4-4.8); Anion Gap 21 (7-16); BUN/Creatinine Ratio 18 Ratio (12-20); Blood Urea Nitrogen 20 mg/dL (9-23); Calcium 8.5 mg/dL (8.3-10.6); Calcium (Corrected) 8.7 mg/dL (8.5-10.1); Carbon Dioxide 15.3 mMol/L (20.0-31.0); Chloride 106 mMol/L (98-107); Creatinine (Component) 1.1 mg/dL (0.6-1.3); Estimated Creatinine Clearance 56.4 mL/min (>60); Glucose 203 mg/dL (74-106); Osmolality,Calculated 291 (275-295); Phosphorous 2.4 mg/dL (2.4-5.1); Potassium 3.8 mMol/L (3.4-5.1); Sodium 142 mMol/L (136-145); eGFR > 60 See Note
[2025-03-23 20:40] LABS: Anion Gap 18 (7-16); BUN/Creatinine Ratio 20 Ratio (12-20); Blood Urea Nitrogen 20 mg/dL (9-23); Carbon Dioxide 17.1 mMol/L (20.0-31.0); Chloride 103 mMol/L (98-107); Glucose 209 mg/dL (74-106); Osmolality,Calculated 284 (275-295); Phosphorous 2.5 mg/dL (2.4-5.1); Potassium 3.5 mMol/L (3.4-5.1); Sodium 138 mMol/L (136-145); eGFR > 60 See Note
[2025-03-24] VITALS (20 sets, daily range): BP systolic 123–157; BP diastolic 62–96; PULSE 87–109; RESP 12–97; TEMP 36.4–37.3; O2SAT 92–98
[2025-03-24] MEDS: ONDANSETRON INJ 2 MG/ML INJ 2 ML 4 MG IVP ×2 (00:24→04:24)
[2025-03-24] MEDS: SODIUM CHLORIDE 0.9% 1000 ML 1,000 ML 150 ML IV ×2 (00:50→07:25)
[2025-03-24 01:02] LABS: Albumin, Serum 3.8 gm/dL (3.4-4.8); Anion Gap 20 (7-16); BUN/Creatinine Ratio 19 Ratio (12-20); Blood Urea Nitrogen 19 mg/dL (9-23); Calcium 8.2 mg/dL (8.3-10.6); Calcium (Corrected) 8.4 mg/dL (8.5-10.1); Carbon Dioxide 17.2 mMol/L (20.0-31.0); Chloride 105 mMol/L (98-107); Glucose 178 mg/dL (74-106); Osmolality,Calculated 289 (275-295); Potassium 3.3 mMol/L (3.4-5.1); Sodium 142 mMol/L (136-145); eGFR > 60 See Note
[2025-03-24] MEDS: INSULIN LISPRO (AdmeLOG) 1 UNIT/0.01 ML UNIT SC (04:07)
--- NOTE | 2025-03-24 04:31 | EKG_ITS ---
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
[2025-03-24 05:06] LABS: Basophils % (Auto) 0 % (0-2.5); Eosinophils % (Auto) 0 % (0-10); Hematocrit 36.4 % (41.0-53.0); Immature Granulocytes % (Auto) 1 % (0-0); Immature Granulocytes Auto 0.12 Thou/mm3 (0.00-0.00); Lymphocytes # (Auto) 0.4 Thou/mm3 (1.0-4.8); Lymphocytes % (Auto) 3 % (10-50); Mean Corpuscular HGB Conc 35.7 g/dl (31.0-37.0); Mean Corpuscular Hemoglobin 31.2 pg (25.0-35.0); Mean Corpuscular Volume 87 fL (80-100); Monocytes % (Auto) 7 % (0-12); Neutrophils # (Auto) 12.8 Thou/mm3 (1.8-7.7); Neutrophils % (Auto) 89 % (37-80); Nucleated Red Blood Cell % 0 /100 WBC (0); Platelet Count 169 Thou/mm3 (140-440); Red Blood Count 4.17 Miln/mm3 (4.50-5.90); White Blood Count 14.4 Thou/mm3 (3.8-10.6)
[2025-03-24 05:37] LABS: Alanine Aminotransferase 20 U/L (10-49); Albumin, Serum 3.7 gm/dL (3.4-4.8); Albumin/Globulin Ratio 2.2 (1.2-2.2); Alkaline Phosphatase 64 U/L (46-116); Anion Gap 21 (7-16); Aspartate Amino Transferase 26 U/L (0-34); BUN/Creatinine Ratio 16 Ratio (12-20); Blood Urea Nitrogen 14 mg/dL (9-23); Calcium 8.1 mg/dL (8.3-10.6); Calcium (Corrected) 8.3 mg/dL (8.5-10.1); Chloride 103 mMol/L (98-107); Creatinine (Component) 0.9 mg/dL (0.6-1.3); Estimated Creatinine Clearance 68.9 mL/min (>60); Globulin 1.7 gm/dL (2.3-3.5); Glucose 136 mg/dL (74-106); Magnesium 1.8 mg/dL (1.6-2.6); Osmolality,Calculated 285 (275-295); Phosphorous 1.5 mg/dL (2.4-5.1); Potassium 2.8 mMol/L (3.4-5.1); Sodium 142 mMol/L (136-145); Total Protein 5.4 gm/dL (5.7-8.2); eGFR > 60 See Note
[2025-03-24] MEDS: metroNIDAZOLE/NS 500 MG IVPB 500 MG/100 ML BAG 200 MG IV (05:55)
[2025-03-24] MEDS: METOCLOPRAMIDE 5 MG TABLET 10 MG PO (05:55)
[2025-03-24] MEDS: HEPARIN SOD INJ 5000 UNIT/ML VIAL SC ×2 (05:55→13:02)
[2025-03-24] MEDS: LEVOTHYROXINE SODIUM 125 MCG TABLET PO (05:57)
[2025-03-24] MEDS: HYDROcodone/APAP 5/325 TABLET 1 TAB PO ×3 (07:24→18:59)
[2025-03-24] MEDS: POTASSIUM CHL 10 mEq IVPB 10 MEQ/100 ML BAG 100 MEQ IV ×2 (07:40→09:01)
[2025-03-24] MEDS: NAPH,KPH MBDB 1 PACKET (1.5 GM) PO (07:40)
[2025-03-24] MEDS: POTASSIUM CHLORIDE 20 mEq TABCR 40 MEQ PO (07:41)
[2025-03-24 08:03] LABS: Base Excess, Venous -5 (-3-3); O2 Saturation, Venous 94 % (96-97); PCO2, Venous 27 mmHg (36-56); PO2, Venous 65 mmHg (15-58); pH, Venous 7.44 (7.33-7.66)
[2025-03-24 08:30] LABS: Albumin, Serum 3.8 gm/dL (3.4-4.8); Anion Gap 21 (7-16); BUN/Creatinine Ratio 14 Ratio (12-20); Blood Urea Nitrogen 11 mg/dL (9-23); Calcium 8.1 mg/dL (8.3-10.6); Calcium (Corrected) 8.3 mg/dL (8.5-10.1); Chloride 102 mMol/L (98-107); Creatinine (Component) 0.8 mg/dL (0.6-1.3); Estimated Creatinine Clearance 77.5 mL/min (>60); Glucose 142 mg/dL (74-106); Osmolality,Calculated 280 (275-295); Phosphorous 1.3 mg/dL (2.4-5.1); Potassium 2.9 mMol/L (3.4-5.1); Sodium 140 mMol/L (136-145); eGFR > 60 See Note
[2025-03-24] MEDS: DULoxetine HCL 30 MG CAPSULE 60 MG PO (09:01)
[2025-03-24] MEDS: TAMSULOSIN HCL 0.4 MG CAPSULE PO (09:01)
[2025-03-24] MEDS: CIPROFLOXACIN/D5w 400 MG IVPB 400 MG/200 ML BAG 200 MG IV (09:01)
[2025-03-24] MEDS: PANTOPRAZOLE INJ 40 MG VIAL IVP (09:02)
[2025-03-24] MEDS: CLOPIDOGREL BISULFATE 75 MG TABLET PO (09:02)
[2025-03-24 09:24] LABS: Beta Hydroxybutyrate 5.4 mmol/L (<0.6)
--- NOTE | 2025-03-24 10:01 | PD.RESCONSUL ---
[facility] Data of Consult Patient: new to practice Consult date: 03/24/25 Requesting Physician: Demetri Pina MD Admitting Provider: Raymond Morris MD Attending Provider: Demetri Pina MD Primary Care Provider: Physician No Primary/Family Consult Narrative Reason for consult: DKA History of present illness: HPI: Patient is a 69-year-old male with past medical history significant for type 1 diabetes on insulin pump, diabetic neuropathy, diabetic gastroparesis, hypothyroidism, vertebral disc prolapse, BPH, CAD and PAD s/p stents presented with a chief complaint of nausea and vomiting. According to the patient 2 days prior to hospitalization he developed severe vomiting, too much episodes in a day to count. Described as clear liquids. Denied any hematemesis, coffee-ground emesis. 1 day prior to hospitalization he developed diarrhea having 5 episodes of watery foul-smelling. Of note the prior week he was diagnosed with pneumonia by his PCP and started on a course of antibiotics, he cannot recall the name. During this time patient was n.p.o. for 2 days and did not switch all of his insulin pump. Subsequently he was BIBA to the emergency department for intractable vomiting. ED course: BP 130/68, pulse 113, RR 18, temp 98.9 F, SpO2 98% on 2L via NC. Initial labs showed WBC 21.9, K3.3, bicarb 18.7, BUN 33, CR 1.4, glucose 66, troponin I 0.053, BNP 187, Pro-Grayson 3.96. Chest x-ray showed no signs of consolidation or pulmonary edema. Abdomen/pelvis CT showed atelectasis versus pneumonia at lung base. No signs of colitis. In the ED patient received acetaminophen 1 g p.o. x 1 ASA 325 mg p.o. x 1 doxycycline 100 Mg IV x 1, ceftriaxone 1 g IV x 1, ketorolac 15 Mg IV x 1, KCl 20 mEq p.o. x 1 for L IVF bolus. Initially patient was admitted to the floor for intractable nausea and vomiting with mild DKA. Patient now upgraded to ICU for severe DKA requiring insulin infusion. cc:: cc: Demetri Pina MD Review of Systems Review of Systems Narrative Review of Systems: GENERAL: Denies fever/chills or diaphoresis. HEENT: Denies headaches or visual changes. Denies discharge. Neuro: Denies unusual weakness or difficulty speaking. CARDIO: Denies chest pain or palpitations. PULM: Denies SOB, couging or wheezing. GI: As above. URO: Denies burning/itching/pain/urinary changes. MSK/EXT/SKIN: Denies joint/skeletal/muscle pain, issues/changes in upper or lower extremities, itchiness, or superficial pain. PSYCH: Cooperative, pleasant mood & affect. The rest of the review of systems is otherwise negative. 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 Has not worked for more than 30 years due to his neuropathy Education Level: Graduated high school Marital Status: Single. No kids Tobacco use: Denies. ETHO use: Denies Illicit drug use: Smokes marijuana daily Social History Note: lives alone. At baseline ambulates independently and carries out all ADLs. Family History: No significant history Exam Vital Signs Temp Pulse Resp BP Pulse Ox O2 Del Method O2 Flow Rate 98.4 F 95 17 149/83 H 97 Nasal Cannula 3 03/24/25 04:00 03/24/25 08:26 03/24/25 08:26 03/24/25 04:00 03/24/25 04:00 03/24/25 04:00 03/24/25 04:00 Narrative Exam Constitutional Alert, oriented x 3 and in mild distress. Elderly male HEENT Vision grossly intact. Patent nares. Trachea midline Respiratory Chest normal on inspection and clear auscultation bilaterally on anterior and posterior chest wall Cardiovascular S1 and S2 audible, RRR. No murmurs carotid bruit. No gross JVD. Abdominal Soft and tender to palpation to lower quadrant. Insulin pump and glucose monitor noted left lower abdomen. Bowel sounds + Genitourinary No bladder tenderness, no flank pain. Normal to palpation Musculoskeletal Extremities tone within normal limits. No LE edema. Neurological CN II - XII grossly intact. Extremity motor and sensation grossly intact. Skin Warm, dry and intact. Webspaces between toes erythematous. Toenails appear yellow Psychiatric Patient has good affect, is cooperative Results Labs 03/25/25 04:30 03/25/25 04:30 Labs: Short CBC 03/24/25 Range/Units 04:45 WBC 14.4 H D (3.8-10.6) Thou/mm3 Hgb 13.0 L (13.5-16.0) g/dL Hct 36.4 L (41.0-53.0) % Plt Count 169 (140-440) Thou/mm3 BMP 03/23/25 03/23/25 03/23/25 13:39 16:13 19:55 Sodium 143 142 138 Potassium 3.6 3.8 3.5 Chloride 105 106 103 Carbon Dioxide 17.0 L 15.3 L 17.1 L BUN 26 H 20 20 Creatinine 1.2 1.1 1.0 Glucose 262 H D 203 H D 209 H Calcium 9.0 8.5 9.0 03/24/25 03/24/25 03/24/25 00:30 04:45 07:46 Sodium 142 142 140 Potassium 3.3 L 2.8 L D 2.9 L Chloride 105 103 102 Carbon Dioxide 17.2 L 18.0 L 17.0 L BUN 19 14 11 Creatinine 1.0 0.9 0.8 Glucose 178 H 136 H 142 H Calcium 8.2 L 8.1 L 8.1 L Cardiac Enzymes 03/23/25 Range/Units 10:15 Troponin I 0.027 (0.0-0.045) ng/mL Liver Function 03/23/25 03/23/25 03/23/25 Range/Units 13:39 16:13 19:55 Total Bilirubin 0.6 (0.3-1.2) mg/dL AST 35 H (0-34) U/L ALT 22 (10-49) U/L Alkaline Phosphatase 78 (46-116) U/L Albumin 4.3 D 3.8 D 4.0 (3.4-4.8) gm/dL 03/24/25 03/24/25 03/24/25 Range/Units 00:30 04:45 07:46 Total Bilirubin 1.0 (0.3-1.2) mg/dL AST 26 (0-34) U/L ALT 20 (10-49) U/L Alkaline Phosphatase 64 (46-116) U/L Albumin 3.8 3.7 3.8 (3.4-4.8) gm/dL ABG Interpretation ABG results: 03/23/25 03/23/25 03/24/25 10:42 13:39 07:46 VBG pH 7.37 7.37 7.44 VBG pCO2 25 L 30 L 27 L VBG pO2 43 43 65 H D VBG Base Excess -9 L -6 L -5 L Quality Measures Quality Measures sepsis Current suspected stage: ruled out Possible source: genitourinary and unknown Blood cultures ordered: yes Antibiotic ordered: Yes and none Advance care planning discussed with:: patient Medications Home Medications and Allergies Home Medications ?Medication ?Instructions ?Recorded ?Confirmed ?Type duloxetine 60 mg capsule,delayed 60 mg PO DAILY Depression ##0 04/12/13 10/02/24 History release (Cymbalta) pregabalin 200 mg capsule (Lyrica) 200 mg PO BID ##60 04/28/16 10/02/24 History cilostazol 100 mg tablet 100 mg PO BID #0 tabs 01/31/17 10/02/24 History metoclopramide HCl 10 mg tablet 10 mg PO WMHS 04/07/18 10/02/24 History levothyroxine 125 mcg capsule 125 mcg PO QDAY 01/14/19 10/02/24 History lovastatin 40 mg tablet 40 mg PO HS 01/14/19 10/02/24 History clopidogrel 75 mg tablet 75 mg PO QDAY 02/16/20 10/02/24 History tamsulosin 0.4 mg capsule 0.4 mg PO QDAY 02/16/20 10/02/24 History omeprazole 40 mg capsule,delayed 40 mg PO QDAY 09/01/20 10/02/24 History release insulin regular human 100 unit/mL 20 unit subcut QID 05/29/22 10/02/24 History injection solution cartridge ergocalciferol (vitamin D2) 1,250 1,250 mcg PO QWEEK 09/26/24 10/02/24 History mcg (50,000 unit) capsule (Vitamin D2) ferrous sulfate 325 mg (65 mg 325 mg PO QDAY 09/26/24 10/02/24 History iron) tablet linaclotide 290 mcg capsule 290 mcg PO AC 09/26/24 10/02/24 History (Linzess) oxycodone-acetaminophen 7.5 mg-325 1 tab PO QID PRN Pain 09/26/24 10/02/24 History mg tablet Allergies Allergy/AdvReac Type Severity Reaction Status Date / Time No Known Allergies Allergy Verified 09/26/24 00:25 Visit Medications Acetaminophen (Acetaminophen 325 Mg Tablet) 650 mg PO Q6H PRN PRN Reason: pain 1-3 and Fever >100.4 Stop: 04/21/25 22:04 Last Admin: 03/23/25 16:33 Dose: 650 mg Hydrocodone Bitart/Acetaminophen (Hydrocodone/Apap 5/325 Tablet) 1 tab PO Q4HR PRN PRN Reason: PAIN SCALE 4-6 (Moderate Stop: 03/27/25 22:04 Last Admin: 03/24/25 07:24 Dose: 1 tab Clopidogrel Bisulfate (Clopidogrel Bisulfate 75 Mg Tablet) 75 mg PO QDAY [facility] Stop: 04/22/25 08:59 Last Admin: 03/24/25 09:02 Dose: 75 mg Dextrose (Dextrose 50%-Water Inj 50 Ml Syringe) 25 ml IV Q15MIN PRN PRN Reason: BG 50-70 responsive npo pt Stop: 04/21/25 22:09 Dextrose (Dextrose 50%-Water Inj 50 Ml Syringe) 50 ml IV Q15MIN PRN PRN Reason: BG <50 OR BG <70 & pt unresponsive Stop: 04/21/25 22:09 Duloxetine HCl (Duloxetine Hcl 30 Mg Capsule) 60 mg PO QDAY [facility] Stop: 04/22/25 08:59 Last Admin: 03/24/25 09:01 Dose: 60 mg Glucagon (Glucagon Inj 1 Mg Vial) 1 mg IM Q15MIN PRN PRN Reason: BG <70, and no IV access Heparin Sodium (Porcine) (Heparin Sod Inj 5000 Unit/Ml Vial) 5,000 unit SC Q8HR [facility] Stop: 04/06/25 05:59 Last Admin: 03/24/25 05:55 Dose: 5,000 unit Metronidazole (Flagyl 500 Mg Iv) 500 mg in 100 mls @ 200 mls/hr IV Q8HR [facility] Stop: 03/29/25 22:12 Last Admin: 03/24/25 05:55 Dose: 200 mls/hr Ciprofloxacin/Dextrose (Cipro Ivpb) 400 mg in 200 mls @ 200 mls/hr IV Q12HR [facility] Stop: 03/30/25 10:53 Last Admin: 03/24/25 09:01 Dose: 200 mls/hr Sodium Chloride (Ns) 1,000 mls @ 150 mls/hr IV .Q6H40M [facility] Stop: 03/24/25 14:06 Last Admin: 03/24/25 07:25 Dose: 150 mls/hr Potassium Chloride (Kcl Ivpb) 10 meq in 100 mls @ 100 mls/hr IV Q1H [facility] Stop: 03/24/25 11:25 Last Admin: 03/24/25 09:01 Dose: 100 mls/hr Potassium Chloride (Kcl Ivpb) 10 meq in 100 mls @ 100 mls/hr IV .Q1H PRN PRN Reason: IF POTASSIUM LESS THAN 3.3 Stop: 04/23/25 09:44 Magnesium Sulfate (Magnesium Sulfate Ivpb) 2 gm in 50 mls @ 25 mls/hr IV .Q2H PRN PRN Reason: PER DKA PROTOCOL Stop: 04/23/25 09:44 Insulin Human Regular 100 unit (/ IV Miscellaneous Supplies) 100 mls @ 6.67 mls/hr IV .Q15H PRN; Protocol PRN Reason: PER PROTOCOL Stop: 04/23/25 09:44 Dextrose/Lactated Ringer's (D5-Lr) 1,000 mls @ 250 mls/hr IV .Q4H PRN PRN Reason: PER PROTOCOL Stop: 04/23/25 09:44 Lactated Ringer's (Lactated Ringers) 1,000 mls @ 250 mls/hr IV .Q4H PRN PRN Reason: PER PROTOCOL Stop: 03/25/25 09:44 Potassium Chloride 20 meq/ (Lactated Ringer's) 1,010 mls @ 250 mls/hr IV .Q4H3M PRN PRN Reason: K LEVEL 3.3 TO 5.3mM/L Stop: 04/23/25 09:44 Potassium Chloride 40 meq/ (Lactated Ringer's) 1,020 mls @ 250 mls/hr IV .Q4H5M PRN PRN Reason: K LEVEL < 3.3 mM/L Stop: 04/23/25 09:44 Potassium Chloride 40 meq/ (Dextrose/Lactated Ringer's) 1,020 mls @ 250 mls/hr IV .Q4H5M PRN PRN Reason: K LEVEL < 3.3mM/L Stop: 04/23/25 09:44 Potassium Cl/Dextrose/Lact Ringer's (Kcl 20 Meq/L In D5-Lr) 20 meq in 1,000 mls @ 250 mls/hr IV .Q4H PRN PRN Reason: K LEVEL 3.3 TO 5.3 mM/L Stop: 04/23/25 09:44 Potassium Chloride (Kcl Ivpb) 10 meq in 100 mls @ 50 mls/hr IV PRN PRN PRN Reason: K LEVEL 3.3 to 5.3 & BG > 200 Stop: 04/23/25 09:44 Potassium Phosphate (Pot Phos 15 Mmol In Ns 250 Ml) 15 mmol in 250 mls @ 62.5 mls/hr IV PRN PRN PRN Reason: Phosphate <= 1mg/dL Stop: 04/23/25 09:44 Sodium Phosphate 15 mmol/ (Sodium Chloride) 255 mls @ 62.5 mls/hr IV .Q4H5M PRN PRN Reason: Phosphate <= 1mg/dL and K> than 5.3 Stop: 04/23/25 09:44 Lactated Ringer's (Lactated Ringers) 1,000 mls @ 1,000 mls/hr IV Q1HR [facility] Stop: 03/24/25 11:59 Levothyroxine Sodium (Levothyroxine Sodium 125 Mcg Tablet) 125 mcg PO ACBR [facility] Stop: 04/22/25 05:59 Last Admin: 03/24/25 05:57 Dose: 125 mcg Metoclopramide HCl (Metoclopramide 5 Mg Tablet) 10 mg PO Q8HR [facility] Stop: 04/22/25 05:59 Last Admin: 03/24/25 05:55 Dose: 10 mg Ondansetron HCl (Ondansetron Inj 2 Mg/Ml Inj 2 Ml) 4 mg IVP Q4HR PRN; Protocol PRN Reason: NAUSEA OR VOMITING Stop: 04/21/25 22:04 Last Admin: 03/24/25 04:24 Dose: 4 mg Pantoprazole Sodium (Pantoprazole Inj 40 Mg Vial) 40 mg IVP QDAY [facility] Stop: 04/22/25 08:59 Last Admin: 03/24/25 09:02 Dose: 40 mg Sodium Bicarbonate (Sodium Bicarb Inj 8.4% Syr 50 Ml Syringe) 50 ml IV Q4HR PRN PRN Reason: For ph <= to 7.0 Stop: 04/23/25 09:44 Tamsulosin HCl (Tamsulosin Hcl 0.4 Mg Capsule) 0.4 mg PO QDAY [facility] Stop: 04/22/25 08:59 Last Admin: 03/24/25 09:01 Dose: 0.4 mg Discontinued Medications Acetaminophen (Acetaminophen 500 Mg Tablet) 1,000 mg PO X1 ONE Stop: 03/22/25 18:01 Last Admin: 03/22/25 18:11 Dose: 1,000 mg Aspirin (Aspirin 325 Mg Tablet) 325 mg PO X1 ONE Stop: 03/22/25 18:58 Last Admin: 03/22/25 19:27 Dose: 325 mg Dextrose (Dextrose 50%-Water Inj 50 Ml Syringe) 25 ml IV X1 ONE Stop: 03/22/25 16:29 Last Admin: 03/22/25 16:30 Dose: 25 ml Dextrose (Dextrose 50%-Water Inj 50 Ml Syringe) 50 ml IV X1 ONE Stop: 03/22/25 18:37 Last Admin: 03/22/25 18:39 Dose: 50 ml Sodium Chloride (Ns) 2,041 mls @ 2,041 mls/hr 30 ml/kg infuse over 60 min (2041 ml) IV .Q1H ONE; Protocol Stop: 03/22/25 18:41 Last Infusion: 03/22/25 20:24 Dose: Infused Ceftriaxone Sodium/Dextrose (Rocephin/D5w 1gm Iv Premix) 1 gm in 50 mls @ 100 mls/hr IV X1 ONE Stop: 03/22/25 19:27 Last Infusion: 03/22/25 19:50 Dose: Infused Doxycycline Hyclate 100 mg/ (Sodium Chloride) 100 mls @ 100 mls/hr IV X1 ONE Stop: 03/22/25 19:56 Last Infusion: 03/22/25 20:50 Dose: Infused Sodium Chloride (Ns) 1,000 mls @ 999 mls/hr IV .Q1H1M ONE Stop: 03/22/25 22:42 Last Admin: 03/22/25 22:09 Dose: Not Given Sodium Chloride (Ns) 1,000 mls @ 999 mls/hr IV .Q1H1M ONE Stop: 03/22/25 22:44 Last Infusion: 03/22/25 23:13 Dose: Infused Sodium Chloride (Ns) 1,000 mls @ 100 mls/hr IV .Q10H [facility] Stop: 03/24/25 06:55 Last Admin: 03/23/25 14:52 Dose: Not Given Insulin Glargine (Insulin Glargine (Lantus) 5 Unit/0.05 Ml (Per 5 Units)) 15 unit SC QDAY [facility] Stop: 04/22/25 10:59 Last Admin: 03/23/25 11:23 Dose: 15 unit Insulin Glargine (Insulin Glargine (Lantus) 5 Unit/0.05 Ml (Per 5 Units)) 15 unit SC QDAY [facility] Stop: 03/24/25 09:45 Last Admin: 03/24/25 08:56 Dose: Not Given Insulin Human Lispro (Insulin Lispro (Admelog) 1 Unit/0.01 Ml Unit) 0 unit SC AC [facility]; Protocol Stop: 04/22/25 07:29 Last Admin: 03/23/25 07:49 Dose: Not Given Insulin Human Lispro (Insulin Lispro (Admelog) 1 Unit/0.01 Ml Unit) 4 unit SC X1 ONE Stop: 03/23/25 05:33 Last Admin: 03/23/25 07:46 Dose: 4 unit Insulin Human Lispro (Insulin Lispro (Admelog) 1 Unit/0.01 Ml Unit) 0 unit SC Q6HR [facility]; Protocol Stop: 04/22/25 10:59 Last Admin: 03/23/25 11:26 Dose: 4 unit Insulin Human Lispro (Insulin Lispro (Admelog) 1 Unit/0.01 Ml Unit) 0 unit SC Q4H [facility]; Protocol Stop: 04/22/25 11:29 Last Admin: 03/24/25 04:07 Dose: 2 unit Insulin Human Lispro (Insulin Lispro (Admelog) 1 Unit/0.01 Ml Unit) 0 unit SC Q4H [facility]; Protocol Stop: 04/23/25 07:59 Last Admin: 03/24/25 07:34 Dose: Not Given Ketorolac Tromethamine (Ketorolac Inj 30 Mg/Ml Vial) 15 mg IVP X1 ONE Stop: 03/22/25 21:43 Last Admin: 03/22/25 22:07 Dose: 15 mg Ondansetron HCl (Ondansetron Inj 2 Mg/Ml Inj 2 Ml) 4 mg IVP Q6H PRN; Protocol PRN Reason: NAUSEA OR VOMITING Stop: 04/21/25 22:04 Last Admin: 03/23/25 19:49 Dose: 4 mg Oxycodone/Acetaminophen (Oxycodone/Apap 5/325 Tablet) 1 tab PO X1 ONE Stop: 03/22/25 19:00 Last Admin: 03/22/25 19:27 Dose: 1 tab Potassium Chloride (Potassium Chloride 20 Meq Tabcr) 20 meq PO X1 ONE Stop: 03/22/25 18:58 Last Admin: 03/22/25 19:27 Dose: 20 meq Potassium Chloride (Potassium Chloride 20 Meq Tabcr) 40 meq PO X1 ONE Stop: 03/24/25 07:26 Last Admin: 03/24/25 07:41 Dose: 40 meq Potassium Phos/Sodium Phos (Naph,[facility] 1 Packet (1.5 Gm)) 1 packet PO X1 ONE Stop: 03/24/25 07:28 Last Admin: 03/24/25 07:40 Dose: 1 packet Assessment & Plan Plan Patient is a 69-year-old male with past medical history significant for type 1 diabetes on insulin pump, diabetic neuropathy, diabetic gastroparesis, hypothyroidism, vertebral disc prolapse, BPH, CAD and PAD s/p stents presented with a chief complaint of nausea and vomiting. Initially patient was admitted to the floor for intractable nausea and vomiting with mild DKA. Patient now upgraded to ICU for severe DKA requiring insulin infusion. NEURO Diabetic neuropathy Diabetic gastroparesis Rx: Metoclopramide 10 Mg IV every 6 hourly as needed. Ondansetron 4 Mg IV every 4 hourly as needed CVS CAD and PAD s/p stents Rx: Continue home medication clopidogrel 75 Mg p.o. daily PULM No active problems GI/Hep Diarrhea?resolved DDx: Antibiotic induced, viral gastroenteritis Dx: CT abdomen showed no signs of colitis. Stool samples not collected due to patient not having a bowel movement since hospitalized Rx: Discontinued ciprofloxacin and metronidazole Nausea and vomiting See Neuro RENAL Hypokalemia Hypophosphatemia K2.9, Phos 1.3 Plan: ? K-Phos 15 mmol IV x 1 ? Patient already received KCl 40 mEq p.o. x 1 and KCl 20 mEq IV x 1 this a.m. Moderate Diabetic ketoacidosis Etiology : Vomiting, recent infection Dx: pH 7.44, anion gap 21, beta hydroxybutyrate 5.4 [increased from 4.4], bicarb 17 Rx: NPO. Will replete potassium. Once K >3.4 , will start patient on insulin infusion along with LR/D5 IVF as per protocol. RRX: Renal panel every 4 hourly HEME/ONC Normocytic Anemia DDx: Dilutional, venipuncture. NO active signs of bleeding Dx: Hb 14.5 ---> 13 Rx: monitor cbc and for signs of bleeding Leukocytosis Dx: WBC 14.4 Rx: monitor cbc ENDO Type 1 diabetes mellitus on insulin pump Insulin pump discontinued for now due to DKA and need for insulin IV along with IVF. Hypothyroid Home medication levothyroxine 127 mcg p.o. acbr Rx: Home medication on hold for now due to nausea and vomiting ID No active problems MSK/DERM No Active problems ICU Health maintenance: Dispo: Admit to ICU for Moderate DKA needing Insulin infusion Diet: NPO DVT ppx: Enoxaparin GI ppx: Protonix 40mg qD Mechanical ventilattion:NO Sedation: NO IV lines: 2 pIV. 20G right and left forearm Central line: No Arterial line: No [place]: NO Code status: FULL CODE Plan of care discussed with Attending Dr. Tiwari and PGY 3 Dr. Lauren Khan MD PGY 1 Disclaimer: This note was dictated by speech recognition. Minor errors in apartment maintenance supervisor may be present due to voice recognition software. Attending Provider Attestation/Addendum pt seen and examined, d/w resident team. In brief this is a 69yo M admitted for n/v and gen malaise. He was noted to have a mild to mod DKA with attempts made to tx on the floor. This was unsuccessful and ICU consult was requested. PT is noted to have an elevated AG and beta hydroxy and started on insulin gtt and DKA protocol . On exam he is SOB with LCTAB, HRRR, tachycardic and tachypneic with no increase in WOB, abd s/nt/bs+, no edema. pt will be started on insulin gtt with labs q4hr and DKA protocol. His VBG suggests a resp alkalosis with a concomitant metabolic acidosis. pt with significant hypoK and K was repleted prior to starting insulin gtt. case d/w ICU team and floor team labs, imaging, records reviewed ~55ccmin required for eval, exam, review, intervention, discussion and formulation of POC for this critically ill pt with hypok and DKA at high risk for further and ongoing decompensation
[2025-03-24] MEDS: POT PHOS 15 mMol in NS 250 ML 15 MMOL/250 ML BAG 62.5 MMOL IV ×2 (10:45→20:56)
[2025-03-24] MEDS: RINGERS LACTATED 1000 ML 1,000 ML 999 ML IV ×2 (10:46→13:24)
--- NOTE | 2025-03-24 10:55 | PC.NURSE ---
PER MD GUADALUPE DO NOT START IV INSULIN GTT UNTIL NEXT RENAL LABS AND POTASSIUM IS ABOVE 3.4
[2025-03-24 12:12] LABS: Albumin, Serum 3.6 gm/dL (3.4-4.8); Anion Gap 23 (7-16); BUN/Creatinine Ratio 12 Ratio (12-20); Blood Urea Nitrogen 11 mg/dL (9-23); Calcium 7.8 mg/dL (8.3-10.6); Calcium (Corrected) 8.1 mg/dL (8.5-10.1); Carbon Dioxide 15.3 mMol/L (20.0-31.0); Chloride 99 mMol/L (98-107); Creatinine (Component) 0.9 mg/dL (0.6-1.3); Estimated Creatinine Clearance 68.9 mL/min (>60); Glucose 262 mg/dL (74-106); Magnesium 1.6 mg/dL (1.6-2.6); Osmolality,Calculated 282 (275-295); Phosphorous 2.2 mg/dL (2.4-5.1); Potassium 3.3 mMol/L (3.4-5.1); Sodium 137 mMol/L (136-145); eGFR > 60 See Note
[2025-03-24] MEDS: Magnesium Sulfate 4 GM Ivpb 4 GM/50 ML BAG IV (13:02)
[2025-03-24 14:36] LABS: Potassium 3.5 mMol/L (3.4-5.1)
[2025-03-24] MEDS: INSULIN REG 100 UNITS/100 ML 100 UNIT in PRE-MIXED 1 BAG 6.67 UNIT IV (14:46)
[2025-03-24] MEDS: POT CHL ADDITIVE 20 MEQ in RINGERS LACTATED 1000 ML 1,000 ML 250 MEQ IV (14:51)
[2025-03-24] MEDS: POT CHL ADDITIVE 20 MEQ in DEXTROSE 5%-LACTATED RINGERS 1,000 ML 250 MEQ IV (16:56)
--- NOTE | 2025-03-24 17:08 | ESPR_ITS ---
<Statement entered by Dhara Jo MD - 03/25/25 07:20> I agree with plan and examination findings on this note , I have personally seen and examined patient. Labs and imaging reviewed. Dhara Jo PGY3 Documentation for date of: 03/24/25 Subjective Subjective Interval history: Overnight team reported patient had several episodes of vomiting. Pt this morning continues to have nausea and vomiting. bicarb was improving however this morning labs showed increased anion gap and patient's beta hydroxybutyrate to be 5.4 which had increased from previous 4.8. Patient potassium was 2.80 mEq is repleted. Due to reopening of anion gap with increased beta hydroxybutyrate patient will need close ICU monitoring on insulin drip with dextrose. ICU team is consulted and patient is upgraded to ICU. Exam Vital Signs Temp Pulse Resp BP Pulse Ox O2 Del Method O2 Flow Rate 97.6 F 94 17 133/86 H 94 L Nasal Cannula 2 03/24/25 16:00 03/24/25 16:00 03/24/25 16:00 03/24/25 16:00 03/24/25 16:00 03/24/25 16:00 03/24/25 16:00 FiO2 3 03/24/25 12:00 Narrative Exam GENERAL: A&Ox3, lethargic appearing elderly male, in mild distress due to nausea NEURO: no focal neurological deficits noted HEENT: Atraumatic, Normocephalic. mucous membranes moist. Eyes open, symmetrical, & clear HEART: Normal Heart Sounds LUNGS: Clear to auscultation with no wheezing or crackles. ABDOMEN: soft, non-distended, non-tender, no guarding or rebound tenderness SKIN: No Rash or ecchymoses EXTREMITIES: No edema, tenderness, able to move all 4 extremities, pedal pulses palpated Objective Labs 03/25/25 04:30 03/25/25 04:30 Labs: Laboratory Results - last 24 hr 03/23/25 03/24/25 03/24/25 19:55 00:30 04:45 WBC 14.4 H D RBC 4.17 L Hgb 13.0 L Hct 36.4 L MCV 87 MCH 31.2 MCHC 35.7 RDW Std Deviation 46.0 H Plt Count 169 Neut % (Auto) 89 H Lymph % (Auto) 3 L Curry % (Auto) 7 Eos % (Auto) 0 Baso % (Auto) 0 Neut # (Auto) 12.8 H Lymph # (Auto) 0.4 L Curry # (Auto) 1.0 H Eos # (Auto) 0.0 Baso # (Auto) 0.0 Immature Gran # (Auto) 0.12 H Absolute Nucleated RBC 0.00 Immature Gran % 1 H Nucleated RBC % 0 VBG pH VBG pCO2 VBG pO2 VBG O2 Sat (Kellie) VBG Base Excess Sodium 138 142 142 Potassium 3.5 3.3 L 2.8 L D Chloride 103 105 103 Carbon Dioxide 17.1 L 17.2 L 18.0 L Anion Gap 18 H 20 H 21 H BUN 20 19 14 Creatinine 1.0 1.0 0.9 Estim Creat Clear Calc 62.0 62.0 68.9 eGFR > 60 > 60 > 60 BUN/Creatinine Ratio 20 19 16 Glucose 209 H 178 H 136 H Calculated Osmolality 284 289 285 Calcium 9.0 8.2 L 8.1 L Corrected Calcium 9.0 8.4 L 8.3 L Phosphorus 2.5 2.0 L 1.5 L Magnesium 1.8 Total Bilirubin 1.0 AST 26 ALT 20 Alkaline Phosphatase 64 Total Protein 5.4 L Albumin 4.0 3.8 3.7 Globulin 1.7 L Albumin/Globulin Ratio 2.2 Beta-Hydroxybutyrate/Acetoacetate 5.4 H 03/24/25 03/24/25 03/24/25 07:46 11:38 14:05 WBC RBC Hgb Hct MCV MCH MCHC RDW Std Deviation Plt Count Neut % (Auto) Lymph % (Auto) Curry % (Auto) Eos % (Auto) Baso % (Auto) Neut # (Auto) Lymph # (Auto) Curry # (Auto) Eos # (Auto) Baso # (Auto) Immature Gran # (Auto) Absolute Nucleated RBC Immature Gran % Nucleated RBC % VBG pH 7.44 VBG pCO2 27 L VBG pO2 65 H D VBG O2 Sat (Kellie) 94 L D VBG Base Excess -5 L Sodium 140 137 Potassium 2.9 L 3.3 L 3.5 Chloride 102 99 Carbon Dioxide 17.0 L 15.3 L Anion Gap 21 H 23 H BUN 11 11 Creatinine 0.8 0.9 Estim Creat Clear Calc 77.5 68.9 eGFR > 60 > 60 BUN/Creatinine Ratio 14 12 Glucose 142 H 262 H D Calculated Osmolality 280 282 Calcium 8.1 L 7.8 L Corrected Calcium 8.3 L 8.1 L Phosphorus 1.3 L 2.2 L Magnesium 1.6 Total Bilirubin AST ALT Alkaline Phosphatase Total Protein Albumin 3.8 3.6 Globulin Albumin/Globulin Ratio Beta-Hydroxybutyrate/Acetoacetate ABG Interpretation ABG results: 03/23/25 03/23/25 03/24/25 10:42 13:39 07:46 VBG pH 7.37 7.37 7.44 VBG pCO2 25 L 30 L 27 L VBG pO2 43 43 65 H D VBG Base Excess -9 L -6 L -5 L Quality Measures Quality Measures sepsis Current suspected stage: sepsis Possible source: genitourinary and unknown Blood cultures ordered: yes Antibiotic ordered: Yes and none Advance care planning discussed with:: patient Assessment & Plan Assessment Current Active Medications: Generic Name Dose Route Start Last Admin Trade Name Freq PRN Reason Stop Dose Admin Acetaminophen 650 mg 03/22/25 22:05 03/23/25 16:33 Acetaminophen 325 Mg Tablet PO 04/21/25 22:04 650 mg Q6H PRN Administration pain 1-3 and Fever >100.4 Hydrocodone Bitart/Acetaminophen 1 tab 03/22/25 22:05 03/24/25 14:42 Hydrocodone/Apap 5/325 Tablet PO 03/27/25 22:04 1 tab Q4HR PRN Administration PAIN SCALE 4-6 (Moderate Clopidogrel Bisulfate 75 mg 03/23/25 09:00 03/24/25 09:02 Clopidogrel Bisulfate 75 Mg Tablet PO 04/22/25 08:59 75 mg QDAY BUBBA Administration Dextrose 25 ml 03/22/25 22:10 Dextrose 50%-Water Inj 50 Ml Syringe IV 04/21/25 22:09 Q15MIN PRN BG 50-70 responsive npo pt Dextrose 50 ml 03/22/25 22:10 Dextrose 50%-Water Inj 50 Ml Syringe IV 04/21/25 22:09 Q15MIN PRN BG <50 OR BG <70 & pt unresponsive Duloxetine HCl 60 mg 03/23/25 09:00 03/24/25 09:01 Duloxetine Hcl 30 Mg Capsule PO 04/22/25 08:59 60 mg QDAY BUBBA Administration Enoxaparin Sodium 40 mg 03/25/25 09:00 Enoxaparin Sod Inj 40 Mg/0.4 Ml Syringe SC 04/08/25 08:59 QDAY BUBBA Glucagon 1 mg 03/22/25 22:10 Glucagon Inj 1 Mg Vial IM Q15MIN PRN BG <70, and no IV access Potassium Chloride 10 meq in 100 mls @ 100 mls/hr 03/24/25 09:45 Kcl Ivpb IV 04/23/25 09:44 .Q1H PRN IF POTASSIUM LESS THAN 3.3 Magnesium Sulfate 2 gm in 50 mls @ 25 mls/hr 03/24/25 09:45 Magnesium Sulfate Ivpb IV 04/23/25 09:44 .Q2H PRN PER DKA PROTOCOL Insulin Human Regular 100 unit 100 mls @ 6.67 mls/hr 03/24/25 09:45 03/24/25 17:00 / IV Miscellaneous Supplies IV 04/23/25 09:44 0.025 unit/kg/hr .Q15H PRN 1.668 mls/hr PER PROTOCOL Titration Protocol 0.1 UNIT/KG/HR Dextrose/Lactated Ringer's 1,000 mls @ 250 mls/hr 03/24/25 09:45 D5-Lr IV 04/23/25 09:44 .Q4H PRN PER PROTOCOL Lactated Ringer's 1,000 mls @ 250 mls/hr 03/24/25 09:45 Lactated Ringers IV 03/25/25 09:44 .Q4H PRN PER PROTOCOL Potassium Chloride 20 meq/ 1,010 mls @ 250 mls/hr 03/24/25 09:45 03/24/25 16:56 Lactated Ringer's IV 04/23/25 09:44 0 mls/hr .Q4H3M PRN Infusion K LEVEL 3.3 TO 5.3mM/L Potassium Chloride 40 meq/ 1,020 mls @ 250 mls/hr 03/24/25 09:45 Lactated Ringer's IV 04/23/25 09:44 .Q4H5M PRN K LEVEL < 3.3 mM/L Potassium Chloride 40 meq/ 1,020 mls @ 250 mls/hr 03/24/25 09:45 Dextrose/Lactated Ringer's IV 04/23/25 09:44 .Q4H5M PRN K LEVEL < 3.3mM/L Potassium Chloride 10 meq in 100 mls @ 50 mls/hr 03/24/25 09:45 Kcl Ivpb IV 04/23/25 09:44 PRN PRN K LEVEL 3.3 to 5.3 & BG > 200 Potassium Phosphate 15 mmol in 250 mls @ 62.5 mls/hr 03/24/25 09:45 Pot Phos 15 Mmol In Ns 250 Ml IV 04/23/25 09:44 PRN PRN Phosphate <= 1mg/dL Sodium Phosphate 15 mmol/ 255 mls @ 62.5 mls/hr 03/24/25 09:45 Sodium Chloride IV 04/23/25 09:44 .Q4H5M PRN Phosphate <= 1mg/dL and K> than 5.3 Potassium Chloride 20 meq/ 1,010 mls @ 250 mls/hr 03/24/25 16:31 03/24/25 16:56 Dextrose/Lactated Ringer's IV 04/23/25 16:30 250 mls/hr .Q4H3M PRN Administration K LEVEL 3.3 TO 5.3 mM/L Levothyroxine Sodium 125 mcg 03/23/25 06:00 03/24/25 05:57 Levothyroxine Sodium 125 Mcg Tablet PO 04/22/25 05:59 125 mcg ACBR BUBBA Administration Metoclopramide HCl 10 mg 03/24/25 11:35 Metoclopramide Inj 5 Mg/Ml Vial 2 Ml IVP 04/23/25 11:34 Q6HR PRN NAUSEA OR VOMITING Protocol Ondansetron HCl 4 mg 03/24/25 00:01 03/24/25 04:24 Ondansetron Inj 2 Mg/Ml Inj 2 Ml IVP 04/21/25 22:04 4 mg Q4HR PRN Administration NAUSEA OR VOMITING Protocol Pantoprazole Sodium 40 mg 03/23/25 09:00 03/24/25 09:02 Pantoprazole Inj 40 Mg Vial IVP 04/22/25 08:59 40 mg QDAY BUBBA Administration Sodium Bicarbonate 50 ml 03/24/25 09:45 Sodium Bicarb Inj 8.4% Syr 50 Ml Syringe IV 04/23/25 09:44 Q4HR PRN For ph <= to 7.0 Tamsulosin HCl 0.4 mg 03/23/25 09:00 03/24/25 09:01 Tamsulosin Hcl 0.4 Mg Capsule PO 04/22/25 08:59 0.4 mg QDAY BUBBA Administration Plan Mr. Crespo is a 69-year-old male with past medical history of IDDM (on insulin pump), severe PAD s/p stents, CAD s/p stents, peripheral neuropathy, hypothyroidism, BPH, vertebral disc prolapse (on Percocet), and gastroparesis was admitted to hospital on 03/22/2025 for sepsis in the setting of endorgan damage with ADRIA likely secondary to GI infection. #Sepsis secondary to #Gastroenteritis? #Intractable nausea and vomiting #Diarrhea- resolved Patient came in with complaints of nausea, vomiting, and diarrhea since yesterday. Patient was recently on some antibiotics last week for pneumonia DDx includes infectious diarrhea versus C. difficile the setting of antibiotic use Patient met SIRS criteria 4 out of 4 along with signs of endorgan damage as seen with ADRIA and troponinemia No signs of shock CT Abdomen/Pelvis - Atelectasis versus pneumonia right base Plan: -Started Flagyl 500 every 8 hours and ciprofloxacin 400mg Q12H 03/23- -IV fluids -Stool cultures and studies ordered -C. difficile, Norovirus ordered -Contact precautions -Will continue to monitor #High anion gap metabolic acidosis in the setting of #DKA #Lactic acidosis- resolved #ADRIA- improving Patient came in with a bicarb of 18.7, anion gap 16, and lactic acid of 3.4 Creatinine 1.4 and baseline is around 0.9 Had a gap metabolic acidosis likely in the setting of lactic acidosis likely secondary to sepsis. Plan: -IV fluids runing -Renally dose medication -Avoid nephrotoxic agents -Upgrade pt to ICU fro further management with insulin drip #Hypoglycemia- resolved #Hx of IDDM (has insulin pump) Patient had a blood sugar in the 50s when EMS arrived at the scene and was given dextrose in the ER. Patient was altered, but at this time is AO x 3. Hypoglycemia slight in the setting of poor oral intake secondary to nausea and vomiting. Last A1c was 5.9 Beta hydroxybuterate 4.8 Plan: -Insulin sliding scale Q4H -Renal panel Q4H -Fluids NS 150cc/hr -hypoglycemia protocol ordered -Asked the patient to keep insulin pump off at this time. -Will continue to monitor #NSTEMI likely type II - improving Patient with troponins of 0.053 Mostly in the setting of sepsis No ST changes in EKG Plan: Trend troponins Will continue to monitor #Severe PAD s/p stents #CAD s/p stents -Resumed patient's home clopidogrel 75 mg #Hypothyroidism -TSH 2.8 on 02/01/25 -Resumed home levothyroxine 125 mcg #Vertebral disc prolapse #Gastroparesis #Peripheral neuropathy -Resumed patient's home duloxetine 60 mg, Reglan 10 mg, and tamsulosin 0.4 mg Health Maintenance Disposition: telemetry for management of sepsis 2/2 to GI infection and DKA DVT Prophylaxis: Heparin 5000 units SC Q8 hrs GI Prophylaxis: Pantoprozol-40 IV/PO Qday Diet: NPO Lines: Peripheral lines Code status: Full Assessment and plan discussed with my senior resident Dr. Jo & attending physician Dr. Silvana Collins (PGY-1)- Internal medicine resident Attending Provider Attestation/Addendum I attest that I was physically present for the evaluation, physical examination, lab and imaging review of the patient with the residents. I discussed the case with the residents and agree with the findings and plans of care as documented above. At bedside today, patient continues to complain of nausea/vomiting, also has abdominal discomfort. Lab results show persistently elevated anion gap and low bicarbonate level. pH remains within normal limits. Patient has been on isulin regimen with blood glucose better controlled but his beta hydroxy butyrate level increased compared to yesterday. Discussed with the Machine Cutter, will transfer patient to ICU for management of DKA with Insulin gtt. Continues to be on Ciprofloxacin and Flagyl for gastroenteritis. Kidney function improving with IV hydration. Demetri Pina MD
[2025-03-24 17:22] LABS: Albumin, Serum 3.5 gm/dL (3.4-4.8); Anion Gap 16 (7-16); BUN/Creatinine Ratio 13 Ratio (12-20); Blood Urea Nitrogen 10 mg/dL (9-23); Calcium 7.8 mg/dL (8.3-10.6); Calcium (Corrected) 8.2 mg/dL (8.5-10.1); Carbon Dioxide 20.2 mMol/L (20.0-31.0); Chloride 103 mMol/L (98-107); Creatinine (Component) 0.8 mg/dL (0.6-1.3); Estimated Creatinine Clearance 77.5 mL/min (>60); Glucose 149 mg/dL (74-106); Osmolality,Calculated 279 (275-295); Phosphorous 1.3 mg/dL (2.4-5.1); Potassium 3.4 mMol/L (3.4-5.1); Sodium 139 mMol/L (136-145); eGFR > 60 See Note
--- NOTE | 2025-03-24 17:22 | PC.SS ---
Rounding Note: Patient has been upgraded to ICU. Patient currently on nasal cannula.
[2025-03-24 20:29] LABS: Albumin, Serum 3.6 gm/dL (3.4-4.8); Anion Gap 11 (7-16); BUN/Creatinine Ratio 10 Ratio (12-20); Blood Urea Nitrogen 8 mg/dL (9-23); Calcium 8.5 mg/dL (8.3-10.6); Calcium (Corrected) 8.8 mg/dL (8.5-10.1); Carbon Dioxide 23.5 mMol/L (20.0-31.0); Chloride 100 mMol/L (98-107); Creatinine (Component) 0.8 mg/dL (0.6-1.3); Estimated Creatinine Clearance 77.5 mL/min (>60); Glucose 213 mg/dL (74-106); Magnesium 2.3 mg/dL (1.6-2.6); Osmolality,Calculated 272 (275-295); Potassium 3.2 mMol/L (3.4-5.1); Sodium 134 mMol/L (136-145); eGFR > 60 See Note
[2025-03-24] MEDS: POT CHL ADDITIVE 40 MEQ in DEXTROSE 5%-LACTATED RINGERS 1,000 ML 250 MEQ IV (20:59)
[2025-03-25] VITALS (15 sets, daily range): BP systolic 118–153; BP diastolic 69–100; PULSE 78–116; RESP 10–22; TEMP 36.2–36.8; O2SAT 91–98
[2025-03-25 00:39] LABS: Albumin, Serum 3.6 gm/dL (3.4-4.8); Anion Gap 12 (7-16); BUN/Creatinine Ratio 9 Ratio (12-20); Blood Urea Nitrogen 6 mg/dL (9-23); Calcium 8.1 mg/dL (8.3-10.6); Calcium (Corrected) 8.4 mg/dL (8.5-10.1); Carbon Dioxide 26.2 mMol/L (20.0-31.0); Chloride 104 mMol/L (98-107); Creatinine (Component) 0.7 mg/dL (0.6-1.3); Estimated Creatinine Clearance 88.6 mL/min (>60); Glucose 134 mg/dL (74-106); Magnesium 2.2 mg/dL (1.6-2.6); Osmolality,Calculated 282 (275-295); Phosphorous 1.6 mg/dL (2.4-5.1); Sodium 142 mMol/L (136-145); eGFR > 60 See Note
[2025-03-25] MEDS: POTASSIUM CHL 10 mEq IVPB 10 MEQ/100 ML BAG 50 MEQ IV ×3 (01:15→05:32)
[2025-03-25] MEDS: DEXTROSE 5%-LACTATED RINGERS 1,000 ML 250 ML IV ×2 (01:15→05:20)
[2025-03-25] MEDS: ONDANSETRON INJ 2 MG/ML INJ 2 ML 4 MG IVP ×5 (01:45→21:34)
[2025-03-25 05:24] LABS: Albumin, Serum 3.7 gm/dL (3.4-4.8); Anion Gap 12 (7-16); BUN/Creatinine Ratio 8 Ratio (12-20); Blood Urea Nitrogen 5 mg/dL (9-23); Calcium 8.1 mg/dL (8.3-10.6); Calcium (Corrected) 8.3 mg/dL (8.5-10.1); Carbon Dioxide 29.3 mMol/L (20.0-31.0); Chloride 99 mMol/L (98-107); Creatinine (Component) 0.6 mg/dL (0.6-1.3); Estimated Creatinine Clearance 103.4 mL/min (>60); Glucose 147 mg/dL (74-106); Magnesium 2.1 mg/dL (1.6-2.6); Osmolality,Calculated 279 (275-295); Phosphorous 1.1 mg/dL (2.4-5.1); Potassium 3.1 mMol/L (3.4-5.1); Sodium 140 mMol/L (136-145); eGFR > 60 See Note
[2025-03-25] MEDS: LEVOTHYROXINE SODIUM 125 MCG TABLET PO (05:35)
[2025-03-25] MEDS: POT PHOS 15 mMol in NS 250 ML 15 MMOL/250 ML BAG 62.5 MMOL IV (05:58)
[2025-03-25] MEDS: POT CHL ADDITIVE 40 MEQ in DEXTROSE 5%-LACTATED RINGERS 1,000 ML 250 MEQ IV (05:58)
[2025-03-25 06:03] LABS: Basophils % (Auto) 0 % (0-2.5); Eosinophils # (Auto) 0.1 Thou/mm3 (0.0-0.5); Eosinophils % (Auto) 1 % (0-10); Hematocrit 39.2 % (41.0-53.0); Hemoglobin 13.7 g/dL (13.5-16.0); Immature Granulocytes % (Auto) 1 % (0-0); Immature Granulocytes Auto 0.05 Thou/mm3 (0.00-0.00); Lymphocytes # (Auto) 0.8 Thou/mm3 (1.0-4.8); Lymphocytes % (Auto) 8 % (10-50); Mean Corpuscular HGB Conc 34.9 g/dl (31.0-37.0); Mean Corpuscular Hemoglobin 31.3 pg (25.0-35.0); Mean Corpuscular Volume 90 fL (80-100); Monocytes # (Auto) 1.2 Thou/mm3 (0.0-0.8); Monocytes % (Auto) 12 % (0-12); Neutrophils # (Auto) 7.4 Thou/mm3 (1.8-7.7); Neutrophils % (Auto) 79 % (37-80); Nucleated Red Blood Cell % 0 /100 WBC (0); Platelet Count 144 Thou/mm3 (140-440); RDW Standard Deviation 44.5 fL (35.1-43.9); Red Blood Count 4.38 Miln/mm3 (4.50-5.90); White Blood Count 9.4 Thou/mm3 (3.8-10.6)
[2025-03-25] MEDS: METOCLOPRAMIDE INJ 5 MG/ML VIAL 2 ML 10 MG IVP ×3 (06:09→18:22)
--- NOTE | 2025-03-25 07:13 | ESPR_ITS ---
Documentation for date of: 03/25/25 Subjective Subjective Interval history: Patient is a 69-year-old male with past medical history significant for type 1 diabetes on insulin pump, diabetic neuropathy, diabetic gastroparesis, hypothyroidism, vertebral disc prolapse, BPH, CAD and PAD s/p stents presented with a chief complaint of nausea and vomiting. According to the patient 2 days prior to hospitalization he developed severe vomiting, too much episodes in a day to count. Described as clear liquids. Denied any hematemesis, coffee-ground emesis. 1 day prior to hospitalization he developed diarrhea having 5 episodes of watery foul-smelling. Of note the prior week he was diagnosed with pneumonia by his PCP and started on a course of antibiotics, he cannot recall the name. During this time patient was n.p.o. for 2 days and did not switch all of his insulin pump. Subsequently he was BIBA to the emergency department for intractable vomiting. ED course: BP 130/68, pulse 113, RR 18, temp 98.9 F, SpO2 98% on 2L via NC. Initial labs showed WBC 21.9, K3.3, bicarb 18.7, BUN 33, CR 1.4, glucose 66, troponin I 0.053, BNP 187, Pro-Grayson 3.96. Chest x-ray showed no signs of consolidation or pulmonary edema. Abdomen/pelvis CT showed atelectasis versus pneumonia at lung base. No signs of colitis. In the ED patient received acetaminophen 1 g p.o. x 1 ASA 325 mg p.o. x 1 doxycycline 100 Mg IV x 1, ceftriaxone 1 g IV x 1, ketorolac 15 Mg IV x 1, KCl 20 mEq p.o. x 1 for L IVF bolus. Initially patient was admitted to the floor for intractable nausea and vomiting with mild DKA. Patient now upgraded to ICU for severe DKA requiring insulin infusion. 03/25/2025: Overnight patient's anion gap closed twice currently 12. Patient complains of nausea but no episodes of vomiting. WBC decreased to 9.4 from 21.9, Hb improved to 13.7 from 13, K3.1, bicarb improved to 29.3 from 18.7, corrected calcium decreased to 8.3 from 8.8, phosphorus decreased to 1.1 from 1.3. Patient's on room air saturating 96%. Required 33 units of insulin over the past 12 hours, will transition to glargine 18 units SC x 1 and lispro 3 units SC 3 times daily with meals along with insulin sliding scale. Will discontinue insulin infusion 2 hours after glargine is given.. Scheduled Zofran 4 Mg IV every 4 hourly for nausea. KCl 20 mEq IV x 1, KPhos 15mmol IV x 1 and 1 pkt Neutraphos. Patient is clinically stable and fit for downgrade to the floor. Exam Vital Signs Temp Pulse Resp BP Pulse Ox O2 Del Method O2 Flow Rate 97.1 F 90 17 142/80 H 95 Nasal Cannula 2 03/25/25 04:00 03/25/25 06:00 03/25/25 06:00 03/25/25 06:00 03/25/25 06:00 03/25/25 04:00 03/25/25 04:00 FiO2 3 03/24/25 12:00 Narrative Exam Constitutional Alert, oriented x 3 and in mild distress. Elderly male HEENT Vision grossly intact. Patent nares. Trachea midline Respiratory Chest normal on inspection and clear auscultation bilaterally on anterior and posterior chest wall. Decreased air entry at left base Cardiovascular S1 and S2 audible, RRR. No murmurs carotid bruit. No gross JVD. Abdominal Soft and nontender to palpation to lower quadrant. Insulin pump and glucose monitor noted left lower abdomen. Bowel sounds + Genitourinary No bladder tenderness, no flank pain. Normal to palpation Musculoskeletal Extremities tone within normal limits. No LE edema. Neurological CN II - XII grossly intact. Extremity motor and sensation grossly intact. Skin Warm, dry and intact. Webspaces between toes erythematous. Toenails appear yellow Psychiatric Patient has good affect, is cooperative Objective Labs 03/25/25 04:30 03/25/25 04:30 Labs: Laboratory Results - last 24 hr 03/24/25 03/24/25 03/24/25 04:45 07:46 11:38 WBC RBC Hgb Hct MCV MCH MCHC RDW Std Deviation Plt Count Neut % (Auto) Lymph % (Auto) Sunflower % (Auto) Eos % (Auto) Baso % (Auto) Neut # (Auto) Lymph # (Auto) Sunflower # (Auto) Eos # (Auto) Baso # (Auto) Immature Gran # (Auto) Absolute Nucleated RBC Immature Gran % Nucleated RBC % VBG pH 7.44 VBG pCO2 27 L VBG pO2 65 H D VBG O2 Sat (Kellie) 94 L D VBG Base Excess -5 L Sodium 140 137 Potassium 2.9 L 3.3 L Chloride 102 99 Carbon Dioxide 17.0 L 15.3 L Anion Gap 21 H 23 H BUN 11 11 Creatinine 0.8 0.9 Estim Creat Clear Calc 77.5 68.9 eGFR > 60 > 60 BUN/Creatinine Ratio 14 12 Glucose 142 H 262 H D Calculated Osmolality 280 282 Calcium 8.1 L 7.8 L Corrected Calcium 8.3 L 8.1 L Phosphorus 1.3 L 2.2 L Magnesium 1.6 Albumin 3.8 3.6 Beta-Hydroxybutyrate/Acetoacetate 5.4 H 03/24/25 03/24/25 03/24/25 14:05 16:21 19:49 WBC RBC Hgb Hct MCV MCH MCHC RDW Std Deviation Plt Count Neut % (Auto) Lymph % (Auto) Sunflower % (Auto) Eos % (Auto) Baso % (Auto) Neut # (Auto) Lymph # (Auto) Sunflower # (Auto) Eos # (Auto) Baso # (Auto) Immature Gran # (Auto) Absolute Nucleated RBC Immature Gran % Nucleated RBC % VBG pH VBG pCO2 VBG pO2 VBG O2 Sat (Kellie) VBG Base Excess Sodium 139 134 L Potassium 3.5 3.4 3.2 L Chloride 103 100 Carbon Dioxide 20.2 23.5 Anion Gap 16 11 BUN 10 8 L Creatinine 0.8 0.8 Estim Creat Clear Calc 77.5 77.5 eGFR > 60 > 60 BUN/Creatinine Ratio 13 10 L Glucose 149 H D 213 H D Calculated Osmolality 279 272 L Calcium 7.8 L 8.5 Corrected Calcium 8.2 L 8.8 Phosphorus 1.3 L 1.0 L Magnesium 2.3 Albumin 3.5 3.6 Beta-Hydroxybutyrate/Acetoacetate 03/25/25 03/25/25 00:06 04:30 WBC 9.4 D RBC 4.38 L Hgb 13.7 Hct 39.2 L MCV 90 MCH 31.3 MCHC 34.9 RDW Std Deviation 44.5 H Plt Count 144 Neut % (Auto) 79 Lymph % (Auto) 8 L Sunflower % (Auto) 12 Eos % (Auto) 1 Baso % (Auto) 0 Neut # (Auto) 7.4 Lymph # (Auto) 0.8 L Sunflower # (Auto) 1.2 H Eos # (Auto) 0.1 Baso # (Auto) 0.0 Immature Gran # (Auto) 0.05 H Absolute Nucleated RBC 0.00 Immature Gran % 1 H Nucleated RBC % 0 VBG pH VBG pCO2 VBG pO2 VBG O2 Sat (Kellie) VBG Base Excess Sodium 142 140 Potassium 4.0 D 3.1 L D Chloride 104 99 Carbon Dioxide 26.2 29.3 Anion Gap 12 12 BUN 6 L 5 L Creatinine 0.7 0.6 Estim Creat Clear Calc 88.6 103.4 eGFR > 60 > 60 BUN/Creatinine Ratio 9 L 8 L Glucose 134 H D 147 H Calculated Osmolality 282 279 Calcium 8.1 L 8.1 L Corrected Calcium 8.4 L 8.3 L Phosphorus 1.6 L 1.1 L Magnesium 2.2 2.1 Albumin 3.6 3.7 Beta-Hydroxybutyrate/Acetoacetate ABG Interpretation ABG results: 03/23/25 03/23/25 03/24/25 10:42 13:39 07:46 VBG pH 7.37 7.37 7.44 VBG pCO2 25 L 30 L 27 L VBG pO2 43 43 65 H D VBG Base Excess -9 L -6 L -5 L Quality Measures Quality Measures sepsis Current suspected stage: ruled out Possible source: genitourinary and unknown Blood cultures ordered: yes Antibiotic ordered: No and none Advance care planning discussed with:: patient Assessment & Plan Assessment Current Active Medications: Generic Name Dose Route Start Last Admin Trade Name Freq PRN Reason Stop Dose Admin Acetaminophen 650 mg 03/22/25 22:05 03/23/25 16:33 Acetaminophen 325 Mg Tablet PO 04/21/25 22:04 650 mg Q6H PRN Administration pain 1-3 and Fever >100.4 Hydrocodone Bitart/Acetaminophen 1 tab 03/22/25 22:05 03/24/25 18:59 Hydrocodone/Apap 5/325 Tablet PO 03/27/25 22:04 1 tab Q4HR PRN Administration PAIN SCALE 4-6 (Moderate Clopidogrel Bisulfate 75 mg 03/23/25 09:00 03/24/25 09:02 Clopidogrel Bisulfate 75 Mg Tablet PO 04/22/25 08:59 75 mg QDAY BUBBA Administration Dextrose 25 ml 03/22/25 22:10 Dextrose 50%-Water Inj 50 Ml Syringe IV 04/21/25 22:09 Q15MIN PRN BG 50-70 responsive npo pt Dextrose 50 ml 03/22/25 22:10 Dextrose 50%-Water Inj 50 Ml Syringe IV 04/21/25 22:09 Q15MIN PRN BG <50 OR BG <70 & pt unresponsive Duloxetine HCl 60 mg 03/23/25 09:00 03/24/25 09:01 Duloxetine Hcl 30 Mg Capsule PO 04/22/25 08:59 60 mg QDAY BUBBA Administration Enoxaparin Sodium 40 mg 03/25/25 09:00 Enoxaparin Sod Inj 40 Mg/0.4 Ml Syringe SC 04/08/25 08:59 QDAY BUBBA Glucagon 1 mg 03/22/25 22:10 Glucagon Inj 1 Mg Vial IM Q15MIN PRN BG <70, and no IV access Potassium Chloride 10 meq in 100 mls @ 100 mls/hr 03/24/25 09:45 Kcl Ivpb IV 04/23/25 09:44 .Q1H PRN IF POTASSIUM LESS THAN 3.3 Magnesium Sulfate 2 gm in 50 mls @ 25 mls/hr 03/24/25 09:45 Magnesium Sulfate Ivpb IV 04/23/25 09:44 .Q2H PRN PER DKA PROTOCOL Insulin Human Regular 100 unit 100 mls @ 6.67 mls/hr 03/24/25 09:45 03/25/25 07:00 / IV Miscellaneous Supplies IV 04/23/25 09:44 0.025 unit/kg/hr .Q15H PRN 1.668 mls/hr PER PROTOCOL Titration Protocol 0.1 UNIT/KG/HR Dextrose/Lactated Ringer's 1,000 mls @ 250 mls/hr 03/24/25 09:45 03/25/25 05:20 D5-Lr IV 04/23/25 09:44 250 mls/hr .Q4H PRN Administration PER PROTOCOL Lactated Ringer's 1,000 mls @ 250 mls/hr 03/24/25 09:45 Lactated Ringers IV 03/25/25 09:44 .Q4H PRN PER PROTOCOL Potassium Chloride 20 meq/ 1,010 mls @ 250 mls/hr 03/24/25 09:45 03/24/25 21:00 Lactated Ringer's IV 04/23/25 09:44 0 mls/hr .Q4H3M PRN Infusion K LEVEL 3.3 TO 5.3mM/L Potassium Chloride 40 meq/ 1,020 mls @ 250 mls/hr 03/24/25 09:45 Lactated Ringer's IV 04/23/25 09:44 .Q4H5M PRN K LEVEL < 3.3 mM/L Potassium Chloride 40 meq/ 1,020 mls @ 250 mls/hr 03/24/25 09:45 03/25/25 05:58 Dextrose/Lactated Ringer's IV 04/23/25 09:44 250 mls/hr .Q4H5M PRN Administration K LEVEL < 3.3mM/L Potassium Chloride 10 meq in 100 mls @ 50 mls/hr 03/24/25 09:45 03/25/25 05:32 Kcl Ivpb IV 04/23/25 09:44 50 mls/hr PRN PRN Administration K LEVEL 3.3 to 5.3 & BG > 200 Sodium Phosphate 15 mmol/ 255 mls @ 62.5 mls/hr 03/24/25 09:45 Sodium Chloride IV 04/23/25 09:44 .Q4H5M PRN Phosphate <= 1mg/dL and K> than 5.3 Potassium Chloride 20 meq/ 1,010 mls @ 250 mls/hr 03/24/25 16:31 03/24/25 20:00 Dextrose/Lactated Ringer's IV 04/23/25 16:30 0 mls/hr .Q4H3M PRN Infusion K LEVEL 3.3 TO 5.3 mM/L Potassium Phosphate 15 mmol in 250 mls @ 62.5 mls/hr 03/24/25 18:05 03/25/25 05:58 Pot Phos 15 Mmol In Ns 250 Ml IV 04/23/25 09:44 62.5 mls/hr PRN PRN Administration Phosphate <= 2mg/dL Levothyroxine Sodium 125 mcg 03/23/25 06:00 03/25/25 05:35 Levothyroxine Sodium 125 Mcg Tablet PO 04/22/25 05:59 125 mcg ACBR BUBBA Administration Metoclopramide HCl 10 mg 03/24/25 11:35 03/25/25 06:09 Metoclopramide Inj 5 Mg/Ml Vial 2 Ml IVP 04/23/25 11:34 10 mg Q6HR PRN Administration NAUSEA OR VOMITING Protocol Ondansetron HCl 4 mg 03/24/25 00:01 03/25/25 01:45 Ondansetron Inj 2 Mg/Ml Inj 2 Ml IVP 04/21/25 22:04 4 mg Q4HR PRN Administration NAUSEA OR VOMITING Protocol Pantoprazole Sodium 40 mg 03/23/25 09:00 03/24/25 09:02 Pantoprazole Inj 40 Mg Vial IVP 04/22/25 08:59 40 mg QDAY BUBBA Administration Sodium Bicarbonate 50 ml 03/24/25 09:45 Sodium Bicarb Inj 8.4% Syr 50 Ml Syringe IV 04/23/25 09:44 Q4HR PRN For ph <= to 7.0 Tamsulosin HCl 0.4 mg 03/23/25 09:00 03/24/25 09:01 Tamsulosin Hcl 0.4 Mg Capsule PO 04/22/25 08:59 0.4 mg QDAY BUBBA Administration Plan Patient is a 69-year-old male with past medical history significant for type 1 diabetes on insulin pump, diabetic neuropathy, diabetic gastroparesis, hypothyroidism, vertebral disc prolapse, BPH, CAD and PAD s/p stents presented with a chief complaint of nausea and vomiting. Initially patient was admitted to the floor for intractable nausea and vomiting with mild DKA. Patient now upgraded to ICU for severe DKA requiring insulin infusion. NEURO Diabetic neuropathy Diabetic gastroparesis Rx: Metoclopramide 10 Mg IV every 6 hourly as needed. Scheduled Ondansetron 4 Mg IV every 4 hourly. RRx: If nausea does not improve to consider scopolamine patch CVS CAD and PAD s/p stents Rx: Continue home medication clopidogrel 75 Mg p.o. daily PULM No active problems GI/Hep No Active Problems Nausea and vomiting See Neuro RENAL Moderate Diabetic ketoacidosis - RESOLVED Etiology : Vomiting, recent infection Dx:AG 21 ---> 12, Bicarb 15.3 ---> 29.3 Rx: Started cons carb low diet, Glargine 18U sc x 1, Lispro 3U TIDWM , SSI to cover blood glucose spikes RRX: D/Jori renal panel q4hrly Hypokalemia Hypophosphatemia K3.1 , Phos 1.1 Plan: ? K-Phos 15 mmol IV x 1, KCL 20meq IV x 1, 1pkt Neutraphos Hypocalcemia DDX: most likely dilutional Dx: Corrected Ca 8.3 Rx: monitor CMP HEME/ONC Normocytic Anemia - resolved DDx: Dilutional, venipuncture. NO active signs of bleeding Dx: 13 --> 13.7 Leukocytosis - resolved Dx: WBC 14.4 ---> 9.4 ENDO Type 1 diabetes mellitus on insulin pump Insulin pump discontinued for now due to DKA and need for insulin IV along with IVF. Please resume pump upon discharge Hypothyroid Home medication levothyroxine 127 mcg p.o. acbr Rx: Home medication on hold for now due to nausea and vomiting. Can resume tomorrow ID No active problems MSK/DERM No Active problems ICU Health maintenance: Dispo: Downgrade to floor Diet: Consistent carb low DVT ppx: Enoxaparin GI ppx: Protonix 40mg qD Mechanical ventilattion:NO Sedation: NO IV lines: 2 pIV. 20G right and left forearm Central line: No Arterial line: No [place]: NO Code status: FULL CODE Plan of care discussed with Attending Dr. Tiwari and PGY 3 Dr. Lauren Khan MD PGY 1 Disclaimer: This note was dictated by speech recognition. Minor errors in physical security manager may be present due to voice recognition software. Attending Provider Attestation/Addendum pt seen and examined, agree with above. in brief this is a 69yo M admitted for DKA on insulin gtt. Overnight his AG has closed and he has been transitioned to subq insulin. K this AM is still low and will be replaced both IV and PO. Pt still with severe nausea and will be started RTC from PRN zofran with his prn metoclopramide. Better than on arrival but still has gen malaise. He is stable for downgrade today. case d/w ICU team labs, imaging, records reviewed ~35min required for eval, exam, review, intervention, discussion and formulation of POC for this acutely ill pt
[2025-03-25] MEDS: CALCIUM CARBONATE 600 MG TABLET PO (07:54)
[2025-03-25] MEDS: NAPH,KPH MBDB 1 PACKET (1.5 GM) 2 PACKET PO (07:55)
[2025-03-25] MEDS: INSULIN GLARGINE (Lantus) 5 UNIT/0.05 ML (PER 5 UNITS) 20 UNIT SC (07:55)
[2025-03-25] MEDS: DULoxetine HCL 30 MG CAPSULE 60 MG PO (08:50)
[2025-03-25] MEDS: CLOPIDOGREL BISULFATE 75 MG TABLET PO (08:51)
[2025-03-25] MEDS: ENOXAPARIN SOD INJ 40 MG/0.4 ML SYRINGE SC (08:51)
[2025-03-25] MEDS: PANTOPRAZOLE INJ 40 MG VIAL IVP (08:51)
[2025-03-25] MEDS: TAMSULOSIN HCL 0.4 MG CAPSULE PO (08:51)
--- NOTE | 2025-03-25 10:29 | PC.NURSE ---
Attempted to get med rec done. pt is to weak and tired to recall he said. Family was called and asked for med rec, per family they are unsure what the patient takes.
--- NOTE | 2025-03-25 10:32 | PC.NURSE ---
pt transferred to [facility] @1030 report given to CATHLEEN Mak
[2025-03-25] MEDS: INSULIN LISPRO (AdmeLOG) 1 UNIT/0.01 ML UNIT SC ×2 (11:34→17:36)
--- NOTE | 2025-03-25 11:56 | PC.SS ---
REAL ESTATE RENTAL AGENT conducted bedside contact with the patient conduct initial assessment and to discuss discharge planning.? Patient confirmed demographic information.? Patient resides alone at home.? Patient does not utilize DME to assist with ambulation.? Patient utilizes home oxygen.? Patient describes the ability to complete ADL?s independently.? Patient identified daughter, Matilde Taveras ; as surrogate medical decision maker.? Patient?s PCP is Danay Salas.? Patient does not possess any specialty providers.? Patient does not participate with dialysis.? Patient utilizes [facility] for medication services.? Plan is for the patient to return home at the time of discharge. ?Family will provide transportation on behalf of the patient. ?No further discharge needs identified by the patient.? No further intervention required at this time, social welfare administrator will be available to address any further concerns.? Next of Kin: Matilde Taveras D/C Plan: Home
[2025-03-25] MEDS: SENNA/DOCUSATE SOD 1 TAB TABLET PO (12:38)
[2025-03-25] MEDS: GLYCERIN, ADULT 1 EA SUPP 1 EACH PR (14:16)
--- NOTE | 2025-03-25 19:34 | ESPR_ITS ---
<Statement entered by Dhara Jo MD - 03/26/25 13:37> I agree with plan and examination findings on this note , I have personally seen and examined patient. Labs and imaging reviewed. Dhara Jo PGY3 Documentation for date of: 03/25/25 Subjective Subjective Interval history: Patient has been downgraded from ICU where patient was started on insulin drip his DKA has resolved. Patient is seen and examined at bedside in [facility]. Patient continues to have nausea therefore we will schedule Reglan and will continue Zofran as needed. Patient states that although he has had diarrhea for several days before coming to the hospital he has not had a bowel movement since Saturday denies any abdominal pain however he is very uncomfortable due to dry heaving because of the nausea. Vitals are stable patient is saturating on room air. CBC is not significant CMP shows hypokalemia and hypophosphatemia both potassium and phosphorus have been repleted. Will continue to monitor closely and consulted GI specialist Dr. Denson for unresolving nausea in the setting of Hx of gastroparesis. Exam Vital Signs Temp Pulse Resp BP Pulse Ox O2 Del Method O2 Flow Rate 98.2 F 88 17 145/82 H 98 Room Air 2 03/25/25 15:30 03/25/25 15:30 03/25/25 15:30 03/25/25 15:30 03/25/25 15:30 03/25/25 15:30 03/25/25 08:01 FiO2 3 03/24/25 12:00 Narrative Exam GENERAL: A&Ox3, lethargic appearing elderly male, in mild distress due to nausea NEURO: no focal neurological deficits noted HEENT: Atraumatic, Normocephalic. mucous membranes moist. Eyes open, symmetrical, & clear HEART: Normal Heart Sounds LUNGS: Clear to auscultation with no wheezing or crackles. ABDOMEN: soft, non-distended, non-tender, no guarding or rebound tenderness SKIN: No Rash or ecchymoses EXTREMITIES: No edema, tenderness, able to move all 4 extremities, pedal pulses palpated Objective Labs 03/26/25 04:59 03/26/25 13:10 Labs: Laboratory Results - last 24 hr 03/24/25 03/25/25 03/25/25 19:49 00:06 04:30 WBC 9.4 D RBC 4.38 L Hgb 13.7 Hct 39.2 L MCV 90 MCH 31.3 MCHC 34.9 RDW Std Deviation 44.5 H Plt Count 144 Neut % (Auto) 79 Lymph % (Auto) 8 L [place] % (Auto) 12 Eos % (Auto) 1 Baso % (Auto) 0 Neut # (Auto) 7.4 Lymph # (Auto) 0.8 L [place] # (Auto) 1.2 H Eos # (Auto) 0.1 Baso # (Auto) 0.0 Immature Gran # (Auto) 0.05 H Absolute Nucleated RBC 0.00 Immature Gran % 1 H Nucleated RBC % 0 Sodium 134 L 142 140 Potassium 3.2 L 4.0 D 3.1 L D Chloride 100 104 99 Carbon Dioxide 23.5 26.2 29.3 Anion Gap 11 12 12 BUN 8 L 6 L 5 L Creatinine 0.8 0.7 0.6 Estim Creat Clear Calc 77.5 88.6 103.4 eGFR > 60 > 60 > 60 BUN/Creatinine Ratio 10 L 9 L 8 L Glucose 213 H D 134 H D 147 H Calculated Osmolality 272 L 282 279 Calcium 8.5 8.1 L 8.1 L Corrected Calcium 8.8 8.4 L 8.3 L Phosphorus 1.0 L 1.6 L 1.1 L Magnesium 2.3 2.2 2.1 Albumin 3.6 3.6 3.7 ABG Interpretation ABG results: 03/23/25 03/23/25 03/24/25 10:42 13:39 07:46 VBG pH 7.37 7.37 7.44 VBG pCO2 25 L 30 L 27 L VBG pO2 43 43 65 H D VBG Base Excess -9 L -6 L -5 L Quality Measures Quality Measures sepsis Current suspected stage: ruled out Possible source: genitourinary and unknown Blood cultures ordered: yes Antibiotic ordered: No and none Advance care planning discussed with:: patient Assessment & Plan Assessment Current Active Medications: Generic Name Dose Route Start Last Admin Trade Name Freq PRN Reason Stop Dose Admin Acetaminophen 650 mg 03/22/25 22:05 03/23/25 16:33 Acetaminophen 325 Mg Tablet PO 04/21/25 22:04 650 mg Q6H PRN Administration pain 1-3 and Fever >100.4 Hydrocodone Bitart/Acetaminophen 1 tab 03/22/25 22:05 03/24/25 18:59 Hydrocodone/Apap 5/325 Tablet PO 03/27/25 22:04 1 tab Q4HR PRN Administration PAIN SCALE 4-6 (Moderate Clopidogrel Bisulfate 75 mg 03/23/25 09:00 03/25/25 08:51 Clopidogrel Bisulfate 75 Mg Tablet PO 04/22/25 08:59 75 mg QDAY BUBBA Administration Dextrose 25 ml 03/22/25 22:10 Dextrose 50%-Water Inj 50 Ml Syringe IV 04/21/25 22:09 Q15MIN PRN BG 50-70 responsive npo pt Dextrose 50 ml 03/22/25 22:10 Dextrose 50%-Water Inj 50 Ml Syringe IV 04/21/25 22:09 Q15MIN PRN BG <50 OR BG <70 & pt unresponsive Duloxetine HCl 60 mg 03/23/25 09:00 03/25/25 08:50 Duloxetine Hcl 30 Mg Capsule PO 04/22/25 08:59 60 mg QDAY BUBBA Administration Enoxaparin Sodium 40 mg 03/25/25 09:00 03/25/25 08:51 Enoxaparin Sod Inj 40 Mg/0.4 Ml Syringe SC 04/08/25 08:59 40 mg QDAY BUBBA Administration Glucagon 1 mg 03/22/25 22:10 Glucagon Inj 1 Mg Vial IM Q15MIN PRN BG <70, and no IV access Magnesium Sulfate 2 gm in 50 mls @ 25 mls/hr 03/24/25 09:45 Magnesium Sulfate Ivpb IV 04/23/25 09:44 .Q2H PRN PER DKA PROTOCOL Insulin Human Lispro 3 unit 03/25/25 08:00 03/25/25 17:36 Insulin Lispro (Admelog) 1 Unit/0.01 Ml Unit SC 04/24/25 07:59 Not Given TIDWM BUBBA Insulin Human Lispro 0 unit 03/25/25 11:30 03/25/25 17:36 Insulin Lispro (Admelog) 1 Unit/0.01 Ml Unit SC 04/24/25 11:29 1 unit AC BUBBA Administration Protocol Levothyroxine Sodium 125 mcg 03/23/25 06:00 03/25/25 05:35 Levothyroxine Sodium 125 Mcg Tablet PO 04/22/25 05:59 125 mcg ACBR BUBBA Administration Metoclopramide HCl 10 mg 03/25/25 12:00 06/05/25 18:22 Metoclopramide Inj 5 Mg/Ml Vial 2 Ml IVP 04/24/25 11:59 10 mg Q6HR BUBBA Administration Protocol Ondansetron HCl 4 mg 03/25/25 11:42 03/25/25 16:11 Ondansetron Inj 2 Mg/Ml Inj 2 Ml IVP 04/24/25 09:59 4 mg Q4HR PRN Administration Nausea Or Vomiting Protocol Pantoprazole Sodium 40 mg 03/23/25 09:00 03/25/25 08:51 Pantoprazole Inj 40 Mg Vial IVP 04/22/25 08:59 40 mg QDAY BUBBA Administration Tamsulosin HCl 0.4 mg 03/23/25 09:00 03/25/25 08:51 Tamsulosin Hcl 0.4 Mg Capsule PO 04/22/25 08:59 0.4 mg QDAY BUBBA Administration Plan Mr. Crespo is a 69-year-old male with past medical history of IDDM (on insulin pump), severe PAD s/p stents, CAD s/p stents, peripheral neuropathy, hypothyroidism, BPH, vertebral disc prolapse (on Percocet), and gastroparesis was admitted to hospital on 03/22/2025 for sepsis in the setting of endorgan damage with ADRIA likely secondary to GI infection. #Sepsis secondary to #Gastroenteritis? #Intractable nausea and vomiting #Diarrhea- resolved Patient came in with complaints of nausea, vomiting, and diarrhea since yesterday. Patient was recently on some antibiotics last week for pneumonia DDx includes infectious diarrhea versus C. difficile the setting of antibiotic use Patient met SIRS criteria 4 out of 4 along with signs of endorgan damage as seen with ADRIA and troponinemia No signs of shock CT Abdomen/Pelvis - Atelectasis versus pneumonia right base Plan: -Started Flagyl 500 every 8 hours and ciprofloxacin 400mg Q12H 03/23- 03/24 -IV fluids -Reglan and zofran ordered -Stool cultures and studies ordered -C. difficile, Norovirus ordered -Contact precautions -Will continue to monitor #High anion gap metabolic acidosis in the setting of - resolved #DKA- resolved #Lactic acidosis- resolved #ADRIA-resolved Patient came in with a bicarb of 18.7, anion gap 16, and lactic acid of 3.4 Creatinine 1.4 and baseline is around 0.9 Had a gap metabolic acidosis likely in the setting of lactic acidosis likely secondary to sepsis. Plan: -IV fluids runing -Renally dose medication -Avoid nephrotoxic agents -Upgrade pt to ICU fro further management with insulin drip #Hypoglycemia- resolved #Hx of IDDM (has insulin pump) Patient had a blood sugar in the 50s when EMS arrived at the scene and was given dextrose in the ER. Patient was altered, but at this time is AO x 3. Hypoglycemia slight in the setting of poor oral intake secondary to nausea and vomiting. Last A1c was 5.9 Beta hydroxybuterate 4.8 Plan: -Insulin sliding scale Q4H -Renal panel Q4H -Fluids NS 150cc/hr -hypoglycemia protocol ordered -Asked the patient to keep insulin pump off at this time. -Will continue to monitor #NSTEMI likely type II - improving Patient with troponins of 0.053 Mostly in the setting of sepsis No ST changes in EKG Plan: Trend troponins Will continue to monitor #Severe PAD s/p stents #CAD s/p stents -Resumed patient's home clopidogrel 75 mg #Hypothyroidism -TSH 2.8 on 02/01/25 -Resumed home levothyroxine 125 mcg #Vertebral disc prolapse #Gastroparesis #Peripheral neuropathy -Resumed patient's home duloxetine 60 mg, Reglan 10 mg, and tamsulosin 0.4 mg Health Maintenance Disposition: telemetry for management of sepsis 2/2 to GI infection and DKA DVT Prophylaxis: Heparin 5000 units SC Q8 hrs GI Prophylaxis: Pantoprozol-40 IV/PO Qday Diet: NPO Lines: Peripheral lines Code status: Full Assessment and plan discussed with my senior resident Dr. Jo & attending physician Dr. Silvana Collins (PGY-1)- Internal medicine resident Attending Provider Attestation/Addendum I attest that I was physically present for the evaluation, physical examination, lab and imaging review of the patient with the residents. I discussed the case with the residents and agree with the findings and plans of care as documented above. Patient was transferred to ICU yesterday for management of DKA. He received insulin 60 as per DKA protocol. This morning his anion gap closed, was started on subcutaneous insulin and transferred to medical floor for further management after resolution of DKA. At bedside, patient continues to have significant nausea and vomiting. Patient does have history of gastroparesis, we will schedule his Reglan and continue Zofran as needed. Has not been able to have significant oral intake. Continue with close monitoring. We will continue with IV Flagyl and ciprofloxacin. We will obtain GI consult regarding intractable nausea/vomiting. Demetri Pina MD
--- NOTE | 2025-03-25 21:34 | PD.IMCONS ---
HPI Data of Consult Requesting Physician: Demetri Pina MD Primary Care Provider: Physician No Primary/Family Consult Narrative Reason for consult: Nausea vomiting History of present illness: 69 years male presented to the emergency room via ambulance with episodes of nausea vomiting and not feeling good and somewhat of an altered mental status He had initial blood sugar in the 50s was treated adequately and then he became alert and oriented Prior to the admission he had about 10 episodes of nausea vomiting He does have a history of gastroparesis Has a longstanding insulin dependent diabetes mellitus and insulin pump peripheral neuropathy hypothyroidism BPH ventral disc prolapse requiring Percocet as well as coronary artery disease status post PTCA Patient had a CT scan of the abdomen pelvis done without contrast which showed atelectasis versus right basal pneumonia otherwise negative cc:: cc: Demetri Pina MD Review of Systems Review of Systems Systems Reviewed: All systems reviewed, normal except as documented Past Medical History Surgical History OTHER SURGICAL HX: As in the history of present illness Meds Home Medications and Allergies Home Medications ?Medication ?Instructions ?Recorded ?Confirmed ?Type duloxetine 60 mg capsule,delayed 60 mg PO DAILY Depression ##0 04/12/13 10/02/24 History release (Cymbalta) pregabalin 200 mg capsule (Lyrica) 200 mg PO BID ##60 04/28/16 10/02/24 History cilostazol 100 mg tablet 100 mg PO BID #0 tabs 01/31/17 10/02/24 History metoclopramide HCl 10 mg tablet 10 mg PO [facility] 04/07/18 10/02/24 History levothyroxine 125 mcg capsule 125 mcg PO QDAY 01/14/19 10/02/24 History lovastatin 40 mg tablet 40 mg PO HS 01/14/19 10/02/24 History clopidogrel 75 mg tablet 75 mg PO QDAY 02/16/20 10/02/24 History tamsulosin 0.4 mg capsule 0.4 mg PO QDAY 02/16/20 10/02/24 History omeprazole 40 mg capsule,delayed 40 mg PO QDAY 09/01/20 10/02/24 History release insulin regular human 100 unit/mL 20 unit subcut QID 05/29/22 10/02/24 History injection solution cartridge ergocalciferol (vitamin D2) 1,250 1,250 mcg PO QWEEK 09/26/24 10/02/24 History mcg (50,000 unit) capsule (Vitamin D2) ferrous sulfate 325 mg (65 mg 325 mg PO QDAY 09/26/24 10/02/24 History iron) tablet linaclotide 290 mcg capsule 290 mcg PO AC 09/26/24 10/02/24 History (Linzess) oxycodone-acetaminophen 7.5 mg-325 1 tab PO QID PRN Pain 09/26/24 10/02/24 History mg tablet Allergies Allergy/AdvReac Type Severity Reaction Status Date / Time No Known Allergies Allergy Verified 09/26/24 00:25 Exam Vital Signs Temp Pulse Resp BP Pulse Ox O2 Del Method O2 Flow Rate 97.4 F 116 H 19 118/79 91 L Nasal Cannula 2 03/25/25 20:00 03/25/25 20:00 03/25/25 20:00 03/25/25 20:00 03/25/25 20:00 03/25/25 20:00 03/25/25 20:00 FiO2 3 03/24/25 12:00 Constitutional Comments: Chronically ill-appearing Routine Respiratory Exam Comments: Normal to auscultation Routine Abdominal Exam Comments: Soft nontender Results Labs 03/25/25 04:30 03/25/25 04:30 Labs: Short CBC 03/25/25 Range/Units 04:30 WBC 9.4 D (3.8-10.6) Thou/mm3 Hgb 13.7 (13.5-16.0) g/dL Hct 39.2 L (41.0-53.0) % Plt Count 144 (140-440) Thou/mm3 [facility] 03/25/25 03/25/25 00:06 04:30 Sodium 142 140 Potassium 4.0 D 3.1 L D Chloride 104 99 Carbon Dioxide 26.2 29.3 BUN 6 L 5 L Creatinine 0.7 0.6 Glucose 134 H D 147 H Calcium 8.1 L 8.1 L Liver Function 03/25/25 03/25/25 Range/Units 00:06 04:30 Albumin 3.6 3.7 (3.4-4.8) gm/dL ABG Interpretation ABG results: 03/23/25 03/23/25 03/24/25 10:42 13:39 07:46 VBG pH 7.37 7.37 7.44 VBG pCO2 25 L 30 L 27 L VBG pO2 43 43 65 H D VBG Base Excess -9 L -6 L -5 L Assessment and Plan Additional Assessment & Plan Additional Plan: # Pain abdomen # Nausea vomiting most likely secondary to autonomic neuropathy caused by the longstanding diabetes mellitus leading to gastric motility disorder Rule out gastric outlet obstruction or pyloric channel stenosis Plan N.p.o. midnight tonight except meds Fiberoptic esophagogastroduodenoscopy with possible biopsy possible therapeutic intervention under intravenous moderate sedation Informed consent obtained and scheduled for tomorrow Other medical problems include IDDM on insulin pump Peripheral neuropathy status post stenting Coronary artery disease status post PTCA Vertebral disc prolapse on Percocet Hypothyroidism Peripheral neuropathy BPH Thank you very much for the opportunity to participate in the care of this patient
[2025-03-26] VITALS (17 sets, daily range): BP systolic 96–147; BP diastolic 60–95; PULSE 77–107; RESP 13–24; TEMP 36.2–36.8; O2SAT 90–98; BMI 23.2; BMI 23.1
[2025-03-26] MEDS: METOCLOPRAMIDE INJ 5 MG/ML VIAL 2 ML 10 MG IVP ×4 (00:04→23:53)
[2025-03-26] MEDS: ONDANSETRON INJ 2 MG/ML INJ 2 ML 4 MG IVP ×3 (04:05→12:19)
[2025-03-26 05:57] LABS: Basophils % (Auto) 0 % (0-2.5); Eosinophils % (Auto) 1 % (0-10); Hematocrit 41.5 % (41.0-53.0); Immature Granulocytes % (Auto) 0 % (0-0); Immature Granulocytes Auto 0.02 Thou/mm3 (0.00-0.00); Lymphocytes # (Auto) 0.7 Thou/mm3 (1.0-4.8); Lymphocytes % (Auto) 11 % (10-50); Mean Corpuscular HGB Conc 36.1 g/dl (31.0-37.0); Mean Corpuscular Hemoglobin 31.3 pg (25.0-35.0); Mean Corpuscular Volume 87 fL (80-100); Monocytes # (Auto) 0.9 Thou/mm3 (0.0-0.8); Monocytes % (Auto) 14 % (0-12); Neutrophils # (Auto) 4.9 Thou/mm3 (1.8-7.7); Neutrophils % (Auto) 74 % (37-80); Nucleated Red Blood Cell % 0 /100 WBC (0); Platelet Count 143 Thou/mm3 (140-440); RDW Standard Deviation 43.1 fL (35.1-43.9); White Blood Count 6.6 Thou/mm3 (3.8-10.6)
[2025-03-26 06:16] LABS: Alanine Aminotransferase 15 U/L (10-49); Albumin, Serum 3.8 gm/dL (3.4-4.8); Albumin/Globulin Ratio 2.1 (1.2-2.2); Alkaline Phosphatase 72 U/L (46-116); Anion Gap 17 (7-16); Aspartate Amino Transferase 15 U/L (0-34); BUN/Creatinine Ratio 14 Ratio (12-20); Bilirubin,Total 1.1 mg/dL (0.3-1.2); Blood Urea Nitrogen 10 mg/dL (9-23); Calcium 8.5 mg/dL (8.3-10.6); Calcium (Corrected) 8.7 mg/dL (8.5-10.1); Carbon Dioxide 24.6 mMol/L (20.0-31.0); Chloride 96 mMol/L (98-107); Creatinine (Component) 0.7 mg/dL (0.6-1.3); Estimated Creatinine Clearance 88.6 mL/min (>60); Globulin 1.8 gm/dL (2.3-3.5); Glucose 221 mg/dL (74-106); Magnesium 1.9 mg/dL (1.6-2.6); Osmolality,Calculated 281 (275-295); Potassium 3.1 mMol/L (3.4-5.1); Sodium 138 mMol/L (136-145); Total Protein 5.6 gm/dL (5.7-8.2); eGFR > 60 See Note
[2025-03-26] MEDS: DULoxetine HCL 30 MG CAPSULE 60 MG PO (08:01)
[2025-03-26] MEDS: HYDROcodone/APAP 5/325 TABLET 1 TAB PO ×2 (08:02→12:17)
[2025-03-26] MEDS: TAMSULOSIN HCL 0.4 MG CAPSULE PO (08:02)
[2025-03-26] MEDS: POTASSIUM CHLORIDE 20 mEq TABCR 40 MEQ PO (08:02)
[2025-03-26] MEDS: PANTOPRAZOLE INJ 40 MG VIAL IVP ×2 (08:03→21:14)
[2025-03-26] MEDS: POTASSIUM CHL 10 mEq IVPB 10 MEQ/100 ML BAG 100 MEQ IV ×4 (08:04→12:56)
--- NOTE | 2025-03-26 10:41 | PC.SS ---
Follow up note: Pt is an ICU down grade. Pt is on IV antibiotic. Pt will return home upon dc.
[2025-03-26] MEDS: INSULIN LISPRO (AdmeLOG) 1 UNIT/0.01 ML UNIT 3 UNIT SC (11:39)
[2025-03-26] MEDS: INSULIN LISPRO (AdmeLOG) 1 UNIT/0.01 ML UNIT SC ×2 (11:40→23:58)
[2025-03-26] MEDS: INSULIN GLARGINE (Lantus) 5 UNIT/0.05 ML (PER 5 UNITS) 20 UNIT SC (11:41)
[2025-03-26 13:33] LABS: Albumin, Serum 3.7 gm/dL (3.4-4.8); Anion Gap 15 (7-16); BUN/Creatinine Ratio 17 Ratio (12-20); Blood Urea Nitrogen 12 mg/dL (9-23); Calcium 8.2 mg/dL (8.3-10.6); Calcium (Corrected) 8.4 mg/dL (8.5-10.1); Carbon Dioxide 25.3 mMol/L (20.0-31.0); Chloride 97 mMol/L (98-107); Creatinine (Component) 0.7 mg/dL (0.6-1.3); Estimated Creatinine Clearance 88.6 mL/min (>60); Glucose 191 mg/dL (74-106); Osmolality,Calculated 278 (275-295); Phosphorous 1.3 mg/dL (2.4-5.1); Potassium 4.1 mMol/L (3.4-5.1); Sodium 137 mMol/L (136-145); eGFR > 60 See Note
--- NOTE | 2025-03-26 13:36 | ESPR_ITS ---
Documentation for date of: 03/26/25 Subjective Subjective Interval history: No acute overnight events reported. Patient seen and examined at bedside this morning. Patient continues to have severe nausea and dry heaving denies any gastric or abdominal pain any vomiting. Patient states he is very uncomfortable due to this constant nausea. GI was consulted due to patient's history of gastroparesis plans to undergo EGD today. Patient did not receive his insulin and his and blood glucose was 221 in am and anion gap of 17. Please see orders to continue insulin regardless of patient's n.p.o. status and to check glucose every 6 hours. Repeat renal panel at 2pm. Patient continues to receive Reglan and Zofran patient. Vitals are stable labs are reviewed potassium is repleted. Exam Vital Signs Temp Pulse Resp BP Pulse Ox O2 Del Method O2 Flow Rate 97.6 F 99 17 131/83 H 93 L Nasal Cannula 2 03/26/25 12:00 03/26/25 12:00 03/26/25 12:00 03/26/25 12:00 03/26/25 12:00 03/26/25 12:00 03/26/25 12:00 FiO2 3 03/24/25 12:00 Narrative Exam GENERAL: A&Ox3, lethargic appearing elderly male, in mild distress due to nausea NEURO: no focal neurological deficits noted HEENT: Atraumatic, Normocephalic. mucous membranes moist. Eyes open, symmetrical, & clear HEART: Normal Heart Sounds LUNGS: Clear to auscultation with no wheezing or crackles. ABDOMEN: soft, non-distended, non-tender, no guarding or rebound tenderness SKIN: No Rash or ecchymoses EXTREMITIES: No edema, tenderness, able to move all 4 extremities, pedal pulses palpated Objective Labs 03/27/25 09:20 03/27/25 04:39 Labs: Laboratory Results - last 24 hr 03/26/25 04:59 WBC 6.6 RBC 4.80 Hgb 15.0 Hct 41.5 MCV 87 MCH 31.3 MCHC 36.1 RDW Std Deviation 43.1 Plt Count 143 Neut % (Auto) 74 Lymph % (Auto) 11 [place] % (Auto) 14 H Eos % (Auto) 1 Baso % (Auto) 0 Neut # (Auto) 4.9 Lymph # (Auto) 0.7 L [place] # (Auto) 0.9 H Eos # (Auto) 0.0 Baso # (Auto) 0.0 Immature Gran # (Auto) 0.02 H Absolute Nucleated RBC 0.00 Immature Gran % 0 Nucleated RBC % 0 Sodium 138 Potassium 3.1 L Chloride 96 L Carbon Dioxide 24.6 Anion Gap 17 H BUN 10 Creatinine 0.7 Estim Creat Clear Calc 88.6 eGFR > 60 BUN/Creatinine Ratio 14 Glucose 221 H D Calculated Osmolality 281 Calcium 8.5 Corrected Calcium 8.7 Magnesium 1.9 Total Bilirubin 1.1 AST 15 ALT 15 Alkaline Phosphatase 72 Total Protein 5.6 L Albumin 3.8 Globulin 1.8 L Albumin/Globulin Ratio 2.1 ABG Interpretation ABG results: 03/23/25 03/23/25 03/24/25 10:42 13:39 07:46 VBG pH 7.37 7.37 7.44 VBG pCO2 25 L 30 L 27 L VBG pO2 43 43 65 H D VBG Base Excess -9 L -6 L -5 L Quality Measures Quality Measures sepsis Current suspected stage: ruled out Possible source: genitourinary and unknown Blood cultures ordered: yes Antibiotic ordered: No and none Advance care planning discussed with:: patient Assessment & Plan Assessment Current Active Medications: Generic Name Dose Route Start Last Admin Trade Name Freq PRN Reason Stop Dose Admin Acetaminophen 650 mg 03/22/25 22:05 03/23/25 16:33 Acetaminophen 325 Mg Tablet PO 04/21/25 22:04 650 mg Q6H PRN Administration pain 1-3 and Fever >100.4 Hydrocodone Bitart/Acetaminophen 1 tab 03/22/25 22:05 03/26/25 12:17 Hydrocodone/Apap 5/325 Tablet PO 03/27/25 22:04 1 tab Q4HR PRN Administration PAIN SCALE 4-6 (Moderate Clopidogrel Bisulfate 75 mg 03/23/25 09:00 03/26/25 08:03 Clopidogrel Bisulfate 75 Mg Tablet PO 04/22/25 08:59 Not Given QDAY BUBBA Dextrose 25 ml 03/22/25 22:10 Dextrose 50%-Water Inj 50 Ml Syringe IV 04/21/25 22:09 Q15MIN PRN BG 50-70 responsive npo pt Dextrose 50 ml 03/22/25 22:10 Dextrose 50%-Water Inj 50 Ml Syringe IV 04/21/25 22:09 Q15MIN PRN BG <50 OR BG <70 & pt unresponsive Duloxetine HCl 60 mg 03/23/25 09:00 03/26/25 08:01 Duloxetine Hcl 30 Mg Capsule PO 04/22/25 08:59 60 mg QDAY BUBBA Administration Enoxaparin Sodium 40 mg 03/25/25 09:00 03/26/25 08:03 Enoxaparin Sod Inj 40 Mg/0.4 Ml Syringe SC 04/08/25 08:59 Not Given QDAY BUBBA Glucagon 1 mg 03/22/25 22:10 Glucagon Inj 1 Mg Vial IM Q15MIN PRN BG <70, and no IV access Magnesium Sulfate 2 gm in 50 mls @ 25 mls/hr 03/24/25 09:45 Magnesium Sulfate Ivpb IV 04/23/25 09:44 .Q2H PRN PER DKA PROTOCOL Insulin Glargine 20 unit 03/26/25 10:15 03/26/25 11:41 Insulin Glargine (Lantus) 5 Unit/0.05 Ml (Per 5 Units) SC 04/25/25 10:14 20 unit QDAY BUBBA Administration Insulin Human Lispro 3 unit 03/25/25 08:00 03/26/25 11:39 Insulin Lispro (Admelog) 1 Unit/0.01 Ml Unit SC 04/24/25 07:59 3 unit TIDWM BUBBA Administration Insulin Human Lispro 0 unit 03/26/25 12:00 03/26/25 11:40 Insulin Lispro (Admelog) 1 Unit/0.01 Ml Unit SC 04/25/25 11:59 2 unit Q6HR BUBBA Administration Protocol Levothyroxine Sodium 125 mcg 03/23/25 06:00 03/26/25 05:31 Levothyroxine Sodium 125 Mcg Tablet PO 04/22/25 05:59 Not Given ACBR BUBBA Metoclopramide HCl 10 mg 03/25/25 12:00 03/26/25 11:39 Metoclopramide Inj 5 Mg/Ml Vial 2 Ml IVP 04/24/25 11:59 10 mg Q6HR BUBBA Administration Protocol Ondansetron HCl 4 mg 03/25/25 11:42 03/26/25 12:19 Ondansetron Inj 2 Mg/Ml Inj 2 Ml IVP 04/24/25 09:59 4 mg Q4HR PRN Administration Nausea Or Vomiting Protocol Pantoprazole Sodium 40 mg 03/23/25 09:00 03/26/25 08:03 Pantoprazole Inj 40 Mg Vial IVP 04/22/25 08:59 40 mg QDAY BUBBA Administration Tamsulosin HCl 0.4 mg 03/23/25 09:00 03/26/25 08:02 Tamsulosin Hcl 0.4 Mg Capsule PO 04/22/25 08:59 0.4 mg QDAY BUBBA Administration Plan Mr. Crespo is a 69-year-old male with past medical history of IDDM (on insulin pump), severe PAD s/p stents, CAD s/p stents, peripheral neuropathy, hypothyroidism, BPH, vertebral disc prolapse (on Percocet), and gastroparesis was admitted to hospital on 03/22/2025 for sepsis in the setting of endorgan damage with ADRIA likely secondary to GI infection. #Intractable nausea and vomiting #Sepsis secondary to- resolved #Gastroenteritis? #Diarrhea- resolved Patient came in with complaints of nausea, vomiting, and diarrhea since yesterday. Patient was recently on some antibiotics last week for pneumonia DDx includes infectious diarrhea versus C. difficile the setting of antibiotic use Patient met SIRS criteria 4 out of 4 along with signs of endorgan damage as seen with ADRIA and troponinemia No signs of shock CT Abdomen/Pelvis - Atelectasis versus pneumonia right base Plan: -Flagyl 500 Q8H and ciprofloxacin 400mg Q12H 03/23- 03/24 -IV fluids -Blood cultures no growth at 48 hrs. -Reglan and zofran ordered -Stool cultures and studies ordered -C. difficile, Norovirus ordered but not collected because pt did not have a bowel movement -Will continue to monitor -GI specialist Dr. Denson consulted, appreciate recommendations -Pt is scheduled to undergo EGD #High anion gap metabolic acidosis in the setting of - resolved #DKA- resolved #Lactic acidosis- resolved #ADRIA-resolved Patient came in with a bicarb of 18.7, anion gap 16, and lactic acid of 3.4 Creatinine 1.4 and baseline is around 0.9 Had a gap metabolic acidosis likely in the setting of lactic acidosis likely secondary to sepsis. Plan: -IV fluids runing -Renally dose medication -Avoid nephrotoxic agents -Upgrade pt to ICU fro further management with insulin drip #Hypoglycemia- resolved #Hx of IDDM (has insulin pump) Patient had a blood sugar in the 50s when EMS arrived at the scene and was given dextrose in the ER. Patient was altered, but at this time is AO x 3. Hypoglycemia slight in the setting of poor oral intake secondary to nausea and vomiting. Last A1c was 5.9 Beta hydroxybuterate 4.8 Plan: -Insulin sliding scale Q4H -Renal panel Q4H -Fluids NS 150cc/hr -hypoglycemia protocol ordered -Asked the patient to keep insulin pump off at this time. -Will continue to monitor #NSTEMI likely type II - improving Patient with troponins of 0.053 Mostly in the setting of sepsis No ST changes in EKG Plan: Trend troponins Will continue to monitor #Severe PAD s/p stents #CAD s/p stents -Resumed patient's home clopidogrel 75 mg #Hypothyroidism -TSH 2.8 on 02/01/25 -Resumed home levothyroxine 125 mcg #Vertebral disc prolapse #Gastroparesis #Peripheral neuropathy -Resumed patient's home duloxetine 60 mg, Reglan 10 mg, and tamsulosin 0.4 mg Health Maintenance Disposition: telemetry for management of sepsis 2/2 to GI infection and DKA DVT Prophylaxis: Heparin 5000 units SC Q8 hrs GI Prophylaxis: Pantoprozol-40 IV/PO Qday Diet: NPO Lines: Peripheral lines Code status: Full Assessment and plan discussed with my attending physician Dr. Silvana Collins (PGY-1)- Internal medicine resident Attending Provider Attestation/Addendum I attest that I was physically present for the evaluation, physical examination, lab and imaging review of the patient with the residents. I discussed the case with the residents and agree with the findings and plans of care as documented above. At bedside today, patient continues to have nausea/vomiting. Denies abdominal pain. Appears uncomfortable on exam. Patient's blood glucose went up to 221 as he did not receive his insulin regimen. We will discuss with the nurses to continue insulin despite patient being NPO. Continues to be on Reglan [id number] with Zofran as needed. Patient is planned for EGD with gastroenterology today. Demetri Pina MD
--- NOTE | 2025-03-26 18:37 | SUR.PHASEI ---
Addendum entered by Jacquelin Santizo RN 03/26/25 19:18: BS 54 mg/dL, gave orange juice and apple juice, per protocol Original Note: 1837: pt received from OR via james. received report from CATHLEEN Rivera. pt alert and oriented to name, place and time. BS 54 mg/dL, gave orange juice and apple juice. denies any s/s of hypoglycemia. no s/s of resp. distress or discomfort. no s/s of pain or discomfort.
--- NOTE | 2025-03-26 18:45 | SUR.PHASEI ---
1845: rechecked BS result was 59 mg/dL. Informed Dr. Denson, no new order received but recommendation to give patient orange juice to drink.
[2025-03-26] MEDS: DEXTROSE 50%-WATER INJ 50 ML SYRINGE 25 ML IV (19:03)
--- NOTE | 2025-03-26 19:11 | SUR.PHASEI ---
1910. report given to CATHLEEN Salas
[2025-03-27] VITALS (9 sets, daily range): BP systolic 117–159; BP diastolic 67–98; PULSE 81–97; RESP 16–20; TEMP 36.2–36.9; O2SAT 91–97; BMI 23.0
[2025-03-27] MEDS: ONDANSETRON INJ 2 MG/ML INJ 2 ML 4 MG IVP (04:17)
[2025-03-27 06:18] LABS: Magnesium 2.1 mg/dL (1.6-2.6)
[2025-03-27] MEDS: METOCLOPRAMIDE INJ 5 MG/ML VIAL 2 ML 10 MG IVP ×3 (06:38→17:18)
[2025-03-27] MEDS: LEVOTHYROXINE SODIUM 125 MCG TABLET PO (06:38)
[2025-03-27] MEDS: INSULIN LISPRO (AdmeLOG) 1 UNIT/0.01 ML UNIT SC ×3 (08:21→16:33)
[2025-03-27] MEDS: INSULIN LISPRO (AdmeLOG) 1 UNIT/0.01 ML UNIT 3 UNIT SC ×3 (08:22→16:33)
[2025-03-27] MEDS: ENOXAPARIN SOD INJ 40 MG/0.4 ML SYRINGE SC (08:54)
[2025-03-27] MEDS: INSULIN GLARGINE (Lantus) 5 UNIT/0.05 ML (PER 5 UNITS) 20 UNIT SC (08:57)
[2025-03-27] MEDS: PANTOPRAZOLE INJ 40 MG VIAL IVP ×2 (09:01→21:13)
[2025-03-27] MEDS: DULoxetine HCL 30 MG CAPSULE 60 MG PO (09:01)
[2025-03-27] MEDS: TAMSULOSIN HCL 0.4 MG CAPSULE PO (09:02)
[2025-03-27] MEDS: CLOPIDOGREL BISULFATE 75 MG TABLET PO (09:02)
[2025-03-27 09:26] LABS: Alanine Aminotransferase 13 U/L (10-49); Albumin, Serum 3.7 gm/dL (3.4-4.8); Albumin/Globulin Ratio 2.5 (1.2-2.2); Alkaline Phosphatase 75 U/L (46-116); Anion Gap 11 (7-16); BUN/Creatinine Ratio 23 Ratio (12-20); Bilirubin,Total 0.8 mg/dL (0.3-1.2); Blood Urea Nitrogen 16 mg/dL (9-23); Calcium 8.6 mg/dL (8.3-10.6); Calcium (Corrected) 8.8 mg/dL (8.5-10.1); Carbon Dioxide 28.5 mMol/L (20.0-31.0); Chloride 99 mMol/L (98-107); Creatinine (Component) 0.7 mg/dL (0.6-1.3); Estimated Creatinine Clearance 88.6 mL/min (>60); Globulin 1.5 gm/dL (2.3-3.5); Glucose 224 mg/dL (74-106); Osmolality,Calculated 283 (275-295); Sodium 138 mMol/L (136-145); Total Protein 5.2 gm/dL (5.7-8.2); eGFR > 60 See Note
[2025-03-27 10:00] LABS: Basophils % (Auto) 0 % (0-2.5); Eosinophils # (Auto) 0.1 Thou/mm3 (0.0-0.5); Eosinophils % (Auto) 2 % (0-10); Hematocrit 40.3 % (41.0-53.0); Hemoglobin 14.4 g/dL (13.5-16.0); Immature Granulocytes % (Auto) 1 % (0-0); Immature Granulocytes Auto 0.03 Thou/mm3 (0.00-0.00); Lymphocytes # (Auto) 0.6 Thou/mm3 (1.0-4.8); Lymphocytes % (Auto) 10 % (10-50); Mean Corpuscular HGB Conc 35.7 g/dl (31.0-37.0); Mean Corpuscular Hemoglobin 31.4 pg (25.0-35.0); Mean Corpuscular Volume 88 fL (80-100); Monocytes # (Auto) 0.9 Thou/mm3 (0.0-0.8); Monocytes % (Auto) 14 % (0-12); Neutrophils # (Auto) 4.3 Thou/mm3 (1.8-7.7); Neutrophils % (Auto) 73 % (37-80); Nucleated Red Blood Cell % 0 /100 WBC (0); Platelet Count 158 Thou/mm3 (140-440); RDW Standard Deviation 43.7 fL (35.1-43.9); Red Blood Count 4.58 Miln/mm3 (4.50-5.90); White Blood Count 5.9 Thou/mm3 (3.8-10.6)
[2025-03-27] MEDS: HYDROcodone/APAP 5/325 TABLET 1 TAB PO ×2 (11:54→16:30)
--- NOTE | 2025-03-27 16:32 | PD.RESPRO ---
Documentation for date of: 03/27/25 Subjective Subjective Interval history: No acute overnight events reported. Patient seen and examined at bedside this morning. Patient continues to have nausea and dry heaving however he states it is slightly better than yesterday. Patient denies any abdominal pain. Patient underwent EGD last evening which showed esophageal ulcers, esophagitis and gastritis. Patient is minimally able to tolerate oral diet currently due to nausea. Will continue to monitor patient's improvement of symptoms and diet tolerance. Labs are reviewed and vitals are stable. Exam Vital Signs Temp Pulse Resp BP Pulse Ox O2 Del Method O2 Flow Rate 97.3 F 89 18 136/89 H 93 L Nasal Cannula 2 03/27/25 12:00 03/27/25 12:00 03/27/25 12:03/27/25 12:00 03/27/25 12:03/27/25 12:03/27/25 12:00 FiO2 3 03/24/25 12:00 Narrative Exam GENERAL: A&Ox3, elderly male, cooperative, resting comfortably NEURO: no focal neurological deficits noted HEENT: Atraumatic, Normocephalic. mucous membranes moist. Eyes open, symmetrical, & clear HEART: Normal Heart Sounds LUNGS: Clear to auscultation with no wheezing or crackles. ABDOMEN: soft, non-distended, non-tender, no guarding or rebound tenderness SKIN: No Rash or ecchymoses EXTREMITIES: No edema, tenderness, able to move all 4 extremities, pedal pulses palpated Objective Labs 03/27/25 09:20 03/27/25 04:39 Labs: Laboratory Results - last 24 hr 03/27/25 03/27/25 04:39 09:20 WBC 5.9 RBC 4.58 Hgb 14.4 Hct 40.3 L MCV 88 MCH 31.4 MCHC 35.7 RDW Std Deviation 43.7 Plt Count 158 Neut % (Auto) 73 Lymph % (Auto) 10 [place] % (Auto) 14 H Eos % (Auto) 2 Baso % (Auto) 0 Neut # (Auto) 4.3 Lymph # (Auto) 0.6 L [place] # (Auto) 0.9 H Eos # (Auto) 0.1 Baso # (Auto) 0.0 Immature Gran # (Auto) 0.03 H Absolute Nucleated RBC 0.00 Immature Gran % 1 H Nucleated RBC % 0 Sodium 138 Potassium 4.0 Chloride 99 Carbon Dioxide 28.5 Anion Gap 11 BUN 16 Creatinine 0.7 Estim Creat Clear Calc 88.6 eGFR > 60 BUN/Creatinine Ratio 23 H Glucose 224 H Calculated Osmolality 283 Calcium 8.6 Corrected Calcium 8.8 Magnesium 2.1 Total Bilirubin 0.8 ALT 13 Alkaline Phosphatase 75 Total Protein 5.2 L Albumin 3.7 Globulin 1.5 L Albumin/Globulin Ratio 2.5 H ABG Interpretation ABG results: 03/23/25 03/23/25 03/24/25 10:42 13:39 07:46 VBG pH 7.37 7.37 7.44 VBG pCO2 25 L 30 L 27 L VBG pO2 43 43 65 H D VBG Base Excess -9 L -6 L -5 L Quality Measures Quality Measures sepsis Current suspected stage: ruled out Possible source: genitourinary and unknown Blood cultures ordered: yes Antibiotic ordered: No and none Advance care planning discussed with:: patient Assessment & Plan Assessment Current Active Medications: Generic Name Dose Route Start Last Admin Trade Name Freq PRN Reason Stop Dose Admin Acetaminophen 650 mg 03/22/25 22:05 03/23/25 16:33 Acetaminophen 325 Mg Tablet PO 04/21/25 22:04 650 mg Q6H PRN Administration pain 1-3 and Fever >100.4 Hydrocodone Bitart/Acetaminophen 1 tab 03/22/25 22:05 03/27/25 16:30 Hydrocodone/Apap 5/325 Tablet PO 03/27/25 22:04 1 tab Q4HR PRN Administration PAIN SCALE 4-6 (Moderate Clopidogrel Bisulfate 75 mg 03/23/25 09:00 03/27/25 09:02 Clopidogrel Bisulfate 75 Mg Tablet PO 04/22/25 08:59 75 mg QDAY BUBBA Administration Dextrose 25 ml 03/22/25 22:10 03/26/25 19:03 Dextrose 50%-Water Inj 50 Ml Syringe IV 04/21/25 22:09 25 ml Q15MIN PRN Administration BG 50-70 responsive npo pt Dextrose 50 ml 03/22/25 22:10 Dextrose 50%-Water Inj 50 Ml Syringe IV 04/21/25 22:09 Q15MIN PRN BG <50 OR BG <70 & pt unresponsive Duloxetine HCl 60 mg 03/23/25 09:00 03/27/25 09:01 Duloxetine Hcl 30 Mg Capsule PO 04/22/25 08:59 60 mg QDAY BUBBA Administration Enoxaparin Sodium 40 mg 03/25/25 09:00 03/27/25 08:54 Enoxaparin Sod Inj 40 Mg/0.4 Ml Syringe SC 04/08/25 08:59 40 mg QDAY BUBBA Administration Glucagon 1 mg 03/22/25 22:10 Glucagon Inj 1 Mg Vial IM Q15MIN PRN BG <70, and no IV access Magnesium Sulfate 2 gm in 50 mls @ 25 mls/hr 03/24/25 09:45 Magnesium Sulfate Ivpb IV 04/23/25 09:44 .Q2H PRN PER DKA PROTOCOL Insulin Glargine 20 unit 03/26/25 10:15 03/27/25 08:57 Insulin Glargine (Lantus) 5 Unit/0.05 Ml (Per 5 Units) SC 04/25/25 10:14 20 unit QDAY BUBBA Administration Insulin Human Lispro 3 unit 03/25/25 08:00 03/27/25 11:51 Insulin Lispro (Admelog) 1 Unit/0.01 Ml Unit SC 04/24/25 07:59 3 unit TIDWM BUBBA Administration Insulin Human Lispro 0 unit 03/27/25 07:30 03/27/25 11:52 Insulin Lispro (Admelog) 1 Unit/0.01 Ml Unit SC 04/26/25 07:29 4 unit ACHS BUBBA Administration Protocol Levothyroxine Sodium 125 mcg 03/23/25 06:00 03/27/25 06:38 Levothyroxine Sodium 125 Mcg Tablet PO 04/22/25 05:59 125 mcg ACBR BUBBA Administration Metoclopramide HCl 10 mg 03/25/25 12:00 03/27/25 11:53 Metoclopramide Inj 5 Mg/Ml Vial 2 Ml IVP 04/24/25 11:59 10 mg Q6HR BUBBA Administration Protocol Ondansetron HCl 4 mg 03/25/25 11:42 03/27/25 04:17 Ondansetron Inj 2 Mg/Ml Inj 2 Ml IVP 04/24/25 09:59 4 mg Q4HR PRN Administration Nausea Or Vomiting Protocol Pantoprazole Sodium 40 mg 03/26/25 21:00 03/27/25 09:01 Pantoprazole Inj 40 Mg Vial IVP 04/25/25 20:59 40 mg BID BUBBA Administration Tamsulosin HCl 0.4 mg 03/23/25 09:00 03/27/25 09:02 Tamsulosin Hcl 0.4 Mg Capsule PO 04/22/25 08:59 0.4 mg QDAY BUBBA Administration Plan Mr. Crespo is a 69-year-old male with past medical history of IDDM (on insulin pump), severe PAD s/p stents, CAD s/p stents, peripheral neuropathy, hypothyroidism, BPH, vertebral disc prolapse (on Percocet), and gastroparesis was admitted to hospital on 03/22/2025 for sepsis in the setting of endorgan damage with ADRIA likely secondary to GI infection. #Intractable nausea and vomiting #Sepsis secondary to- resolved #Gastroenteritis? #Diarrhea- resolved Patient came in with complaints of nausea, vomiting, and diarrhea since yesterday. Patient was recently on some antibiotics last week for pneumonia DDx includes infectious diarrhea versus C. difficile the setting of antibiotic use Patient met SIRS criteria 4 out of 4 along with signs of endorgan damage as seen with ADRIA and troponinemia No signs of shock CT Abdomen/Pelvis - Atelectasis versus pneumonia right base EGD: esophageal ulcers, esophagitis and gastritis Plan: -Flagyl 500 Q8H and ciprofloxacin 400mg Q12H 03/23- 03/24 -IV fluids -Blood cultures no growth at 48 hrs. -Reglan and zofran ordered -Stool cultures and studies ordered -C. difficile, Norovirus ordered but not collected because pt did not have a bowel movement -Will continue to monitor -GI specialist Dr. Denson consulted, appreciate recommendations -protonix BID #High anion gap metabolic acidosis in the setting of - resolved #DKA- resolved #Lactic acidosis- resolved #ADRIA-resolved Patient came in with a bicarb of 18.7, anion gap 16, and lactic acid of 3.4 Creatinine 1.4 and baseline is around 0.9 Had a gap metabolic acidosis likely in the setting of lactic acidosis likely secondary to sepsis. Plan: -IV fluids runing -Renally dose medication -Avoid nephrotoxic agents -Upgrade pt to ICU fro further management with insulin drip #Hypoglycemia- resolved #Hx of IDDM (has insulin pump) Patient had a blood sugar in the 50s when EMS arrived at the scene and was given dextrose in the ER. Patient was altered, but at this time is AO x 3. Hypoglycemia slight in the setting of poor oral intake secondary to nausea and vomiting. Last A1c was 5.9 Beta hydroxybuterate 4.8 Plan: -Insulin sliding scale Q4H -Renal panel Q4H -Fluids NS 150cc/hr -hypoglycemia protocol ordered -Asked the patient to keep insulin pump off at this time. -Will continue to monitor #NSTEMI likely type II - improving Patient with troponins of 0.053 Mostly in the setting of sepsis No ST changes in EKG Plan: Trend troponins Will continue to monitor #Severe PAD s/p stents #CAD s/p stents -Resumed patient's home clopidogrel 75 mg #Hypothyroidism -TSH 2.8 on 02/01/25 -Resumed home levothyroxine 125 mcg #Vertebral disc prolapse #Gastroparesis #Peripheral neuropathy -Resumed patient's home duloxetine 60 mg, Reglan 10 mg, and tamsulosin 0.4 mg #BPH -Resumed home tamsulosin Health Maintenance Disposition: telemetry for management of sepsis 2/2 to GI infection and DKA DVT Prophylaxis: Heparin 5000 units SC Q8 hrs GI Prophylaxis: Pantoprozol-40 IV BID Diet: Diet low fiber Lines: Peripheral lines Code status: Full Assessment and plan discussed with my attending physician Dr. Silvana Collins (PGY-1)- Internal medicine resident Attending Provider Attestation/Addendum I attest that I was physically present for the evaluation, physical examination, lab and imaging review of the patient with the residents. I discussed the case with the residents and agree with the findings and plans of care as documented above. At bedside today, patient appears uncomfortable, continues to have nausea and vomiting. Had a EGD yesterday, showed esophageal ulcers and esophagitis. Has been started on Protonix. We will discuss with GI for further recommendations regarding intractable nausea/vomiting. Demetri Pina MD
--- NOTE | 2025-03-27 16:53 | ESPR_ITS ---
Documentation for date of: 03/27/25 Subjective Subjective Interval history: No further nausea vomiting Upper endoscopy showed ulceration of the mid and distal esophagus and gastritis Exam Vital Signs Temp Pulse Resp BP Pulse Ox O2 Del Method O2 Flow Rate 97.3 F 89 18 136/89 H 93 L Nasal Cannula 2 03/27/25 12:00 03/27/25 12:00 03/27/25 12:00 03/27/25 12:00 03/27/25 12:00 03/27/25 12:00 03/27/25 12:00 FiO2 3 03/24/25 12:00 Objective Labs 03/27/25 09:20 03/27/25 04:39 Labs: Laboratory Results - last 24 hr 03/27/25 03/27/25 04:39 09:20 WBC 5.9 RBC 4.58 Hgb 14.4 Hct 40.3 L MCV 88 MCH 31.4 MCHC 35.7 RDW Std Deviation 43.7 Plt Count 158 Neut % (Auto) 73 Lymph % (Auto) 10 [place] % (Auto) 14 H Eos % (Auto) 2 Baso % (Auto) 0 Neut # (Auto) 4.3 Lymph # (Auto) 0.6 L [place] # (Auto) 0.9 H Eos # (Auto) 0.1 Baso # (Auto) 0.0 Immature Gran # (Auto) 0.03 H Absolute Nucleated RBC 0.00 Immature Gran % 1 H Nucleated RBC % 0 Sodium 138 Potassium 4.0 Chloride 99 Carbon Dioxide 28.5 Anion Gap 11 BUN 16 Creatinine 0.7 Estim Creat Clear Calc 88.6 eGFR > 60 BUN/Creatinine Ratio 23 H Glucose 224 H Calculated Osmolality 283 Calcium 8.6 Corrected Calcium 8.8 Magnesium 2.1 Total Bilirubin 0.8 ALT 13 Alkaline Phosphatase 75 Total Protein 5.2 L Albumin 3.7 Globulin 1.5 L Albumin/Globulin Ratio 2.5 H Impressions Impression: Distal esophageal ulcers Gastritis Gastric motility disorder Continue Protonix and Reglan ABG Interpretation ABG results: 03/23/25 03/23/25 03/24/25 10:42 13:39 07:46 VBG pH 7.37 7.37 7.44 VBG pCO2 25 L 30 L 27 L VBG pO2 43 43 65 H D VBG Base Excess -9 L -6 L -5 L Assessment & Plan A&P Narrative # Pain abdomen # Nausea vomiting most likely secondary to autonomic neuropathy caused by the longstanding diabetes mellitus leading to gastric motility disorder Rule out gastric outlet obstruction or pyloric channel stenosis Plan N.p.o. midnight tonight except meds Fiberoptic esophagogastroduodenoscopy with possible biopsy possible therapeutic intervention under intravenous moderate sedation Informed consent obtained and scheduled for tomorrow Other medical problems include IDDM on insulin pump Peripheral neuropathy status post stenting Coronary artery disease status post PTCA Vertebral disc prolapse on Percocet Hypothyroidism Peripheral neuropathy BPH Thank you very much for the opportunity to participate in the care of this patient Time Spent With Patient Time: Total time spent is greater than 50% in coordination of care (as documented) at patient's floor/unit and/or counseling patient:
[2025-03-27] MEDS: SENNA TABLET 1 TAB PO (17:18)
[2025-03-28] VITALS (9 sets, daily range): BP systolic 94–161; BP diastolic 56–97; PULSE 70–105; RESP 14–20; TEMP 36.2–36.9; O2SAT 91–97
[2025-03-28] MEDS: HYDROcodone/APAP 5/325 TABLET 1 TAB PO ×3 (00:04→22:45)
[2025-03-28] MEDS: MELATONIN 3 MG TABLET PO ×2 (00:04→20:23)
[2025-03-28] MEDS: METOCLOPRAMIDE INJ 5 MG/ML VIAL 2 ML 10 MG IVP ×4 (00:04→17:02)
[2025-03-28] MEDS: LEVOTHYROXINE SODIUM 125 MCG TABLET PO (05:05)
[2025-03-28 06:21] LABS: Basophils % (Auto) 1 % (0-2.5); Eosinophils # (Auto) 0.7 Thou/mm3 (0.0-0.5); Eosinophils % (Auto) 11 % (0-10); Hematocrit 43.2 % (41.0-53.0); Hemoglobin 14.9 g/dL (13.5-16.0); Immature Granulocytes % (Auto) 2 % (0-0); Lymphocytes % (Auto) 33 % (10-50); Mean Corpuscular HGB Conc 34.5 g/dl (31.0-37.0); Mean Corpuscular Hemoglobin 31.6 pg (25.0-35.0); Mean Corpuscular Volume 92 fL (80-100); Monocytes % (Auto) 16 % (0-12); Neutrophils # (Auto) 2.2 Thou/mm3 (1.8-7.7); Neutrophils % (Auto) 37 % (37-80); Nucleated Red Blood Cell % 0 /100 WBC (0); Platelet Count 181 Thou/mm3 (140-440); RDW Standard Deviation 46.2 fL (35.1-43.9); Red Blood Count 4.71 Miln/mm3 (4.50-5.90)
[2025-03-28] MEDS: ONDANSETRON INJ 2 MG/ML INJ 2 ML 4 MG IVP ×2 (07:15→14:34)
[2025-03-28] MEDS: INSULIN LISPRO (AdmeLOG) 1 UNIT/0.01 ML UNIT SC ×3 (07:20→20:29)
[2025-03-28] MEDS: INSULIN LISPRO (AdmeLOG) 1 UNIT/0.01 ML UNIT 3 UNIT SC (07:20)
[2025-03-28 07:29] LABS: Alanine Aminotransferase 13 U/L (10-49); Albumin, Serum 3.7 gm/dL (3.4-4.8); Albumin/Globulin Ratio 2.2 (1.2-2.2); Alkaline Phosphatase 65 U/L (46-116); Anion Gap 10 (7-16); BUN/Creatinine Ratio 25 Ratio (12-20); Bilirubin,Total 0.6 mg/dL (0.3-1.2); Blood Urea Nitrogen 20 mg/dL (9-23); Calcium (Corrected) 9.2 mg/dL (8.5-10.1); Carbon Dioxide 32.8 mMol/L (20.0-31.0); Chloride 97 mMol/L (98-107); Creatinine (Component) 0.8 mg/dL (0.6-1.3); Estimated Creatinine Clearance 77.5 mL/min (>60); Globulin 1.7 gm/dL (2.3-3.5); Glucose 71 mg/dL (74-106); Magnesium 2.1 mg/dL (1.6-2.6); Osmolality,Calculated 280 (275-295); Phosphorous 3.1 mg/dL (2.4-5.1); Potassium 3.8 mMol/L (3.4-5.1); Sodium 140 mMol/L (136-145); Total Protein 5.4 gm/dL (5.7-8.2); eGFR > 60 See Note
[2025-03-28] MEDS: MG HYD/AL HYD/SIME (Maalox Reg) SUSP 30 ML UDC PO (08:10)
[2025-03-28] MEDS: DULoxetine HCL 30 MG CAPSULE 60 MG PO (08:11)
[2025-03-28] MEDS: PANTOPRAZOLE INJ 40 MG VIAL IVP ×2 (08:11→20:22)
[2025-03-28] MEDS: ENOXAPARIN SOD INJ 40 MG/0.4 ML SYRINGE SC (08:11)
[2025-03-28] MEDS: CLOPIDOGREL BISULFATE 75 MG TABLET PO (08:12)
[2025-03-28] MEDS: INSULIN GLARGINE (Lantus) 5 UNIT/0.05 ML (PER 5 UNITS) 20 UNIT SC (08:12)
[2025-03-28] MEDS: SENNA TABLET 1 TAB PO (08:12)
[2025-03-28] MEDS: TAMSULOSIN HCL 0.4 MG CAPSULE PO (08:12)
[2025-03-28] MEDS: PROCHLORPERAZINE MALEATE 5 MG TABLET PO ×3 (09:20→22:45)
--- NOTE | 2025-03-28 11:24 | PC.NURSE ---
Verified with MD saldana on pts current BS level of 182 per MD continue with both administrations per protocol and scheduled dose of lispro.
[2025-03-28] MEDS: INSULIN LISPRO (AdmeLOG) 1 UNIT/0.01 ML UNIT 5 UNIT SC ×2 (11:26→17:01)
--- NOTE | 2025-03-28 12:00 | EKG_ITS ---
[facility] Test Date: 2025-03-28 Pat Name: ALEX FLEMING [facility] Gender: Male Prune Washer: LASHAUN : 1955 Requested By: Dhara Jo Order Number: [id number] Reading MD: Dhara Jo Measurements Intervals [place] Rate: 85 P: 41 GA: 126 QRS: 52 QRSD: 100 T: 59 QT: 360 QTc: 428 Interpretive Statements SINUS RHYTHM Compared to ECG 03/24/2025 04:45:19 Myocardial infarct finding no longer present /store/S0/[id number].pdf
--- NOTE | 2025-03-28 15:26 | ESPR_ITS ---
Documentation for date of: 03/28/25 Subjective Subjective Interval history: Overnight events, patient continues to have nausea and vomiting, we will add prochlorperazine and Maalox and reevaluate. Patient had a solid bowel movement this AM. Exam Vital Signs Temp Pulse Resp BP Pulse Ox O2 Del Method O2 Flow Rate 98.0 F 89 17 155/97 H 92 L Nasal Cannula 2 03/28/25 12:00 03/28/25 12:00 03/28/25 12:03/28/25 12:03/28/25 12:03/28/25 12:03/28/25 12:00 FiO2 3 03/24/25 12:00 Narrative Exam GENERAL: Awake, alert and oriented. Nauseous HEENT: Normocephalic, atraumatic and nontender.? NECK: Supple without adenopathy. Trachea midline, no JVD.? CHEST: RRR, S1 & 2 normal insensity. Nontender on palpation, no deformity and no crepitus. LUNGS: Lung sounds are clear.? No wheezing, rales or ronchi.? No intercostal subcostal retraction. Room air ABDOMEN: Soft,symmetric , nontender, no guarding or rebound tenderness. No abnormal masses palpated Bowel sounds are normoactive in all 4 quadrants. EXTREMITIES: Nontender.? No pitting edema.? No cyanosis.? Patient is able to move all 4 extremities. SKIN: No rashes noted. NEURO:? Cranial nerves intact.? There is no focalization.? GCS is 15. Objective Labs 03/28/25 05:12 03/28/25 05:12 Labs: Laboratory Results - last 24 hr 03/28/25 05:12 WBC 6.0 RBC 4.71 Hgb 14.9 Hct 43.2 MCV 92 MCH 31.6 MCHC 34.5 RDW Std Deviation 46.2 H Plt Count 181 Neut % (Auto) 37 Lymph % (Auto) 33 [place] % (Auto) 16 H Eos % (Auto) 11 H Baso % (Auto) 1 Neut # (Auto) 2.2 Lymph # (Auto) 2.0 [place] # (Auto) 1.0 H Eos # (Auto) 0.7 H Baso # (Auto) 0.0 Immature Gran # (Auto) 0.10 H Absolute Nucleated RBC 0.00 Immature Gran % 2 H Nucleated RBC % 0 Sodium 140 Potassium 3.8 Chloride 97 L Carbon Dioxide 32.8 H Anion Gap 10 BUN 20 Creatinine 0.8 Estim Creat Clear Calc 77.5 eGFR > 60 BUN/Creatinine Ratio 25 H Glucose 71 L D Calculated Osmolality 280 Calcium 9.0 Corrected Calcium 9.2 Phosphorus 3.1 Magnesium 2.1 Total Bilirubin 0.6 ALT 13 Alkaline Phosphatase 65 Total Protein 5.4 L Albumin 3.7 Globulin 1.7 L Albumin/Globulin Ratio 2.2 ABG Interpretation ABG results: 03/23/25 03/23/25 03/24/25 10:42 13:39 07:46 VBG pH 7.37 7.37 7.44 VBG pCO2 25 L 30 L 27 L VBG pO2 43 43 65 H D VBG Base Excess -9 L -6 L -5 L Quality Measures Quality Measures sepsis Current suspected stage: ruled out Possible source: genitourinary and unknown Blood cultures ordered: yes Antibiotic ordered: No and none Advance care planning discussed with:: patient Assessment & Plan Assessment Current Active Medications: Generic Name Dose Route Start Last Admin Trade Name Freq PRN Reason Stop Dose Admin Acetaminophen 650 mg 03/22/25 22:05 03/23/25 16:33 Acetaminophen 325 Mg Tablet PO 04/21/25 22:04 650 mg Q6H PRN Administration pain 1-3 and Fever >100.4 Hydrocodone Bitart/Acetaminophen 1 tab 03/27/25 22:35 03/28/25 00:04 Hydrocodone/Apap 5/325 Tablet PO 04/01/25 22:34 1 tab Q6HR PRN Administration PAIN SCALE 4-6 (Moderate Al Hydrox/Mg Hydrox/Simethicone 30 ml 03/28/25 07:55 03/28/25 08:10 Mg Hyd/Al Hyd/Maria M (Maalox Reg) Susp 30 Ml Udc PO 04/27/25 07:54 30 ml Q4HR PRN Administration UPSET STOMACH/INDIGESTION Clopidogrel Bisulfate 75 mg 03/23/25 09:00 03/28/25 08:12 Clopidogrel Bisulfate 75 Mg Tablet PO 04/22/25 08:59 75 mg QDAY BUBBA Administration Dextrose 25 ml 03/22/25 22:10 03/26/25 19:03 Dextrose 50%-Water Inj 50 Ml Syringe IV 04/21/25 22:09 25 ml Q15MIN PRN Administration BG 50-70 responsive npo pt Dextrose 50 ml 03/22/25 22:10 Dextrose 50%-Water Inj 50 Ml Syringe IV 04/21/25 22:09 Q15MIN PRN BG <50 OR BG <70 & pt unresponsive Duloxetine HCl 60 mg 03/23/25 09:00 03/28/25 08:11 Duloxetine Hcl 30 Mg Capsule PO 04/22/25 08:59 60 mg QDAY BUBBA Administration Enoxaparin Sodium 40 mg 03/25/25 09:00 03/28/25 08:11 Enoxaparin Sod Inj 40 Mg/0.4 Ml Syringe SC 04/08/25 08:59 40 mg QDAY BUBBA Administration Glucagon 1 mg 03/22/25 22:10 Glucagon Inj 1 Mg Vial IM Q15MIN PRN BG <70, and no IV access Magnesium Sulfate 2 gm in 50 mls @ 25 mls/hr 03/24/25 09:45 Magnesium Sulfate Ivpb IV 04/23/25 09:44 .Q2H PRN PER DKA PROTOCOL Insulin Glargine 15 unit 03/29/25 09:00 Insulin Glargine (Lantus) 5 Unit/0.05 Ml (Per 5 Units) SC 04/28/25 08:59 QDAY BUBBA Insulin Human Lispro 0 unit 03/27/25 07:30 03/28/25 11:25 Insulin Lispro (Admelog) 1 Unit/0.01 Ml Unit SC 04/26/25 07:29 1 unit ACHS BUBBA Administration Protocol Insulin Human Lispro 5 unit 03/28/25 12:00 03/28/25 11:26 Insulin Lispro (Admelog) 1 Unit/0.01 Ml Unit SC 04/27/25 11:59 5 unit TIDWM BUBBA Administration Levothyroxine Sodium 125 mcg 03/23/25 06:00 03/28/25 05:05 Levothyroxine Sodium 125 Mcg Tablet PO 04/22/25 05:59 125 mcg ACBR BUBBA Administration Melatonin 3 mg 03/27/25 23:55 03/28/25 00:04 Melatonin 3 Mg Tablet PO 04/26/25 23:54 3 mg HS BUBBA Administration Metoclopramide HCl 10 mg 03/25/25 12:00 03/28/25 11:26 Metoclopramide Inj 5 Mg/Ml Vial 2 Ml IVP 04/24/25 11:59 10 mg Q6HR BUBBA Administration Protocol Ondansetron HCl 4 mg 03/25/25 11:42 03/28/25 14:34 Ondansetron Inj 2 Mg/Ml Inj 2 Ml IVP 04/24/25 09:59 4 mg Q4HR PRN Administration Nausea Or Vomiting Protocol Pantoprazole Sodium 40 mg 03/26/25 21:00 03/28/25 08:11 Pantoprazole Inj 40 Mg Vial IVP 04/25/25 20:59 40 mg BID BUBBA Administration Prochlorperazine Maleate 5 mg 03/28/25 09:15 03/28/25 13:47 Prochlorperazine Maleate 5 Mg Tablet PO 04/27/25 09:14 5 mg TID BUBBA Administration Sennosides 1 tab 03/27/25 16:45 03/28/25 08:12 Senna Tablet PO 04/26/25 16:44 1 tab QDAY BUBBA Administration Protocol Tamsulosin HCl 0.4 mg 03/23/25 09:00 03/28/25 08:12 Tamsulosin Hcl 0.4 Mg Capsule PO 04/22/25 08:59 0.4 mg QDAY BUBBA Administration Plan Mr. Crespo is a 69-year-old male with past medical history of IDDM (on insulin pump), severe PAD s/p stents, CAD s/p stents, peripheral neuropathy, hypothyroidism, BPH, vertebral disc prolapse (on Percocet), and gastroparesis was admitted to hospital on 03/22/2025 for sepsis in the setting of endorgan damage with ADRIA likely secondary to GI infection. #Intractable nausea and vomiting #Sepsis, resolved #Diarrhea- resolved Patient came in with complaints of nausea, vomiting, and diarrhea Patient was recently on some antibiotics for pneumonia Patient met SIRS criteria 4 out of 4 along with signs of endorgan damage as seen with ADRIA and troponinemia No signs of shock CT Abdomen/Pelvis - Atelectasis versus pneumonia right base EGD: esophageal ulcers, esophagitis and gastritis Plan: -Flagyl 500 Q8H and ciprofloxacin 400mg Q12H 03/23- 03/24 -IV fluids -Blood cultures no growth at 48 hrs. -Reglan and zofran ordered, added maalox and prochlorperazine -Will continue to monitor -GI specialist Dr. Denson consulted, EGD showed gastritis and esophagitis with some esophageal ulcers -protonix BID #High anion gap metabolic acidosis in the setting of - resolved #DKA- resolved #Lactic acidosis- resolved #ADRIA-resolved Patient came in with a bicarb of 18.7, anion gap 16, and lactic acid of 3.4 Creatinine 1.4 and baseline is around 0.9 Had a gap metabolic acidosis likely in the setting of lactic acidosis likely secondary to sepsis. Plan: -IV fluids runing -Renally dose medication -Avoid nephrotoxic agents -Upgrade pt to ICU fro further management with insulin drip #Hypoglycemia- resolved #Hx of IDDM (has insulin pump) Patient had a blood sugar in the 50s when EMS arrived at the scene and was given dextrose in the ER. Patient was altered, but at this time is AO x 3. Hypoglycemia slight in the setting of poor oral intake secondary to nausea and vomiting. Last A1c was 5.9 Beta hydroxybuterate 4.8 Plan: -Insulin sliding scale Q4H -Renal panel Q4H -Fluids NS 150cc/hr -hypoglycemia protocol ordered -Asked the patient to keep insulin pump off at this time. -Will continue to monitor #NSTEMI likely type II - improving Patient with troponins of 0.053 Mostly in the setting of sepsis No ST changes in EKG Plan: Trend troponins Will continue to monitor #Severe PAD s/p stents #CAD s/p stents -Resumed patient's home clopidogrel 75 mg #Hypothyroidism -TSH 2.8 on 02/01/25 -Resumed home levothyroxine 125 mcg #Vertebral disc prolapse #Gastroparesis #Peripheral neuropathy -Resumed patient's home duloxetine 60 mg, Reglan 10 mg, and tamsulosin 0.4 mg #BPH -Resumed home tamsulosin Health Maintenance Disposition: telemetry for management of sepsis 2/2 to GI infection and DKA DVT Prophylaxis: Heparin 5000 units SC Q8 hrs GI Prophylaxis: Pantoprozol-40 IV BID Diet: Diet low fiber Lines: Peripheral lines Code status: Full Assessment and plan discussed with my attending physician Dr. Silvana Jo MD PGY3 Attending Provider Attestation/Addendum I attest that I was physically present for the evaluation, physical examination, lab and imaging review of the patient with the residents. I discussed the case with the residents and agree with the findings and plans of care as documented above. At bedside today, patient continues to have nausea and vomiting. Added prochlorperazine and Maalox. We will continue to monitor closely for resolution of symptoms. Once nausea and vomiting improves, we will plan for discharge. Demetri Pina MD
--- NOTE | 2025-03-28 20:14 | ESPR_ITS ---
Documentation for date of: 03/28/25 Subjective Subjective Interval history: Upper endoscopy showed esophageal ulcers Gastritis Hemoglobin hematocrit 14.9 and 43.2 Nausea vomiting improved Exam Vital Signs Temp Pulse Resp BP Pulse Ox O2 Del Method O2 Flow Rate 97.2 F 9 L 15 129/86 H 97 Nasal Cannula 2 03/28/25 15:54 03/28/25 20:00 03/28/25 15:54 03/28/25 15:54 03/28/25 15:54 03/28/25 12:00 03/28/25 12:00 FiO2 3 03/24/25 12:00 Objective Labs 03/28/25 05:12 03/28/25 05:12 Labs: Laboratory Results - last 24 hr 03/28/25 05:12 WBC 6.0 RBC 4.71 Hgb 14.9 Hct 43.2 MCV 92 MCH 31.6 MCHC 34.5 RDW Std Deviation 46.2 H Plt Count 181 Neut % (Auto) 37 Lymph % (Auto) 33 [place] % (Auto) 16 H Eos % (Auto) 11 H Baso % (Auto) 1 Neut # (Auto) 2.2 Lymph # (Auto) 2.0 [place] # (Auto) 1.0 H Eos # (Auto) 0.7 H Baso # (Auto) 0.0 Immature Gran # (Auto) 0.10 H Absolute Nucleated RBC 0.00 Immature Gran % 2 H Nucleated RBC % 0 Sodium 140 Potassium 3.8 Chloride 97 L Carbon Dioxide 32.8 H Anion Gap 10 BUN 20 Creatinine 0.8 Estim Creat Clear Calc 77.5 eGFR > 60 BUN/Creatinine Ratio 25 H Glucose 71 L D Calculated Osmolality 280 Calcium 9.0 Corrected Calcium 9.2 Phosphorus 3.1 Magnesium 2.1 Total Bilirubin 0.6 ALT 13 Alkaline Phosphatase 65 Total Protein 5.4 L Albumin 3.7 Globulin 1.7 L Albumin/Globulin Ratio 2.2 Impressions Impression: Esophageal ulcers Gastritis Esophagitis Improved nausea vomiting Continue current meds ABG Interpretation ABG results: 03/23/25 03/23/25 03/24/25 10:42 13:39 07:46 VBG pH 7.37 7.37 7.44 VBG pCO2 25 L 30 L 27 L VBG pO2 43 43 65 H D VBG Base Excess -9 L -6 L -5 L Assessment & Plan A&P Narrative # Pain abdomen # Nausea vomiting most likely secondary to autonomic neuropathy caused by the longstanding diabetes mellitus leading to gastric motility disorder Rule out gastric outlet obstruction or pyloric channel stenosis Plan N.p.o. midnight tonight except meds Fiberoptic esophagogastroduodenoscopy with possible biopsy possible therapeutic intervention under intravenous moderate sedation Informed consent obtained and scheduled for tomorrow Other medical problems include IDDM on insulin pump Peripheral neuropathy status post stenting Coronary artery disease status post PTCA Vertebral disc prolapse on Percocet Hypothyroidism Peripheral neuropathy BPH Thank you very much for the opportunity to participate in the care of this patient Time Spent With Patient Time: Total time spent is greater than 50% in coordination of care (as documented) at patient's floor/unit and/or counseling patient:
[2025-03-29] VITALS: BP 131/80; PULSE 80; PULSE 82; RESP 20; TEMP 36.4; O2SAT 97
[2025-03-29] MEDS: METOCLOPRAMIDE INJ 5 MG/ML VIAL 2 ML 10 MG IVP ×3 (01:15→11:35)
[2025-03-29 04:00] VITALS: BP 122/73; PULSE 73; PULSE 87; RESP 19; TEMP 36.6; O2SAT 99
[2025-03-29] MEDS: PROCHLORPERAZINE MALEATE 5 MG TABLET PO ×2 (05:02→13:46)
[2025-03-29] MEDS: LEVOTHYROXINE SODIUM 125 MCG TABLET PO (05:02)
--- NOTE | 2025-03-29 05:10 | PC.NURSE ---
called Dr. Clements regarding patient feeling nauseous, having increased thirst, pt requested blood sugar check, patient's BG is 304, new orders received.
[2025-03-29] MEDS: INSULIN LISPRO (AdmeLOG) 1 UNIT/0.01 ML UNIT 5 UNIT SC ×3 (05:33→11:35)
[2025-03-29 05:37] LABS: Basophils % (Auto) 1 % (0-2.5); Eosinophils # (Auto) 0.4 Thou/mm3 (0.0-0.5); Eosinophils % (Auto) 7 % (0-10); Hematocrit 39.1 % (41.0-53.0); Hemoglobin 13.5 g/dL (13.5-16.0); Immature Granulocytes % (Auto) 2 % (0-0); Lymphocytes # (Auto) 1.8 Thou/mm3 (1.0-4.8); Lymphocytes % (Auto) 35 % (10-50); Mean Corpuscular HGB Conc 34.5 g/dl (31.0-37.0); Mean Corpuscular Hemoglobin 31.3 pg (25.0-35.0); Mean Corpuscular Volume 91 fL (80-100); Monocytes # (Auto) 0.8 Thou/mm3 (0.0-0.8); Monocytes % (Auto) 16 % (0-12); Neutrophils % (Auto) 39 % (37-80); Nucleated Red Blood Cell % 0 /100 WBC (0); Platelet Count 198 Thou/mm3 (140-440); RDW Standard Deviation 45.2 fL (35.1-43.9); Red Blood Count 4.31 Miln/mm3 (4.50-5.90); White Blood Count 5.1 Thou/mm3 (3.8-10.6)
[2025-03-29 06:00] VITALS: BMI 23.6
[2025-03-29 06:11] LABS: Alanine Aminotransferase 13 U/L (10-49); Albumin, Serum 3.3 gm/dL (3.4-4.8); Albumin/Globulin Ratio 1.9 (1.2-2.2); Alkaline Phosphatase 63 U/L (46-116); Anion Gap 12 (7-16); BUN/Creatinine Ratio 16 Ratio (12-20); Bilirubin,Total 0.5 mg/dL (0.3-1.2); Blood Urea Nitrogen 13 mg/dL (9-23); Calcium 8.3 mg/dL (8.3-10.6); Calcium (Corrected) 8.9 mg/dL (8.5-10.1); Carbon Dioxide 28.4 mMol/L (20.0-31.0); Chloride 96 mMol/L (98-107); Creatinine (Component) 0.8 mg/dL (0.6-1.3); Estimated Creatinine Clearance 77.5 mL/min (>60); Globulin 1.7 gm/dL (2.3-3.5); Glucose 318 mg/dL (74-106); Osmolality,Calculated 284 (275-295); Phosphorous 3.2 mg/dL (2.4-5.1); Potassium 4.2 mMol/L (3.4-5.1); Sodium 136 mMol/L (136-145); eGFR > 60 See Note
[2025-03-29] MEDS: INSULIN LISPRO (AdmeLOG) 1 UNIT/0.01 ML UNIT SC ×2 (07:25→11:36)
[2025-03-29 08:00] VITALS: BP 158/82; PULSE 70; PULSE 84; RESP 18; TEMP 36.1; O2SAT 96
[2025-03-29] MEDS: DULoxetine HCL 30 MG CAPSULE 60 MG PO (08:27)
[2025-03-29] MEDS: ENOXAPARIN SOD INJ 40 MG/0.4 ML SYRINGE SC (08:27)
[2025-03-29] MEDS: PANTOPRAZOLE INJ 40 MG VIAL IVP (08:28)
[2025-03-29] MEDS: CLOPIDOGREL BISULFATE 75 MG TABLET PO (08:28)
[2025-03-29] MEDS: SENNA TABLET 1 TAB PO (08:28)
[2025-03-29] MEDS: INSULIN GLARGINE (Lantus) 5 UNIT/0.05 ML (PER 5 UNITS) 15 UNIT SC (08:28)
[2025-03-29] MEDS: TAMSULOSIN HCL 0.4 MG CAPSULE PO (08:28)
[2025-03-29] MEDS: ONDANSETRON INJ 2 MG/ML INJ 2 ML 4 MG IVP (08:29)
--- NOTE | 2025-03-29 08:32 | EKG_ITS ---
[facility] Test Date: 2025-03-29 Pat Name: ALEX FLEMING [facility] Gender: Male Radio Journalist: HARI : 1955 Requested By: Demetri Pina Order Number: [id number] Reading MD: Demetri Pina Measurements Intervals [place] Rate: 93 P: 24 HI: 139 QRS: 35 QRSD: 98 T: 31 QT: 347 QTc: 432 Interpretive Statements SINUS RHYTHM WITH OCCASIONAL ECTOPIC PREMATURE COMPLEXES Compared to ECG 03/28/2025 09:27:14 No significant changes /store/S0/[id number].pdf
[2025-03-29 08:50] VITALS: PULSE 86; RESP 16; O2SAT 95
[2025-03-29 09:41] VITALS: BMI 23.6
--- NOTE | 2025-03-29 09:55 | PCS.ST ---
Follow up note: Possible d/c home if pt does not have any more vomiting.
[2025-03-29 12:00] VITALS: BP 152/77; PULSE 88; PULSE 98; RESP 16; TEMP 36.1; O2SAT 93
--- NOTE | 2025-03-29 13:09 | PC.NURSE ---
Received a call from Dr Collins, requesting a BSGT from pt. now. BSGT = 258, informed.
[2025-03-29] MEDS: INSULIN LISPRO (AdmeLOG) 1 UNIT/0.01 ML UNIT 10 UNIT SC (13:46)
--- NOTE | 2025-03-29 14:25 | ESDS_ITS ---
Planned Discharge Date 03/29/25 DS: Providers Provider Date of admission: 03/22/25 22:06 Primary care physician: Physician No Primary/Family Admitting Provider: Raymond Morris MD Attending Provider on Admission: Demetri Pina MD Consults: 03/25/25 18:06 Consult to Gastroenterology Routine Comment: Consulting Provider: Jsoé Denson 03/28/25 15:56 Referral Registered Dietitian Routine Comment: poor appetite n/v Attending Provider on DC: Demetri Pina MD Discharging Provider: Demetri Pina MD Anticipated date of discharge: 03/29/25 DS: Diagnosis Problem List Completed Was Problem List Reviewed/Reconciled?: Yes Hospital Course Hospital Course Hospital course: Hospital Course: Mr. Crespo is a 69-year-old male with past medical history of IDDM (on insulin pump), severe PAD s/p stents, CAD s/p stents, peripheral neuropathy, hypothyroidism, BPH, vertebral disc prolapse (on Percocet), and gastroparesis was admitted to hospital on 03/22/2025 for sepsis in the setting of endorgan damage with ADRIA likely secondary to GI infection. Patient's CT abdomen pelvis shows atelectasis versus right base, patient was found to have hyperglycemia on admission, overnight patient had high anion gap metabolic acidosis in setting of DKA, was upgraded to ICU for management with insulin drip and was eventually downgraded to floors. Patient continued to have significant intractable nausea and vomiting, patient was given IV antibiotics, IV fluids. Patient does have underlying diabetic gastroparesis for which he received IV Reglan, eventually with the progression of hospital course patient's had, resolved, intractable nausea and vomiting improved with medication. Further plan is to discharge patient home on Reglan 10 mg p.o. every 8 hours and prochlorperazine as needed for nausea and vomiting. Patient to continue insulin pump outpatient. Patient to follow-up with primary care physician in 1 week. Patient is stable for discharge Discharge Recommendations -Follow up with your primary care within 1 week -Continue your insulin pump on automatic mode as soon as you get home -You have been prescribed prochlorperazine as needed for nausea and vomiting -Take all your medications as prescribed -Please return to the Ed if your symptoms return or worsen Hospitalization Diagnosis #Intractable nausea and vomiting #Sepsis, resolved #Diarrhea- resolved #High anion gap metabolic acidosis in the setting of - resolved #DKA- resolved #Lactic acidosis- resolved #ADRIA-resolved #Hypoglycemia- resolved #Hx of IDDM (has insulin pump) #NSTEMI likely type II - improving #Severe PAD s/p stents #CAD s/p stents #Hypothyroidism #Vertebral disc prolapse #Gastroparesis #Peripheral neuropathy #BPH Assessment and plan discussed with my attending physician Dr. Silvana Collins (PGY-1)- Internal medicine resident Status at Discharge Overall status at discharge: patient is progressing back to baseline Time Spent with Patient Time attestation: Total time spent providing and/or coordinating discharge services: Time spent: Less than 30 minutes Quality: Stroke Pt Provided Written Stroke Discharge Instructions: No Exam Vital Signs Temp Pulse Resp BP Pulse Ox O2 Del Method O2 Flow Rate 97.0 F 88 16 152/77 H 93 L Nasal Cannula 2 03/29/25 12:00 03/29/25 12:00 03/29/25 12:00 03/29/25 12:00 03/29/25 12:00 03/29/25 12:00 03/29/25 12:00 FiO2 3 03/24/25 12:00 Narrative Exam GENERAL: Awake, alert and oriented. Nauseous HEENT: Normocephalic, atraumatic and nontender.? NECK: Supple without adenopathy. Trachea midline, no JVD.? CHEST: RRR, S1 & 2 normal insensity. Nontender on palpation, no deformity and no crepitus. LUNGS: Lung sounds are clear.? No wheezing, rales or ronchi.? No intercostal subcostal retraction. Room air ABDOMEN: Soft,symmetric , nontender, no guarding or rebound tenderness. No abnormal masses palpated Bowel sounds are normoactive in all 4 quadrants. EXTREMITIES: Nontender.? No pitting edema.? No cyanosis.? Patient is able to move all 4 extremities. SKIN: No rashes noted. NEURO:? Cranial nerves intact.? There is no focalization.? GCS is 15. Discharge Plan Plan Patient Disposition: HOME (Self Care) Patient condition on transfer: Stable Care Plan Goals: -Follow up with your primary care within 1 week -Continue your insulin pump on automatic mode as soon as you get home -You have been prescribed prochlorperazine as needed for nausea and vomiting -Take all your medications as prescribed -Please return to the Ed if your symptoms return or worsen Prescriptions/Referrals Prescriptions/Med Rec: New prochlorperazine maleate 5 mg Tablet 5 mg PO Q8H PRN (Reason: nausea and vomiting) 30 Days Qty: 60 0RF Continued duloxetine [Cymbalta] 60 MG capsule,delayed release(DR/EC) 60 mg PO DAILY Qty: 0 pregabalin [Lyrica] 200 MG capsule 200 mg PO BID Qty: 60 cilostazol 100 MG tablet 100 mg PO BID Qty: 0 lovastatin 40 mg Tablet 40 mg PO HS Patient Comments: FROM PT'S DISCHARGE INSTRUCTIONS, FROM 09/26/24. PT STATES THAT HE IS ON THE SAME MEDS levothyroxine 125 mcg Capsule 125 mcg PO QDAY tamsulosin 0.4 mg Capsule 0.4 mg PO QDAY clopidogrel 75 mg Tablet 75 mg PO QDAY omeprazole 40 mg capsule,delayed release(DR/EC) 40 mg PO QDAY insulin regular human 100 unit/mL Cartridge 20 unit SUBCUT QID Rx Instructions: 20 UNITS SUBQ FOUR TIMES A DAY WITH PUMP ferrous sulfate 325 mg (65 mg iron) Tablet 325 mg PO QDAY ergocalciferol (vitamin D2) [Vitamin D2] 1,250 mcg (50,000 unit) Capsule 1,250 mcg PO QWEEK Linzess 290 mcg Capsule 290 mcg PO AC oxycodone-acetaminophen 7.5-325 mg tablet 1 tab PO QID PRN (Reason: Pain) Patient Comments: TAKE ONE TABLET BY MOUTH FOUR TIMES DAILY FOR PAIN guaifenesin [Chest Congestion Relief] 400 mg tablet 400 mg PO Q4H PRN (Reason: cough) metformin 500 mg tablet 500 mg PO BIDAC Patient Comments: TAKE ONE TABLET BY MOUTH TWICE DAILY WITH FOOD FOR DIABETES dapagliflozin propanediol [Farxiga] 5 mg tablet 5 mg PO QDAY Patient Comments: TAKE 1 TABLET BY MOUTH EVERY DAY (DME) pen needle, diabetic 29 gauge x 3/8 needle See Rx Instructions .Route Qty: 100 0RF Rx Instructions: As directed Changed metoclopramide HCl 10 mg Tablet 10 mg PO Q8H 30 Days Qty: 90 0RF Discontinued insulin lispro [Admelog SoloStar U-100 Insulin] 100 unit/mL insulin pen 1 sliding scale dose subcut USEASDIRECTD Qty: 15 0RF Rx Instructions: Less than 70Hold all insulin and initiate hypoglycemia protocol. 70-150 0 units 151-174 2 units 175-199 4 units 200-224 6 units 225-249 8 units 250-274 10 units 275-299 12 units Greater than 300Administer 14 units and call the provider. Referrals: No Primary/Family,Physician [Primary Care Provider] - Patient/Caregiver Discharge Instructions Discharge Activity: activity as tolerated Education Materials: Sepsis, ED Diabetes- Overview, ED Vomiting and Diarrhea ... Print Language: [place] Stand Alone Forms: Amy Award Info., Patient Portal Info Letter Discharge Order Discharge Orders: Discharge (Routine); Ordered 03/29/25 Ordered By: Layton Collins Quality Discharge Quality Measures VTE prophylaxis Attestestation MD Attestation I attest that I was physically present for the evaluation, physical examination, lab and imaging review of the patient with the residents. I discussed the case with the residents and agree with the findings and plans of care as documented above. Demetri Pina MD
--- NOTE | 2025-03-29 22:58 | ESPR_ITS ---
Documentation for date of: 03/29/25 Subjective Subjective Interval history: Late entry for the note Case discussed with internal medicine team Okay to discharge patient on PPI Exam Vital Signs Temp Pulse Resp BP Pulse Ox O2 Del Method O2 Flow Rate 97.0 F 88 16 152/77 H 93 L Nasal Cannula 2 03/29/25 12:00 03/29/25 12:00 03/29/25 12:00 03/29/25 12:00 03/29/25 12:00 03/29/25 12:00 03/29/25 12:00 FiO2 3 03/24/25 12:00 Objective Labs 03/29/25 04:30 03/29/25 04:30 Labs: Laboratory Results - last 24 hr 03/29/25 04:30 WBC 5.1 RBC 4.31 L Hgb 13.5 Hct 39.1 L MCV 91 MCH 31.3 MCHC 34.5 RDW Std Deviation 45.2 H Plt Count 198 Neut % (Auto) 39 Lymph % (Auto) 35 [place] % (Auto) 16 H Eos % (Auto) 7 Baso % (Auto) 1 Neut # (Auto) 2.0 Lymph # (Auto) 1.8 [place] # (Auto) 0.8 Eos # (Auto) 0.4 Baso # (Auto) 0.0 Immature Gran # (Auto) 0.10 H Absolute Nucleated RBC 0.00 Immature Gran % 2 H Nucleated RBC % 0 Sodium 136 Potassium 4.2 Chloride 96 L Carbon Dioxide 28.4 Anion Gap 12 BUN 13 Creatinine 0.8 Estim Creat Clear Calc 77.5 eGFR > 60 BUN/Creatinine Ratio 16 Glucose 318 H D Calculated Osmolality 284 Calcium 8.3 Corrected Calcium 8.9 Phosphorus 3.2 Magnesium 2.0 Total Bilirubin 0.5 ALT 13 Alkaline Phosphatase 63 Total Protein 5.0 L Albumin 3.3 L Globulin 1.7 L Albumin/Globulin Ratio 1.9 Impressions Impression: Esophageal ulcers Stable hemoglobin hematocrit Okay to discharge patient on PPI to be followed by the PCP ABG Interpretation ABG results: 03/23/25 03/23/25 03/24/25 10:42 13:39 07:46 VBG pH 7.37 7.37 7.44 VBG pCO2 25 L 30 L 27 L VBG pO2 43 43 65 H D VBG Base Excess -9 L -6 L -5 L Assessment & Plan A&P Narrative # Pain abdomen # Nausea vomiting most likely secondary to autonomic neuropathy caused by the longstanding diabetes mellitus leading to gastric motility disorder Rule out gastric outlet obstruction or pyloric channel stenosis Plan N.p.o. midnight tonight except meds Fiberoptic esophagogastroduodenoscopy with possible biopsy possible therapeutic intervention under intravenous moderate sedation Informed consent obtained and scheduled for tomorrow Other medical problems include IDDM on insulin pump Peripheral neuropathy status post stenting Coronary artery disease status post PTCA Vertebral disc prolapse on Percocet Hypothyroidism Peripheral neuropathy BPH Thank you very much for the opportunity to participate in the care of this patient Time Spent With Patient Time: Total time spent is greater than 50% in coordination of care (as documented) at patient's floor/unit and/or counseling patient:
== END 2025-03-29 15:09 | disposition home or self-care (01) | DRG 871 ==
LOC: SERX 21:31 → SERHOLD 03-23 06:04 → S2SX 03-23 15:09 → S3NX 03-25 10:35
PROVIDERS: Nurse Practitioner Family; Specialist; Student in an Organized Health Care Education/Training Program; Emergency Provider Emergency Medicine; Visit Provider Student in an Organized Health Care Education/Training Program
PROC: (CPT 43239; principal; 2025-03-26 15:00)
DX: A41.9 Sepsis, unspecified organism (principal); E10.10 Type 1 diabetes mellitus with ketoacidosis without coma; I21.A1 Myocardial infarction type 2; J18.9 Pneumonia, unspecified organism; N17.9 Acute kidney failure, unspecified; K22.10 Ulcer of esophagus without bleeding; R65.20 Severe sepsis without septic shock; N40.0 Benign prostatic hyperplasia without lower urinary tract symptoms; E03.9 Hypothyroidism, unspecified; Z96.41 Presence of insulin pump (external) (internal); Z95.5 Presence of coronary angioplasty implant and graft; I25.10 Atherosclerotic heart disease of native coronary artery without angina pectoris; E87.6 Hypokalemia; F12.90 Cannabis use, unspecified, uncomplicated; K31.84 Gastroparesis; G89.29 Other chronic pain; M54.50 Low back pain, unspecified; E10.42 Type 1 diabetes mellitus with diabetic polyneuropathy; E10.43 Type 1 diabetes mellitus with diabetic autonomic (poly)neuropathy; E10.649 Type 1 diabetes mellitus with hypoglycemia without coma; E83.39 Other disorders of phosphorus metabolism; E83.51 Hypocalcemia; E86.0 Dehydration; F17.200 Nicotine dependence, unspecified, uncomplicated; Z79.899 Other long term (current) drug therapy; K29.70 Gastritis, unspecified, without bleeding; K52.9 Noninfective gastroenteritis and colitis, unspecified; Z79.02 Long term (current) use of antithrombotics/antiplatelets; I10 Essential (primary) hypertension; D64.9 Anemia, unspecified
CPT/HCPCS: 36415; 71046; 74176; 80053; 80069; 80307; 81001; 82010; 82803; 83605; 83735; 83880; 84100; 84132; 84145; 84439; 84484; 85025; 85610; 85730; 87040; 87493; 87811; 93005; 93225; 96361; 96365; 96367; 96372; 96375; 99291; A4217; J0696; J0744; J1200; J1644; J1650; J1815; J1885; J2250; J2405; J2470; J2765; J3010; J3475; J3480; J3490; J7030; J7120; J7121; J7999; Q0164; A9270; J1836